=== PATIENT | female | born 1985 ===

== ENCOUNTER 2024-05-02 00:50 | Emergency (ER) | payer SELFPAY ==
--- NOTE | ~2024-05-02 | CT_ITS ---
EXAMINATION: CT abdomen pelvis wo con DATE: 05/02/2024 03:06 INDICATION: Left lower quadrant abdominal pain. TECHNIQUE: Computed tomography (CT) of the abdomen and pelvis was performed without intravenous contr ast. Automated exposure control and iterative reconstruction technique were employed. The dose-length product was 784.20 mGy-cm. COMPARISON: None FINDINGS: Lung bases are clear. Heart size is normal. No pericardial or pleural effusion. Cholecystectomy clips the gallbladder fossa. Liver, spleen, pancreas and bilateral adrenal glands are normal. 4 mm obstruc ting stone at the left ureterovesicular junction with mild left hydroureteronephrosis. Right kidney i s normal. No other urolithiasis or right-sided hydronephrosis. Bladder is normal. Likely bilateral tu bal ligation rings between the normal uterus and normal bilateral ovaries. Bowels including the appen rita are normal. No free intraperitoneal gas or fluid. No pathologically enlarged abdominal or pelvic lymphadenopathy. Mild thoracic and lumbar spondylosis. IMPRESSION: 1. Obstructing 4 mm stone at the left ureterovesicular junction with mild left hydroureteronephrosis. Reviewed, dictated and finalized at location A. T HARVEST WORKER
[2024-05-02 01:10] VITALS: BP 141/82; PULSE 113; RESP 20; TEMP 37.1; O2SAT 98
[2024-05-02 01:35] LABS: BEDSIDEPREGUCG Negative (Negative)
[2024-05-02 01:42] LABS: Add Urine Microscopic? NO; Appearance Urine Clear (Clear); Bilirubin Urine Negative (Negative); Blood Urine Negative (Negative); Color Urine Yellow (Yellow); Glucose Urine UA Negative (Negative); Ketones Urine Trace mg/dL (Negative); Leukocyte Esterase Ur Negative LEU/UL (Negative); Nitrate Urine Negative (Negative); Protein Urine Negative (Negative); Specific Grav Ur 1.019 (1.001-1.035); Urobilinogen Urine 0.2 mg/dL (<2.0); pH Urine 5.5 (5.0-9.0)
[2024-05-02 01:44] LABS: Basophils Percent Auto 0.4 % (0.2-1.2); Eosinophils Absolute Auto 0.3 K/mm3 (0-0.3); Eosinophils Percent Auto 2.6 % (0-4.4); Hematocrit 40.5 % (37.0-47.0); Hemoglobin 13.8 g/dL (12.0-15.0); Immature Granulocyte Absolute 0.02 K/mm3 (0.00-0.031); Immature Granulocyte Percent A 0.2 % (0-0.5); Lymphocytes Absolute Auto 3.27 K/mm3 (0.9-3.2); Lymphocytes Percent Auto 32.7 % (18.3-44.2); Mean Corpuscular HGB Conc 34.1 g/dl (32-36); Mean Corpuscular Hemoglobin 30.9 pg (26-34); Mean Corpuscular Volume 90.8 fl (80-100); Mean Platelet Volume 11.5 fl (7.4-10.4); Monocytes Absolute Auto 0.8 K/mm3 (0.1-0.6); Monocytes Percent Auto 7.5 % (2.6-8.5); Neutrophils Absolute Auto 5.7 K/mm3 (1.3-6.7); Neutrophils Percent Auto 56.6 % (45.5-73.1); Platelet Count Result 282 k/mm3 (150-375); Red Blood Count 4.46 M/mm3 (4.2-5.4); Red Cell Distribution Width 12.3 % (11.5-14.5)
[2024-05-02 01:51] LABS: Alanine Aminotransferase 24 U/L (6-35); Albumin Level 4.5 g/dL (3.5-5.1); Alkaline Phosphatase 77 U/L (38-126); Anion Gap 4 mmol/L (4-12); Aspartate Amino Transferase 22 U/L (14-36); Bilirubin,Total 0.5 mg/dL (0.2-1.3); Blood Urea Nitrogen 9 mg/dL (7-17); Calcium 9.6 mg/dL (8.4-10.2); Carbon Dioxide 29 mmol/L (22-30); Chloride 107 mmol/L (98-107); Estimated CRCL calculation 95 ml/min; Estimated Glomerular Filt Rate > 60; Glucose 110 mg/dL (65-110); Lipase 127 U/L (23-300); Sodium 140 mmol/L (137-145)
[2024-05-02] MEDS: HYDROmorphone HCL INJ (*CRX) 1 MG/ML SYR 0.5 MG IV PUSH (03:13)
[2024-05-02] MEDS: ONDANSETRON INJ 4 MG/2 ML VIAL IV PUSH (03:13)
[2024-05-02] MEDS: SODIUM CHLORIDE 0.9% IV 2,000 ML 999 ML IV CONT (03:13)
[2024-05-02] MEDS: HYDROmorphone HCL INJ (*CRX) 1 MG/ML SYR IV PUSH (06:20)
--- NOTE | 2024-05-02 06:21 | ED_ITS ---
HPI - General Adult General Chief complaint: Abdominal Pain Stated complaint: LLQ abd pain Time Seen by Provider: 05/02/24 01:28 History of Present Illness HPI narrative: This is a 38-year-old female with history of kidney stones presenting ED with left-sided abdominal pain. The pain is sharp pain radiating down to her vaginal area. It is intermittent. Says this feels similar when she has had kidney stones in the past. Patient feels like she has to urinate but has difficulty initiating his stream. She has no pain on urination or increased frequency. Related Data Allergies Allergy/AdvReac Type Severity Reaction Status Date / Time No Known Allergies Allergy Verified 05/02/24 00:50 [facility] Surgical History Surgical History History of biliary duct stent placement and migratory stent placement in the pancreatic duct 02/12/2022 History of cholecystectomy Laparoscopic cholecystectomy 02/05/2022 History of extraction of renal calculus Extraction of 8 ureteral stones, left stent placement 10/2021 History of removal of ureteral stent 09/2021 History of D&C 2013 History of cardiac radiofrequency ablation 1997 Family History Family History Father Diabetes mellitus Malignant neoplasm of prostate Throat cancer Mother Breast cancer Grandparent Bile duct cancer Grandparent Stomach cancer Grandparent Leukemia Grandparent Stomach cancer Social History Social History Smoking status: Former smoker Additional smoking assessment comments: Had smoked 1-3 cigarettes per day for 10 years Alcohol intake: former Alcohol use details: One drink rarely- perhaps one every 6 months Substance use: never Substance use type: does not use Do You Feel Safe in your Home?: Yes Lack of Transportation: No Lack of Food: Never True Current Housing: I Have Housing Concerned About Future Housing: No Difficulty Paying Gas/Electric Bills: No Difficulty Paying for Meds: No Currently Unemployed: No Education: Bachelor's Degree Difficulty w/ Childcare or Family Care: No Living arrangements: with family Occupation/Education: occupation 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 Head: atraumatic. EYES: EOMI, NOSE: Atraumatic NECK: Trachea midline RESPIRATORY: No increased rate of breathing clear to auscultation CARDIOVASCULAR: RRR, ABDOMINAL: Non-distended soft nontender no guarding or rebound, no CVA tenderness MUSCULOSKELETAl: No obvious deformities NEURO: Alert. Moving 4/4 extremities SKIN:: Warm, dry. Normal color PSYCHIATRIC: Normal affect Course Vital Signs Vital signs: Vital Signs Temperature 98.7 F 05/02/24 01:10 Pulse Rate 113 H 05/02/24 01:10 Respiratory Rate 05/02/24 01:10 Blood Pressure 141/82 H 05/02/24 01:10 Pulse Oximetry 98 05/02/24 01:10 Oxygen Delivery Room Air 05/02/24 01:10 Temperature 98.7 F 05/02/24 01:10 Pulse Rate 113 H 05/02/24 01:10 Respiratory Rate 05/02/24 01:10 Blood Pressure 141/82 H 05/02/24 01:10 Pulse Oximetry 98 05/02/24 01:10 Oxygen Delivery Room Air 05/02/24 01:10 Medical Decision Making MDM Narrative Medical decision making narrative: -Course: 30-year-old female presenting with left-sided abdominal pain. Found to have a 4 mm stone at the UVJ. No evidence of infection. Pain controlled in the ED patient will be discharged with appropriate pain medications urology follow-up. Given return precautions -DDX includes but is not limited to: kidney stone, kidney infection muscle strain colitis, diverticulitis -Co-morbidities complicating care: History of kidney stones -Independent interpretation of studies: laboratory studies unremarkable. -Interventions: 2L normal saline, 0.5 mg -> 1.0 mg Dilaudid, zofran, Toradol -Shared decision making / Disposition: discharge Vital Signs Vital Signs: Vital Signs Temperature 98.7 F 05/02/24 01:10 Pulse Rate 113 H 05/02/24 01:10 Respiratory Rate 05/02/24 01:10 Blood Pressure 141/82 H 05/02/24 01:10 Pulse Oximetry 98 05/02/24 01:10 Oxygen Delivery Room Air 05/02/24 01:10 Temperature 98.7 F 05/02/24 01:10 Pulse Rate 113 H 05/02/24 01:10 Respiratory Rate 20 05/02/24 01:10 Blood Pressure 141/82 H 05/02/24 01:10 Pulse Oximetry 98 05/02/24 01:10 Oxygen Delivery Room Air 05/02/24 01:10 Lab Data 05/02/24 01:33 05/02/24 01:33 Labs: Lab Results 05/02/24 05/02/24 Range/Units 01:32 01:33 WBC 10.0 (4.5-10.0) K/mm3 RBC 4.46 (4.2-5.4) M/mm3 Hgb 13.8 (12.0-15.0) g/dL Hct 40.5 (37.0-47.0) % MCV 90.8 (80-100) fl MCH 30.9 (26-34) pg MCHC 34.1 (32-36) g/dl RDW 12.3 (11.5-14.5) % Plt Count 282 (150-375) k/mm3 MPV 11.5 H (7.4-10.4) fl Immature Gran % (Auto) 0.2 (0-0.5) % Neut % (Auto) 56.6 (45.5-73.1) % Lymph % (Auto) 32.7 (18.3-44.2) % [place]aufman % (Auto) 7.5 (2.6-8.5) % Eos % (Auto) 2.6 (0-4.4) % Baso % (Auto) 0.4 (0.2-1.2) % Lymph # (Auto) 3.27 H (0.9-3.2) K/mm3 Kaufman # (Auto) 0.8 H (0.1-0.6) K/mm3 Eos # (Auto) 0.3 (0-0.3) K/mm3 Baso # (Auto) 0.0 (0.0-0.1) K/mm3 Abs Immat Gran (auto) 0.02 (0.00-0.031) K/mm3 Absolute Neuts (auto) 5.7 (1.3-6.7) K/mm3 Absolute Nucleated RBC 0.000 (0.0-0.012) K/mm3 Nucleated RBC % 0.0 (0.0-0.2) % Sodium 140 (137-145) mmol/L Potassium 4.0 (3.4-5.0) mmol/L Chloride 107 (98-107) mmol/L Carbon Dioxide 29 (22-30) mmol/L Anion Gap 4 (4-12) mmol/L BUN 9 (7-17) mg/dL Creatinine 0.80 (0.7-1.0) mg/dL Estim Creat Clear Calc 95 ml/min Estimated GFR > 60 (59 - ) Glucose 110 (65-110) mg/dL Calcium 9.6 (8.4-10.2) mg/dL Total Bilirubin 0.5 (0.2-1.3) mg/dL AST 22 (14-36) U/L ALT 24 (6-35) U/L Alkaline Phosphatase 77 (38-126) U/L Total Protein 7.0 (6.3-8.2) g/dL Albumin 4.5 (3.5-5.1) g/dL Lipase 127 (23-300) U/L Urine Color Yellow (Yellow) Urine Appearance Clear (Clear) Urine pH 5.5 (5.0-9.0) Ur Specific [place] 1.019 (1.001-1.035) Urine Protein Negative (Negative) mg/dL Urine Glucose (UA) Negative (Negative) mg/dL Urine Ketones Trace H (Negative) mg/dL Ur Blood (Man) Negative (Negative) Urine Nitrate Negative (Negative) Urine Bilirubin Negative (Negative) Urine Urobilinogen 0.2 (<2.0) mg/dL Leukocyte Esterase Rfl Negative (Negative) ANKIT/UL POC Urine HCG, Qual Negative (Negative) Discharge Plan Discharge Clinical Impression: Kidney stone Patient Disposition: Home, Self-Care Condition: Stable Instructions: Antibiotic Form, Kidney Stones (ED) Additional Instructions: You were seen in the emergency department for a kidney stone. Please use Motrin/Tylenol for pain. Use oxycodone for breakthrough pain. Use Zofran for nausea. Please follow-up with your Urologist for further management. Please return if you develop severe pain, fevers or intractable nausea and vomiting. Patient Language: Greek Prescriptions: New ibuprofen 800 mg tablet 800 mg PO TID PRN (Reason: pain) 7 Days Qty: 21 0RF acetaminophen 500 mg tablet 1,000 mg PO TID PRN (Reason: edith) 7 Days Qty: 42 0RF tamsulosin [Flomax] 0.4 mg capsule 0.4 mg PO DAILY Qty: 30 0RF oxycodone 5 mg tablet 5 mg PO Q4H PRN (Reason: pain) Qty: 14 0RF ondansetron 4 mg tablet,disintegrating 4 mg PO Q8H PRN (Reason: nausea and vomiting) Qty: 30 0RF No Action diclofenac sodium 75 mg tablet,delayed release (DR/EC) 75 mg PO BID Qty: 30 0RF ferrous sulfate [Feosol] 325 mg (65 mg iron) tablet 325 mg PO DAILY Qty: 90 3RF Follow-up/Referrals: Carol Stafford MD [Physician] - 1 Week (Kidney stone) Thor Fajardo MD [Primary Care Provider] -
[2024-05-02 06:22] VITALS: BP 109/73; PULSE 71; RESP 18; O2SAT 98
[2024-05-02] MEDS: KETOROLAC 15 MG/ML VIAL (*BKC) IV PUSH (07:22)
[2024-05-02 07:35] VITALS: BP 102/62; PULSE 64; RESP 18; O2SAT 100
--- OUTSIDE RECORDS SUMMARY | 2024-05-09 00:49 | XMS_ITS | Encounter Summary ---
Author Organization [facility] Healthcare Address [address] [place] [address] Care Team Providers Care Payroll Analyst Name Role Phone Thor Fajardo MD Primary Care Provider [phone] Sebastian Soto MD Unavailable [phone] Ena Rose MD Unavailable [phone] Reason for Referral * Diagnostic Imaging (Routine) - Closed Specialty Diagnoses / Procedures Referred By Joselin drummond Referred To Contact Diagnoses BRCA2 gene mutation positive Procedures Diagnostic Mammogram Bilateral W Ena Quan MD [address] [address] Phone: tel: fax: [facility] [address] [place] [address] Referral ID Status Reason Start Date Expiration Date Visits Re quested Visits Authorized [id number] Closed 08/17/2022 09/16/2023 1 1 CARDIOGRAPH TECHNICIAN Reason for Visit * Diagnostic Imaging (Routine) - Closed Specialty Diagnoses / Procedures Referred By Joselin drummond Referred To Contact Diagnoses BRCA2 gene mutation positive Procedures Diagnostic Mammogram Bilateral W Ena Quan MD [address] [address] Phone: tel: fax: [facility] [address] [place] [address] Referral ID Status Reason Start Date Expiration Date Visits Re quested Visits Authorized [id number] Closed 08/17/2022 09/16/2023 1 1 Encounter Details Date Type Department Care Team (Latest Contact Info) Description 06/20/2023 9:42 AM ECHOCARDIOGRAPH TECHNICIAN - 06/20/2023 11:59 PM ECHOCARDIOGRAPH TECHNICIAN Hospital Encounter [facility] - Imaging [address] [facility] [facility] [address] [place] [address] BRCA2 gene mutation positive Discharge Disposition: Discharge to home or self care Social History Tobacco Use Types Packs/Day Years Used Date Smoking Tobacco: Former Cigarettes 0.1 10 0 10/07/2009 - 10/08/2019 Smokeless Tobacco: Never Social Connection and Isolat ion Panel [NHANES] Answer Date Recorded In a typical week, how many times do you talk on the phone with family, friends, or neighbors? More than three times a week 02/12/2022 How often do you get togethe r with friends or relatives? Twice a week 02/12/2022 How often do you attend chur ch or church services? Never 02/12/2022 Do you belong to any clubs o r organizations such as mormonism groups, unions, fraternal or athletic groups, or school groups? No 02/12/2022 How often do you attend meet ings of the clubs or organizations you belong to? Never 02/12/2022 Are you , , di vorced, , never , or living with a partner? 02/12/2022 AUDIT-C Answer Date Recorded Q1: How often do you have a drink containing alc ohol? 2-4 times a month 10/11/2022 Q2: How many drinks containi ng alcohol do you have on a typical day when you are drinking? 1 or 2 10/11/2022 Q3: How often do you have si x or more drinks on one occasion? Never 10/11/2022 Overall Financial Resource Strain (CARDIA) Answe r Date Recorded How hard is it for you to pa y for the very basics like food, housing, medical care, and heating? Not hard at all 02/12/2022 PRAPARE - Transportation Answer Date Re corded In the past 12 months, has l ack of transportation kept you from medical appointments or from getting medications? No 01/30 In the past 12 months, has l ack of transportation kept you from meetings, work, or from getting things needed for daily living? No 02/12/2022 Comments No Sex and Gender Information Value Date Recorded Sex Assigned at Not on file Legal Sex Female 9:50 PM ECHOCARDIOGRAPH TECHNICIAN Gender Identity Not on file Sexual Orientation Not on file documented as of this encounter Medications at Time of Discharge FeroSuL 325 mg (65 mg iron) tablet Take 1 tablet (325 mg total) by mouth daily 04/27/2022 tretinoin (RETIN-A) 0.025 % cream 08/11/2022 documented as of this encounter Discharge Disposition Disposition Code Departure Means Destination Discharge to home or self care documented in this encounter Miscellaneous Notes * Result Encounter Note - Mónica Cao NP - 06/20/2023 12:12 PM ECHOCARDIOGRAPH TECHNICIAN Patient aware of results. Please enter recall for August 2023 - clinical breast exam. BRCA 2 pos CARDIOGRAPH TECHNICIAN documented in this encounter Plan of Treatment Not on file documented as of this encounter Procedures Procedure Name Priority Date/Time Associated Diagnosis Comments DIAGNOSTIC MAMMOGRAM BILATERAL W AINBAL Schedule Routine, Read Routine (OP Routine) 06/20/2023 10:27 AM ECHOCARDIOGRAPH TECHNICIAN BRCA2 gene mutation positive documented in this encounter Results * Diagnostic Mammogram Bilateral W Anibal (06/20/2023 10:27 AM ECHOCARDIOGRAPH TECHNICIAN) Anatomical Region Laterality Modality Breast Bilateral Mammography 06/20/2023 10:3 6 AM ECHOCARDIOGRAPH TECHNICIAN Impressions 06/20/2023 10:36 AM ECHOCARDIOGRAPH TECHNICIAN No mammographic evidence of malignancy. BI-RADS Category 2: Benign Findings Advise continued high-risk screening protocol with breast MRI due in 6 months and bilateral mammogram in 12 months. Findings and recommendations were communicated to the patient. Electronically signed by: Nannette Foreman MD Narrative 06/20/2023 10:36 AM ECHOCARDIOGRAPH TECHNICIAN EXAMINATION/TECHNIQUE: Bilateral Digital diagnostic mammogram including CAD and Digital Breast Tomosynthesis. HISTORY: BRCA2 gene mutation. ??History of benign fibroadenoma left breast 12:00 radian June 2022. COMPARISON: 06/24/2022, 07/01/2022 FINDINGS: ??The breasts are extremely dense, which lowers the sensitivity of mammography. There are no suspicious masses, suspicious microcalcifications, or areas of architectural distortion in either breast. ??There is a butterfly-shaped core biopsy marker in the left upper central breast middle 3rd. us Ena Rose MD IMG MAMMO PROCEDURES Final Result documented in this encounter Visit Diagnoses Diagnosis BRCA2 gene mutation positive documented in this encounter Care Teams Payroll Analyst Relationship Specialty Start Date End Date Thor Fajardo MD [address] [place] [address] PCP - General Family Medicine 12/30/20 Sebastian Soto MD [address] [facility] [address] [place] [address] Consulting Physician Gastroenterology 02/14/22 Ena Rose MD [address] [facility] [address] [place] [address] Consulting Physician Surgical Oncology 08/11/22 documented as of this encounter
--- OUTSIDE RECORDS SUMMARY | 2024-05-09 00:49 | XMS_ITS | Encounter Summary ---
Author Organization [facility] Address [address] [place] [address] Care Team Providers Care Infection Control Nurse Name Role Phone Thor Fajardo MD Primary Care Provider [phone] Sebastian Soto MD Unavailable Ena Rose MD Unavailable Tutu Hermosillo MD Unavailable [phone] Reason for Visit * Reason Onset Date Comments Vomiting 06/20/2023 Responded to an emergency light. Patient was feeling like she was going to faint. Was very pale and diaphoretic. BP was 94/41 at 1015. 101/39 at 1022. Responded well to a cold ice compress and cold washrag to forehead.. Gave patient a soda and had her wait in the nursing bay until feeling better. Upon discharge, BP was 106/53 and gait was steady. Encounter Details Date Type Department Care Team (Late st Contact Info) Description 06/20/2023 Documentation [facility] - Imaging [address] [facility] [address] [place] [address] Clarisse Martinez RN Vomiting (Responded to an emergency light. Patient was feeling like she was going to faint. Was very pale and diaphoretic. BP was 94/41 at 1015. 101/39 at 1022. Responded well to a cold ice compress and cold washrag to forehead.. Gave patient a soda and had her wait in the nursing bay until feeling better. Upon discharge, BP was 106/53 and gait was steady. ) Social History Tobacco Use Types Packs/Day Years [...] 02/12/2022 How often do you attend chur or baptism services? Never 02/12/2022 Do you belong to any clubs o r organizations such as hindu groups, unions, fraternal or athletic groups, or [...] on file Legal Sex Female 9:50 PM BREAKFAST ATTENDANT Gender Identity Not on file Sexual Orientation Not on file documented as of this encounter Plan of Treatment Not on file documented as of this encounter Visit Diagnoses Not on filedocumented in this encounter Care Teams Infection Control Nurse Relationship Specialty Start Date End Date Thor Fajardo MD [address] [place] [address] PCP - General Family Medicine 12/30/20 Sebastian Soto MD [address] [place] [address] Consulting Physician Gastroenterology 02/14/22 Ena Rose MD [address] [facility] [address] [place] [address] Consulting Physician Surgical Oncology 08/11/22 Tutu Hermosillo MD [address] [facility] [address] [place] [address] Consulting Physician Plastic Surgery 12/29/23 documented as of this encounter
--- OUTSIDE RECORDS SUMMARY | 2024-05-09 00:49 | XMS_ITS | Encounter Summary ---
Author Organization [facility] Healthcare Address [address] [place] [address] Care Team Providers Care Home Companion Name Role Phone Thor Fajardo MD Primary Care Provider [phone] Sebastian Soto MD Unavailable Ena Rose MD Unavailable Tutu Hermosillo MD Unavailable [phone] Encounter Details Date Type Department Care Team (Late st Contact Info) Description 02/14/2024 Telephone [facility] [address] [facility] [address] [place] [address] Elena Chavez, RN Social History Tobacco Use Types Packs/Day Years [...] often do you attend chur ch or judaism services? Never 02/12/2022 Do you belong to any clubs o r organizations such as spiritism groups, unions, fraternal or athletic groups, or [...] on file Legal Sex Female 9:50 PM MEDICAL EDUCATOR Gender Identity Not on file Sexual Orientation Not on file documented as of this encounter Miscellaneous Notes * Telephone Encounter - Elena Chavez RN - 02/14/2024 9:15 AM CDT LM for pt wiith results of MRI and need for sono on new finding RT breast SA. She should expect call from [facility] nurse to schedule the sono. * Telephone Encounter - Elena Chavez RN - 02/14/2024 9:12 AM CDT ----- Message from Natalia Cat sent at 02/14/2024 8:17 AM CDT ----- Do you mind calling her since she now has a new mass on her right needing a biopsy? Di ----- Message ----- From: Mónica Cao NP Sent: 02/13/2024 4:13 PM CDT To: Yasmeen Quinn; Natalia Lujan MA; # Please call patients with results and update tracking. Needs MRI 2nd look sonogram on the right side. Please enter orders for Right 2nd look sono documented in this encounter Plan of Treatment Not on file documented as of this encounter Visit Diagnoses Not on filedocumented in this encounter Care Teams Home Companion Relationship Specialty Start Date End Date Thor Fajardo MD [address] [place] [address] PCP - General Family Medicine 12/30/20 Sebastian Soto MD [address] [place] [address] Consulting Physician Gastroenterology 02/14/22 Ena Rose MD [address] [place] [address] Consulting Physician Surgical Oncology 08/11/22 Tutu Hermosillo MD [address] [facility] [address] [place] [address] Consulting Physician Plastic Surgery 12/29/23 documented as of this encounter
--- OUTSIDE RECORDS SUMMARY | 2024-05-09 00:49 | XMS_ITS | Encounter Summary ---
Author Organization [facility] Healthcare Address [address] [place] [address] Care Team Providers Care Leadership Program Associate Name Role Phone Thor Fajardo MD Primary Care Provider [phone] Sebastian Soto MD Unavailable [phone] Ena Rose MD Unavailable [phone] Tutu Hermosillo MD Unavailable [phone] Reason for Referral * MRI/CAT/PET Scan (Routine) - Closed Specialty Diagnoses / Procedures Referred By Joselin drummond Referred To Contact Radiology Diagnoses BRCA2 gene mutation positive Procedures MRI Breast Bilateral W WO Contrast Mónica Cao NP [address] [address] Phone: tel: fax: [id number] [place] [address] Referral ID Status Reason Start Date Expiration Date Visits Re quested Visits Authorized [id number] Closed 01/03/2024 02/01/2025 1 1 Encounter Details Date Type Department Care Team (Late st Contact Info) Description 01/03/2024 Orders Only [facility] [address] [facility] [address] [address] Mónica Cao NP [address] [facility] [address] [place] [address] BRCA2 gene mutation positive (Primary Dx) Social History Tobacco Use Types Packs/Day Years [...] How often do you attend chur or scientologist services? Never 02/12/2022 Do you belong to any clubs o r organizations such as restorationist groups, unions, fraternal or athletic groups, or [...] on file Legal Sex Female 9:50 PM SUPERVISOR TRAVEL TRAILER Gender Identity Not on file Sexual Orientation Not on file documented as of this encounter Plan of Treatment Not on file documented as of this encounter Results * (ABNORMAL) MRI Breast Bilateral W WO Contrast (02/13/2024 12:01 PM CDT) Anatomical Region Laterality Modality Breast Bilateral Magnetic Resonan ce 02/13/2024 2:00 PM CDT Impressions 02/13/2024 2:00 PM CDT No suspicious findings left breast. ??New 7 mm mass in the 10:00 subareolar right breast. ??MRI directed targeted/Second Look ultrasound is recommended. ??If there is no sonographic correlate, MRI guided biopsy should be pursued. OVERALL FINAL ASSESSMENT: BI-RADS ??Category 4: Suspicious-biopsy should be considered Electronically signed by: Charity Oneil M.D. Narrative 02/13/2024 2:00 PM CDT BILATERAL BREAST MRI WITH AND WITHOUT CONTRAST CLINICAL HISTORY: 38-year-old woman with BRCA 2 gene mutation for MRI screening examination. ??History of core needle biopsy of benign fibroadenoma in the left breast at 12:00. COMPARISON:MRI of 12/20/2022. ??Prior mammograms most recent June 2023. TECHNIQUE: Bilateral dynamic breast MRI was performed using a dedicated breast coil. ??Images were obtained prior to and following intravenous administration of 18 mL's of gadoterate meglumine contrast. ??Subtraction images, 3-D and multiplanar reconstructions were performed and reviewed. Nfoshare software was utilized. BREAST COMPOSITION: The breasts are extremely dense, which lowers the sensitivity of mammography. BACKGROUND PARENCHYMAL ENHANCEMENT: Moderate FINDINGS: There is moderate background parenchymal enhancement decreased from the prior examination. Right breast: There is a stable circumscribed nodule in the anterior upper outer right breast. ??There is a new 7 mm mass in the 10:00 subareolar position. ??This is best demonstrated on series 100 image 44 and series 101 image 130. Left breast: There are no suspicious findings to suggest malignancy in the left breast. There are no abnormally enlarged lymph nodes in the visualized portions of the right or left axilla. ??There is a stable incidental 6 mm left internal mammary lymph node. Mónica Bea Kiley MOBILE APPLICATION DEVELOPMENT LEAD IMG MRI PROCEDURES Fi nal Result documented in this encounter Visit Diagnoses Diagnosis BRCA2 gene mutation positive- Primary BRCA2 gene mutation positive documented in this encounter Care Teams Leadership Program Associate Relationship Specialty Start Date End Date Thor Fajardo MD [address] [place] [address] PCP - General Family Medicine 12/30/20 Sebastian Soto MD [address] [facility] [address] [place] [address] Consulting Physician Gastroenterology 02/14/22 Ena Rose MD [address] [facility] [address] [place] [address] Consulting Physician Surgical Oncology 08/11/22 Tutu Hermosillo MD [address] [facility] [facility] [address] [place] [address] Consulting Physician Plastic Surgery 12/29/23 documented as of this encounter
--- OUTSIDE RECORDS SUMMARY | 2024-05-09 00:49 | XMS_ITS | Encounter Summary ---
Author Organization [facility] Address [address] [place] [address] Phone Care Team Providers Care Acquisition Editor Name Role Phone Thor Fajardo MD Primary Care Provider [phone] Sebastian Soto MD Unavailable Ena Rose MD Unavailable Tutu Hermosillo MD Unavailable [phone] Encounter Details Date Type Department Care Team (Late st Contact Info) Description 03/09/2024 Orders Only [facility] [place], [place] Charity Oneil MD [address] [place] [address] Social History Tobacco Use Types Packs/Day Years [...] How often do you attend chur or samaritan services? Never 02/12/2022 Do you belong to any clubs o r organizations such as restoration groups, unions, fraternal or athletic groups, or [...] on file Legal Sex Female 9:50 PM WEB UI DEVELOPER Gender Identity Not on file Sexual Orientation Not on file documented as of this encounter Miscellaneous Notes * Result Encounter Note - Mónica Cao NP - 03/13/2024 10:36 AM WEB UI DEVELOPER Per nurses in breast center patient is aware. Imaging findings and benign pathology findings are concordant. No further follow-up of this finding is required. Recommend annual screening mammography in June 2024 and MRI in one year. Reviewed benign breast biopsy results with pt. Return in June 2024 for screening and follow up MRI in a year. Continue monthly self exams and call with any problems. UI DEVELOPER documented in this encounter Plan of Treatment Not on file documented as of this encounter Procedures Procedure Name Priority Date/Time Associated Diagnosis Comments SURGICAL PATHOLOGY Routine 03/09/2024 1: 37 PM WEB UI DEVELOPER documented in this encounter Results * Surgical pathology (03/09/2024 1:37 PM WEB UI DEVELOPER) Breast biopsy, needle core 03/09/2024 1:37 PM WEB UI DEVELOPER 03/09/2024 3:20 PM WEB UI DEVELOPER Narrative 03/12/2024 11:22 AM WEB UI DEVELOPER [address] ??[address] Tele: ?? Yasmeen Duran MD - Handhole Machine Operator Note to Patients: This report may contain a detailed description of human tissue sent by a health care provider to the laboratory for pathologic evaluation. The content of this report is essential for diagnosis and may provide important critical findings. This information may be unfamiliar to patients to review without a medical professional present. It is advised that the patient review this report in the presence of a health care provider who can answer questions and explain the details. SURGICAL PATHOLOGY REPORT Patient Name: ??DELMER CONTRERASMayte Address: ??[address] [place] [address] ??[id number] Gender: ??F : ??1985 (Age: 38) Service: ?? Location: ??, ?? Hospital #: ??[id number] Patient Type: ??[facility] Accession #: ? [id number] Taken: ? 03/09/2024 Received ? 03/09/2024 Reported: ? 03/12/2024 Physician(s): ? Charity Oneil M.D. Ena Rose M.D. Thor Fajardo M.D. DIAGNOSIS: Breast, right, 10 o'clock, biopsy: ? 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 - Fibrosis, microcystic change, and focal usual ductal hyperplasia without atypia ? - Negative for atypical or malignant features 03/12/2024 11:22 Examining Pathologist: Al Adams M.D. Report Reviewed and Electronically Signed By ??Al Adams M.D. SPECIMEN TYPE: A: RIGHT BREAST 10:00 SA MASS CLINICAL IMPRESSION AND HISTORY: Abnormal MRI breast GROSS DESCRIPTION: Received in formalin labeled with DELMER CONTRERAS and right breast 10 o'clock are multiple yellow-juarez cores of fibroadipose tissue ranging from 0.2 cm to 3.1 cm. ??The ??specimen is inked, placed in filter paper. The specimen was collected 1:37 PM placed in fixative at 1:44 PM on 03/09/24. ??Following standard processing protocols, this specimen will be fixed for no less than 6 hours and no greater than 72 hours. ??Exceptions to this protocol will be noted in the final report. The specimen is entirely submitted in cassettes labeled A1-A4. ?? [facility] MICROSCOPIC DESCRIPTION: Sections of the right breast 10 o'clock are multiple strands of breast tissue with nodular areas of dense fibrosis with some associated dilated ducts, adenosis, and microcystic change. ??Some dilated ducts contain surrounding chronic inflammatory cells and histiocytes with reactive epithelial change in the ducts. ??Focal neutrophilic infiltration of ductal epithelium seen in the dilated ducts. ??Focal usual ductal hyperplasia is noted. ??No papillomas, atypical or malignant features are evident. Clerical Data Follows A; [id number] REPORT IMAGES AND/OR SCANNED DOCUMENTS ONLY VIEWABLE IN PDF FORMAT The immunohistochemical test(s) cited in this report, if any, was developed and its performance characteristics determined by [facility] Pathology Department. ??It has not been cleared or approved by the U.S. Food and Drug Administration. ??The FDA has determined that such clearance or approval is not necessary. ??This test is used for clinical purposes. ??It should not be regarded as investigational or for research. ??[facility] Laboratory is certified under the Clinical Laboratory Improvement Amendments of 1988 (CLIA) as qualified to perform high complexity testing. ??Immunostains were performed on formalin-fixed paraffin embedded tissue using a polymer diaminobenzidine chromogen detection system. Antibodies used may include clone SP1 (rabbit monoclonal, estrogen receptor), clone 1E2 (rabbit monoclonal progesterone receptor), Ki-67 (rabbit monoclonal, 30-9), CD117 (rabbit polyclonal, c-kit), and anti-Her-2/monica (4B5) (rabbit monoclonal primary antibody). ??In the event that immunohistochemistry or special stains have been performed, attending physician has confirmed appropriateness of controls. ??Frozen section, operating room consultation, gross examination and dissection, and case sign out may have been performed in part or completely in the following laboratories: [facility], [address] [facility], [place] [address] [facility], [address] [place] [address]. us Charity Oneil MD LAB PATHOLOGY ORDERABLES F inal Result documented in this encounter Visit Diagnoses Not on filedocumented in this encounter Care Teams Acquisition Editor Relationship Specialty Start Date End Date Thor Fajardo MD [address] [place] [address] PCP - General Family Medicine 12/30/20 Sebastian Soto MD [address] [facility] [address] [place] [address] Consulting Physician Gastroenterology 02/14/22 Ena Rose MD [address] [facility] [address] [place] [address] Consulting Physician Surgical Oncology 08/11/22 Tutu Hermosillo MD [address] [facility] [facility] [address] [place] [address] Consulting Physician Plastic Surgery 12/29/23 documented as of this encounter
--- OUTSIDE RECORDS SUMMARY | 2024-05-09 00:49 | XMS_ITS | Encounter Summary ---
Author Organization [facility] Healthcare Address [address] [place] [address] Care Team Providers Care Manager Of Regulatory Affairs Name Role Phone Thor Fajardo MD Primary Care Provider [phone] Sebastian Soto MD Unavailable Ena Rose MD Unavailable [phone] Encounter Details Date Type Department Care Team (Late st Contact Info) Description 12/27/2023 Telephone [facility] [address] [facility] [address] [place] [address] Ena Rose MD [address] [facility] [address], [place] [address] Social History Tobacco Use Types Packs/Day Years [...] How often do you attend chur or rastafarian services? Never 02/12/2022 Do you belong to any clubs o r organizations such as methodist groups, unions, fraternal or athletic groups, or [...] on file Legal Sex Female 9:50 PM AGENCY MANAGER Gender Identity Not on file Sexual Orientation Not on file documented as of this encounter Miscellaneous Notes * Telephone Encounter - Natalia Lujan MA - 12/28/2023 1:46 PM CDT Forwarded to Mary Alice for scheduling. DH * Telephone Encounter - Mary Alice Rodriguez - 12/27/2023 1:50 PM CDT Patient called in today in regards to scheduling a MRI. Would patient need an office visit before imaging is scheduled? Last seen 07/2022. documented in this encounter Plan of Treatment Not on file documented as of this encounter Visit Diagnoses Not on filedocumented in this encounter Care Teams Manager Of Regulatory Affairs Relationship Specialty Start Date End Date Thor Fajardo MD [address] [place] [address] PCP - General Family Medicine 12/30/20 Sebastian Soto MD [address] [facility] [address] [place] [address] Consulting Physician Gastroenterology 02/14/22 Ena Rose MD [address] [facility] [address] [place], [place] [id number] Consulting Physician Surgical Oncology 08/11/22 documented as of this encounter
--- OUTSIDE RECORDS SUMMARY | 2024-05-09 00:49 | XMS_ITS | Clinical Summary ---
Author Organization [facility] [address] Address [address] [place] [address] Care Team Providers Care Program Dir Name Role Phone Thor Fajardo MD Primary Care Provider [phone] Sebastian Soto MD Unavailable [phone] Ena Rose MD Unavailable [phone] Tutu Hermosillo MD Unavailable [phone] Allergies No known active allergies Medications FeroSuL 325 mg (65 mg iron) tablet Take 1 tablet (325 mg total) by mouth daily 04/27/2022 Active tretinoin (RETIN-A) 0.025 % cream 08/11/2022 Active ALPRAZolam (XANAX) 0.25 mg tabletIndicatio ns:anxiety Take 1 tablet (0.25 mg total) by mouth every 30 (thirty) minutes as needed for anxiety (Take 1 tab 30 min prior to procedure. May repeat 30 min later.) for up to 2 days Take 1 tab 30 min prior to procedure. May repeat 30 min later. 4 tablet 03/08/2024 Active Active Problems Problem Noted Date Diagnosed Date Family history of breast cancer 12/29/2023 Neurocardiogenic syncope 01/11/2023 Fibroadenoma of left breast 08/12/2022 BRCA2 gene mutation positive 08/11/2022 Overview (12/29/2023): [employer] 2023: BRCA2 c.4243G>T p.E1415* pathogenic variant consistent with hereditary breast and ovarian cancer. Please view note from 07/29/2022 for specific cancer screening recommendations. Based on Delmer's family history, expanded genetic testing was offered at the conclusion of their initial visit. The [employer] Comprehensive panel analyzed 81 genes associated with hereditary cancer. Breast Self-breast exams starting at 18 Clinical breast exams every 6-12 months starting at age 25 Breast MRI beginning at age 25 or based on family history Annual mammogram and breast MRI beginning at age 30 Consider risk reducing mastectomy Delmer should begin high-risk breast screening. Delmer could consider meeting with a surgeon to discuss options for risk-reducing mastectomy. Ovarian Removal of ovaries between 40-45 (BRCA2) or after having children, consider removing uterus during same procedure Delmer should consider removal of ovaries between age 40-45. Transvaginal ultrasounds and CA-125 could be consider prior to this time. Pancreatic Consider annual contrast MRI and/or endoscopic ultrasound beginning at age 50 or 10 years prior to earliest pancreatic cancer in the family Limitations to pancreatic cancer screening cost, benign findings, limited research on benefit Delmer's paternal aunt was BRCA2+ and had pancreatic cancer in her 60's. Delmer should begin pancreatic cancer screening at age 50. Melanoma Consider full body clinical skin exam and minimize sun exposure Delmer should consider regular full body clinical skin exams. Delmer's paternal aunt from melanoma. Bile leak from incision of common bile duct 01/30 Bile leak 02/10/2022 Overview (02/11/2022): Added automatically from request for surgery [id number] Encounters Date Type Department Care Team Description 03/13/2024 Orders Only [facility] [address] [facility] [address] [place] [address] Ena Rose MD BRCA2 gene mutation positive (Primary Dx) 03/12/2024 Telephone [facility] [address] [facility] [address] [place] [address] Lelia Mojica RN Test Results; Follow-Up Call 24-48 Hours 03/09/2024 2:00 PM GLUING PRESSMAN - 03/09/2024 11:59 PM GLUING PRESSMAN Hospital Encounter [facility] [address] [facility] [address] [place] [address] Abnormal MRI, breast Discharge Disposition: Discharge to home or self care 03/09/2024 11:09 AM GLUING PRESSMAN - 03/09/2024 11:59 PM GLUING PRESSMAN Hospital Encounter [facility] [address] [place] [address] Abnormal MRI, breast Discharge Disposition: Discharge to home or self care 03/09/2024 Orders Only [facility] [place], [place] Charity Oneil MD 03/08/2024 Telephone [facility] [address] [place] [address] [place] [address] Natalia Rodriguez MA Procedure question/concern 02/22/2024 Orders Only [facility] [address] [place] [address] [place] [address] Yasmeen Ly RN 02/22/2024 Orders Only [facility] [address] [place] [address] [place] [phone] Ena Rose MD 02/21/2024 2:55 PM CDT - 02/21/2024 11:59 PM CDT Hospital Encounter [facility] [address] [place] [address] [address] [place] [address] Abnormal MRI, breast Discharge Disposition: Discharge to home or self care 02/14/2024 Documentation [facility] Cancer Risk Program [address] [place] [address] [address] [place] [address] Adry Bae RN 02/14/2024 Telephone [facility] [address] [place] [address] [address], [place] [id number] [phone] Elena Chavez RN 02/13/2024 9:54 AM CDT - 02/13/2024 11:59 PM CDT Hospital Encounter [facility] at [address] [address] BRCA2 gene mutation positive Discharge Disposition: Discharge to home or self care from Last 3 Months Immunizations Name Administration Dates Next Due Influenza, Quadrivalent, Split, Intramuscular ,01/20/2019 Influenza, Quadrivalent, Spl it, Preservative Free, Intramuscular 02/14/2022,01/11/2017 Surgical History Surgery Date Site/Laterality Comments CARDIAC ELECTROPHYSIOLOGY STUDY AND ABLATION DILATION AND CURETTAGE OF UTERUS WISDOM TOOTH EXTRACTION IR CHOLANGIOGRAM THROUGH EXISTING CATHETER 02/12/2022 N/A BREAST BIOPSY 07/01/2022 Left BREAST BIOPSY 03/09/2024 Right Medical History Medical History Date Comments WPW (Rurvg-Vdlfuaqbi-Airrq syndrome) GERD (gastroesophageal reflux disease) Kidney stones Wears glasses Anxiety Family History Medical History Relation Name Comments Cancer Father Diabetes Father Prostate cancer Father BRCA 2 Father's Sister 1 Kathleen Cancer Father's Sister 1 Kathleen Pancreatic cancer Father's Sister 1 Kathleen Melanoma Father's Sister 2 Cheryl No Known Problems Half-Brother Cancer Maternal Grandfather Stomach cancer Maternal Grandfather Cancer Maternal Grandmother Breast cancer Mother Cancer Mother Stomach cancer Paternal Grandfather Leukemia Paternal Grandmother No Known Problems Sister Relation Name Status Comments Father Alive Father's Brother Alive Father's Sister 1 Kathleen Alive Father's Sister 2 Cheryl Half-Brother Alive Maternal Grandfather Maternal Grandmother Mother Alive Paternal Grandfather Paternal Grandmother Sister Alive Social History Tobacco Use Types Packs/Day Years Used Date Smoking Tobacco: Former Cigarettes 0.1 10 0 10/07/2009 - 10/08/2019 Smokeless Tobacco: Never Tobacco Cessation:Counseling Given: Not Answered Social Connection and Isolat ion Panel [NHANES] Answer Date Recorded In a typical week, how many times do you talk on the phone with family, friends, or neighbors? More than three times a week 02/12/2022 How often do you get togethe r with friends or relatives? Twice a week 02/12/2022 How often do you attend chur or congregational services? Never 02/12/2022 Do you belong to any clubs o r organizations such as moravian groups, unions, fraternal or athletic groups, or [...] on file Legal Sex Female 9:50 PM GLUING PRESSMAN Gender Identity Not on file Sexual Orientation Not on file Obstetrics History Last Filed Vital Signs Vital Sign Reading Time Taken Comments Blood Pressure 100/67 03/09/2024 2:16 PM GLUING PRESSMAN Pulse 100 03/09/2024 2:16 PM GLUING PRESSMAN Temperature 36.9 ??C (98.4 ??F) 01/03/2024 9:56 AM CD T Respiratory Rate 16 03/09/2024 2:16 PM GLUING PRESSMAN Oxygen Saturation 95% 01/11/2023 9:39 AM CDT Inhaled Oxygen Concentration - - Weight 86.2 kg (190 lb) 02/13/2024 9:59 AM CDT Height 170.2 cm (5' 7 ) 02/13/2024 9:59 AM CDT Body Mass Index 29.76 02/13/2024 9:59 AM CDT Plan of Treatment Health Maintenance Due Date Last Done Comments Cervical Cancer Screening 1985 Depression Screening 1985 Hepatitis C Screening 1985 DTaP/Tdap/Td Vaccine (1 - Tdap) 1996 Varicella Vaccines (1 of 2 - 13+ 2-dose series) 1998 Hepatitis B Screening 07/18/2003 Regular Well Visit/Exam 18-64 07/18/2003 Covid-19 Vaccine (3 - season) 2024 07/12/2020, 06/14/2020 Influenza Vaccine (#1) 2024 2, 02/02/2020, 01/20/2019, Additional history exists HPV Vaccines Aged Out No longer eligi ble based on patient's age to complete this topic Pneumococcal vaccine <65 Aged Out No longer eligible based on patient's age to complete this topic Medical Devices Implanted Type Area S Iron Worker Device Identifier Shelf Expiration Date Model / Serial / Lot [employer] Trimark Mri Guided Rigid Deployment Device Cork Marker Breast Tr[employer] Td 13-Mr - [id number] Implanted:Qty: 1 on 03/09/2024 at [facility] Clip [employer] [id number] 08/01/2025 TR[employer] TD 13-MR / / [id number] TIDAL [employer] Vazquez Flexi-Stent 4fr 9cm Small Pigtail Without Flange Flexible [id number] - [id number] Implanted:Qty: 1 on 02/11/2022 by Sebastian Soto MD at [facility] Stent N/A: Pancreas [employer] 11/29/2026 [id number] / / [id number] [employer] Cotton-Mims 10fr 7cm Taper Tip Guidewire Proximal Distal Flap [id number] - [id number] Implanted:Qty: 1 on 02/12/2022 by Sebastian Soto MD at [facility] Stent N/A: Bile Duct [employer] 08/03/2024 [id number] / / [id number] Procedures Procedure Name Priority Date/Time Associated Diagnosis Comments MAMM POST CLIP PLACEMENT RIGHT Schedule Routine, Read Routine (OP Routine) 03/09/2024 2:27 PM GLUING PRESSMAN Abnormal MRI, breast MRI GUIDED BREAST BIOPSY RIGHT Schedule Routine, Read Routine (OP Routine) 03/09/2024 2:01 PM GLUING PRESSMAN Abnormal MRI, breast SURGICAL PATHOLOGY Routine 03/09/2024 1:37 PM GLUING PRESSMAN US BREAST RIGHT LIMITED Schedule Routine, Read Routine (OP Routine) 02/21/2024 3:22 PM CDT Abnormal MRI, breast MRI BREAST BILATERAL W WO CONTRAST Routine 02/13/2024 12:01 PM CDT BRCA2 gene mutation positive from Last 3 Months Results * Mammo Post Clip Placement Right (03/09/2024 2:27 PM GLUING PRESSMAN) Anatomical Region Laterality Modality Breast Right Mammography 03/09/2024 2:47 PM GLUING PRESSMAN Addenda Addendum by Charity Oneil MD on 03/12/2024 2:32 PM GLUING PRESSMAN Pathology report for MRI guided biopsy describes ductal ectasia with mild acute and chronic inflammation and fibrosis. ??Fibrosis, microcystic change, and focal usual ductal hyperplasia without atypia. ??Negative for atypical or malignant features. Imaging findings and benign pathology findings are concordant. ??No further follow-up of this finding is required. Recommend annual screening mammography in June 2024 and MRI in one year. Biopsy results will be called to the office of the referring physician and to the patient by the nursing staff of the [facility]. Electronically signed by: Charity Oneil M.D. Impressions 03/09/2024 2:47 PM GLUING PRESSMAN Successful MRI guided biopsy of a mass in the subareolar right breast. ??Pathology report is pending. ASSESSMENT: Post-procedure mammogram for marker placement. Electronically signed by: Charity Oneil M.D. Narrative 03/09/2024 2:47 PM GLUING PRESSMAN MRI GUIDED CORE NEEDLE BIOPSY RIGHT BREAST, RIGHT POST PROCEDURE MAMMOGRAM CLINICAL HISTORY: ??38-year-old woman for core needle biopsy of a new 7 mm mass in the subareolar right breast approximately 10 o'clock position.. PROCEDURE: The risks, and potential complications of percutaneous biopsy, including bleeding and infection, were reviewed with the patient. ??Her written informed consent was obtained. A time-out procedure was performed. The patient was positioned in the breast biopsy coil and images were obtained prior to and following intravenous administration of 18 mL of meglumine gadoterate. The subareolar mass at 10:00 reproduced and was targeted for biopsy from a lateral approach. ?? The skin over the outer breast was prepped in usual sterile fashion. 1% lidocaine was used for subcutaneous anesthesia and 1% lidocaine with epinephrine was infiltrated in the expected biopsy site. A skin billy was made with a #11 blade. ??A 9-gauge [facility] vacuum-assisted biopsy needle was advanced to the mass and multiple tissue samples obtained. ??A biopsy marker was placed. ??Post biopsy scanning confirmed sampling in the area of interest. The excised tissue was placed in formalin and transported to pathology. Manual pressure was applied until hemostasis was obtained. ??The skin incision was closed with Steri-Strips. Postbiopsy mammography demonstrates postbiopsy changes in the subareolar breast breast, and that the biopsy site marker is in the expected location. Density: The breast are extremely dense, which lowers the sensitivity of mammography. An icepack was applied to the biopsy site. ??The patient was given written and verbal post-biopsy instructions. ??She tolerated the procedure well, and left the [facility] in good condition, without evidence of immediate complication. us Ena Rose MD IMG MAMMO PROCEDURES Edite d Result - Final * MRI Guided Breast Biopsy Right (03/09/2024 2:01 PM GLUING PRESSMAN) Anatomical Region Laterality Modality Breast Right Magnetic Resonan ce 03/09/2024 2:47 PM GLUING PRESSMAN Addenda Addendum by Charity Oneil MD on 03/12/2024 2:32 PM GLUING PRESSMAN Pathology report for MRI guided biopsy describes ductal ectasia with mild acute and chronic inflammation and fibrosis. ??Fibrosis, microcystic change, and focal usual ductal hyperplasia without atypia. ??Negative for atypical or malignant features. Imaging findings and benign pathology findings are concordant. ??No further follow-up of this finding is required. Recommend annual screening mammography in June 2024 and MRI in one year. Biopsy results will be called to the office of the referring physician and to the patient by the nursing staff of the [facility]. Electronically signed by: Charity Oneil M.D. Impressions 03/09/2024 2:47 PM GLUING PRESSMAN Successful MRI guided biopsy of a mass in the subareolar right breast. ??Pathology report is pending. ASSESSMENT: Post-procedure mammogram for marker placement. Electronically signed by: Charity Oneil M.D. Narrative 03/09/2024 2:47 PM GLUING PRESSMAN MRI GUIDED CORE NEEDLE BIOPSY RIGHT BREAST, RIGHT POST PROCEDURE MAMMOGRAM CLINICAL HISTORY: ??38-year-old woman for core needle biopsy of a new 7 mm mass in the subareolar right breast approximately 10 o'clock position.. PROCEDURE: The risks, and potential complications of percutaneous biopsy, including bleeding and infection, were reviewed with the patient. ??Her written informed consent was obtained. A time-out procedure was performed. The patient was positioned in the breast biopsy coil and images were obtained prior to and following intravenous administration of 18 mL of meglumine gadoterate. The subareolar mass at 10:00 reproduced and was targeted for biopsy from a lateral approach. ?? The skin over the outer breast was prepped in usual sterile fashion. 1% lidocaine was used for subcutaneous anesthesia and 1% lidocaine with epinephrine was infiltrated in the expected biopsy site. A skin billy was made with a #11 blade. ??A 9-gauge [facility] vacuum-assisted biopsy needle was advanced to the mass and multiple tissue samples obtained. ??A biopsy marker was placed. ??Post biopsy scanning confirmed sampling in the area of interest. The excised tissue was placed in formalin and transported to pathology. Manual pressure was applied until hemostasis was obtained. ??The skin incision was closed with Steri-Strips. Postbiopsy mammography demonstrates postbiopsy changes in the subareolar breast breast, and that the biopsy site marker is in the expected location. Density: The breast are extremely dense, which lowers the sensitivity of mammography. An icepack was applied to the biopsy site. ??The patient was given written and verbal post-biopsy instructions. ??She tolerated the procedure well, and left the [facility] in good condition, without evidence of immediate complication. Ena Rose MD [facility] MRI PROCEDURES Edited Result - Final * Surgical pathology (03/09/2024 1:37 PM GLUING PRESSMAN) Breast biopsy, needle core 03/09/2024 1:37 PM GLUING PRESSMAN 03/09/2024 3:20 PM GLUING PRESSMAN Narrative 03/12/2024 11:22 AM GLUING PRESSMAN [address] ??[address] Tele: ?? Yasmeen Duran MD - Registration Representative Note to Patients: This report may contain [...] the details. SURGICAL PATHOLOGY REPORT Patient Name: ??DIANENAVJOTDELMER ArmenMayte Address: ??[address] [place] [address] ??[id number] Gender: ??F : ??1985 (Age: 38) Service: ?? Location: ??, ?? Hospital #: ??[id number] Patient Type: ??[facility] Accession #: ? [id number] Taken: ? 03/09/2024 Received ? 03/09/2024 Reported: [...] entirely submitted in cassettes labeled A1-A4. ?? [facility] MICROSCOPIC DESCRIPTION: Sections of the right breast [...] features are evident. Clerical Data Follows A; [id number] REPORT IMAGES AND/OR SCANNED DOCUMENTS ONLY VIEWABLE IN PDF FORMAT The immunohistochemical test(s) cited in this report, if any, was developed and its performance characteristics determined by [facility] Pathology Department. ??It has not been cleared or approved by the U.S. Food and Drug Administration. ??The FDA has determined that such clearance or approval is not necessary. ??This test is used for clinical purposes. ??It should not be regarded as investigational or for research. ??[facility] is certified under the Clinical [...] part or completely in the following laboratories: [facility], [facility] [facility], [place] [address] [facility], [address] [place] [address]. Charity Oneil MD LAB PATHOLOGY ORDERABLES F inal Result * (ABNORMAL) US Breast Right Limited (02/21/2024 3:22 PM CDT) Anatomical Region Laterality Modality Breast Right Ultrasound 02/21/2024 3:29 PM CDT Impressions 02/21/2024 3:29 PM CDT Overall final assessment: BI-RADS Category 4: Suspicious No sonographic correlate for the area of enhancement right breast 10 o'clock SA. MRI guided biopsy is recommended. Electronically signed by: Aura Beaver M.D. Narrative 02/21/2024 3:29 PM CDT EXAM: ??Limited right breast ultrasound HISTORY: ??38-year-old woman with BRCA2 gene mutation. ??History of left fibroadenoma biopsy in the past. ??New area of 7 mm masslike enhancement in the 10:00 SA region right breast seen on recent bilateral breast MRI. ??Second Look ultrasound requested COMPARISON: ??Bilateral breast MRI 02/13/2024 FINDINGS: Sonography of the upper outer right breast in the SA depth shows normal fibroglandular breast elements. ??There is no suspicious cystic or solid mass. ??There is no retroareolar ductal dilatation. No sonographic correlate for the nodular enhancement on MRI is noted. MR guided breast biopsy is recommended for the 7 mm mass 10:00 SA seen on the previous MRI. These results were conveyed to the patient at the time of the study. Ena Rose MD IMG MAMMO PROCEDURES Final Result * (ABNORMAL) MRI Breast Bilateral W WO [...] and multiplanar reconstructions were performed and reviewed. [employer] software was utilized. BREAST COMPOSITION: The breasts [...] mm left internal mammary lymph node. Mónica Cao NP IMG MRI PROCEDURES Fi nal Result from Last [address] [address] [facility]PPO Address[address] [place] [address] [place] [facility]PPO Address: [address] [place] [address] [facility]/PPO Address: [address] [address] [place] [address] Advance Directives For more information, please contact: [phone] * Full Code (Latest Code Status on File) Date Activated Date Inactivated Comments 02/11/2022 3:22 PM 02/14/2022 4:17 PM Care Teams Program Dir Relationship Specialty Start Date End Date Thor Fajardo MD [address] [place] [address] [place] [address] PCP - General Family Medicine 12/30/20 Sebastian Soto MD [address] [place] [address] Consulting Physician Gastroenterology 02/14/22 Ena Rose MD [address] [place], [place] [id number] Consulting Physician Surgical Oncology 08/11/22 Tutu Hermosillo MD [address] [facility] [facility] [address] [place] [address] Consulting Physician Plastic Surgery 12/29/23
--- OUTSIDE RECORDS SUMMARY | 2024-05-09 00:49 | XMS_ITS | Encounter Summary ---
Author Organization [facility] Healthcare Address [address] [place] [address] Care Team Providers Care Legal Associate Name Role Phone Thor Fajardo MD Primary Care Provider [phone] Sebastian Soto MD Unavailable [phone] Ena Rose MD Unavailable [phone] Tutu Hermosillo MD Unavailable [phone] Reason for Referral * Consultation (Routine) - Pending Review Specialty Diagnoses / Procedures Referred By Joselin drummond Referred To Contact Plastic Surgery Diagnoses BRCA2 gene mutation positive Ena Rose MD [address] [facility] [address] [place] [address] Phone: tel: fax: [facility] (All Locations) Referral ID Status Reason Start Date Expiration Date Visits Requested Visits Authorized [id number] Pending Review Specialty Services Required 04/12/2025 12 12 Question Answer Please select the performing region: [facility] (All Locations) [167] # of visits: 12 Comments New CANCER DIAGNOSIS. Please schedule LILI with first available consult surgeon - Dr. Pereira, Dr. Hermosillo, Dr. Larry, Dr. Guzman. Needs surgery within 8 weeks of diagnosis. Thank you. RVISING LIBRARIAN Encounter Details Date Type Department Care Team (Late st Contact Info) Description 03/13/2024 Orders Only [facility] [address] [place] [address] Ena Rose MD [address] [place] [address] BRCA2 gene mutation positive (Primary Dx) Social [...] How often do you attend chur or religion services? Never 02/12/2022 Do you belong to any clubs o r organizations such as anglican groups, unions, fraternal or athletic groups, or [...] on file Legal Sex Female 9:50 PM SUPERVISING LIBRARIAN Gender Identity Not on file Sexual Orientation Not on file documented as of this encounter Plan of Treatment Scheduled Referrals Name Type Priority Associated Diagnoses Order Schedule Ambulatory referral to Plastic Surgery Outpatient Referral Routine BRCA2 gene mutation positive Expected: 03/13/2024 (Approximate), Expires: 09/10/2024 documented as of this encounter Visit Diagnoses Diagnosis BRCA2 gene mutation positive- Primary documented in this encounter Care Teams Legal Associate Relationship Specialty Start Date End Date Thor Fajardo MD [address] [place] [address] PCP - General Family Medicine 12/30/20 Sebastian Soto MD [address] [place] [address] Consulting Physician Gastroenterology 02/14/22 Ena Rose MD [address] [place] [address] Consulting Physician Surgical Oncology 08/11/22 Tutu Hermosillo MD [address] [facility] [address] [place] [address] Consulting Physician Plastic Surgery 12/29/23 documented as of this encounter
--- OUTSIDE RECORDS SUMMARY | 2024-05-09 00:49 | XMS_ITS | Encounter Summary ---
Author Organization [facility] Healthcare Address [address] [place] [address] Care Team Providers Care Sign Wirer Name Role Phone Thor Fajardo MD Primary Care Provider [phone] Sebastian Soto MD Unavailable Ena Rose MD Unavailable [phone] Tutu Hermosillo MD Unavailable [phone] Reason for Visit * Reason Comments Test Results Follow-Up Call 24-48 Hours Encounter Details Date Type Department Care Team (Late st Contact Info) Description 03/12/2024 Telephone [facility] - Imaging [address] [facility] [address] [place] [id number] Lelia Mojica RN Test Results; Follow-Up Call 24-48 Hours Social History Tobacco Use Types Packs/Day Years [...] often do you attend chur ch or amish services? Never 02/12/2022 Do you belong to any clubs o r organizations such as quaker groups, unions, fraternal or athletic groups, or [...] on file Legal Sex Female 9:50 PM BRUSH POLISHER Gender Identity Not on file Sexual Orientation Not on file documented as of this encounter Miscellaneous Notes * Telephone Encounter - Lelia Mojica RN - 03/12/2024 3:33 PM BRUSH POLISHER 24 hour follow up completed. Shayla did well over the weekend. No bruising, swelling, or redness noted. No complaints of pain. Reviewed benign breast biopsy results with pt. Return in June 2024 for screening and follow up MRI in a year. Continue monthly self exams and call with any problems. H POLISHER documented in this encounter Plan of Treatment Not on file documented as of this encounter Visit Diagnoses Not on filedocumented in this encounter Care Teams Sign Wirer Relationship Specialty Start Date End Date Thor Fajardo MD [address] [place] [address] PCP - General Family Medicine 12/30/20 Sebastian Soto MD [address] [facility] [address] [place] [address] Consulting Physician Gastroenterology 02/14/22 Ena Rose MD [address] [facility] [address] [place] [address] Consulting Physician Surgical Oncology 08/11/22 Tutu Hermosillo MD [address] [facility], [facility] [address] [place] [address] Consulting Physician Plastic Surgery 12/29/23 documented as of this encounter
--- OUTSIDE RECORDS SUMMARY | 2024-05-09 00:49 | XMS_ITS | Encounter Summary ---
Author Organization [facility] Healthcare Address [address] [place] [address] Care Team Providers Care Computer Installation Engineer Name Role Phone Thor Fajardo MD Primary Care Provider [phone] Sebastian Soto MD Unavailable Ena Rose MD Unavailable [phone] Tutu Hermosillo MD Unavailable [phone] Encounter Details Date Type Department Care Team (Late st Contact Info) Description 02/14/2024 Documentation [facility] [address] [place] [address] Adry Bae RN Social History Tobacco Use Types Packs/Day [...] often do you attend chur ch or orthodoxy services? 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 Cortes has been notified of abnormal Breast MRI results, and a second look ultrasound has been recommended. Patient scheduled and advised date and time to arrive to [facility] on 02/21/24 at 3pm for second look targeted ultrasound of the area for further evaluation. LANA Pena, RN Risk Program Nurse [facility] [phone] documented in this encounter Plan of Treatment Not on file documented as of this encounter Visit Diagnoses Not on filedocumented in this encounter Care Teams Computer Installation Engineer Relationship Specialty Start Date End Date Thor Fajardo MD [address] [place] [address] PCP - General Family Medicine 12/30/20 Sebastian Soto MD [address] [place] [address] Consulting Physician Gastroenterology 02/14/22 Ena Rose MD [address] [facility] [address] [place] [address] Consulting Physician Surgical Oncology 08/11/22 Tutu Hermosillo MD [address] [facility], [facility] [address] [place] [address] Consulting Physician Plastic Surgery 12/29/23 documented as of this encounter
--- OUTSIDE RECORDS SUMMARY | 2024-05-09 00:49 | XMS_ITS | Encounter Summary ---
Author Organization [facility] Healthcare Address [address] [place] [address] Care Team Providers Care Edge Finisher Name Role Phone Thor Fajardo MD Primary Care Provider [phone] Sebastian Soto MD Unavailable [phone] Ena Rose MD Unavailable [phone] Tutu Hermosillo MD Unavailable [phone] Reason for Referral * Diagnostic Imaging (Routine) - Pending Review Specialty Diagnoses / Procedures Referred By Contac t Referred To Contact Diagnoses Abnormal MRI, breast Procedures US Breast Right Limited Ena Rose MD [address] [address] Phone: tel: fax: [facility] [address] [place] [address] Referral ID Status Reason Start Date Expiration Date V isits Requested Visits Authorized [id number] Pending Review 02/14/2024 03/15/2025 1 1 Reason for Visit * Diagnostic Imaging (Routine) - Pending Review Specialty Diagnoses / Procedures Referred By Contac t Referred To Contact Diagnoses Abnormal MRI, breast Procedures US Breast Right Limited Ena Rose MD [address] [address] Phone: tel: fax: [facility] [address] [place] [address] Referral ID Status Reason Start Date Expiration Date V isits Requested Visits Authorized [id number] Pending Review 02/14/2024 03/15/2025 1 1 Encounter Details Date Type Department Care Team (Latest Contact Info) Description 02/21/2024 2:55 PM CDT - 02/21/2024 11:59 PM CDT Hospital Encounter [facility] - Imaging [address] [facility] [address] [place] [address] Abnormal MRI, breast Discharge Disposition: [...] often do you attend chur ch or synagogue services? 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 Please add to tracking. Will need MRI guided biopsy. documented in this encounter Plan of Treatment Not on file documented as of this encounter Procedures Procedure Name Priority Date/Time Associated Diagnosis Comments US BREAST RIGHT LIMITED Schedule Routine, Read Routine (OP Routine) 02/21/2024 3:22 PM CDT Abnormal MRI, breast documented in this encounter Results * (ABNORMAL) US Breast Right Limited (02/21/2024 [...] documented in this encounter Visit Diagnoses Diagnosis Abnormal MRI, breast documented in this encounter Care Teams Edge Finisher Relationship Specialty Start Date End Date Thor Fajardo MD [address] [place] [address] PCP - General Family Medicine 12/30/20 Sebastian Soto MD [address] [place] [address] Consulting Physician Gastroenterology 02/14/22 Ena Rose MD [address] [place] [address] Consulting Physician Surgical Oncology 08/11/22 Tutu Hermosillo MD [address] [facility], [facility] [address] [place] [address] Consulting Physician Plastic Surgery 12/29/23 documented as of this encounter
--- OUTSIDE RECORDS SUMMARY | 2024-05-09 00:49 | XMS_ITS | Encounter Summary ---
Author Organization [facility] Healthcare Address [address] [place] [address] Care Team Providers Care Packager Or Packer And Weigher Name Role Phone Thor Fajardo MD Primary Care Provider [phone] Sebastian Soto MD Unavailable Ena Rose MD Unavailable [phone] Tutu Hermosillo MD Unavailable [phone] Encounter Details Date Type Department Care Team (Late st Contact Info) Description 02/22/2024 Orders Only [facility] [address] [facility] [address] [place] [address] Ena Rose MD [address] [facility] [address] [address] Social History Tobacco Use Types [...] week 02/12/2022 How often do you attend [facility] or buddhist services? 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 May repeat 30 min later.) for up to 2 days Take 1 tab 30 min prior to procedure. May repeat 30 min later. 4 tablet 03/08/2024 ALPRAZolam (XANAX) 0.25 mg tabletIndications: anxiety Take 1 tablet (0.25 mg total) by mouth every 30 (thirty) minutes as needed for anxiety (Take 1 tab 30 min prior to procedure. May repeat 30 min later.) for up to 2 days Take 1 tab 30 min prior to procedure. May repeat 30 min later. 4 tablet 03/08/2024 4 ALPRAZolam (XANAX) 0.25 mg tabletIndications: anxiety Take 1 tablet (0.25 mg total) by mouth every 30 (thirty) minutes as needed for anxiety (Take 1 tab 30 min prior to procedure. May repeat 30 min later.) for up to 2 days Take 1 tab 30 min prior to procedure. May repeat 30 min later. 4 tablet 02/22/2024 4 documented in this encounter Progress Notes * Sekou Dent RN - 02/22/2024 10:32 AM CDT Pt is requesting Xanax RX for next MRI bx since she had no relief with taking just one tablet with the MRI img. She actually passed out when they placed her IV. A new rx will be sent in for her. Orig scripts didn't go through so have resent to Dr Rose to sign.-SV/RN KING SUPERVISOR documented in this encounter Miscellaneous Notes * Addendum Note - Sekou Dent RN - 02/22/2024 10:32 AM CDTAddended by: SEKOU DENT on: 03/08/2024 10:14 AM Modules accepted: Orders KING SUPERVISOR documented in this encounter Plan of Treatment Not on file documented as of this encounter Visit Diagnoses Not on filedocumented in this encounter Discontinued Medications Medication Sig Discontinue Reason Start Date End Da te ALPRAZolam (XANAX) 0.25 mg tabletIndications:anxiet y Take 1 tablet (0.25 mg total) by mouth every 30 (thirty) minutes as needed for anxiety (Take 1 tab 30 min prior to procedure. May repeat 30 min later.) for up to 2 days Take 1 tab 30 min prior to procedure. May repeat 30 min later. Reorder 02/22/2024 03/08/2024 ALPRAZolam (XANAX) 0.25 mg tabletIndications:anxiet y Take 1 tablet (0.25 mg total) by mouth every 30 (thirty) minutes as needed for anxiety (Take 1 tab 30 min prior to procedure. May repeat 30 min later.) for up to 2 days Take 1 tab 30 min prior to procedure. May repeat 30 min later. 03/08/2024 03/08/2024 documented as of this encounter Care Teams Packager Or Packer And Weigher Relationship Specialty Start Date End Date Thor Fajardo MD [address] [place] [address] PCP - General Family Medicine 12/30/20 Sebastian Soto MD [address] [facility] [address] [place] [address] Consulting Physician Gastroenterology 02/14/22 Ena Rose MD [address] [facility] [address] [place] [address] Consulting Physician Surgical Oncology 08/11/22 Tutu Hermosillo MD [address] [facility], [facility] [address] [address] Consulting Physician Plastic Surgery 12/29/23 documented as of this encounter
--- OUTSIDE RECORDS SUMMARY | 2024-05-09 00:49 | XMS_ITS | Encounter Summary ---
Author Organization [facility] Healthcare Address [address] [place] [address] Care Team Providers Care Education Trainer Name Role Phone Thor Fajardo MD Primary Care Provider [phone] Sebastian Soto MD Unavailable [phone] Ena Rose MD Unavailable [phone] Tutu Hermosillo MD Unavailable [phone] Reason for Referral * MRI/CAT/PET Scan (Routine) - Closed Specialty Diagnoses / Procedures Referred By Contac t Referred To Contact Radiology Diagnoses Abnormal MRI, breast Procedures MRI Guided Breast Biopsy Right Ena Rose MD [address] [address] Phone: tel: fax: [facility] [address] [place] [address] Referral ID Status Reason Start Date Expiration Date Visits Re quested Visits Authorized [id number] Closed 02/22/2024 03/23/2025 1 1 UT WORKER Reason for Visit * MRI/CAT/PET Scan (Routine) - Closed Specialty Diagnoses / Procedures Referred By Contac t Referred To Contact Radiology Diagnoses Abnormal MRI, breast Procedures MRI Guided Breast Biopsy Right Ena Rose MD [address] [address] Phone: tel: fax: [address] [address] Referral ID Status Reason Start Date Expiration Date Visits Re quested Visits Authorized [id number] Closed 02/22/2024 03/23/2025 1 1 Encounter Details Date Type Department Care Team (Latest Contact Info) Description 03/09/2024 11:09 AM LAYOUT WORKER - 03/09/2024 11:59 PM LAYOUT WORKER Hospital Encounter [facility] - Imaging [address] [place] [address] Abnormal MRI, breast Discharge Disposition: [...] any clubs o r organizations such as congregational groups, unions, fraternal or athletic groups, or [...] on file Legal Sex Female 9:50 PM LAYOUT WORKER Gender Identity Not on file Sexual Orientation Not on file documented as of this encounter Last Filed Vital Signs Vital Sign Reading Time Taken Comments Blood Pressure 100/67 03/09/2024 2:16 PM LAYOUT WORKER Pulse 100 03/09/2024 2:16 PM LAYOUT WORKER Temperature - - Respiratory Rate 16 03/09/2024 2:16 PM LAYOUT WORKER Oxygen Saturation - - Inhaled Oxygen Concentration - - Weight - - Height - - Body Mass Index - - documented in this encounter Discharge Instructions * Discharge Instructions* Clarisse Martinez RN - 03/09/2024 11:51 AM LAYOUT WORKER What to expect when at home - soreness, achiness or tenderness lasting for 2-3 days -soft bruising at biopsy site, a small pea or marble size lump (hematoma) may be felt a week or twoafter biopsy - steri strips or wound glue should be on biopsy site for 7-10 day Self-Care -Apply ice packs every hour for 15-20 minutes until bedtime and up to 24 hours, you may use ice packs as needed for soreness after 24 hours, -Tylenol/acetaminophen may be used for pain, use as package directs -Do Not take ibuprofen or aspirin products for 2 days after biopsy unless otherwise directed -Wear a supportive bra/sports bra or margarita bandage 24 hours after biopsy and as needed for comfort -No strenous activity, lifting or exercise for 24 hours after biopsy -No swimming, hot tubs or baths for 7 days or until incision is healed -Remove outer dressing 24 hours after biopsy, leaving steri strips or glue in place. You do NOT need to cover it with more gauze. -You may shower after dressing is removed, be careful to not scrub biopsy site, do not use lotion or powder on biopsy site When to Call Breast Center (during office hours) -if biopsy site is red, itchy, warm to touch, has pus-like drainage or fever -severe pain at biopsy site or sudden hard bruising -bleeding that soaks through bandage(apply firm pressure to biopsy site and if it does not stop in 20 minutes go to urgent care or emergency room) Results and Concerns Biopsy results will take (2-3) business days. You WILL be called by [facility] Nursing staff to review RESULTS and RECOMMENDATION. You will also receive a state law mandated letter indicating your biopsy was completed and results are ready. This letter is generated PRIOR to pathology being completed. Please be aware, results are usually NOT ready when that letter is sent. If you have any questions please call Nurse line at [phone] Tuesday through Tuesday 7:30am-4:00pm. If after 4:00 pm leave a voice message and your call will be returned the next day, if urgent call your provider. The Center is closed for Holiday and Weekends. UT WORKER documented in this encounter Medications at Time of Discharge ALPRAZolam (XANAX) 0.25 mg tabletIndications :anxiety Take 1 tablet (0.25 mg total) by mouth every 30 (thirty) minutes as needed for anxiety (Take 1 tab 30 min prior to procedure. May repeat 30 min later.) for up to 2 days Take 1 tab 30 min prior to procedure. May repeat 30 min later. 4 tablet 03/08/2024 FeroSuL 325 mg (65 mg iron) tablet Take 1 tablet (325 mg total) by mouth daily 04/27/2022 tretinoin (RETIN-A) 0.025 % cream 08/11/2022 documented as of this encounter Discharge Disposition Disposition Code Departure Means Destination Discharge to home or self care documented in this encounter Plan of Treatment Scheduled Orders Name Type Priority Associated Diagnoses Order Schedule Surgical pathology Pathology and Cytology Timed Abnormal MRI, breast Release Upon Ordering for 1 Occurrences starting 03/09/2024 documented as of this encounter Procedures Procedure Name Priority Date/Time Associated Diagnosis Comments MRI GUIDED BREAST BIOPSY RIGHT Schedule Routine, Read Routine (OP Routine) 03/09/2024 2:01 PM LAYOUT WORKER Abnormal MRI, breast documented in this encounter Results * MRI Guided Breast Biopsy Right (03/09/2024 2:01 PM LAYOUT WORKER) Anatomical Region Laterality Modality Breast Right Magnetic Resonan ce 03/09/2024 2:47 PM LAYOUT WORKER Addenda Addendum by Charity Oneil MD on 03/12/2024 2:32 PM LAYOUT WORKER Pathology report for MRI guided biopsy describes [...] patient by the nursing staff of the [facility]. Electronically signed by: Charity Oneil M.D. Impressions 03/09/2024 2:47 PM LAYOUT WORKER Successful MRI guided biopsy of a mass in the subareolar right breast. ??Pathology report is pending. ASSESSMENT: Post-procedure mammogram for marker placement. Electronically signed by: Charity Oneil M.D. Narrative 03/09/2024 2:47 PM LAYOUT WORKER MRI GUIDED CORE NEEDLE BIOPSY RIGHT BREAST, [...] made with a #11 blade. ??A 9-gauge [facility] vacuum-assisted biopsy needle was advanced [...] tolerated the procedure well, and left the [facility] in good condition, without evidence of immediate complication. Ena Rose MD IMG MRI PROCEDURES Edited Result - Final documented in this encounter Visit Diagnoses Diagnosis Abnormal MRI, breast documented in this encounter Administered Medications Inactive Administered Medications - up to 3 most recent administrations Medication Order MAR Action Action Date Dose Rate Site gadoterate meglumine injection 20 mL 20 mL, intravenous, Once in imaging, contrast, Starting on Tue03/09/24 at 1239, For 1 dose Contrast Given 03/09/2024 2:08 PM LAYOUT WORKER 18 mL lidocaine (XYLOCAINE) 10 mg/mL (1 %) injection As needed, Starting on Tue03/09/24 at 1315, Intra-Op, Indications: Administration of Local AnesthesiaIndications:Admin istration of Local Anesthesia Given 03/09/2024 1:15 PM LAYOUT WORKER 2 mL Right Breast lidocaine-EPINEPHrine (XYLOCAINE with EPI) 1 %-1:100,000 injection As needed, Starting on Tue03/09/24 at 1315, Intra-Op, Indications: Administration of Local AnesthesiaIndications:Admin istration of Local Anesthesia Given 03/09/2024 1:17 PM LAYOUT WORKER 10 mL Right Breast sodium chloride 0.9% flush 50 mL 50 mL, intravenous, Once in imaging, line care, Starting on Tue03/09/24 at 1239, For 1 dose Given 03/09/2024 2:08 PM LAYOUT WORKER 50 mL documented in this encounter Care Teams Education Trainer Relationship Specialty Start Date End Date Thor Fajardo MD [address] [place] [address] PCP - General Family Medicine 12/30/20 Sebastian Soto MD [address] [facility] [address] [place] [address] Consulting Physician Gastroenterology 02/14/22 Ena Rose MD [address] [facility] [address] [place] [address] Consulting Physician Surgical Oncology 08/11/22 Tutu Hermosillo MD [address] [facility], [facility] [address] [place] [address] Consulting Physician Plastic Surgery 12/29/23 documented as of this encounter
--- OUTSIDE RECORDS SUMMARY | 2024-05-09 00:49 | XMS_ITS | Encounter Summary ---
Author Organization [facility] Healthcare Address [address] [place] [address] Care Team Providers Care Marine Diver Name Role Phone Thor Fajardo MD Primary Care Provider Sebastian Soto MD Unavailable [phone] Ena Rose MD Unavailable [phone] Tutu Hermosillo MD Unavailable [phone] Encounter Details Date Type Department Care Team (Late st Contact Info) Description 02/22/2024 Orders Only [facility] - Imaging [address] [address] Yasmeen Ly, RN Social History Tobacco Use Types Packs/Day [...] often do you attend chur ch or jain services? Never 02/12/2022 Do you belong to any clubs o r organizations such as yarsanism groups, unions, fraternal or athletic groups, or [...] on file Legal Sex Female 9:50 PM PILOT CONTROL OPERATOR Gender Identity Not on file Sexual Orientation Not on file documented as of this encounter Plan of Treatment Not on file documented as of this encounter Visit Diagnoses Not on filedocumented in this encounter Care Teams Marine Diver Relationship Specialty Start Date End Date Thor Fajardo MD [address] [place] [address] PCP - General Family Medicine 12/30/20 Sebastian Soto MD [address] [facility] [address] [place] [address] Consulting Physician Gastroenterology 02/14/22 Ena Rose MD [address] [facility] [address] [place] [address] Consulting Physician Surgical Oncology 08/11/22 Tutu Hermosillo MD [address] [facility] [address] [place] [address] Consulting Physician Plastic Surgery 12/29/23 documented as of this encounter
--- OUTSIDE RECORDS SUMMARY | 2024-05-09 00:49 | XMS_ITS | Encounter Summary ---
Author Organization [facility] Healthcare Address [address] [place] [address] Care Team Providers Care Field Insurance Sales Manager Name Role Phone Thor Fajardo MD Primary Care Provider [phone] Sebastian Soto MD Unavailable Ena Rose MD Unavailable Tutu Hermosillo MD Unavailable [phone] Reason for Visit * Reason Onset Date Comments Procedure question/concern 03/08/2024 Encounter Details Date Type Department Care Team (Late st Contact Info) Description 03/08/2024 Telephone [facility] [address] [facility] [address] [place] [phone] Natalia Rodriguez MA Procedure question/concern Social History Tobacco Use Types Packs/Day Years [...] often do you attend chur ch or tenriism services? Never 02/12/2022 Do you belong to any clubs o r organizations such as holiness groups, unions, fraternal or athletic groups, or [...] on file Legal Sex Female 9:50 PM INSULATION WORKER INTERIOR SURFACE Gender Identity Not on file Sexual Orientation Not on file documented as of this encounter Miscellaneous Notes * Telephone Encounter - Natalia Rodriguez MA - 03/08/2024 10:29 AM CST I spoke to the pharmacy to confirm they received the prescription order, they did and it will be filled by late morning or early afternoon per Vince. I left a voicemail for the pt informing her of this. DL LATION WORKER INTERIOR SURFACE * Telephone Encounter - Natalia Rodriguez MA - 03/08/2024 8:50 AM CST Pt called stating the Xanax 0.25mg #4 we sent out on 02/22/24 to her pharmacy for her to take priorto her BX tomorrow is not at the pharmacy. I confirmed the pharmacy we have on file and it is correct. I spoke with Hemant at [facility] and he has no record of the RX either. Can we please resend? DL LATION WORKER INTERIOR SURFACE documented in this encounter Plan of Treatment Not on file documented as of this encounter Visit Diagnoses Not on filedocumented in this encounter Care Teams Field Insurance Sales Manager Relationship Specialty Start Date End Date Thor Fajardo MD [address] [place] [address] PCP - General Family Medicine 12/30/20 Sebastian Soto MD [address] [address] Consulting Physician Gastroenterology 02/14/22 Ena Rose MD [address] [facility] [address] [place] [address] Consulting Physician Surgical Oncology 08/11/22 Tutu Hermosillo MD [address] [facility] SUR[facility]LASTICS, [facility] [address] [address] Consulting Physician Plastic Surgery 12/29/23 documented as of this encounter
--- OUTSIDE RECORDS SUMMARY | 2024-05-09 00:49 | XMS_ITS | Referral Summary ---
Author Organization [facility] [address] Address [address] [place] [address] Care Team Providers Care Face Man Name Role Phone Thor Fajardo MD Primary Care Provider Sebastian Soto MD Unavailable [phone] Ena Rose MD Unavailable Tutu Hermosillo MD Unavailable [phone] Encounters Date Type Department Care Team Description 03/13/2024 Orders Only [facility] [address] [place] [address] [address] [place] [address] Ena Rose MD BRCA2 gene mutation positive (Primary Dx) 03/12/2024 Telephone [facility] - Imaging [address] [place] [address] [place] [phone] Lelia Mojica, MARIO Test Results; Follow-Up Call 24-48 Hours 03/09/2024 Orders Only [facility] [place], [place] Charity Oneil MD 03/09/2024 2:00 PM MANAGER ZONE - 03/09/2024 11:59 PM MANAGER ZONE Hospital Encounter [facility] [address] [place] [address] [place] [phone] Abnormal MRI, breast Discharge Disposition: Discharge to home or self care 03/09/2024 11:09 AM MANAGER ZONE - 03/09/2024 11:59 PM MANAGER ZONE Hospital Encounter [facility] [address] [place] [phone] Abnormal MRI, breast Discharge Disposition: Discharge to home or self care 03/08/2024 Telephone [facility] [address] [place] [address] [address] [phone] Natalia Rodriguez MA Procedure question/concern 02/22/2024 Orders Only [facility] [address] [place] [address] [place] [phone] Yasmeen Ly RN 02/22/2024 Orders Only [facility] [address] [place] [address] [place] [phone] Ena Rose MD 02/21/2024 2:55 PM CDT - 02/21/2024 11:59 PM CDT Hospital Encounter [facility] - [facility] [address] [facility] [address] [place] [phone] Abnormal MRI, breast Discharge Disposition: Discharge to home or self care 02/14/2024 Documentation [facility] Risk Program [address] [place] [address] [place] [address] Adry Bae RN 02/14/2024 Telephone [facility] [address] [place] [address] [place] [phone] Elena Chavez RN 02/13/2024 9:54 AM CDT - 02/13/2024 11:59 PM CDT Hospital Encounter [facility] Imaging Center at [address] [phone] BRCA2 gene mutation positive Discharge Disposition: Discharge to home or self care from Last 3 Months Allergies No known active allergies Medications FeroSuL [...] BRCA2 gene mutation positive 08/11/2022 Overview (12/29/2023): [facility] 2022: BRCA2 c.4243G>T p.E1415* pathogenic variant consistent with hereditary breast and ovarian cancer. Please view note from 07/29/2022 for specific cancer screening recommendations. Based on Delmer's family history, expanded genetic testing was offered at the conclusion of their initial visit. The [employer] Comprehensive panel analyzed 81 genes associated with [...] (02/11/2022): Added automatically from request for surgery [id number] Immunizations Name Administration Dates Next Due Influenza, Quadrivalent, Split, Intramuscular ,01/20/2019 Influenza, Quadrivalent, Spl it, Preservative Free, Intramuscular 02/14/2022,01/11/2017 Social History Tobacco Use Types Packs/Day Years [...] How often do you attend chur or holiness services? Never 02/12/2022 Do you belong to any clubs o r organizations such as sikh groups, unions, fraternal or athletic groups, or [...] on file Legal Sex Female 9:50 PM MANAGER ZONE Gender Identity Not on file Sexual Orientation Not on file Last Filed Vital Signs Vital Sign Reading Time Taken Comments Blood Pressure 100/67 03/09/2024 2:16 PM MANAGER ZONE Pulse 100 03/09/2024 2:16 PM MANAGER ZONE Temperature 36.9 ??C (98.4 ??F) 01/03/2024 9:56 AM CD T Respiratory Rate 16 03/09/2024 2:16 PM MANAGER ZONE Oxygen Saturation 95% 01/11/2023 9:39 AM CDT Inhaled Oxygen Concentration - - Weight 86.2 kg (190 lb) 02/13/2024 9:59 AM CDT Height 170.2 cm (5' 7 ) 02/13/2024 9:59 AM CDT Body Mass Index 29.76 02/13/2024 9:59 AM CDT Plan of Treatment Not on file Medical Devices Implanted Type Area Feather Drying Machine Operator Device Identifier Shelf Expiration Date Model / Serial / Lot [employer] Mri Guided Rigid Deployment Device Cork Marker Breast Trimark Td 13-Mr - [id number] Implanted:Qty: 1 on 03/09/2024 at [facility] Clip [employer] [id number] 08/01/2025 TRIMARK TD 13-MR / / [id number] [email or web address] Vazquez Flexi-Stent 4fr 9cm Small Pigtail Without Flange Flexible 6545 - [id number] Implanted:Qty: 1 on 02/11/2022 by Sebastian Soto MD at [facility] Stent N/A: Pancreas [employer] 11/29/2026 [id number] / / [id number] [employer] Cotton-Mims 10fr 7cm Taper Tip Guidewire Proximal Distal Flap [id number] - [id number] Implanted:Qty: 1 on 02/12/2022 by Sebastian Soto MD at [facility] Stent N/A: Bile Duct [employer] 08/03/2024 [id number] / / [id number] Procedures Procedure Name Priority Date/Time Associated Diagnosis Comments MAMM POST CLIP PLACEMENT RIGHT Schedule Routine, Read Routine (OP Routine) 03/09/2024 2:27 PM MANAGER ZONE Abnormal MRI, breast MRI GUIDED BREAST BIOPSY RIGHT Schedule Routine, Read Routine (OP Routine) 03/09/2024 2:01 PM MANAGER ZONE Abnormal MRI, breast SURGICAL PATHOLOGY Routine 03/09/2024 1:37 PM MANAGER ZONE US BREAST RIGHT LIMITED Schedule Routine, Read Routine (OP Routine) 02/21/2024 3:22 PM CDT Abnormal MRI, breast MRI BREAST BILATERAL W WO CONTRAST Routine 02/13/2024 12:01 PM CDT BRCA2 gene mutation positive from Last 3 Months Results * Mammo Post Clip Placement Right (03/09/2024 2:27 PM MANAGER ZONE) Anatomical Region Laterality Modality Breast Right Mammography 03/09/2024 2:47 PM MANAGER ZONE Addenda Addendum by Charity Oneil MD on 03/12/2024 2:32 PM MANAGER ZONE Pathology report for MRI guided biopsy describes [...] patient by the nursing staff of the [facility]. Electronically signed by: Charity Oneil M.D. Impressions 03/09/2024 2:47 PM MANAGER ZONE Successful MRI guided biopsy of a mass in the subareolar right breast. ??Pathology report is pending. ASSESSMENT: Post-procedure mammogram for marker placement. Electronically signed by: Charity Oneil M.D. Narrative 03/09/2024 2:47 PM MANAGER ZONE MRI GUIDED CORE NEEDLE BIOPSY RIGHT BREAST, [...] made with a #11 blade. ??A 9-gauge [facility] vacuum-assisted biopsy needle was advanced to the [...] tolerated the procedure well, and left the [facility] in good condition, without evidence of immediate complication. Ena Rose MD IMG MAMMO PROCEDURES Edite d Result - Final * MRI Guided Breast Biopsy Right (03/09/2024 2:01 PM MANAGER ZONE) Anatomical Region Laterality Modality Breast Right Magnetic Resonan ce 03/09/2024 2:47 PM MANAGER ZONE Addenda Addendum by Charity Oneil MD on 03/12/2024 2:32 PM MANAGER ZONE Pathology report for MRI guided biopsy describes [...] patient by the nursing staff of the [facility]. Electronically signed by: Charity Oneil M.D. Impressions 03/09/2024 2:47 PM MANAGER ZONE Successful MRI guided biopsy of a mass in the subareolar right breast. ??Pathology report is pending. ASSESSMENT: Post-procedure mammogram for marker placement. Electronically signed by: Charity Oneil M.D. Narrative 03/09/2024 2:47 PM MANAGER ZONE MRI GUIDED CORE NEEDLE BIOPSY RIGHT BREAST, [...] made with a #11 blade. ??A 9-gauge [facility] vacuum-assisted biopsy needle was advanced to the [...] tolerated the procedure well, and left the [facility] in good condition, without evidence of immediate complication. us Ena Rose MD [facility] MRI PROCEDURES Edited Result - Final * Surgical pathology (03/09/2024 1:37 PM MANAGER ZONE) Breast biopsy, needle core 03/09/2024 1:37 PM MANAGER ZONE 03/09/2024 3:20 PM MANAGER ZONE Narrative 03/12/2024 11:22 AM MANAGER ZONE [address] ??[address] Tele: ?? Yasmeen Duran MD - Career Placement Specialist Note to Patients: This report may contain [...] PATHOLOGY REPORT Patient Name: ??DELMER CONTRERASMayte Address: ??[address] [place] [address] ??[phone] Gender: ??F : ??1985 (Age: 38) Service: ?? Location: ??, ?? Hospital #: ??[id number] Patient Type: ??[facility] Accession #: ? [id number] Taken: ? 03/09/2024 Received ? 03/09/2024 Reported: [...] entirely submitted in cassettes labeled A1-A4. ?? [facility] MICROSCOPIC DESCRIPTION: Sections of the right breast [...] features are evident. Clerical Data Follows A; [id number] REPORT IMAGES AND/OR SCANNED DOCUMENTS ONLY VIEWABLE IN PDF FORMAT The immunohistochemical test(s) cited in this report, if any, was developed and its performance characteristics determined by [facility] Pathology Department. ??It has not been cleared or approved by the U.S. Food and Drug Administration. ??The FDA has determined that such clearance or approval is not necessary. ??This test is used for clinical purposes. ??It should not be regarded as investigational or for research. ??[facility] Laboratory is certified under the Clinical Laboratory [...] part or completely in the following laboratories: [facility], [address] [place] [address] [place] [address], [address] [place] [address]. Charity Oneil MD LAB PATHOLOGY ORDERABLES F [...] patient at the time of the study. us Ena Rose MD IMG MAMMO PROCEDURES [...] and multiplanar reconstructions were performed and reviewed. [employer] software was utilized. BREAST COMPOSITION: The breasts [...] nal Result from Last 3 Months Insurance [facility] [employer] [place] [id number] [facility] Advance Directives For more information, please contact: [phone] * Full Code (Latest Code Status on File) Date Activated Date Inactivated Comments 02/11/2022 3:22 PM 02/14/2022 4:17 PM Care Teams Face Man Relationship Specialty Start Date End Date Thor Fajardo MD [address] [place] [address] PCP - General Family Medicine 12/30/20 Sebastian Soto MD [address] [facility] [address] [place] [address] Consulting Physician Gastroenterology 02/14/22 Ena Rose MD [address] [facility] [address] [place] [address] Consulting Physician Surgical Oncology 08/11/22 Tutu Hermosillo MD [address] [facility]LAST[facility], [facility] [address] [place] [address] Consulting Physician Plastic Surgery 12/29/23
--- OUTSIDE RECORDS SUMMARY | 2024-05-09 00:49 | XMS_ITS | Encounter Summary ---
Author Organization [facility] Healthcare Address [address] [place] [address] Care Team Providers Care Furniture Manager Name Role Phone Thor Fajardo MD Primary Care Provider [phone] Sebastian Soto MD Unavailable [phone] Ena Rose MD Unavailable [phone] Tutu Hermosillo MD Unavailable [phone] Reason for Referral * MRI/CAT/PET Scan (Routine) - Closed Specialty Diagnoses / Procedures Referred By Joselin drummond Referred To Contact Radiology Diagnoses BRCA2 gene mutation positive Procedures MRI Breast Bilateral W WO Contrast Mónica Cao NP [address] [facility] [address] [place] [address] Phone: tel: fax: [facility] [address] [place] [address] Referral ID Status Reason Start Date Expiration Date Visits Re quested Visits Authorized [id number] Closed 01/03/2024 02/01/2025 1 1 Reason for Visit * MRI/CAT/PET Scan (Routine) - Closed Specialty Diagnoses / Procedures Referred By Joselin drummond Referred To Contact Radiology Diagnoses BRCA2 gene mutation positive Procedures MRI Breast Bilateral W WO Contrast Mónica Cao NP [address] [facility] [address] [place] [address] Phone: tel: fax: [facility] [address] [place] [address] Referral ID Status Reason Start Date Expiration Date Visits Re quested Visits Authorized [id number] Closed 01/03/2024 02/01/2025 1 1 Encounter Details Date Type Department Care Team (Latest Contact Info) Description 02/13/2024 9:54 AM CDT - 02/13/2024 11:59 PM CDT Hospital Encounter [facility] Imaging Center at [address] [phone] BRCA2 gene mutation positive Discharge Disposition: Discharge [...] How often do you attend chur or anabaptist services? Never 02/12/2022 Do you belong to [...] on file Legal Sex Female 9:50 PM BUSHWALKING GUIDE Gender Identity Not on file Sexual Orientation [...] Encounter Note - Mónica Cao NP - 02/13/2024 4:13 PM CDT Please call patients with results and update tracking. Needs MRI 2nd look sonogram on the right side. Please enter orders for Right 2nd look sono documented in this encounter Plan of Treatment Not on file documented as of this encounter Procedures Procedure Name Priority Date/Time Associated Diagnosis Comments MRI BREAST BILATERAL W WO CONTRAST Routine 02/13/2024 12:01 PM CDT BRCA2 gene mutation positive documented in this encounter Results * (ABNORMAL) MRI Breast [...] and multiplanar reconstructions were performed and reviewed. [employer] software was utilized. BREAST COMPOSITION: The breasts [...] NP IMG MRI PROCEDURES Fi nal Result documented in this encounter Visit Diagnoses Diagnosis BRCA2 gene mutation positive documented in this encounter Administered Medications Inactive Administered Medications - up to 3 most recent administrations Medication Order MAR Action Action Date Dose Rate Site gadoterate meglumine injection 20 mL 20 mL, intravenous, Once in imaging, contrast, Starting on 02/13/24 at 1103, For 1 dose Contrast Given 02/13/2024 11:05 AM CDT 18 mL documented in this encounter Orders Medications Ordered That Stu ht Not Have Been Administered Count Last Ordered Date First Ordered Date gadoterate meglumine injection 20 mL 1 01/30 documented in this encounter Care Teams Furniture Manager Relationship Specialty Start Date End Date Thor Fajardo MD [address] [place] [address] PCP - General Family Medicine 12/30/20 Sebastian Soto MD [address] [facility] [address] [place] [address] Consulting Physician Gastroenterology 02/14/22 Ena Rose MD [address] [facility] [address] [place] [address] Consulting Physician Surgical Oncology 08/11/22 Tutu Hermosillo MD [address] [facility] SUR[facility]LAST[facility], [facility] [address] [place] [address] Consulting Physician Plastic Surgery 12/29/23 documented as of this encounter
--- OUTSIDE RECORDS SUMMARY | 2024-05-09 00:49 | XMS_ITS | Encounter Summary ---
Author Organization [facility] Healthcare Address [address] [place] [address] Care Team Providers Care District Wildlife Manager Name Role Phone Thor Fajardo MD Primary Care Provider [phone] Sebastian Soto MD Unavailable [phone] Ena Rose MD Unavailable [phone] Tutu Hermosillo MD Unavailable [phone] Reason for Referral * Diagnostic Imaging (Routine) - Closed Specialty Diagnoses / Procedures Referred By Joselin drummond Referred To Contact Diagnoses Abnormal MRI, breast Procedures Mammo Post Clip Placement Right Ena Rose MD [address] [address] Phone: tel: fax: [facility] [address] [place] [address] Referral ID Status Reason Start Date Expiration Date Visits Re quested Visits Authorized [id number] Closed 03/09/2024 04/08/[address] ENGINEER Reason for Visit * Diagnostic Imaging (Routine) - Closed Specialty Diagnoses / Procedures Referred By Joselin drummond Referred To Contact Diagnoses Abnormal MRI, breast Procedures Mammo Post Clip Placement Right Ena Rose MD [address] [address] Phone: tel: fax: [facility] [address] [place] [address] Referral ID Status Reason Start Date Expiration Date Visits Re quested Visits Authorized [id number] Closed 03/09/2024 04/08/2025 1 1 Encounter Details Date Type Department Care Team (Latest Contact Info) Description 03/09/2024 2:[address] SAFETY ENGINEER - 03/09/2024 11:[address] SAFETY ENGINEER Hospital Encounter [facility] - Imaging [address] [facility] [address] [place] [address] Abnormal MRI, breast Discharge Disposition: [...] often do you attend chur ch or mandaeism services? Never 02/12/2022 Do you belong to any clubs o r organizations such as gnosticism groups, unions, fraternal or athletic groups, or [...] on file Legal Sex Female 9:[address] SAFETY ENGINEER Gender Identity Not on file Sexual Orientation [...] Read Routine (OP Routine) 03/09/2024 2:[address] SAFETY ENGINEER Abnormal MRI, breast documented in this encounter Results * Mammo Post Clip Placement Right (03/09/2024 2:[address] SAFETY ENGINEER) Anatomical Region Laterality Modality Breast Right Mammography 03/09/2024 2:[address] SAFETY ENGINEER Addenda Addendum by Charity Oneil MD on 03/12/2024 2:[address] SAFETY ENGINEER Pathology report for MRI guided biopsy describes [...] patient by the nursing staff of the [facility]. Electronically signed by: Charity Oneil M.D. Impressions 03/09/2024 2:[address] SAFETY ENGINEER Successful MRI guided biopsy of a mass in the subareolar right breast. ??Pathology report is pending. ASSESSMENT: Post-procedure mammogram for marker placement. Electronically signed by: Charity Oneil M.D. Narrative 03/09/2024 2:[address] SAFETY ENGINEER MRI GUIDED CORE NEEDLE BIOPSY RIGHT BREAST, [...] made with a #11 blade. ??A 9-gauge [facility] vacuum-assisted biopsy needle was advanced to the [...] tolerated the procedure well, and left the [facility] in good condition, without evidence of immediate complication. Ena Rose MD IMG MAMMO PROCEDURES Edite d Result - Final documented in this encounter Visit Diagnoses Diagnosis Abnormal MRI, breast documented in this encounter Care Teams District Wildlife Manager Relationship Specialty Start Date End Date Thor Fajardo MD [address] [place] [address] PCP - General Family Medicine 12/30/20 Sebastian Soto MD [address] [place] [address] Consulting Physician Gastroenterology 02/14/22 Ena Rose MD [address] [place] [address] Consulting Physician Surgical Oncology 08/11/22 Tutu Hermosillo MD [address] [facility]LAST[facility], [facility] [address] [place] [address] Consulting Physician Plastic Surgery 12/29/23 documented as of this encounter
--- OUTSIDE RECORDS SUMMARY | 2024-05-09 00:49 | XMS_ITS | Encounter Summary ---
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 Name Role Phone Thor Fajardo MD Primary Care Provider [phone] Sebastian Soto MD Unavailable [phone] Ena Rose MD Unavailable Tutu Hermosillo MD Unavailable [phone] Reason for Visit * Reason Comments Breast Problem Encounter Details Date Type Department Care Team (Late st Contact Info) Description 01/03/2024 10:00 AM CDT Office Visit [facility] [address] [facility] [employer] [address] [place] [id number] Mónica Cao, HERMAN [address] [facility] [address] [place] [id number] BRCA2 gene mutation positive (Primary Dx); Family history of breast cancer Social History Tobacco Use Types Packs/Day Years [...] week 02/12/2022 How often do you attend [facility] or restorationism services? 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 [facility] ~ [facility] Medical Group Dr. Dennis Rose MD, FACS ~ Mónica LAUREN PATIENT NAME: Shayla Cortes : 1985 Patient Care Team: Thor Fajardo MD as PCP - General (Family Medicine) Sebastian Soto MD as Consulting Physician (Gastroenterology) Ena Rose MD as Consulting Physician (Surgical Oncology) Tutu Hermosillo MD as Consulting Physician (Plastic Surgery) REASON FOR VISIT Shayla is 38 y.o. female presents for follow up of high risk mutation on BRCA2 mutation. She is [facility] high risk imaging program until she is ready for the prophylactic mastectomies. She alternates mammograms with breast MRI. She saw Dr. Hermosillo last year and was interested in bilateral mastectomies with implant reconstruction. Surgery has been delayed due to her dad's cancer diagnosis. He is nowin remission. Problem List Hematology and Neoplasia BRCA2 gene mutation positive - Primary Overview [facility] [employer] 2022: BRCA2 [id number] p.[id number]* pathogenic variant consistent with hereditary breast and ovarian cancer. Please view note from 07/29/2022 for specific cancer screening recommendations. Based on Shayla's family history, expanded genetic testing was offered at the conclusion of their initial visit. The [employer] Comprehensive panel analyzed 81 genes associated with hereditary cancer. Breast Self-breast exams starting at 18 Clinical breast exams every 6-12 months starting at age 25 Breast MRI beginning at age 25 or based on family history Annual mammogram and breast MRI beginning at age 30 Consider risk reducing mastectomy Shayla should begin high-risk breast screening. Shayla could consider meeting with a surgeon to discuss options for risk-reducing mastectomy. Ovarian Removal of ovaries between 40-45 (BRCA2) or after having children, consider removing uterus during same procedure Shayla should consider removal of ovaries between age 40-45. Transvaginal ultrasounds and CA-125 could be consider prior to this time. Pancreatic Consider annual contrast MRI and/or endoscopic ultrasound beginning at age 50 or 10 years prior to earliest pancreatic cancer in the family Limitations to pancreatic cancer screening cost, benign findings, limited research on benefit Shayla's paternal aunt was BRCA2+ and had pancreatic cancer in her 60's. Shayla should begin pancreatic cancer screening at age 50. Melanoma Consider full body clinical skin exam and minimize sun exposure Shayla should consider regular full body clinical skin exams. Shayla's paternal aunt from melanoma. Family history of breast cancer Results for orders placed during the hospital encounter of 06/20/23 Diagnostic Mammogram Bilateral W Anibal Narrative EXAMINATION/TECHNIQUE: Bilateral Digital diagnostic mammogram including CAD and Digital Breast Tomosynthesis. HISTORY: BRCA2 gene mutation. History of benign fibroadenoma left breast 12:00 radian June 2022. COMPARISON: 06/24/2022, 07/01/2022 FINDINGS: The breasts are extremely dense, which lowers the sensitivity of mammography. There are no suspicious masses, suspicious microcalcifications, or areas of architectural distortion in either breast. There is a butterfly-shaped core biopsy marker in the left upper central breast middle 3rd. Impression No mammographic evidence of malignancy. BI-RADS Category 2: Benign Findings Advise continued high-risk screening protocol with breast MRI due in 6 months and bilateral mammogram in 12 months. Findings and recommendations were communicated to the patient. Electronically signed by: MD CHARLOTTE Malagon A comprehensive review of systems was negative for breast concerns or problems. HISTORY Social History Tobacco Use Smoking status: Former Current packs/day: 0.00 Average packs/day: 0.1 packs/day for 10.0 years (1.0 ttl pk-yrs) Types: Cigarettes Start date: 10/07/2009 Quit date: 10/08/2019 Years since quittin.2 Smokeless tobacco: Never Substance and Sexual Activity Drug use: Never Sexual activity: None Alcohol Use: Not At Risk (10/11/2022) AUDIT-C Frequency of Alcohol Consumption: 2-4 times a month Average Number of Drinks: 1 or 2 Frequency of Binge Drinking: Never Past Medical History: Diagnosis Date Anxiety GERD (gastroesophageal reflux disease) Kidney stones Wears glasses WPW (Jyiku-Qsuiveszn-Qbiao syndrome) Family History Problem Relation Age of Onset Breast cancer Mother 23 Cancer Mother Diabetes Father Cancer Father Prostate cancer Father 58 No Known Problems Sister Cancer Maternal Grandmother Stomach cancer Maternal Grandfather Cancer Maternal Grandfather Leukemia Paternal Grandmother Stomach cancer Paternal Grandfather 60 Cancer Father's Sister Pancreatic cancer Father's Sister 70 BRCA 2 Father's Sister Melanoma Father's Sister No Known Problems Half-Brother OBJECTIVE Current Outpatient Medications: FeroSuL 325 mg (65 mg iron) tablet tretinoin (RETIN-A) 0.025 % cream No LMP recorded. (Menstrual status: Tubal Ligation). Temp 36.9 ??C (98.4 ??F) Ht 170.2 cm (5' 7 ) Wt 85.7 kg (189 lb) Body mass index is 29.6 kg/m??. I have reviewed: allergies, current medications, past family history, past medical history, past social history, past surgical history and problem list. EXAM Breasts: No suspicious masses, lesions, skin changes, dimpling or discharge to either breast. Thereis no evidence of axillary adenopathy. ASSESSMENT/PLAN BRCA2 gene mutation positive [Z15.01, Z15.09] No evidence of disease on exam today. Continuation in an increased imaging surveillance program is recommended. This is usually a program with imaging occurring twice a year. Screening mammograms plus MRI or breast ultrasound. Next imaging is due now for breast MRI. If results are negative, then she will have screening mammograms in Jun 2024. She will see us back for a clinical breast exam in November 2024. 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 Plans on the BSO at age 40. Mónica Cao NP Cosigned by Ena Rose MD at 01/03/2024 10:46 AM CDT documented in this encounter Plan of Treatment Not on file documented as of this encounter Visit Diagnoses Diagnosis BRCA2 gene mutation positive- Primary Family history of breast cancer Family history of malignant neoplasm of breast documented in this encounter Care Teams Home Stereo Equipment Installer Relationship Specialty Start Date End Date Thor Fajardo MD [address] [place] [id number] PCP - General Family Medicine 12/30/20 Sebastian Soto MD [facility] [place] [address] Consulting Physician Gastroenterology 02/14/22 Ena Rose MD [address] [place] [address] Consulting Physician Surgical Oncology 08/11/22 Tutu Hermosillo MD [address] [facility] [address] [place] [address] Consulting Physician Plastic Surgery 12/29/23 documented as of this encounter
--- OUTSIDE RECORDS SUMMARY | 2024-05-09 00:50 | XMS_ITS | Encounter Summary ---
Author Organization [facility] Healthcare Address [address] [place] [address] Care Team Providers Care Hand Ii Thermal Cutter Name Role Phone Thor Fajardo MD Primary Care Provider [phone] Sebastian Soto MD Unavailable [phone] Reason for Visit * Auth/Cert Specialty Diagnoses / Procedures Referred By Joselin drummond Referred To Contact Diagnoses [facility] Procedures n Referral ID Status Reason Start Date Expiration Date Visits Re quested Visits Authorized [id number] 1 1 Encounter Details Date Type Department Care Team (Latest Contact Info) Description 02/11/2022 3:12 PM CDT - 02/14/2022 12:17 PM CDT Hospital Encounter [facility] [address] [place] [id number] Anyi Garcia MD [address] [place], [place] [id number] Bile leak (Primary Dx) Discharge Disposition: Discharge to home, home health skilled care Social History Tobacco Use Types Packs/Day Years Used Date Smoking Tobacco: Former Cigarettes Q uit: 10/08/2019 Smokeless Tobacco: Never Tobacco Cessation:Counseling Given: [...] any clubs o r organizations such as confucianism groups, unions, fraternal or athletic groups, or school groups? No 02/12/2022 How often do you attend meet ings of the clubs or organizations you belong to? Never 02/12/2022 Are you , , di vorced, , never , or living with a partner? 02/12/2022 AUDIT-C Answer Date Recorded Q1: How often do you have a drink containing alc ohol? Monthly or less 02/11/2022 Q2: How many drinks containi ng alcohol do you have on a typical day when you are drinking? 1 or 2 02/11/2022 Q3: How often do you have si x or more drinks on one occasion? 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 Gender Identity Not on file Sexual Orientation Not on file documented as of this encounter Last Filed Vital Signs Vital Sign Reading Time Taken Comments Blood Pressure 120/65 02/14/2022 4:59 AM CDT Pulse 71 02/14/2022 4:59 AM CDT Temperature 36.9 ??C (98.4 ??F) 02/14/2022 4:59 AM CD T Respiratory Rate 18 02/14/2022 4:59 AM CDT Oxygen Saturation 97% 02/14/2022 4:59 AM CDT Inhaled Oxygen Concentration - - Weight 84.4 kg (186 lb) 02/11/2022 5:35 PM CDT Height 170.2 cm (5' 7 ) 02/11/2022 5:35 PM CDT Body Mass Index 29.13 02/11/2022 5:35 PM CDT documented in this encounter Discharge Summaries * Anyi Garcia MD - 02/14/2022 12:00 AM CDT DISCHARGE DIAGNOSES 1. Bile leak. 2. Gastroesophageal reflux disease. 3. History of Susx-Dhfamqzvy-Owdkp syndrome status post ablation. HOSPITAL COURSE This is a 36-year-old lady who came to us with a complaint of abdominal pain. The patient was diagnosed as bile leak after laparoscopic cholecystectomy. Initial ERCP was tried by Dr. Soto, but was unable to cannulate because of the papillary edema. So rendezvous procedure was done and biliary sphincterotomy and stent was placed and migratory pancreatic duct stent was placed with the help of IR. After the procedure, patient was treated with IV fluids, pain medications, antispasmodic, antiemetics and also we started patient on low-fat diet yesterday slowly. The patient is tolerating low-fatdiet without any problems today, so we are planning to send the patient home and continue the following medications at home. DISCHARGE MEDICATIONS Please see the medication reconciliation forms. PHYSICAL EXAMINATION General: The patient examined bedside in no acute distress. Vital Signs: Temperature 98.4, pulse 71, respirations 18, blood pressure 120/65. HEENT : Pupils reactive to light. Head normocephalic. No signs of trauma. Neck: Supple. No JVD. No thyromegaly. No lymphadenopathy. Chest: Clear clinically. Cardiovascular : S1, S2. Abdomen: Soft. Bowel sounds positive. Central Nervous System: Alert, awake, oriented x3. There are no gross focal neurological deficits. Extremities: There is no pedal edema. PLAN Continue with the medications, send the patient home and follow up with Dr. Soto's office in 3-4 weeks and also with surgery in 2 weeks. Job ID/Internal Job ID: [id number] documented in this encounter Medications at Time of Discharge ondansetron ODT (ZOFRAN-ODT) 4 mg disintegrating tabletIndications:na usea and vomiting Take 1 tablet (4 mg total) by mouth every 6 (six) hours as needed for nausea or vomiting 20 tablet 02/14/2022 3 oxyCODONE (ROXICODONE) 5 mg immediate release tabletIndications:Pa in Take 1 tablet (5 mg total) by mouth every 4 (four) hours as needed for pain 12 tablet 02/14/2022 3 documented as of this encounter Ordered Prescriptions Prescription Sig Dispense Quantity Refills Last Filled Start Date End Date ondansetron ODT (ZOFRAN-ODT) 4 mg disintegrating tabletIndications:na usea and vomiting Take 1 tablet (4 mg total) by mouth every 6 (six) hours as needed for nausea or vomiting 20 tablet 02/14/2022 3 oxyCODONE (ROXICODONE) 5 mg immediate release tabletIndications:Pa in Take 1 tablet (5 mg total) by mouth every 4 (four) hours as needed for pain 12 tablet 02/14/2022 3 documented in this encounter Discharge Disposition Disposition Code Departure Means Destination Discharge to home, home health skilled care documented in this encounter Progress Notes * Ayni Garcia MD - 02/13/2022 1:48 PM CDT Anyi Garcia's Progress Note Admit Date:02/11/2022 Date of Note: 02/13/2022, 1:48 PM PCP: Thor Fajardo MD SUBJECTIVE: Chief complaint of No chief complaint on file. Interval History: Patient seen at bedside No acute abdominal pain OBJECTIVE: Vitals: Reviewed 24hr Min/Max: Temp Min: 36.3 ??C (97.4 ??F) Max: 36.9 ??C (98.5 ??F) Pulse Min: 68 Max: 85 BP Min: 122/59 Max: 145/70 Resp Min: 15 Max: 28 SpO2 Min: 92 % Max: 99 % Most Recent : Vitals: 02/13/22 0732 BP: 122/59 Pulse: 71 Resp: 16 Temp: 36.9 ??C (98.5 ??F) SpO2: 95% I/O last 2 completed shifts: In: 1531 [I.V.:1531] Out: 1 [Blood:1] I/O this shift: In: - Out: 1800 [Urine:1800] Physical Exam: Physical Exam Vitals and nursing note reviewed. Constitutional: General: She is not in acute distress. Appearance: Normal appearance. She is obese. She is not ill-appearing or toxic-appearing. HENT: Head: Normocephalic and atraumatic. Right Ear: External ear normal. Left Ear: External ear normal. Nose: Nose normal. Mouth/Throat: Mouth: Mucous membranes are moist. Pharynx: Oropharynx is clear. No oropharyngeal exudate or posterior oropharyngeal erythema. Eyes: Extraocular Movements: Extraocular movements intact. Conjunctiva/sclera: Conjunctivae normal. Pupils: Pupils are equal, round, and reactive to light. Cardiovascular: Rate and Rhythm: Normal rate and regular rhythm. Pulses: Normal pulses. Heart sounds: Normal heart sounds. Pulmonary: Effort: Pulmonary effort is normal. Breath sounds: Normal breath sounds. Abdominal: General: Abdomen is flat. Bowel sounds are normal. There is no distension. Palpations: Abdomen is soft. There is no mass. Tenderness: There is abdominal tenderness. There is no guarding or rebound. Hernia: No hernia is present. Musculoskeletal: General: Normal range of motion. Cervical back: Normal range of motion and neck supple. Right lower leg: No edema. Left lower leg: No edema. Skin: General: Skin is warm and dry. Capillary Refill: Capillary refill takes less than 2 seconds. Neurological: General: No focal deficit present. Mental Status: She is alert and oriented to person, place, and time. Psychiatric: Mood and Affect: Mood normal. Behavior: Behavior normal. Current Medications: Reviewed Schedule Medications: Current Facility-Administered Medications: albuterol 2.5 mg /3 mL (0.083 %) nebulizer solution 2.5 mg, 2.5 mg, nebulization, PRN Carrier Fluids for Secondary Infusion - 0.9% Sodium Chloride, 30 mL, intravenous, PRN Saline lock IV, , , Once AND sodium chloride 0.9% flush 0.5-20 mL, 0.5-20 mL, intra-catheter, Q8H SHIRLEY AND sodium chloride 0.9% flush 0.5-20 mL, 0.5-20 mL, intra-catheter, PRN AND Carrier Fluids for Secondary Infusion - 0.9% Sodium Chloride, 30 mL, intravenous, PRN Saline lock IV, , , Once AND sodium chloride 0.9% flush 0.5-20 mL, 0.5-20 mL, intra-catheter, Q8H SHIRLEY AND sodium chloride 0.9% flush 0.5-20 mL, 0.5-20 mL, intra-catheter, PRN AND Carrier Fluids for Secondary Infusion - 0.9% Sodium Chloride, 30 mL, intravenous, PRN diphenhydrAMINE (BENADRYL) injection 12.5 mg, 12.5 mg, intravenous, Q15 Min PRN fentaNYL (SUBLIMAZE) preservative free injection 25 mcg, 25 mcg, intravenous, Q5 Min PRN haloperidol (HALDOL) injection 1 mg, 1 mg, intravenous, Once PRN HYDROmorphone (DILAUDID) injection 0.4 mg, 0.4 mg, intravenous, Q10 Min PRN, 0.4 mg at 02/12/221945 HYDROmorphone (DILAUDID) injection 1 mg, 1 mg, intravenous, Q4H PRN, 1 mg at 02/13/22 0554 influenza quadrivalent [id number] (FLULAVAL,FLUARIX,FLUZONE) 60 mcg (15 mcg x 4)/0.5 mL vaccine (STANDARD age 6 months and up) 0.5 mL, 0.5 mL, intramuscular, During hospitalization insulin lispro (HumaLOG, ADMELOG) 100 unit/mL injection 1-5 Units, 1-5 Units, subcutaneous, Once PRN labetaloL (NORMODYNE,TRANDATE) injection 5 mg, 5 mg, intravenous, Q10 Min PRN LORazepam (ATIVAN) injection 1 mg, 1 mg, intravenous, Q6H PRN meperidine (DEMEROL) preservative free injection 12.5 mg, 12.5 mg, intravenous, Q10 Min PRN naloxone (NARCAN) 0.4 mg/mL injection 0.04-0.4 mg, 0.04-0.4 mg, intravenous, Once PRN ondansetron ODT (ZOFRAN-ODT) disintegrating tablet 4 mg, 4 mg, oral, Q6H PRN OR ondansetron (ZOFRAN) injection 4 mg, 4 mg, intravenous, Q4H PRN ondansetron (ZOFRAN) injection 4 mg, 4 mg, intravenous, Once PRN ondansetron ODT (ZOFRAN-ODT) disintegrating tablet 4 mg, 4 mg, oral, Q6H PRN OR ondansetron (ZOFRAN) injection 4 mg, 4 mg, intravenous, Q6H PRN racepinephrine (ASTHMANEFRIN) 2.25 % nebulizer solution 0.5 mL, 0.5 mL, nebulization, PRN ramelteon (ROZEREM) tablet 8 mg, 8 mg, oral, Nightly PRN, 8 mg at 02/12/222305 sodium chloride 0.9% flush 0.5-20 mL, 0.5-20 mL, intra-catheter, Q8H SHIRLEY sodium chloride 0.9% flush 0.5-20 mL, 0.5-20 mL, intra-catheter, PRN sodium chloride 0.9% infusion, 100 mL/hr, intravenous, Continuous, Last Rate: 100 mL/hr at 307, 100 mL/hr at 02/12/22 2307 PRN Medications: albuterol sodium chloride 0.9% Saline lock IV AND sodium chloride 0.9% AND sodium chloride 0.9% AND sodium chloride 0.9% Saline lock IV AND sodium chloride 0.9% AND sodium chloride 0.9% AND sodium chloride 0.9% diphenhydrAMINE fentaNYL haloperidol HYDROmorphone HYDROmorphone influenza quadrivalent [id number] insulin lispro labetalol LORazepam meperidine naloxone ondansetron ODT OR ondansetron ondansetron ondansetron ODT OR ondansetron racepinephrine ramelteon sodium chloride 0.9% Lab/Radiology/Diagnostic Review: Reviewed Laboratory review: Lab results in the last 24 hours: No results found for this or any previous visit (from the past 24 hour(s)). Imaging review: CT abdomen pelvis with contrast Result Date: 02/12/2022 Narrative: EXAM: CT ABDOMEN PELVIS W CONTRAST CLINICAL HISTORY: Suspected abdominal infection. Possible abscess. Suspected bile leak. TECHNIQUE: CT abdomen and pelvis was performed following intravenous administration of 95 mL's of Optiray 350 contrast material. Oral contrast was not administered. C OMPARISONS: No relevant priors. FINDINGS: Lung bases: There is a tiny left pleural effusion appreciated. There is bibasilar atelectasis. Liver: Unremarkable. Gallbladder/biliary: The patient is status post cholecystectomy. There is ill-defined fluid within the gallbladder fossa without evidence of a bscess. There is no evidence of biliary ductal dilatation. Spleen: Unremarkable. Adrenal glands: Unremarkable. Pancreas: Pancreatic duct stent is identified. The pancreas is otherwise unremarkable. Kidneys: There is a 5 mm cortical calcification in the upper pole of the left kidney. The kidneys areotherwise unremarkable in appearance. Bladder: Unremarkable. Reproductive: Intrauterine device is appreciated in its expected normal location. The uterus and both ovaries are unremarkable in appearance. Bowel: Unremarkable. The appendix is visualized and is within normal limits. Vascular/aorta: Unremarkable. Lymph nodes: No adenopathy. Peritoneum: There is a plunl-ew-ozvfcwhs volume of ascites which is greatest in the pelvis and around the liver. There is nonspecific mild peritoneal edema. Abdominal wall: Unremarkable. Osseous structures: Unremarkable. Impression: 1. Status post recent cholecystectomy. There is fluid within the gallbladder fossa as well as a small to moderate volume of ascites which may reflect bile leak in the appropriate clinicalsetting. There is mild nonspecific peritoneal edema. There is no evidence of abscess. 2. No evidence of biliary ductal dilatation. 3. Tiny left pleural effusion with mild bibasilar parenchymal disease. 4. Pancreatic duct stent noted. Electronically signed by: Joe Thornton M.D. [place] ERCP Biliary and Pancreatic Result Date: 02/12/2022 Narrative: EXAM: [place] ERCP INDICATION: JAUNDICE, ABD PAIN, FEVER OR BILIARY SURGERY OR GALLSTONES COMPARISON: CT 02/12/2022 TECHNIQUE: ERCP performed by a separate service. Fluoroscopic assistance was provided. 4 images were submitted for review. Impression: FINDINGS/IMPRESSION: Upper abdominal surgical clips. Endoscope visualized at the ampulla. The pancreatic duct is cannulated with contrast injection. A pancreatic duct stent is placed. No leakage of contrast. Please see procedure note for further details. Vendor-specific software calculated a cumulative dose of 229 mGy. The exam time was recorded as 6.6 minutes. These figures may be useful in determining the patient's actual radiation dose. Electronically signed by: Mayco Villa M.D. IR Cholangiogram Through Existing Catheter Result Date: 02/12/2022 Narrative: EXAMINATION: PERCUTANEOUS TRANSHEPATIC CHOLANGIOGRAM AND RENDEZVOUS PROCEDURE WITH GASTROENTEROLOGY HISTORY/INDICATION: 36-year-old female who presented from outside hospital with biliary leak status post cholecystectomy. Request for percutaneous transhepatic cholangiogram and possible in ternal/external biliary drain placement versus rendezvous procedure. ATTENDING PRESENCE: Carlos Plascencia M.D., the attending radiologist was present from the beginning to the end of the procedure. Alfonso Edmonds M.D. also participated in the procedure. SEDATION: General anesthesia (see log). TECHNIQUE: The risks, benefits and alternatives were discussed and informed consent was obtained. Prior to beginning the procedure, [place] Protocol was performed to confirm the patient?s identity andthe planned procedure. The fluoroscopy time has been recorded in the electronic medical record. Maximum sterile barriers including cap, mask, hand hygiene, sterile gloves, sterile gown, large steriledrape and 2% chlorhexidine for cutaneous antisepsis were used. The patient was brought into the fluoroscopy suite and placed supine on the table. The right side and abdomen were prepped and draped instandard sterile fashion. Lidocaine 1% was instilled for local anesthesia. Initially, under combination of ultrasound and fluoroscopic guidance, a 22-gauge Chiba needle was advanced into the hepatic p arenchyma in the right mid axillary line. Multiple attempts were made to access the biliary system under fluoroscopic guidance. At this point, Dr. Alfonso Edmonds scrubbed into the case. Numerous attempts were made to access the biliary system under fluoroscopic guidance with a 22-gauge Chiba needle by Dr. Edmonds and myself. Eventually, we were able to opacify the biliary tree. Contrast was injected to opacify the biliary system and multiple fluoroscopic images were obtained in several projections. Despite it being very technically challenging, Dr. Edmonds was ultimately successful in advancing and a 0.018 inch wire into the biliary system. The access was upsized using an AccuStick system. A guidewire was then navigated through the common bile duct into the duodenum. A 4 Cymraes Kumpe catheter was advanced coaxially over the wire and the wire was exchanged for an exchange length Amplatz wire. At this time, consultation was sought with Dr. Soto of gastroenterology, who agreed to attempt a rendezvous procedure within the IR suite. Emergency room is consent was obtainedvia telephone via the patient's . Under endoscopic and fluoroscopic guidance, Dr. Soto was successful in placing a 10 Cymraes 7 cm plastic biliary stent. Contrast was then injected from thepercutaneous access which demonstrated good drainage of the stent. Therefore, the wires and catheter s were removed from the percutaneous access site. A sterile bandage was applied. ESTIMATED BLOOD LOSS: Minimal. CONDITION: Stable DISCHARGED TO: patient care division FINDINGS: 1. Preprocedure ultrasound images demonstrate a nondilated biliary system. 2. Intraprocedural fluoroscopic images opacify the biliary tree which is decompressed. 3. Intraprocedural fluoroscopic cholangiogram does not identify the site of biliary leak. 4. Technically challenging, but ultimately successful, placement of a percutaneous internal/external catheter, which was then used by gastroenterology for rendezvous and placement of an internal plastic biliary stent. 5. Post endoscopic stent placement contrast injection demonstrated brisk flow through the stent and decompression of the biliary system. No biliary leakwas identified Impression: Technically challenging but ultimately successful percutaneous transhepatic cholangiogram and rendezvous procedure as described in detail above PLAN: Patient will follow-up with GI for removal of the biliary stent. Electronically signed by: Carlos Plascencia M.D. Assessment and Plan: Bile leak status post rendezvous procedure and also biliary sphincterotomy and stent and also migratory pancreatic duct stent. Plan will be to treat patient with IV fluids, IV pain medications, antispasmodic, antiemetics and also low fat diet. If the patient is able to tolerate low-fat diet, patient will be able to go home probably tomorrow. Gastroesophageal reflux disease. History of WPW syndrome status post ablation. Additionally, will continue supportive care. SCDs for DVT prophylaxis. Diet: Adult Diet Restricted; Fat Controlled Code Status: Full Code Discharge disposition and Discussion: Discharge plan will be back to home once patient is able to tolerate low-fat diet. Total time spent on direct patient care, Care Co-ordination, Counselling and documentation: 30 Minutes Aniy Garcia MD [facility] Exchange: This note was transcribed using [employer] Speech Recognition software. As a result, there may be unintended grammar and spelling errors. Every attempt is made to have correct dictation. If there are any questions or major errors, please contact me. * Carlos Plascencia MD - 02/13/2022 11:14 AM CDT Radiology Progress Note Interval History: 36-year-old female who presented from outside hospital after cholecystectomy withbile leak status post failed ERCP on 02/11. Now status post IR rendezvous procedure with GI on 02/12 and placement of internal plastic biliary stent. NAEON. She complains of minimal abdominal discomfort overnight and this morning and is tolerating clear liquids. Exam: Gen: AOx4, NAD CV: RRR, no m/r/g Resp: CTA x 2, no wheezes Abd: s/nd, + BS x 4. Mild tenderness in RUQ to palpation. Incisions are c/d/I. Hematology Lab History Some values may be hidden. Unless noted otherwise, only the newest values recorded on each date aredisplayed. Labs - Hematology Latest Ref Range 02/12/22 WBC 3.8 - 9.9 K/cumm 12.0 (A) Total Hb, POC 11.9 - 15.5 g/dL 11.8 (A) Hct 35.6 - 45.5 % 35.6 Plt 150 - 400 K/cumm 327 Neutrophil abs 1.7 - 6.5 K/cumm 10.9 (A) Lymphocytes, abs 0.8 - 3.3 K/cumm 0.6 (A) (A) Abnormal value Chem/LFT Lab History Some values may be hidden. Unless noted otherwise, only the newest values recorded on each date aredisplayed. Labs-Chem/LFT Latest Ref Range 02/12/22 Sodium 135 - 145 mmol/L 138 Creatinine 0.60 - 1.10 mg/dL 0.60 Bilirubin, total 0.1 - 1.2 mg/dL 1.7 (A) AST 10 - 45 Units/L 38 ALT 7 - 45 Units/L 70 (A) CrCl- Actual Body Weight (Cockcroft-Gault) 172.6 (A) Abnormal value Assessment and Plan: 36-year-old woman who presented from outside hospital with biliary leak after cholecystectomy status post failed ERCP on 02/11 and successful IR/GI rendezvous procedure on 02/12 with placement of internal biliary stent. -From IR perspective, patient may be discharged when she is tolerating p.o. diet and pain remains well controlled, anticipate in the next 1-2 days. -Patient should follow-up with GI for removal of internal biliary stent as outpatient. -Small volume fluid on CT may represent ascites/bile from bile leak. However patient is having no signs or symptoms of bile peritonitis or infection. Therefore, no drainage is necessary at this time.If patient develops fevers or significant abdominal pain can consider placing a percutaneous drain versus aspiration. -Advance diet as tolerated per GI recs. Thank you for allowing IR to participate in this patients care. Please contact with questions or concerns. IR will sign off at this point. Carlos Plascencia M.D. Instructor Interventional Radiology [phone] * dAa Hilario, HERMAN - 02/13/2022 8:18 AM CDT Gastroenterology Daily Progress SUBJECTIVE Chief complaint: bile leak Interval History: 02/11 ERCP, 02/12 IR/ERCP Feels much better this morning, minimal abdominal pain. No nausea. Has tolerated some clears this morning. OBJECTIVE Vitals: Most Recent : Vitals: 02/13/22 0732 BP: 122/59 Pulse: 71 Resp: 16 Temp: 36.9 ??C (98.5 ??F) SpO2: 95% Physical Exam: General: awake and alert Abdomen: soft, ND, +BS. RUQ tenderness, incisions intact Lab/Radiology/Diagnostic Review: Recent Labs Lab Units 02/12/22 0445 WBC K/cumm 12.0* HEMOGLOBIN g/dL 11.8* HEMATOCRIT % 35.6 PLATELETS K/cumm 327 Recent Labs Lab Units 02/12/22 0445 SODIUM mmol/L 138 POTASSIUM PLASMA mmol/L 4.0 CHLORIDE mmol/L 104 CO2 mmol/L 25 ANIONGAP mmol/L 9 GLUCOSE mg/dL 120 BUN SERUM mg/dL 10 CREATININE mg/dL 0.60 CALCIUM mg/dL 8.1* ALBUMIN g/dL 3.5 ALK PHOS Units/L 137* ALT Units/L 70* AST Units/L 38 BILIRUBIN TOTAL mg/dL 1.7* No results found for: LIPASE DIAGNOSTIC STUDIES: 02/11 ERCP - Failed biliary cannulation. - Pancreatic stent left in place after precut sphincterotomy. 02/12 CT A/P 1. Status post recent cholecystectomy. There is fluid within the gallbladder fossa as well as a small to moderate volume of ascites which may reflect bile leak in the appropriate clinical setting. There is mild nonspecific peritoneal edema. There is no evidence of abscess. 2. No evidence of biliary ductal dilatation. 3. Tiny left pleural effusion with mild bibasilar parenchymal disease. 4. Pancreatic duct stent noted. 02/12 ERCP - Successful biliary sphincterotomy and stenting performed with rendex-vous procedure with IR. - One stable stent is in the bile duct and will need endoscopic removal. - One migratory stent is in the pancreatic duct and is expected to migrate out spontaneously. ASSESSMENT/PLAN: 1. S/p lap henrique OSH 02/05 Increased abd pain, elevated LFTs CT--increased abd fluid, can't exclude hemorrhage or bile leak HIDA--bile leak Failed ERCP OSH--unable to cannulate 02/11 ERCP--failed biliary cannulation 02/12 CT A/P - fluid in GB fossa, ?bile leak, no biliary dilatation 02/12 IR - cholangiogram with rendezvous procedure with GI 02/12 ERCP - successful biliary sphincterotomy and stenting with rendex-vous procedure with IR, migratory PD stent placed. -no labs this morning, afebrile -low fat diet as tolerated -supportive care -will need bile duct stent removed in 5-6 weeks as outpatient -NO GI objection to discharge once tolerating diet and pain remains controlled, anticipate tomorrow. Ada Hilario NP 02/13/2022 Cosigned by Sebastian Soto MD at 02/16/2022 5:01 PM CDT Associated attestation - Sebastian Soto MD - 02/16/2022 5:01 PM CDT I have seen and examined this patient on 02/13/2022. I agree with the statements made in this note. * Phuong Romeo PA - 02/12/2022 7:41 AM CDT Gastroenterology Daily Progress SUBJECTIVE Chief complaint: bile leak Interval History: 02/11 ERCP C/o RUQ abd pain, no n/v. Remains npo OBJECTIVE Vitals: Most Recent : Vitals: 02/12/22 0500 BP: 125/67 Pulse: 75 Resp: 15 Temp: 36.7 ??C (98 ??F) SpO2: 97% Physical Exam: General: a/a Abdomen: soft, ND, +BS. RUQ tenderness, incisions intact Lab/Radiology/Diagnostic Review: Recent Labs Lab Units 02/12/22 0445 WBC K/cumm 12.0* HEMOGLOBIN g/dL 11.8* HEMATOCRIT % 35.6 PLATELETS K/cumm 327 Recent Labs Lab Units 02/12/22 0445 SODIUM mmol/L 138 POTASSIUM PLASMA mmol/L 4.0 CHLORIDE mmol/L 104 CO2 mmol/L 25 ANIONGAP mmol/L 9 GLUCOSE mg/dL 120 BUN SERUM mg/dL 10 CREATININE mg/dL 0.60 CALCIUM mg/dL 8.1* ALBUMIN g/dL 3.5 ALK PHOS Units/L 137* ALT Units/L 70* AST Units/L 38 BILIRUBIN TOTAL mg/dL 1.7* No results found for: LIPASE DIAGNOSTIC STUDIES: 02/11 ERCP - Failed biliary cannulation. - Pancreatic stent left in place after precut sphincterotomy. ASSESSMENT/PLAN: 1. S/p lap henrique OSH 02/05 Increased abd pain, elevated LFTs CT--increased abd fluid, can't exclude hemorrhage or bile leak HIDA--bile leak Failed ERCP OSH--unable to cannulate 02/11 ERCP--failed biliary cannulation -WBC 12, LFTs trending down -CT A/P with IV contrast early this am -discussed with Dr. Plascencia IR--possible PTC vs bile drain -further recommendations pending CT findings -keep npo LENI Post 02/12/2022 Cosigned by Sebastian Soto MD at 02/12/2022 11:21 AM CDT Associated attestation - Sebastian Soto MD - 02/12/2022 11:21 AM CDT I have seen and examined this patient on 02/12/2022. I agree with the statements made in this note. documented in this encounter H&P Notes * Anyi Garcia MD - 02/12/2022 12:00 AM CDT TIME OF SERVICE 4:10. CHIEF COMPLAINT Abdominal pain and also bile leak. HISTORY OF PRESENT ILLNESS This is a 36-year-old lady who recently underwent laparoscopic cholecystectomy on 02/05. Post surgery patient went home and developed acute abdominal pain so was brought back to the hospital. CT scanshowed [id number] abdominal fluid, gastritis and duodenitis. HIDA scan showed some bile leak. ERCP was unsuccessful in outside hospital so patient was transferred to us for further care of thepatient. Patient came yesterday and was taken to the GI lab by Dr. Soto and tried to cannulate the bile duct but failed to cannulate. A pancreatic duct stent was left in place after precut sphincterotomy. Today patient underwent rendezvous procedure in the IR and successful biliary sphincterotomy and stenting was performed. One bile duct stent was placed and 1 migratory pancreatic duct stent was placed. I saw the patient after the procedure, patient is still drowsy from the effect of anesthesia. ALLERGIES No known drug allergies. PAST MEDICAL HISTORY Positive for WPW syndrome, history of gastroesophageal reflux disease and kidney stone. PAST SURGICAL HISTORY Positive for lithotripsy, ablation and D and C. SOCIAL HISTORY Patient is a former smoker. Presently does not smoke. Drinks alcohol very rarely. FAMILY HISTORY Negative for GI disease. REVIEW OF SYSTEMS Is not possible because patient is very drowsy. PHYSICAL EXAMINATION VITALS: Temperature 97.4, pulse 81, respirations 20, blood pressure 131/67. HEENT : Pupils equally reactive to light. Head normocephalic. No signs of trauma. NECK: Supple. No JVD. No thyromegaly. No lymphadenopathy. CHEST: Clear clinically. CV: S1, S2. ABDOMEN: Soft, bowel sounds positive. CLINICAL PROGRAM CONSULTANT: Moves all extremities. EXTREMITIES : There is no pedal edema. LABS From today sodium is 138, potassium 4.0, chloride 104, CO2 is 25, BUN is 10, creatinine is 0.6, glucose 120, calcium is 8.8, bilirubin is 1.7, total bili 6.4. CBC: WBC 12, hemoglobin 11.8, [id number], platelet count 327. PT 13.3, INR 1.2. ASSESSMENT 1. Bile leak status post rendezvous procedure and also biliary sphincterotomy and stent and also migratory pancreatic duct stent. Plan will be to treat patient with IV fluids, IV pain medications, antispasmodic, antiemetics and also ice chips today. Will start patient on clear liquid diet from tomorrow and advance as tolerated. If the patient is able to tolerate low-fat diet, patient will be ableto go home probably tomorrow. 2. Gastroesophageal reflux disease. 3. History of WPW syndrome status post ablation. 4. Additionally, will continue supportive care. SCDs for DVT prophylaxis. Discharge plan will be back to home once patient is able to tolerate low-fat diet. Job ID/Internal Job ID: [id number] documented in this encounter Procedure Notes * Sebastian Soto MD - 02/12/2022 3:21 PM CDTAssociated Order(s): ERCP ENDOSCOPY LAB Patient Name: Shayla Curry Procedure Date: 02/12/2022 3:21 PM Admit Type: Inpatient Room: [facility] 9 Date of : 1985 Instrument Name: [id number] Gender: Female Note Status: Mold Repair Technician Override Procedure: ERCP Indications: Further management of post-cholecystectomy bile leak with rendez-vous procedure performed in Providers: Sebastian Soto M.D. Referring MD: Thor Fajardo M.D., Piotr Hughes DO, Jaziel Nelson M.D. Medicines: Propofol per Anesthesia Complications: No immediate complications. Estimated Blood Loss: Estimated blood loss: none. Procedure: The benefits, risks, and alternatives to the procedure and sedation were discussed and informed consent was obtained. The TJF-Q378 was introduced through the mouth, and used to inject contrast into and used to inject contrast into the bile duct. Findings: One biliary drain/guidewire assembly and one pancreatic stents were visible on the line decorator film. The esophagus was successfully intubated under direct vision. The scope was advanced to the major papilla in the descending duodenum without detailed examination of the pharynx, larynx and associated structures, and upper GI tract. The upper GI tract was grossly normal. Inspection of the major papilla revealed one percutaneous biliary drain/guidewire assembly and one pancreatic stent. The bile duct was cannulated with the short-nosed sphincterotome and a guidewire. Contrast was injected. The main bile duct remained dilated. The largest diameter was 7 mm. A cholecystectomy had been performed. No attempt was made to localize the site of bile leak to avoid contaminating the peritoneal fluid. A 7 mm biliary sphincterotomy was performed. No bleeding occurred. One 10 FR CLSO stent was placed over the guidewire. The pancreatic duct stent was left in place, as it has no flange and is expected to migrate out spontaneously. Impression: - Successful biliary sphincterotomy and stenting performed with rendex-vous procedure with IR. - One stable stent is in the bile duct and will need endoscopic removal. - One migratory stent is in the pancreatic duct and is expected to migrate out spontaneously. Recommendation: - Ice chips today, clear liquids tomorrow, then advance diet and discharge as tolerated. - Analgesia as needed. - Remove the bile duct stent with an outpatient procedure in 5-6 weeks. - On occasion, stent adjustment might become necessary if not tolerated or if the leak does not heal as expected. Electronically signed by Sebastian Soto MD Sebastian Soto M.D. 02/12/2022 4:43:45 PM Number of Addenda: 0 Note Initiated On: 02/12/2022 3:21 PM Scope In: Scope Out: * Sebastian Soto MD - 02/11/2022 6:04 PM CDTAssociated Order(s): ERCP ENDOSCOPY LAB Patient Name: Shayla Curry Procedure Date: 02/11/2022 6:04 PM Admit Type: Inpatient Room: [facility] Date of : 1985 Instrument Name: [id number] Gender: Female Note Status: Finalized Procedure: ERCP Indications: Treatment of bile leak Providers: Sebastian Soto M.D. Referring MD: Thor Fajardo M.D. Medicines: Propofol per Anesthesia Complications: No immediate complications. Estimated Blood Loss: Estimated blood loss: none. Procedure: The benefits, risks, and alternatives to the procedure and sedation were discussed and informed consent was obtained. The TJF-Q363 was introduced through the mouth, and used to inject contrast into and used to inject contrast into the bile duct and ventral pancreatic duct. Findings: A line decorator film of the abdomen was obtained and appeared normal beside cholecystectomy clips. The esophagus was successfully intubated under direct vision. The scope was advanced to the major papilla in the descending duodenum without detailed examination of the pharynx, larynx and associated structures, and upper GI tract. The upper GI tract was grossly normal. Inspection of the major papilla revealed mild-moderate edema. The bile duct was unable to be deeply cannulated with the short-nosed traction sphincterotome and a guidewire. Two sphincterotomes and three guidewires were attempted. Two 5-4-3 ultratapered tip catheters were attempted unsuccessfully. The ventral pancreatic duct was able to be cannulated with a guidewire and multiple attempts to access the bile duct in parallel with another guidewire failed. One flangeless pancreatic duct stent was then placed. A small amount of contrast was injected into the ventral pancreatic with the sphincterotome to assess its course. The main pancreatic duct appeared generally normal. One 4 Fr by 9 cm pancreatic stent with a 3/4 external pigtail and no internal flap was placed into the ventral pancreatic duct with the intention of performing a protected papillotomy. This was achieved with the needle-knife. Despite this effort, biliary access failed. Clear fluid flowed through the pancreatic duct stent which was left in good position. The procedure was thus terminated. Impression: - Failed biliary cannulation. - Pancreatic stent left in place after precut sphincterotomy. Recommendation: - Continue hospital monitoring. - Consult IR tomorrow: If PTC is feasible, proceed. - If not, would place a RUQ drain tube to relieve peritoneal pressure until ERCP can be repeted after resolution of papillary edema. Electronically signed by Sebastian Soto MD Sebastian Soto M.D. 02/11/2022 8:59:02 PM Number of Addenda: 0 Note Initiated On: 02/11/2022 6:04 PM Scope In: Scope Out: documented in this encounter Consult Notes * Phuong Romeo PA - 02/11/2022 4:03 PM CDTAssociated Order(s): IP CONSULT TO GASTROENTEROLOGY Gastroenterology Consult SUBJECTIVE Chief complaint: bile leak S/p lap henrique 02/05 HPI: 36 yo female with h/o GERD, kidney stones, WPW, presented to [facility] on 02/08 with c/o worsening abd pain and dark urine. No fever/chills, n/v. Noted slight icterus. OP labs with findings of elevated LFTs with TB 3.9, and she was directly admitted there. Labs 02/08--WBC 13.6, lipase normal, AP 94, ALT 135, AST 83, TB 3.0. CT 02/08--small to mod abd fluid, gastritis/duodenitis, no biliary dilatation, normal pancreas. 02/09 HIDA scan--bile leak. Abx started. 1011 EGD--mild duodenitis, ERCP unsuccessful as unable to intubate the ampulla. No Known Allergies No medications prior to admission. PMH: GERD, kidney stones, WPW PSH: ablation, D&C, litho Social History: Tobacco: former smioker Etoh: rare Family History: no h/o GI familial illness Review of Systems: Constitutional: weight stable ENT: no icterus, vision change Skin: no rash, jaundice, or pruritis Cv: no sob, cp, palpitations Pulm: no cough, wheezing, hemoptysis Endo: no h/o Dm, thyroid disease Neuro: no headache, dizziness, syncope, sz MS: no muscle/joint pain, no back pain, no LE edema : no dysuria, frequency, urgency, hematuria. +kidney stone--to have cysto/litho Heme: no h/o bleeding or clotting disorders, no blood thinners Gi: as noted in HPI OBJECTIVE Vitals: Most Recent : Vitals: 02/11/22 1519 BP: 105/49 Pulse: 65 Resp: 17 Temp: 36.8 ??C (98.3 ??F) SpO2: 98% Physical Exam: General: a/a HEENT: face symmetric, slight icterus Lungs: clear Cv: RRR Abd: soft, ND, +BS. Incisions intact Extr: no LE edema Lab/Radiology/Diagnostic Review: No results found for this or any previous visit (from the past 24 hour(s)). ASSESSMENT/PLAN 1. S/p lap henrique OSH 02/05 Increased abd pain, elevated LFTs CT--increased abd fluid, can't exclude hemorrhage or bile leak HIDA--bile leak Failed ERCP OSH--unable to cannulate -ERCP this evening--last po intake noon full liquids. Reviewed procedure, risks, and need for stentthat would later require endoscopic removal with pt. All questions answered, she is agreeable to proceed. -keep npo -use PCS for DVT prophylaxis -levaquin pre procedure LENI Post 02/11/2022 Cosigned by Sebastian Soto MD at 02/11/2022 7:33 PM CDT Associated attestation - Sebastian Soto MD - 02/11/2022 7:33 PM CDT I have seen and examined this patient on 02/11/2022. I agree with the statements made in this note documented in this encounter Miscellaneous Notes * Plan of Care - Tamia Moreau RN - 02/13/2022 4:39 AM CDT Problem: Bowel/Gastric: Description: Module scope: 1. Patient population - adult 2. Intent - for use by staff nurses caringfor patients for whom endoscopic retrograde cholangiopancreatography (ERCP) has been ordered 3. Condition - patients requiring ERCP 4. Site - inpatient This module is not intended to be all-inclusiveand has been created for use by a wide variety of institutions with a multiplicity of available resources, patient populations, and specific needs. Goal: Complications related to the disease process, condition or treatment will be avoided or minimized Outcome: Progressing Problem: Health Behavior: Goal: Understanding of discharge needs will improve Outcome: Progressing Problem: Lack of Knowledge: Goal: Ability to develop a pain control plan will improve Outcome: Progressing Goal: Ability to identify pain intensity on a pain scale and rate it consistently will improve Outcome: Progressing Goal: Ability to notify healthcare provider of pain before it becomes unmanageable or unbearable will improve Outcome: Progressing Problem: Medication: Goal: Satisfaction with pain management regimen will improve Outcome: Progressing Problem: Sensory: Goal: Ability to identify factors that increase the pain will improve Outcome: Progressing Goal: Pain level will decrease Outcome: Progressing Goals: Clinical Goals for the Shift: Safety, comfort, pain control Summary: * Perioperative Nursing Note - Samantha Claros RN - 02/12/2022 4:04 PM CDT Travel case in IR for ERCP while pt there for bile tube placement. Consent obtained from spouse prior to case. * Post-Procedure Note - Carlos Plascencia MD - 02/12/2022 3:57 PM CDT Radiology Brief Post Procedure Note Attending: Thais Mold Breaker: Grey Sedation/Anesthesia: Anesthesia Pre-Op/Pre-Procedure Diagnosis: bile leak cholecystectomy Post-Op/Post-Procedure Diagnosis: bile leak after cholecystectomy Procedure Performed: Cholangiogram with rendevous procedure with GI Procedure Findings: No identifiable bile leak. Decompressed biliary system. Percutaneous access wasachieved allowing cholangiogram followed by internalization of a wire allowing endoscopic stent placement. Complications: None Estimated Blood Loss: < 30 ml Specimens: None Condition: Stable Full report to follow. * Plan of Care - Zee Brooke RN - 02/12/2022 3:52 PM CDT [facility] Home Health consult received. [facility] Home Care agency accepted patient with projected start of care within 48 hours of completed referral and discharge 02/14/2022. Vanessa NICOLE, notified. * Plan of Care - Vanessa Demarco RN - 02/12/2022 2:30 PM CDT CM Initial Assessment Interview Note Information Obtained From: Patient (02/12/221127) Admission Source: home Impression: bile leak from incision, s/p lap henrique 02/05 Plan Includes: biliary drain to be placed, discharge home, discharge planning Primary Source of Transportation: will transport at discharge Does the patient need discharge transport arranged?: No (02/12/221127) Health Insurance Coverage: [facility] Prescription Coverage: yes Pharmacy: [id number] - [place], [place] - [address] [place] [address] [place] [id number] Primary Care Provider: Thor Fajardo MD Prior to Admission: Primary Caregiver: Self Who does the patient or legal guardian want to receive education instruction and discharge plans for after care assistance?: Name Caregiver Name: Alyssa Cortes Relationship to patient: Caregiver Contact Information: [phone] Support System: Spouse/Significant Other Support system contact info (name, phone, availablity): alyssa Cortes [phone] Home Care Services: No Durable Medical Equipment: None Living Arrangements: Spouse/significant other, Children Type of Residence: Private residence Steps in home? : Yes, Outside of home Number of steps outside:: 1 steps (02/12/221127) SDOH: Transportation: In the past 12 months, has lack of transportation kept you from medical appointments or from getting medications?: No In the past 12 months, has lack of transportation kept you from meetings, work, or from getting things needed for daily living?: No (02/12/221427) Financial Resource: How hard is it for you to pay for the very basics like food, housing, medical care, and heating?: Not hard at all (02/12/221427) Housing: Social Connections: In a typical week, how many times do you talk on the phone with family, friends, or neighbors?: More than three times a week How often do you get together with friends or relatives?: Twice a week How often do you attend confucianism or tenriism services?: Never Do you belong to any clubs or organizations such as confucianism groups, unions, fraternal or athletic groups, or school groups?: No How often do you attend meetings of the clubs or organizations you belong to?: Never Are you , , , , never , or living with a partner?: (02/12/221427) Food Insecurity: Alcohol Use: PHQ Screening Potential discharge needs include: Home Health: halfway (02/12/221127) Dialysis: Behavioral Health Services: Behavioral Health Services: No (02/12/221127) Patient expects to be Discharged to: Private residence, (02/12/221127) Additional Information: CM met with pt and and explained CM role. Pt lives with and3 children. Patient is independent. No devices. Pt will need Home Health services for drain care and follow up. Pt is agreeable to [facility]. Referral sent to [facility]. CM will continue to follow for any discharge needs and send referrals as needed. Patient's Identified Problem/Goal Problem: Ensure acute medical needs are met and that patient has a safe discharge plan. Goal: Secure a discharge plan that patient/family are agreeable with and ensure patient has continuum of care. Case management will follow for discharge planning and send referrals as needed. Goals include: To assure continuity of care, To maximize coping skills, To assure patient is in a safe environment and To assure access to community resources. Plan includes: 1. Collaboration with patient, MD, direct care nurse, Vacuum Filter Operator, and other members of the health care team to assure needed interventions completed. 2. Return patient to optimal level of self-care post discharge. 3. Obiee Lead Developer will follow for Discharge Planning - interventions as needed 4. Anticipated level of care at discharge 5. Planned Discharge Disposition Vanessa Demarco RN * Plan of Care - Vanessa Demarco RN - 02/12/2022 2:29 PM CDT CM note: Referral sent to [facility] for SN for drain care. Await the acceptance. Dispo: Home with [facility] * Pre-Procedure Note - Carlos Plascencia MD - 02/12/2022 12:25 PM CDT Radiology Short Sedation Form Indication: 36 y/o F with cholecystectomy at OSH c/b bile leak s/p failed ERCP yesterday. Request for diverting ext or int/ext biliary drain. Planned Procedure: US and FL guided int/ext vs ext biliary drain placement. Possible biloma drain placement Planned Sedation/Anesthesia: anesthesia History of Sedation/ Anesthesia: No See H&P dated 02/12/22 for details of history, review of systems, physical exam, labs, imaging data and assessment. Changes in patient condition since prior assessment: none Most Recent Vitals: Vitals: 02/12/22 1143 BP: 127/71 Pulse: 75 Resp: 18 Temp: 36 ??C (96.8 ??F) SpO2: 95% Airway assessment: normal ASA Score: ASA 2 - Patient with mild systemic disease with no functional limitations NPO time: after midnight Benefits, risks and alternatives of procedure and planned sedation have been discussed with the patient and/or their veterans contact representative. All questions answered and they agree to proceed. * Plan of Care - Tamia Moreau RN - 02/11/2022 11:59 PM CDT Problem: Bowel/Gastric: Description: Module scope: 1. Patient population - adult 2. Intent - for use by staff nurses caringfor patients for whom endoscopic retrograde cholangiopancreatography (ERCP) has been ordered 3. Condition - patients requiring ERCP 4. Site - inpatient This module is not intended to be all-inclusiveand has been created for use by a wide variety of institutions with a multiplicity of available resources, patient populations, and specific needs. Goal: Complications related to the disease process, condition or treatment will be avoided or minimized Outcome: Progressing Problem: Health Behavior: Goal: Understanding of discharge needs will improve Outcome: Progressing Problem: Lack of Knowledge: Goal: Ability to develop a pain control plan will improve Outcome: Progressing Goal: Ability to identify pain intensity on a pain scale and rate it consistently will improve Outcome: Progressing Goal: Ability to notify healthcare provider of pain before it becomes unmanageable or unbearable will improve Outcome: Progressing Problem: Medication: Goal: Satisfaction with pain management regimen will improve Outcome: Progressing Problem: Sensory: Goal: Ability to identify factors that increase the pain will improve Outcome: Progressing Goal: Pain level will decrease Outcome: Progressing Goals: Safety, comfort, pain control, VS Summary: documented in this encounter Plan of Treatment Pending Results Name Type Priority Associated Diagnoses Date /Time FL ERCP Endo Imaging Procedure IP Routine Bile leak 02/11/2022 8:48 PM CDT FL ERCP Endo Imaging Procedure IP Routine Bile leak 02/12/2022 5:16 PM CDT documented as of this encounter Procedures Procedure Name Priority Date/Time Associated Diagnosis Comments EGFR Routine 02/14/2022 3:18 AM CDT COMPREHENSIVE METABOLIC PANEL Routine 02/14/2022 3:18 AM CDT ERCP IP Routine 02/12/2022 5:16 PM CDT Bile leak IR CHOLANGIOGRAM THROUGH EXISTING CATHETER IP Routine 02/12/2022 3:51 PM CDT ERCP 02/12/2022 3:21 PM CDT HCG, BLOOD, QUANTITATIVE Routine 02/12/2022 10:25 AM CDT COVID-19 CORONAVIRUS RNA Routine 02/12/2022 10:[address] ABDOMEN PELVIS W CONTRAST ED Urgent/IP Urgent 02/12/2022 8:36 AM CDT EGFR Routine 02/12/2022 4:45 AM CDT DIFFERENTIAL AUTO Routine 02/12/2022 4:4 5 AM CDT CBC WITH AUTO DIFFERENTIAL Routine 02/12/2022 4:45 AM CDT PROTIME-INR Routine 02/12/2022 4:45 AM CDT COMPREHENSIVE METABOLIC PANEL Routine 02/12/2022 4:45 AM CDT ERCP IP Routine 02/11/2022 8:48 PM CDT Bile leak ERCP IP Routine 02/11/2022 8:30 PM CDT ERCP 02/11/2022 6:04 PM CDT documented in this encounter Results * eGFR (02/14/2022 3:18 AM CDT) [facility] eGFR 118 mL/min/1. 73 m2 [facility] Comment: Interpretive Data Reference Interval Normal ?>/= 90 mL/min/1.73m2 Mildly decreased* ? 60 - 89 mL/min/1.73m2 Mildly to moderately decreased ?45 - 59 mL/min/1.73m2 Moderately to severely decreased ??30 - 44 mL/min/1.73m2 Severely decreased ?15 - 29 mL/min/1.73m2 Kidney Failure ?< 15 ??mL/min/1.73m2 *Relative to young adult level Estimated glomerular filtration rate is determined by the 2020 CKD-EPI equation recommended by the National Kid[employer] (A Unifying Approach to GFR Estimation: Recommendations of the NKF-ASK Task Force on Reassessing the Inclusion of Race in Diagnosing Kidney Disease, JASN 2020). The CKD-EPI equation should not be used for patients with unstable renal function and has not been validated in children and those over 70. Current interpretive data was last reviewed 2021. Blood 02/14/2022 3:18 AM CDT 02/14/2022 3:51 AM CDT us Ada Hilario NP LAB BLOOD ORDERABLES Final Re sult [facility] [address] [address] Department [place] [address] * (ABNORMAL) Comprehensive metabolic panel (02/14/2022 3:18 AM CDT) Sodium 141 135 - 145 mmol/L [facility] Potassium, pl 3.4 3.3 - 4.9 mmol/L [facility] Chloride 103 97 - 110 mmol/L [facility] CO2 26 22 - 32 mmol/L [facility] Anion gap 12 2 - 15 mmol/L [facility] BUN 8 8 - 25 mg/dL [facility] Creatinine 0.62 0.60 - 1.10 mg/dL [facility] Glucose 93 70 - 199 mg/dL [facility] Comment: Interpretive Data Fasting glucose >/= 126 mg/dl is diagnostic for diabetes. ?? Fasting is defined as no caloric intake for at least 8 hours. Fasting glucose between 100 mg/dl to 125 mg/dl is diagnostic of prediabetes. In a patient with classic symptoms of hyperglycemia or hyperglycemic crisis, a random glucose >/= 200 mg/dl is diagnostic for diabetes. In the absence of unequivocal hyperglycemia, results should be confirmed by repeat testing. The classification and Diagnosis of Diabetes Diabetes Care 2017;40 (Suppl. 1):S11. Current interpretive data was last revised 2017. Calcium 7.6(L) 8.5 - 10.3 mg/dL [facility] Bilirubin, total 1.3(H) 0.1 - 1.2 mg/dL [facility] Protein, pl 5.7(L) 6.5 - 8.5 g/dL [facility] Albumin 3.1(L) 3.5 - 5.0 g/dL [facility] Alk phos 152(H) 40 - 130 Units/L [facility] ALT 60(H) 7 - 45 Units/L [facility] AST 29 10 - 45 Units/L [facility] Blood 02/14/2022 3:18 AM CDT 02/14/2022 3:51 AM CDT us Ada Hilario C[employer]ATCHER LAB BLOOD ORDERABLES Final Re sult [facility] [address] [place] [address] * IR Cholangiogram Through Existing Catheter (02/12/2022 3:51 PM CDT) Anatomical Region Laterality Modality Body N/A X-Ray Angiograph y 02/12/2022 5:27 PM CDT Impressions 02/12/2022 5:27 PM CDT Technically challenging but ultimately successful percutaneous transhepatic cholangiogram and rendezvous procedure as described in detail above PLAN: Patient will follow-up with GI for removal of the biliary stent. Electronically signed by: Carlos Plascencia M.D. Narrative 02/12/2022 5:27 PM CDT EXAMINATION: ??PERCUTANEOUS TRANSHEPATIC CHOLANGIOGRAM AND RENDEZVOUS PROCEDURE WITH GASTROENTEROLOGY HISTORY/INDICATION: 36-year-old female who presented from outside hospital with biliary leak status post cholecystectomy. Request for percutaneous transhepatic cholangiogram and possible internal/external biliary drain placement versus rendezvous procedure. ATTENDING PRESENCE: Carlos Plascencia M.D., the attending radiologist was present from the beginning to the end of the procedure. ??Alfonso Edmonds M.D. also participated in the procedure. SEDATION: ??General anesthesia (see log). TECHNIQUE: ?? The risks, benefits and alternatives were discussed and informed consent was obtained. Prior to beginning the procedure, Wadding[place] Protocol was performed to confirm the patient?s identity and the planned procedure. ??The fluoroscopy time has been recorded in the electronic medical record. Maximum sterile barriers including cap, mask, hand hygiene, sterile gloves, sterile gown, large sterile drape and 2% chlorhexidine for cutaneous antisepsis were used. The patient was brought into the fluoroscopy suite and placed supine on the table. The right side and abdomen were prepped and draped in standard sterile fashion. Lidocaine 1% was instilled for local anesthesia. Initially, under combination of ultrasound and fluoroscopic guidance, a 22-gauge Chiba needle was advanced into the hepatic parenchyma in the right mid axillary line. Multiple attempts were made to access the biliary system under fluoroscopic guidance. At this point, Dr. Alfonso Edmonds scrubbed into the case. Numerous attempts were made to access the biliary system under fluoroscopic guidance with a 22-gauge Chiba needle by Dr. Edmonds and myself. Eventually, we were able to opacify the biliary tree. Contrast was injected to opacify the biliary system and multiple fluoroscopic images were obtained in several projections. Despite it being very technically challenging, Dr. Edmonds was ultimately successful in advancing and a 0.018 inch wire into the biliary system. The access was upsized using an AccuStick system. A guidewire was then navigated through the common bile duct into the duodenum. A 4 Cymraes Kumpe catheter was advanced coaxially over the wire and the wire was exchanged for an exchange length Amplatz wire. At this time, consultation was sought with Dr. Soto of gastroenterology, who agreed to attempt a rendezvous procedure within the IR suite. Emergency room is consent was obtained via telephone via the patient's . Under endoscopic and fluoroscopic guidance, Dr. Soto was successful in placing a 10 Cymraes 7 cm plastic biliary stent. Contrast was then injected from the percutaneous access which demonstrated good drainage of the stent. Therefore, the wires and catheters were removed from the percutaneous access site. A sterile bandage was applied. ESTIMATED BLOOD LOSS: Minimal. CONDITION: Stable DISCHARGED TO: patient care division FINDINGS: ?? 1. ??Preprocedure ultrasound images demonstrate a nondilated biliary system. 2. ??Intraprocedural fluoroscopic images opacify the biliary tree which is decompressed. 3. ??Intraprocedural fluoroscopic cholangiogram does not identify the site of biliary leak. 4. ??Technically challenging, but ultimately successful, placement of a percutaneous internal/external catheter, which was then used by gastroenterology for rendezvous and placement of an internal plastic biliary stent. 5. ??Post endoscopic stent placement contrast injection demonstrated brisk flow through the stent and decompression of the biliary system. No biliary leak was identified Procedure Note Carlos Plascencia MD - 02/12/2022 EXAMINATION: PERCUTANEOUS TRANSHEPATIC CHOLANGIOGRAM AND RENDEZVOUS PROCEDURE WITH GASTROENTEROLOGY HISTORY/INDICATION: 36-year-old female who presented from outside hospital with biliary leak status post cholecystectomy. Request for percutaneous transhepatic cholangiogram and possible internal/external biliary drain placement versus rendezvous procedure. ATTENDING PRESENCE: Carlos Plascencia M.D., the attending radiologist was present from the beginning to the end of the procedure. Alfonso Edmonds M.D. also participated in the procedure. SEDATION: General anesthesia (see log). TECHNIQUE: The risks, benefits and alternatives were discussed and informed consent was obtained. Prior to beginning the procedure, Waddington Protocol was performed to confirm the patient?s identity and the planned procedure. The fluoroscopy time has been recorded in the electronic medical record. Maximum sterile barriers including cap, mask, hand hygiene, sterile gloves, sterile gown, large sterile drape and 2% chlorhexidine for cutaneous antisepsis were used. The patient was brought into the fluoroscopy suite and placed supine on the table. The right side and abdomen were prepped and draped in standard sterile fashion. Lidocaine 1% was instilled for local anesthesia. Initially, under combination of ultrasound and fluoroscopic guidance, a 22-gauge Chiba needle was advanced into the hepatic parenchyma in the right mid axillary line. Multiple attempts were made to access the biliary system under fluoroscopic guidance. At this point, Dr. Alfonso Edmonds scrubbed into the case. Numerous attempts were made to access the biliary system under fluoroscopic guidance with a 22-gauge Chiba needle by Dr. Edmonds and myself. Eventually, we were able to opacify the biliary tree. Contrast was injected to opacify the biliary system and multiple fluoroscopic images were obtained in several projections. Despite it being very technically challenging, Dr. Edmonds was ultimately successful in advancing and a 0.018 inch wire into the biliary system. The access was upsized using an AccuStick system. A guidewire was then navigated through the common bile duct into the duodenum. A 4 Cymraes Kumpe catheter was advanced coaxially over the wire and the wire was exchanged for an exchange length Amplatz wire. At this time, consultation was sought with Dr. Soto of gastroenterology, who agreed to attempt a rendezvous procedure within the IR suite. Emergency room is consent was obtained via telephone via the patient's . Under endoscopic and fluoroscopic guidance, Dr. Soto was successful in placing a 10 Cymraes 7 cm plastic biliary stent. Contrast was then injected from the percutaneous access which demonstrated good drainage of the stent. Therefore, the wires and catheters were removed from the percutaneous access site. A sterile bandage was applied. ESTIMATED BLOOD LOSS: Minimal. CONDITION: Stable DISCHARGED TO: patient care division FINDINGS: 1. Preprocedure ultrasound images demonstrate a nondilated biliary system. 2. Intraprocedural fluoroscopic images opacify the biliary tree which is decompressed. 3. Intraprocedural fluoroscopic cholangiogram does not identify the site of biliary leak. 4. Technically challenging, but ultimately successful, placement of a percutaneous internal/external catheter, which was then used by gastroenterology for rendezvous and placement of an internal plastic biliary stent. 5. Post endoscopic stent placement contrast injection demonstrated brisk flow through the stent and decompression of the biliary system. No biliary leak was identified IMPRESSION: Technically challenging but ultimately successful percutaneous transhepatic cholangiogram and rendezvous procedure as described in detail above PLAN: Patient will follow-up with GI for removal of the biliary stent. Electronically signed by: Carlos Plascencia M.D. 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 Referring MD: Thor Fajardo M.D., Piotr Hughes DO,Jaziel Nelson M.D. Medicines: Propofol per Anesthesia Complications: No immediate complications. Estimated Blood Loss: Estimated blood loss: none. Procedure: The benefits, risks, and alternatives to theprocedure and sedation were discussed and informed consentwas obtained. The TJF-Q378 was introduced through the mouth, and used to inject contrast into and used to inject contrast into the bile duct. Findings: One biliary drain/guidewire assembly and one pancreatic stents were visible on the line decorator film. The esophagus was successfully intubated under direct vision. The scope was advanced to the major papilla inthe descending duodenum without detailed examination of the pharynx,larynx and associated structures, and upper GI tract. The upper GI tract was grossly normal. Inspection of the major papilla revealed one percutaneous biliary drain/guidewire assembly and one pancreaticstent. The bile duct was cannulated with the short-nosed sphincterotome ximena guidewire. Contrast was injected. The main bile duct remaineddilated. The largest diameter was 7 mm. A cholecystectomy had been performed.No attempt was made to localize the site of bile leak to avoid contaminating the peritoneal fluid. A 7 mm biliary sphincterotomy was performed. No bleeding occurred. One 10 FR CLSO stent was placed over the guidewire. The pancreatic duct stent was left in place, as it hasno flange and is expected to migrate out spontaneously. Impression: - Successful biliary sphincterotomy and stenting performed with rendex-vous procedure with IR. - One stable stent is in the bile duct and willneed endoscopic removal. - One migratory stent is in the pancreatic duct andis expected to migrate out spontaneously. Recommendation: - Ice chips today, clear liquids tomorrow, then advance diet and discharge as tolerated. - Analgesia as needed. - Remove the bile duct stent with an outpatient procedure in 5-6 weeks. - On occasion, stent adjustment might becomenecessary if not tolerated or if the leak does not heal as expected. Electronically signed by Sebastian Soto MD Sebastian Soto M.D. 02/12/2022 4:43:45 PM Number of Addenda: 0 Note Initiated On: 02/12/2022 3:21 PM Scope In: Scope Out: Sebastian Soto MD ENDOSCOPY PROCEDURES Edited Result - Final * hCG, blood, quantitative (02/12/2022 10:25 AM CDT) Pathologist [facility] hCG, quant <0.2 0.0 - 5.0 IUnits/L [facility] Comment: Interpretive Data Non- Female premenopausal: < or = 5.0 IUnits/L Men: < 5.0 IUnits/L Weeks of Gestation ? Reference Interval ?? 3 to 6 ? 5.8-31,795 IUnits/L ?? 7 to 10 ? 3,697-186,977 IUnits/L ??12 to 15 ?27,832- 70,791 IUnits/L ??16 to 18 ? 9,040- 58,179 IUnits/L The [employer] hCG Beta Quant assay procedure was used. Results from different manufacturers or methods may not be comparable. Serial testing should be performed using the same method. Current Interpretive Data was last revised on 2021. Blood 02/12/2022 10:2 5 AM CDT 02/12/2022 10:28 AM CDT Carlos Plascencia MD LAB BLOOD ORDERABLES Edit ed Result - Final [facility] [address] Department [place] [address] * COVID-19 Coronavirus RNA Nasopharyngeal (02/12/2022 10:21 AM CDT) COVID-19 RNA Negative Negative [facility] Nasopharyngeal 02/12/2022 10 :21 AM CDT 02/12/2022 10:21 AM CDT Narrative [facility] - 02/12/2022 10:53 AM CDT Is the patient experiencing any symptoms consistent with COVID (eg. Fever, cough, shortness of breath)?->No What is the reason for testing?->Asymptomatic screening prior to procedure??or??surgery (Rapid) ??Interpretive data: Synonyms for this test include: PCR and NAAT . ??This test is performed using the In Ovo Xpert Xpress plus assay. This is a real-time RT-PCR test intended for the qualitative detection of nucleic acid from the SARS-CoV-2. This assay has been reviewed by the FDA for Emergency Use Authorization (EUA). The performance characteristics have been verified by the performing laboratory. Results must be considered in the clinical context and a negative result does not rule out infection. Interpretive data last revised September 30, 2021. Carlos Plascencia MD LAB MICROBIOLOGY - GENERA L ORDERABLES Final Result [facility] [address] [place] [address] * CT abdomen pelvis with contrast (02/12/2022 8:36 AM CDT) Anatomical Region Laterality Modality Body N/A Computed Tomogra phy 02/12/2022 8:50 AM CDT Impressions 02/12/2022 8:50 AM CDT 1. Status post recent cholecystectomy. ??There is fluid within the gallbladder fossa as well as a small to moderate volume of ascites which may reflect bile leak in the appropriate clinical setting. There is mild nonspecific peritoneal edema. ??There is no evidence of abscess. 2. ??No evidence of biliary ductal dilatation. 3. ??Tiny left pleural effusion with mild bibasilar parenchymal disease. 4. ??Pancreatic duct stent noted. Electronically signed by: Joe Thornton M.D. Narrative 02/12/2022 8:50 AM CDT EXAM: CT ABDOMEN PELVIS W CONTRAST CLINICAL HISTORY: Suspected abdominal infection. ??Possible abscess. Suspected bile leak. TECHNIQUE: CT abdomen and pelvis was performed following intravenous administration of 95 mL's of Optiray 350 contrast material. Oral contrast was not administered. COMPARISONS: No relevant priors. FINDINGS: Lung bases: There is a tiny left pleural effusion appreciated. ??There is bibasilar atelectasis. Liver: Unremarkable. Gallbladder/biliary: The patient is status post cholecystectomy. There is ill-defined fluid within the gallbladder fossa without evidence of abscess. ??There is no evidence of biliary ductal dilatation. Spleen: Unremarkable. Adrenal glands: Unremarkable. Pancreas: Pancreatic duct stent is identified. ??The pancreas is otherwise unremarkable. Kidneys: There is a 5 mm cortical calcification in the upper pole of the left kidney. ??The kidneys are otherwise unremarkable in appearance. Bladder: Unremarkable. Reproductive: Intrauterine device is appreciated in its expected normal location. ??The uterus and both ovaries are unremarkable in appearance. Bowel: Unremarkable. The appendix is visualized and is within normal limits. Vascular/aorta: Unremarkable. Lymph nodes: No adenopathy. Peritoneum: There is a mnajk-hf-pujstqtv volume of ascites which is greatest in the pelvis and around the liver. ??There is nonspecific mild peritoneal edema. Abdominal wall: Unremarkable. Osseous structures: Unremarkable. Procedure Note Joe Thornton MD - 02/12/2022 EXAM: CT ABDOMEN PELVIS W CONTRAST CLINICAL HISTORY: Suspected abdominal infection. Possible abscess. Suspected bile leak. TECHNIQUE: CT abdomen and pelvis was performed following intravenous administration of 95 mL's of Optiray 350 contrast material. Oral contrast was not administered. COMPARISONS: No relevant priors. FINDINGS: Lung bases: There is a tiny left pleural effusion appreciated. There is bibasilar atelectasis. Liver: Unremarkable. Gallbladder/biliary: The patient is status post cholecystectomy. There is ill-defined fluid within the gallbladder fossa without evidence of abscess. There is no evidence of biliary ductal dilatation. Spleen: Unremarkable. Adrenal glands: Unremarkable. Pancreas: Pancreatic duct stent is identified. The pancreas is otherwise unremarkable. Kidneys: There is a 5 mm cortical calcification in the upper pole of the left kidney. The kidneys are otherwise unremarkable in appearance. Bladder: Unremarkable. Reproductive: Intrauterine device is appreciated in its expected normal location. The uterus and both ovaries are unremarkable in appearance. Bowel: Unremarkable. The appendix is visualized and is within normal limits. Vascular/aorta: Unremarkable. Lymph nodes: No adenopathy. Peritoneum: There is a dwhbe-hj-iqdaabod volume of ascites which is greatest in the pelvis and around the liver. There is nonspecific mild peritoneal edema. Abdominal wall: Unremarkable. Osseous structures: Unremarkable. IMPRESSION: 1. Status post recent cholecystectomy. There is fluid within the gallbladder fossa as well as a small to moderate volume of ascites which may reflect bile leak in the appropriate clinical setting. There is mild nonspecific peritoneal edema. There is no evidence of abscess. 2. No evidence of biliary ductal dilatation. 3. Tiny left pleural effusion with mild bibasilar parenchymal disease. 4. Pancreatic duct stent noted. Electronically signed by: Joe Thornton M.D. Phuong [facility] IMG CT PROCEDURES Final Resul t * eGFR (02/12/2022 4:45 AM CDT) eGFR 119 mL/min/1. 73 m2 [facility] Comment: Interpretive Data Reference Interval Normal ?>/= 90 mL/min/1.73m2 Mildly decreased* ? 60 - 89 mL/min/1.73m2 Mildly to moderately decreased ?45 - 59 mL/min/1.73m2 Moderately to severely decreased ??30 - 44 mL/min/1.73m2 Severely decreased ?15 - 29 mL/min/1.73m2 Kidney Failure ?< 15 ??mL/min/1.73m2 *Relative to young adult level Estimated glomerular filtration rate is determined by the 2020 CKD-EPI equation recommended by the National Kid[employer] (A Unifying Approach to GFR Estimation: Recommendations of the NKF-ASK Task Force on Reassessing the Inclusion of Race in Diagnosing Kidney Disease, JASN 202). The CKD-EPI equation should not be used for patients with unstable renal function and has not been validated in children and those over 70. Current interpretive data was last reviewed 2021. Blood 02/12/2022 4:45 AM CDT 02/12/2022 5:38 AM CDT Anyi Garcia MD LAB BLOOD ORDERABLES F inal Result [facility] [address] [place] [address] * (ABNORMAL) Differential, auto (02/12/2022 4:45 AM CDT) Neutrophil abs 10.9(H) 1.7 - 6.5 K/cumm [facility] Imm gran abs 0.1 0.0 - 0.1 K/cumm [facility] Lymphocyte abs 0.6(L) 0.8 - 3.3 K/cumm [facility] Monocyte abs 0.3 0.2 - 0.8 K/cumm [facility] Eosinophil abs 0.0 0.0 - 0.5 K/cumm [facility] Basophil abs 0.0 0.0 - 0.1 K/cumm [facility] Neutrophil pct 91.0 % [facility] Comment: Interpretive Data Percent cell count reference ranges are not reported, since discordance with absolute values may lead to misinterpretation of CBC data. Current Interpretive Data was last revised on 2017. Imm gran pct 0.7 % [facility] Comment: Interpretive Data Percent cell count reference ranges are not reported, since discordance with absolute values may lead to misinterpretation of CBC data. Current Interpretive Data was last revised on 2017. Lymphocyte pct 5.3 % [facility] Comment: Interpretive Data Percent cell count reference ranges are not reported, since discordance with absolute values may lead to misinterpretation of CBC data. Current Interpretive Data was last revised on 2017. Monocyte pct 2.8 % [facility] Comment: Interpretive Data Percent cell count reference ranges are not reported, since discordance with absolute values may lead to misinterpretation of CBC data. Current Interpretive Data was last revised on 2017. Eosinophil pct 0.0 % [facility] Comment: Interpretive Data Percent cell count reference ranges are not reported, since discordance with absolute values may lead to misinterpretation of CBC data. Current Interpretive Data was last revised on 2017. Basophil pct 0.2 % [facility] Comment: Interpretive Data Percent cell count reference ranges are not reported, since discordance with absolute values may lead to misinterpretation of CBC data. Current Interpretive Data was last revised on 2017. Blood 02/12/2022 4:45 AM CDT 02/12/2022 5:38 AM CDT Anyi Garcia MD LAB BLOOD ORDERABLES F inal Result Performing Organization Address [facility]/ZIP Co de Phone Number [facility] [address] [email or web address] [place] [address] * Protime-INR (02/12/2022 4:45 AM CDT) PT 13.3 9.2 - 13.5 sec [facility] INR 1.2 0.9 - 1.2 [facility] Comment: Interpretive data Oral anticoagulant therapeutic ranges: Venous thromboembolism prophylaxis or treatment: 2.0-3.0 CARDIOLOGY Standard range: 2.0-3.0 High-intensity range: 2.5-3.5 Refer to indication-specific guidelines for appropriate target ranges for prosthetic heart valve replacement. Current interpretive data was last revised on 2019. Blood 02/12/2022 4:45 AM CDT 02/12/2022 5:38 AM CDT Anyi Garcia MD LAB BLOOD ORDERABLES F inal Result Performing Organization Address City/[facility]/ZIP Co de Phone Number [facility] [address] [email or web address] [address] * (ABNORMAL) CBC with auto differential (02/12/2022 4:45 AM CDT) WBC 12.0(H) 3.8 - 9.9 K/cumm [facility] Hgb 11.8(L) 11.9 - 15.5 g/dL [facility] Hct 35.6 35.6 - 45.5 % [facility] Plt 327 150 - 400 K/cumm [facility] MPV 11.0 9.1 - 12.3 fL [facility] RBC 3.97 3.90 - 5.20 M/cumm [facility] MCV 89.7 81.3 - 96.4 fL [facility] [facility] 29.7 27.1 - 33.3 pg [facility] MCHC 33.1 32.3 - 35.7 g/dL [facility] RDW CV 13.0 11.1 - 14.9 % [facility] RDW SD 42.8 35.7 - 48.1 fL [facility] NRBC abs 0.00 0.00 - 0.01 K/cumm [facility] Blood 02/12/2022 4:45 AM CDT 02/12/2022 5:38 AM CDT [facility] Liz Garcia MD LAB BLOOD ORDERABLES F inal Result [facility] [address] Department [place] [address] * (ABNORMAL) Comprehensive metabolic panel (02/12/2022 4:45 AM CDT) Sodium 138 135 - 145 mmol/L [facility] Potassium, pl 4.0 3.3 - 4.9 mmol/L [facility] Chloride 104 97 - 110 mmol/L [facility] CO2 25 22 - 32 mmol/L [facility] Anion gap 9 2 - 15 mmol/L [facility] BUN 10 8 - 25 mg/dL [facility] Creatinine 0.60 0.60 - 1.10 mg/dL [facility] Glucose 120 70 - 199 mg/dL [facility] Comment: Interpretive Data Fasting glucose >/= 126 mg/dl is diagnostic for diabetes. ?? Fasting is defined as no caloric intake for at least 8 hours. Fasting glucose between 100 mg/dl to 125 mg/dl is diagnostic of prediabetes. In a patient with classic symptoms of hyperglycemia or hyperglycemic crisis, a random glucose >/= 200 mg/dl is diagnostic for diabetes. In the absence of unequivocal hyperglycemia, results should be confirmed by repeat testing. The classification and Diagnosis of Diabetes Diabetes Care 2017;40 (Suppl. 1):S11. Current interpretive data was last revised 2017. Calcium 8.1(L) 8.5 - 10.3 mg/dL [facility] Bilirubin, total 1.7(H) 0.1 - 1.2 mg/dL [facility] Protein, pl 6.4(L) 6.5 - 8.5 g/dL [facility] Albumin 3.5 3.5 - 5.0 g/dL [facility] Alk phos 137(H) 40 - 130 Units/L [facility] ALT 70(H) 7 - 45 Units/L [facility] AST 38 10 - 45 Units/L [facility] Blood 02/12/2022 4:45 AM CDT 02/12/2022 5:38 AM CDT [facility] Liz Garcia MD LAB BLOOD ORDERABLES F inal Result [facility] [address] Department [place] [address] * [place] ERCP Biliary and Pancreatic (02/11/2022 8:30 PM CDT) Anatomical Region Laterality Modality Body N/A Computed Radiogr aphy 02/12/2022 10:2 5 AM CDT Impressions 02/12/2022 10:25 AM CDT FINDINGS/IMPRESSION: Upper abdominal surgical clips. ??Endoscope visualized at the ampulla. The pancreatic duct is cannulated with contrast injection. ??A pancreatic duct stent is placed. ??No leakage of contrast. Please see procedure note for further details. Vendor-specific software calculated a cumulative dose of 229 mGy. The exam time was recorded as 6.6 minutes. These figures may be useful in determining the patient's actual radiation dose. Electronically signed by: Mayco Villa M.D. Narrative 02/12/2022 10:25 AM CDT EXAM: [place] ERCP INDICATION: JAUNDICE, ABD PAIN, FEVER OR BILIARY SURGERY OR GALLSTONES COMPARISON: CT 02/12/2022 TECHNIQUE: ERCP performed by a separate service. Fluoroscopic assistance was provided. ??4 images were submitted for review. Procedure Note Mayco Villa MD - 02/12/2022 EXAM: [place] ERCP INDICATION: JAUNDICE, ABD PAIN, FEVER OR BILIARY SURGERY OR GALLSTONES COMPARISON: CT 02/12/2022 TECHNIQUE: ERCP performed by a separate service. Fluoroscopic assistance was provided. 4 images were submitted for review. IMPRESSION: FINDINGS/IMPRESSION: Upper abdominal surgical clips. Endoscope visualized at the ampulla. The pancreatic duct is cannulated with contrast injection. A pancreatic duct stent is placed. No leakage of contrast. Please see procedure note for further details. Vendor-specific software calculated a cumulative dose of 229 mGy. The exam time was recorded as 6.6 minutes. These figures may be useful in determining the patient's actual radiation dose. Electronically signed by: Mayco Villa M.D. Sebastian Soto MD IM FLUOROSCOPY PROCEDURES Final Result * ERCP (02/11/2022 6:04 PM CDT) Anatomical Region Laterality Modality Other Narrative Procedure Note Sebastian Soto MD - 02/11/2022 6:04 PM CDT ENDOSCOPY LAB Patient Name: Shayla Curry Procedure Date: 02/11/2022 6:04 PM Admit Type: Inpatient Room: [facility] Date of : 1985 Instrument Name: [id number] Gender: Female Note Status: Finalized Procedure: ERCP Indications: Treatment of bile leak Providers: Sebastian Soto M.D. Referring MD: Thor Fajardo M.D. Medicines: Propofol per Anesthesia Complications: No immediate complications. Estimated Blood Loss: Estimated blood loss: none. Procedure: The benefits, risks, and alternatives to theprocedure and sedation were discussed and informed consentwas obtained. The TJF-[id number] was introduced through the mouth, and used to inject contrast into and used to inject contrast into the bile duct and ventral pancreatic duct. Findings: A line decorator film of the abdomen was obtained and appeared normal beside cholecystectomy clips. The esophagus was successfully intubated under direct vision. The scope was advanced to the major papilla in the descending duodenum without detailed examination of the pharynx,larynx and associated structures, and upper GI tract. The upper GI tract was grossly normal. Inspection of the major papilla revealedmild-moderate edema. The bile duct was unable to be deeply cannulated with the short-nosed traction sphincterotome and a guidewire. Twosphincterotomes and three guidewires were attempted. Two 5-4-3 ultratapered tip catheters were attempted unsuccessfully. The ventral pancreatic ductwas able to be cannulated with a guidewire and multiple attempts toaccess the bile duct in parallel with another guidewire failed. Oneflangeless pancreatic duct stent was then placed. A small amount of contrast was injected into the ventral pancreatic with the sphincterotome toassess its course. The main pancreatic duct appeared generally normal. One 4Fr by 9 cm pancreatic stent with a 3/4 external pigtail and no internal flap was placed into the ventral pancreatic duct with the intentionof performing a protected papillotomy. This was achieved with the needle-knife. Despite this effort, biliary access failed. Clear fluid flowed through the pancreatic duct stent which was left in good position. The procedure was thus terminated. Impression: - Failed biliary cannulation. - Pancreatic stent left in place after precut sphincterotomy. Recommendation: - Continue hospital monitoring. - Consult IR tomorrow: If PTC is feasible,proceed. - If not, would place a RUQ drain tube to relieve peritoneal pressure until ERCP can be repeted after resolution of papillary edema. Electronically signed by Sebastian Soto MD Sebastian Soto M.D. 02/11/2022 8:59:02 PM Number of Addenda: 0 Note Initiated On: 02/11/2022 6:04 PM Scope In: Scope Out: Sebastian Soto MD ENDOSCOPY PROCEDURES Final Result documented in this encounter Visit Diagnoses Diagnosis Bile leak from incision of common bile duct- Primary Bile leak Unspecified disorder of biliary tract Bile leak Unspecified disorder of biliary tract documented in this encounter Admitting Diagnoses Diagnosis Bile leak from incision of common bile duct Bile leak Unspecified disorder of biliary tract documented in this encounter Administered Medications Inactive Administered Medications - up to 3 most recent administrations Medication Order MAR Action Action Date Dose Rate Site albuterol 2.5 mg /3 mL (0.083 %) nebulizer solution 2.5 mg 2.5 mg, nebulization, As needed, wheezing, Starting on Tue02/12/22 at 1617, For 2 doses, Phase I, Notify Anesthesiologist. , Indications: Bronchospastic Pulmonary DiseaseIndications:Bronchospastic Pulmonary Disease Carrier Fluids for Secondary Infusion - 0.9% Sodium Chloride 30 mL, intravenous, As needed, For priming tubing and/or flushing, Starting on [place] 02/11/22 at 1522, 0-250 ml/hr to flush line after IV infusions when no maintenance IV ordered. Infuse 30mL at the same rate as the secondary infusion. Run as primary IV, not intended for KVO. Carrier Fluids for Secondary Infusion - 0.9% Sodium Chloride 30 mL, intravenous, As needed, For priming tubing and/or flushing, Starting on [place] 02/11/22 at 1649, 0-250 ml/hr to flush line after IV infusions when no maintenance IV ordered. Infuse 30mL at the same rate as the secondary infusion. Run as primary IV, not intended for KVO. Carrier Fluids for Secondary Infusion - 0.9% Sodium Chloride 30 mL, intravenous, As needed, For priming tubing and/or flushing, Starting on Tue02/12/22 at 1455, Pre-Op/Floor (GI), 0-250 ml/hr to flush line after IV infusions when no maintenance IV ordered. Infuse 30mL at the same rate as the secondary infusion. Run as primary IV, not intended for KVO. diphenhydrAMINE (BENADRYL) injection 12.5 mg 12.5 mg, intravenous, Every 15 min PRN, itching, Starting on Tue02/12/22 at 1617, For 2 doses, Phase I, Max cumulative dose 50 mg., Indications: ItchingIndications:Itching fentaNYL (SUBLIMAZE) preservative free injection 25 mcg 25 mcg, intravenous, Every 5 min PRN, uncontrolled pain on PACU admission, Starting on Tue02/12/22 at 1617, For 4 doses, Phase I, Maximum dosage of fentanyl of 100 mcg for arrival to PACU, then proceed to PACU 1st line analgesic., Indications: PainIndications:Pain haloperidol (HALDOL) injection 1 mg 1 mg, intravenous, Administer over 5 Minutes, Once as needed, nausea, vomiting, Starting on Tue02/12/22 at 1617, For 1 dose, Phase I, If post-operative nausea and/or vomiting is not relieved by ondansetron within 30 minutes or if more than 8mg of ondansetron have been given within the last 6 hours. HYDROmorphone (DILAUDID) injection 0.4 mg 0.4 mg, intravenous, Administer over 2 Minutes, Every 10 min PRN, 1st line for pain, Starting on Tue02/12/22 at 1617, For 5 doses, Phase I, Notify Anesthesiologist if total PACU dose reaches 2 mg and pain score 5/10 or more., Indications: PainIndications:Pain Given 02/12/2022 7:46 PM CDT 0.4 mg HYDROmorphone (DILAUDID) injection 1 mg 1 mg, intravenous, Administer over 2 Minutes, Every 4 hours PRN, 2nd line for pain, Starting on Tue02/11/22 at 1522 Given 02/13/2022 5:54 AM CDT 1 mg Given 02/13/2022 1:37 AM CDT 1 mg Given 02/12/2022 11:03 AM CDT 1 mg insulin lispro (HumaLOG, ADMELOG) 100 unit/mL injection 1-5 Units 1-5 Units, subcutaneous, Once as needed, high blood sugar, Starting on Tue02/12/22 at 1617, For 1 dose, Phase I, Blood Sugar Mid Dose - Surgical/Post-Op ICU 139 or less No insulin 140 - 175 1 unit 176 - 200 2 unit 201 - 250 3 units 251 - 299 5 units Greater than 299 Call MD for hyperglycemia management instructions Do NOT hold for NPO status., Indications: Diabetes MellitusIndications:Diabetes Mellitus ioversoL (OPTIRAY 350) injection 50 mL 50 mL, intra-catheter, Once in imaging, contrast, Starting on Tue02/12/22 at 1556, For 1 dose Contrast Given 02/12/2022 3:57 PM CDT 50 mL ioversoL (OPTIRAY 350) syringe 100 mL 100 mL, intravenous, Once in imaging, contrast, Starting on Tue02/12/22 at 0832, For 1 dose Contrast Given 02/12/2022 8:37 AM CDT 95 mL labetaloL (NORMODYNE,TRANDATE) injection 5 mg 5 mg, intravenous, at 30 mL/hr, Administer over 2 Minutes, Every 10 min PRN, high blood pressure, Starting on Tue02/12/22 at 1617, For 4 doses, Phase I, Max cumulative dose 20 mg. Dose if systolic blood pressure greater than 180 AND heart rate greater than 70. LORazepam (ATIVAN) 2 mg/mL injection - ADS Override Pull Starting on Tue02/11/22 at 2115, For 1 dose, Created by cabinet override For IV administration, dilute with equal volume of 0.9% sodium chloride to a final concentration of 1 mg/mL. Do not exceed a rate of 2 mg/minute LORazepam (ATIVAN) injection 1 mg 1 mg, intravenous, Every 30 min PRN, other, spasm, Starting on Tue02/11/22 at 2110, For 2 doses, For IV administration, dilute with equal volume of 0.9% sodium chloride to a final concentration of 1 mg/mL. Do not exceed a rate of 2 mg/minute Given 02/11/2022 9:19 PM CDT 1 mg meperidine (DEMEROL) preservative free injection 12.5 mg 12.5 mg, intravenous, Administer over 5 Minutes, Every 10 min PRN, shivering, Starting on Tue02/12/22 at 1617, For 2 doses, Phase I, Max cumulative dose 25 mg., Indications: ShiveringIndications:Shivering naloxone (NARCAN) 0.4 mg/mL injection 0.04-0.4 mg 0.04-0.4 mg, intravenous, Once as needed, other, excessive sedation/respiratory depression, Starting on Tue02/12/22 at 1617, For 1 dose, Phase I, BEFORE ADMINISTERING - call anesthesiologist to verify administration. Then, dilute 0.4 mg with 9 mL NS (final concentration 0.04 mg/mL). For respiratory depression (respiratory rate less than 6), administer 0.4 mg IVP over 30 seconds. For excessive sedation administer 0.04 mg (1 mL) every 1 minute until desired level of alertness. For IV, administer over 30 seconds., Indications: Opioid ToxicityIndications:Opioid Toxicity ondansetron (ZOFRAN) injection 4 mg 4 mg, intravenous, Administer over 2 Minutes, Every 4 hours PRN, nausea, vomiting, if not tolerating PO, Starting on [place] 02/11/22 at 1522, Indications: Nausea and VomitingIndications:Nausea and Vomiting ondansetron (ZOFRAN) injection 4 mg 4 mg, intravenous, Administer over 2 Minutes, Once as needed, nausea, vomiting, Starting on Tue02/12/22 at 1617, For 1 dose, Phase I, Proceed to haloperidol if more than 8 mg of ondansetron have been given within the last 6 hours., Indications: Prevention of Post-Operative Nausea and VomitingIndications:Prevention of Post-Operative Nausea and Vomiting ondansetron (ZOFRAN) injection 4 mg 4 mg, intravenous, Administer over 2 Minutes, Every 6 hours PRN, nausea, vomiting, if not tolerating PO, Starting on Tue02/12/22 at 1603, Indications: nausea and vomitingIndications:nausea and vomiting ondansetron ODT (ZOFRAN-ODT) disintegrating tablet 4 mg 4 mg, oral, Every 6 hours PRN, nausea, vomiting, Starting on [place] 02/11/22 at 1522, Indications: Nausea and VomitingIndications:Nausea and Vomiting ondansetron ODT (ZOFRAN-ODT) disintegrating tablet 4 mg 4 mg, oral, Every 6 hours PRN, nausea, vomiting, Starting on 02/12/22 at 1603, Indications: nausea and vomitingIndications:nausea and vomiting oxyCODONE (ROXICODONE) tablet 5 mg 5 mg, oral, As needed, 1st line for pain, Starting on 02/12/22 at 1617, For 2 doses, Phase I, 1st ORAL choice for pain, when the patient is able to tolerate PO medications. May repeat in 1 hour if pain is uncontrolled or increasing after 1st dose., Indications: PainIndications:Pain Given 02/13/2022 12:27 PM CDT 5 mg Given 02/12/2022 6:14 PM CDT 5 mg oxyCODONE (ROXICODONE) tablet 5 mg 5 mg, oral, Every 4 hours PRN, 1st line for pain, Starting on 02/13/22 at 1639, Indications: PainIndications:Pain Given 02/14/2022 11:18 AM CDT 5 mg Given 02/14/2022 5:58 AM CDT 5 mg Given 02/14/2022 1:57 AM CDT 5 mg racepinephrine (ASTHMANEFRIN) 2.25 % nebulizer solution 0.5 mL 0.5 mL, nebulization, As needed, other, stridor, Starting on 02/12/22 at 1617, For 2 doses, Phase I, Notify Anesthesiologist. , Indications: WheezingIndications:Wheezing ramelteon (ROZEREM) tablet 8 mg 8 mg, oral, Nightly PRN, sleep, Starting on Tue02/12/22 at 0002, Indications: Sleep-Onset InsomniaIndications:Sleep-Onset Insomnia Given 02/13/2022 8:50 PM CDT 8 m g Given 02/12/2022 11:06 PM CDT 8 mg Given 02/12/2022 12:18 AM CDT 8 mg sodium chloride 0.9% flush 0.5-20 mL 0.5-20 mL, intra-catheter, Every 8 hours scheduled, First dose on Tue02/11/22 at 1600, Flush volume based on line type and size. sodium chloride 0.9% flush 0.5-20 mL 0.5-20 mL, intra-catheter, As needed, line care, Starting on Tue02/11/22 at 1522, Flush volume based on line type and size. Flush before and after each use. sodium chloride 0.9% flush 0.5-20 mL 0.5-20 mL, intra-catheter, Every 8 hours scheduled, First dose on Tue02/11/22 at 1730, Flush volume based on line type and size. sodium chloride 0.9% flush 0.5-20 mL 0.5-20 mL, intra-catheter, As needed, line care, Starting on Tue02/11/22 at 1649, Flush volume based on line type and size. Flush before and after each use. sodium chloride 0.9% flush 0.5-20 mL 0.5-20 mL, intra-catheter, Every 8 hours scheduled, First dose on Tue02/12/22 at 1530, Pre-Op/Floor (GI), Flush volume based on line type and size. sodium chloride 0.9% flush 0.5-20 mL 0.5-20 mL, intra-catheter, As needed, line care, Starting on Tue02/12/22 at 1455, Pre-Op/Floor (GI), Flush volume based on line type and size. Flush before and after each use. sodium chloride 0.9% infusion 100 mL/hr, intravenous, Continuous, Starting on Tue02/11/22 at 1600 New Bag 02/14/2022 1:58 AM CDT 100 mL/hr 100 mL/hr New Bag 02/12/2022 11:07 PM CDT 100 mL/hr 100 mL/hr Restarted 02/12/2022 5:06 PM CDT 100 mL/hr 100 mL/hr sodium chloride 0.9% infusion 30 mL/hr, intravenous, Continuous, Starting on Tue02/11/22 at 1800, For 4 hours New Bag 02/11/2022 8:20 PM CDT Rate/Dose Verify 02/11/2022 6:22 PM CDT 30 mL/h r New Bag 02/11/2022 5:55 PM CDT 30 mL/hr 30 mL/hr documented in this encounter Active and Recently Administered Medications Times are shown in CDT. Scheduled Medication Order 02/12/2022 02/13/2022 02/14/2022 sodium chloride 0.9% flush 0.5-20 mL 0.5-20 mL, intra-catheter, Every 8 hours scheduled, First dose on [place]elin 02/11/22 at 1600, Flush volume based on line type and size. 0553 (Not Given - Provider: Tamia Moreau RN - Reason: IV Infusing)1400 (Not Given - Provider: Stephie Alexander RN - Reason: Patient not available)214 (Not Given - Provider: Tamia Moreau RN - Reason: IV Infusing) 0505 (Not Given - Provider: Tamia Moreau RN - Reason: IV Infusing)1228 (Not Given - Provider: Susan Brown RN - Reason: IV Infusing)213 (Not Given - Provider: Jarod Wharton RN - Reason: IV Infusing) 0559 (Not Given - Provider: Jarod Wharton RN - Reason: IV Infusing) sodium chloride 0.9% flush 0.5-20 mL(Linked Group 1) 0.5-20 mL, intra-catheter, Every 8 hours scheduled, First dose on [place] 02/11/22 at 1730, Flush volume based on line type and size. 0553 (Not Given - Provider: Tamia Moreau RN - Reason: IV Infusing)1400 (Not Given - Provider: Stephie Alexander RN - Reason: Patient not available)214 (Not Given - Provider: Tamia Moreau RN - Reason: IV Infusing) 0505 (Not Given - Provider: Tamia Moreau RN - Reason: IV Infusing)1228 (Not Given - Provider: Susan Brown RN - Reason: IV Infusing)213 (Not Given - Provider: Jarod Wharton RN - Reason: IV Infusing) 0559 (Not Given - Provider: Jarod Wharton RN - Reason: IV Infusing) sodium chloride 0.9% flush 0.5-20 mL(Linked Group 2) 0.5-20 mL, intra-catheter, Every 8 hours scheduled, First dose on Tue02/12/22 at 1530, Pre-Op/Floor (GI), Flush volume based on line type and size. 1530 (Not Given - Provider: Stephie Alexander RN - Reason: Patient not available)2143 (Not Given - Provider: Tamia Moreau RN - Reason: IV Infusing) 0504 (Not Given - Provider: Tamia Moreau RN - Reason: IV Infusing)1227 (Not Given - Provider: Susan Brown RN - Reason: IV Infusing)2139 (Not Given - Provider: Jarod Wharton RN - Reason: IV Infusing) 0559 (Not Given - Provider: Jarod Wharton RN - Reason: IV Infusing) Continuous Medication Order 02/12/2022 02/13/2022 02/14/2022 sodium chloride 0.9% infusion 100 mL/hr, intravenous, Continuous, Starting on Tue02/11/22 at 1600 0632 (New Bag - Provider: Tamia Moreau RN)1242 (Rate/Dose Verify - Provider: Elie Diaz CRNA)1312 (Paused - Provider: Elie Diaz CRNA - Comment: Switch to gravity)1313 (Restarted - Provider: Elie Diaz CRNA)1551 (Anesthesia Volume Adjustment - Provider: Mónica Gamez CRNA)1706 (Restarted - Provider: Stephie Alexander RN)2307 (New Bag - Provider: Tamia Moreau RN) 0158 (New Bag - Provider: Jarod Wharton RN)1617 (Due: Stopped) PRN Medication Order 02/12/2022 02/13/2022 02/14/2022 albuterol 2.5 mg /3 mL (0.083 %) nebulizer solution 2.5 mg 2.5 mg, nebulization, As needed, wheezing, Starting on Tue02/12/22 at 1617, For 2 doses, Phase I, Notify Anesthesiologist. , Indications: Bronchospastic Pulmonary Disease Carrier Fluids for Secondary Infusion - 0.9% Sodium Chloride 30 mL, intravenous, As needed, For priming tubing and/or flushing, Starting on [place] 02/11/22 at 1522, 0-250 ml/hr to flush line after IV infusions when no maintenance IV ordered. Infuse 30mL at the same rate as the secondary infusion. Run as primary IV, not intended for KVO. Carrier Fluids for Secondary Infusion - 0.9% Sodium Chloride(Linked Group 1) 30 mL, intravenous, As needed, For priming tubing and/or flushing, Starting on [place] 02/11/22 at 1649, 0-250 ml/hr to flush line after IV infusions when no maintenance IV ordered. Infuse 30mL at the same rate as the secondary infusion. Run as primary IV, not intended for KVO. Carrier Fluids for Secondary Infusion - 0.9% Sodium Chloride(Linked Group 2) 30 mL, intravenous, As needed, For priming tubing and/or flushing, Starting on Tue02/12/22 at 1455, Pre-Op/Floor (GI), 0-250 ml/hr to flush line after IV infusions when no maintenance IV ordered. Infuse 30mL at the same rate as the secondary infusion. Run as primary IV, not intended for KVO. diphenhydrAMINE (BENADRYL) injection 12.5 mg 12.5 mg, intravenous, Every 15 min PRN, itching, Starting on Tue02/12/22 at 1617, For 2 doses, Phase I, Max cumulative dose 50 mg., Indications: Itching fentaNYL (SUBLIMAZE) preservative free injection 25 mcg 25 mcg, intravenous, Every 5 min PRN, uncontrolled pain on PACU admission, Starting on Tue02/12/22 at 1617, For 4 doses, Phase I, Maximum dosage of fentanyl of 100 mcg for arrival to PACU, then proceed to PACU 1st line analgesic., Indications: Pain haloperidol (HALDOL) injection 1 mg 1 mg, intravenous, Administer over 5 Minutes, Once as needed, nausea, vomiting, Starting on Tue02/12/22 at 1617, For 1 dose, Phase I, If post-operative nausea and/or vomiting is not relieved by ondansetron within 30 minutes or if more than 8mg of ondansetron have been given within the last 6 hours. HYDROmorphone (DILAUDID) injection 0.4 mg 0.4 mg, intravenous, Administer over 2 Minutes, Every 10 min PRN, 1st line for pain, Starting on Tue02/12/22 at 1617, For 5 doses, Phase I, Notify Anesthesiologist if total PACU dose reaches 2 mg and pain score 5/10 or more., Indications: Pain 1946 (Given - Provider: Tamia Moreau, RN) HYDROmorphone (DILAUDID) injection 1 mg 1 mg, intravenous, Administer over 2 Minutes, Every 4 hours PRN, 2nd line for pain, Starting on [place] 02/11/22 at 1522 0239 (Given - Provider: Adry Warner, RN)0633 (Given - Provider: Tamia Moreau, MARIO)1103 (Given - Provider: Stephie Alexander, MARIO) 0137 (Given - Provider: Tamia Moreau, MARIO)0554 (Given - Provider: Tamia Moreau, MARIO) insulin lispro (HumaLOG, ADMELOG) 100 unit/mL injection 1-5 Units 1-5 Units, subcutaneous, Once as needed, high blood sugar, Starting on Tue02/12/22 at 1617, For 1 dose, Phase I, Blood Sugar Mid Dose - Surgical/Post-Op ICU 139 or less No insulin 140 - 175 1 unit 176 - 200 2 unit 201 - 250 3 units 251 - 299 5 units Greater than 299 Call MD for hyperglycemia management instructions Do NOT hold for NPO status., Indications: Diabetes Mellitus ioversoL (OPTIRAY 350) injection 50 mL (COMPLETED) 50 mL, intra-catheter, Once in imaging, contrast, Starting on Tue02/12/22 at 1556, For 1 dose 1557 (Contrast Given - Provider: Gracie Marinelli, RT) ioversoL (OPTIRAY 350) syringe 100 mL (COMPLETED) 100 mL, intravenous, Once in imaging, contrast, Starting on Tue02/12/22 at 0832, For 1 dose 0837 (Contrast Given - Provider: Raghu Marks, RT) labetaloL (NORMODYNE,TRANDATE) injection 5 mg 5 mg, intravenous, at 30 mL/hr, Administer over 2 Minutes, Every 10 min PRN, high blood pressure, Starting on Tue02/12/22 at 1617, For 4 doses, Phase I, Max cumulative dose 20 mg. Dose if systolic blood pressure greater than 180 AND heart rate greater than 70. LORazepam (ATIVAN) injection 1 mg 1 mg, intravenous, Every 6 hours PRN, other, spasm, Starting on Tue02/12/22 at 1603, For IV administration, dilute with equal volume of 0.9% sodium chloride to a final concentration of 1 mg/mL. Do not exceed a rate of 2 mg/minute meperidine (DEMEROL) preservative free injection 12.5 mg 12.5 mg, intravenous, Administer over 5 Minutes, Every 10 min PRN, shivering, Starting on Tue02/12/22 at 1617, For 2 doses, Phase I, Max cumulative dose 25 mg., Indications: Shivering naloxone (NARCAN) 0.4 mg/mL injection 0.04-0.4 mg 0.04-0.4 mg, intravenous, Once as needed, other, excessive sedation/respiratory depression, Starting on Tue02/12/22 at 1617, For 1 dose, Phase I, BEFORE ADMINISTERING - call anesthesiologist to verify administration. Then, dilute 0.4 mg with 9 mL NS (final concentration 0.04 mg/mL). For respiratory depression (respiratory rate less than 6), administer 0.4 mg IVP over 30 seconds. For excessive sedation administer 0.04 mg (1 mL) every 1 minute until desired level of alertness. For IV, administer over 30 seconds., Indications: Opioid Toxicity ondansetron (ZOFRAN) injection 4 mg(Linked Group 3) 4 mg, intravenous, Administer over 2 Minutes, Every 4 hours PRN, nausea, vomiting, if not tolerating PO, Starting on Katelin 02/11/22 at 1522, Indications: Nausea and Vomiting ondansetron (ZOFRAN) injection 4 mg 4 mg, intravenous, Administer over 2 Minutes, Once as needed, nausea, vomiting, Starting on Tue02/12/22 at 1617, For 1 dose, Phase I, Proceed to haloperidol if more than 8 mg of ondansetron have been given within the last 6 hours., Indications: Prevention of Post-Operative Nausea and Vomiting ondansetron (ZOFRAN) injection 4 mg(Linked Group 4) 4 mg, intravenous, Administer over 2 Minutes, Every 6 hours PRN, nausea, vomiting, if not tolerating PO, Starting on Tue02/12/22 at 1603, Indications: nausea and vomiting ondansetron ODT (ZOFRAN-ODT) disintegrating tablet 4 mg(Linked Group 3) 4 mg, oral, Every 6 hours PRN, nausea, vomiting, Starting on Katelin 02/11/22 at 1522, Indications: Nausea and Vomiting ondansetron ODT (ZOFRAN-ODT) disintegrating tablet 4 mg(Linked Group 4) 4 mg, oral, Every 6 hours PRN, nausea, vomiting, Starting on Tue02/12/22 at 1603, Indications: nausea and vomiting oxyCODONE (ROXICODONE) tablet 5 mg (COMPLETED) 5 mg, oral, As needed, 1st line for pain, Starting on Tue02/12/22 at 1617, For 2 doses, Phase I, 1st ORAL choice for pain, when the patient is able to tolerate PO medications. May repeat in 1 hour if pain is uncontrolled or increasing after 1st dose., Indications: Pain 1814 (Given - Provider: Cierra Bernard RN) 1227 (Given - Provider: Susan Brown, MARIO) oxyCODONE (ROXICODONE) tablet 5 mg 5 mg, oral, Every 4 hours PRN, 1st line for pain, Starting on 02/13/22 at 1639, Indications: Pain 1645 (Given - Provider: Susan Brown, MARIO)2050 (Given - Provider: Jarod Wharton RN) 0157 (Given - Provider: Jraod Wharton RN)0558 (Given - Provider: Jarod Wharton RN)1118 (Given - Provider: Susan Brown, MARIO) racepinephrine (ASTHMANEFRIN) 2.25 % nebulizer solution 0.5 mL 0.5 mL, nebulization, As needed, other, stridor, Starting on Tue02/12/22 at 1617, For 2 doses, Phase I, Notify Anesthesiologist. , Indications: Wheezing ramelteon (ROZEREM) tablet 8 mg 8 mg, oral, Nightly PRN, sleep, Starting on Tue02/12/22 at 0002, Indications: Sleep-Onset Insomnia 0018 (Given - Provider: Tamia Vicky Prieto, RN)2306 (Given - Provider: Tamia Moreau RN) 2049 (Given - Provider: Jarod Wharton RN) sodium chloride 0.9% flush 0.5-20 mL 0.5-20 mL, intra-catheter, As needed, line care, Starting on Katelin 02/11/22 at 1522, Flush volume based on line type and size. Flush before and after each use. sodium chloride 0.9% flush 0.5-20 mL(Linked Group 1) 0.5-20 mL, intra-catheter, As needed, line care, Starting on Katelin 02/11/22 at 1649, Flush volume based on line type and size. Flush before and after each use. sodium chloride 0.9% flush 0.5-20 mL(Linked Group 2) 0.5-20 mL, intra-catheter, As needed, line care, Starting on Tue02/12/22 at 1455, Pre-Op/Floor (GI), Flush volume based on line type and size. Flush before and after each use. Linked Groups Order Group 1: Saline lock IV (CANCELED) Routine, Once (Routine), On Katelin 02/11/22 at 1650, For 1 occurrence And sodium chloride 0.9% flush 0.5-20 mLJump to med 0.5-20 mL, intra-catheter, Every 8 hours scheduled, First dose on Katelin 02/11/22 at 1730, Flush volume based on line type and size. And sodium chloride 0.9% flush 0.5-20 mLJump to med 0.5-20 mL, intra-catheter, As needed, line care, Starting on Katelin 02/11/22 at 1649, Flush volume based on line type and size. Flush before and after each use. And Carrier Fluids for Secondary Infusion - 0.9% Sodium ChlorideJump to med 30 mL, intravenous, As needed, For priming tubing and/or flushing, Starting on Katelin 02/11/22 at 1649, 0-250 ml/hr to flush line after IV infusions when no maintenance IV ordered. Infuse 30mL at the same rate as the secondary infusion. Run as primary IV, not intended for KVO. Group 2: Saline lock IV (CANCELED) Routine, Once (Routine), On Tue02/12/22 at 1456, For 1 occurrence, Pre-Op/Floor (GI) And sodium chloride 0.9% flush 0.5-20 mLJump to med 0.5-20 mL, intra-catheter, Every 8 hours scheduled, First dose on Tue02/12/22 at 1530, Pre-Op/Floor (GI), Flush volume based on line type and size. And sodium chloride 0.9% flush 0.5-20 mLJump to med 0.5-20 mL, intra-catheter, As needed, line care, Starting on Tue02/12/22 at 1455, Pre-Op/Floor (GI), Flush volume based on line type and size. Flush before and after each use. And Carrier Fluids for Secondary Infusion - 0.9% Sodium ChlorideJump to med 30 mL, intravenous, As needed, For priming tubing and/or flushing, Starting on Tue02/12/22 at 1455, Pre-Op/Floor (GI), 0-250 ml/hr to flush line after IV infusions when no maintenance IV ordered. Infuse 30mL at the same rate as the secondary infusion. Run as primary IV, not intended for KVO. Group 3: ondansetron ODT (ZOFRAN-ODT) disintegrating tablet 4 mgJump to med 4 mg, oral, Every 6 hours PRN, nausea, vomiting, Starting on Katelin 02/11/22 at 1522, Indications: Nausea and Vomiting Or ondansetron (ZOFRAN) injection 4 mgJump to med 4 mg, intravenous, Administer over 2 Minutes, Every 4 hours PRN, nausea, vomiting, if not tolerating PO, Starting on Katelin 02/11/22 at 1522, Indications: Nausea and Vomiting Group 4: ondansetron ODT (ZOFRAN-ODT) disintegrating tablet 4 mgJump to med 4 mg, oral, Every 6 hours PRN, nausea, vomiting, Starting on Tue02/12/22 at 1603, Indications: nausea and vomiting Or ondansetron (ZOFRAN) injection 4 mgJump to med 4 mg, intravenous, Administer over 2 Minutes, Every 6 hours PRN, nausea, vomiting, if not tolerating PO, Starting on Tue02/12/22 at 1603, Indications: nausea and vomiting documented in this encounter Orders Medications Ordered That Stu ht Not Have Been Administered Count Last Ordered Date First Ordered Date albuterol 2.5 mg /3 mL (0.08 3 %) nebulizer solution 2.5 mg 1 02/12/2022 Carrier Fluids for Secondary Infusion - 0.9% Sodium Chloride 3 02/12/2022 02/11/2022 diphenhydrAMINE (BENADRYL) i njection 12.5 mg 1 02/12/2022 fentaNYL (SUBLIMAZE) preserv ative free injection 25 mcg 1 02/12/2022 haloperidol (HALDOL) injection 1 mg 1 02/12 insulin lispro (HumaLOG, ADM ELOG) 100 unit/mL injection 1-5 Units 1 02/12/2022 labetaloL (NORMODYNE,TRANDAT E) injection 5 mg 1 02/12/2022 LORazepam (ATIVAN) injection 1 mg 1 022 meperidine (DEMEROL) preserv ative free injection 12.5 mg 1 02/12/2022 naloxone (NARCAN) 0.4 mg/mL injection 0.04-0.4 mg 1 02/12/2022 ondansetron (ZOFRAN) injection 4 mg 3 02/1202/11/2022 ondansetron ODT (ZOFRAN-ODT) disintegrating tablet 4 mg 2 02/12/2022 02/11/2022 racepinephrine (ASTHMANEFRIN ) 2.25 % nebulizer solution 0.5 mL 1 02/12/2022 sodium chloride 0.9% flush 0.5-20 mL 6 01/3002/11/2022 Diet Count Last Ordered Date First Orde red Date ADULT DISCHARGE DIET 1 02/14/2022 Nursing Count Last Ordered Date First Orde red Date DISCHARGE ACTIVITY 2 02/14/2022 FOLLOW UP WITH ESTABLISHED PROVIDER 1 02/14 Consult Count Last Ordered Date First Orde red Date IP CONSULT TO GASTROENTEROLOGY 1 02/11/2022 Admission Count Last Ordered Date First Orde red Date ADMIT TO INPATIENT 1 02/11/2022 Discharge Count Last Ordered Date First Orde red Date DISCHARGE PATIENT 1 02/14/2022 CORE MEASURES Count Last Ordered Date First Ord ered Date REASON FOR NO VTE PROPHYLAXIS AT ADMISSION 1 02/11/2022 Case Request Count Last Ordered Date First Orde red Date CASE REQUEST GI 2 02/12/2022 02/11/2022 documented in this encounter Care Teams Hand Ii Thermal Cutter Relationship Specialty Start Date End Date Thor Fajardo MD [address] [place] [address] PCP - General Family Medicine 12/30/20 Sebastian Soto MD [address] [address] Consulting Physician Gastroenterology 02/14/22 documented as of this encounter
--- OUTSIDE RECORDS SUMMARY | 2024-05-09 00:50 | XMS_ITS | Encounter Summary ---
Author Organization [facility] Address [address] [facility] [address] [place] [address] Care Team Providers Care Manager Appointment Name Role Phone Thor Fajardo MD Primary Care Provider [phone] Sebastian Soto MD Unavailable [phone] Reason for Visit * Cardiology (Routine) - Closed Specialty Diagnoses / Procedures Referred By Joselin drummond Referred To Contact Diagnoses Palpitations Procedures MCT Mobile Cardiac Telemetry Event Monitor Myron Patton MD [address] [place] [address] Phone: tel: fax: [facility] Referral ID Status Reason Start Date Expiration Date Visits Re quested Visits Authorized [id number] Closed 06/08/2022 07/08/2023 1 1 Encounter Details Date Type Department Care Team (Late st Contact Info) Description 06/08/2022 9:30 AM CHIEF CREATIVE OFFICER Ancillary Procedure [facility] Cardiology [address] [place] [phone] Palpitations Social History Tobacco Use Types Packs/Day Years Used Date Smoking Tobacco: Former Cigarettes Q uit: 10/08/2019 Smokeless Tobacco: Never Social Connection and Isolat ion Panel [NHANES] Answer Date Recorded In a typical week, how many times do you talk on the phone with family, friends, or neighbors? More than three times a week 02/12/2022 How often do you get togethe r with friends or relatives? Twice a week 02/12/2022 How often do you attend chur ch or spiritism services? Never 02/12/2022 Do you belong to any clubs o r organizations such as episcopal groups, unions, fraternal or athletic groups, or [...] on file Legal Sex Female 9:50 PM CHIEF CREATIVE OFFICER Gender Identity Not on file Sexual Orientation Not on file documented as of this encounter Plan of Treatment Not on file documented as of this encounter Procedures Procedure Name Priority Date/Time Associated Diagnosis Comments MCT - MOBILE CARDIAC TELEMETRY EVENT MONITOR Routine 06/08/2022 9:25 AM CHIEF CREATIVE OFFICER Palpitations documented in this encounter Results * MCT Mobile Cardiac Telemetry Event Monitor (06/08/2022 9:25 AM CHIEF CREATIVE OFFICER) Anatomical Region Laterality Modality Other Narrative 07/13/2022 8:59 AM CDT AMBULATORY COATING MANAGER REPORT Patient Name: Shayla Curry Date of : 1985 ?? Requesting Physician: Myron Patton MD Date of interpretation: 07/13/22 Type of monitor : 30 day MCOT Date of the study/Enrollment period: 06/09/22-07/08/22, Total period of monitoring of 9 days 12 hours 34 mins Indication: Syncope Quality of the study: Good Interpretation: Patient had a majority of sinus rhythm with average heart rate of 70 beats per minute, minimum heart rate of 50 beats per minute and highest heart rate 132 beats per minute. ??No PACs noted and total PVC count of 3286, accounting for less than 1% PVC burden. ??Two patient triggered events of heart racing occurred during sinus rhythm and sinus tachycardia. ??No evidence of SVT, atrial fibrillation, atrial flutter or high-grade AV block. Conclusions: Normal sinus rhythm with expected variation in heart rate No evidence of SVT, atrial fibrillation, atrial flutter nor high grade AV block Rare total PVCs Voice recognition software was used to complete this document, therefore, surveillance director variances may occur. Myron Patton MD 07/13/22 Procedure Note Myron Patton MD - 07/13/2022 AMBULATORY COATING MANAGER REPORT Patient Name: Shayla Curry Date of : 1985 Requesting Physician: Myron Patton MD Date of interpretation: 07/13/22 Type of monitor : 30 day MCOT Date of the study/Enrollment period: 06/09/22-07/08/22, Total period ofmonitoring of 9 days 12 hours 34 mins Indication: Syncope Quality of the study: Good Interpretation: Patient had a majority of sinus rhythm with average heart rate of 70 beatsper minute, minimum heart rate of 50 beats per minute and highest heartrate 132 beats per minute. No PACs noted and total PVC count of 3286,accounting for less than 1% PVC burden. Two patient triggered events of heart racing occurred during sinus rhythm and sinus tachycardia. Noevidence of SVT, atrial fibrillation, atrial flutter or high- grade AVblock. Conclusions: Normal sinus rhythm with expected variation in heart rate No evidence of SVT, atrial fibrillation, atrial flutter nor high grade AVblock Rare total PVCs Voice recognition software was used to complete this document, therefore,surveillance director variances may occur. Myron Patton MD 07/13/22 Myron Patton MD [facility] [facility] Final Result documented in this encounter Visit Diagnoses Diagnosis Palpitations documented in this encounter Care Teams Manager Appointment Relationship Specialty Start Date End Date Thor Fajardo MD [address] [place] [address] PCP - General Family Medicine 12/30/20 Sebastian Soto MD [address] [address] Consulting Physician Gastroenterology 02/14/22 documented as of this encounter
--- OUTSIDE RECORDS SUMMARY | 2024-05-09 00:50 | XMS_ITS | Encounter Summary ---
Author Organization [facility] Address [address] [place] [address] Care Team Providers Care Toppiece Cutter Name Role Phone Thor Fajardo MD Primary Care Provider [phone] Sebastian Soto MD Unavailable [phone] Ena Rose MD Unavailable [phone] Reason for Referral * MRI/CAT/PET Scan (Routine) - Closed Specialty Diagnoses / Procedures Referred By Joselin drummond Referred To Contact Radiology Diagnoses BRCA2 gene mutation positive Procedures MRI Breast Bilateral W WO Contrast Ena Rose MD [address] [address] Phone: tel: fax: [facility] [address] [place] [address] Referral ID Status Reason Start Date Expiration Date Visits Re quested Visits Authorized [id number] Closed 08/17/2022 09/16/2023 1 1 Reason for Visit * MRI/CAT/PET Scan (Routine) - Closed Specialty Diagnoses / Procedures Referred By Contishaan drummond Referred To Contact Radiology Diagnoses BRCA2 gene mutation positive Procedures MRI Breast Bilateral W WO Contrast Ena Rose MD [address] [address] Phone: tel: fax: [facility] [address] [place] [address] Referral ID Status Reason Start Date Expiration Date Visits Re quested Visits Authorized [id number] Closed 08/17/2022 09/16/2023 1 1 Encounter Details Date Type Department Care Team (Latest Contact Info) Description 12/20/2022 2:37 PM CDT - 12/20/2022 11:59 PM CDT Hospital Encounter [facility] - Imaging [address] [place] [address] BRCA2 gene mutation positive Discharge Disposition: Discharge [...] often do you attend chur ch or moravian services? Never 02/12/2022 Do you belong to any clubs o r organizations such as confucianist groups, unions, fraternal or athletic groups, or [...] on file Legal Sex Female 9:50 PM REVIEW APPRAISER Gender Identity Not on file Sexual Orientation [...] Encounter Note - Mónica Cao NP - 12/20/2022 11:59 PM CDT Please call patient with results and update tracking, problem list, onchist or appt notes if applicable. BRCA2 positive. Orders for bilateral diagnostic mammograms in June 2023. Plastics consult was in September She is likely to have prophylactic surgery next summer 2023. documented in this encounter Plan of Treatment Not on file documented as of this encounter Procedures Procedure Name Priority Date/Time Associated Diagnosis Comments MRI BREAST BILATERAL W WO CONTRAST Routine 12/20/2022 4:02 PM CDT BRCA2 gene mutation positive documented in this encounter Results * MRI Breast Bilateral W WO Contrast (12/20/2022 4:02 PM CDT) Anatomical Region Laterality Modality Breast Bilateral Magnetic Resonan ce 12/21/2022 9:21 AM CDT Impressions 12/21/2022 9:21 AM CDT Examination is severely limited by marked background parenchymal enhancement. ??No focally suspicious findings. BI-RADS ??Category 2: Benign Recommendation: Annual screening mammography and annual supplemental MRI screening examination. Bilateral mammography due in June 2023. Electronically signed by: Charity Oneil M.D. Narrative 12/21/2022 9:21 AM CDT BILATERAL BREAST MRI WITH AND WITHOUT CONTRAST CLINICAL HISTORY: 37-year-old high-risk woman with BRCA2 gene mutation for baseline MRI screening examination. ??History of core needle biopsy of benign fibroadenoma in the left breast at 12:00 at outside facility in June 2022. COMPARISON:[facility] imaging of 06/24/2022 and biopsy imaging of 07/01/2022. TECHNIQUE: Bilateral dynamic breast MRI was performed using a dedicated breast coil. ??Images were obtained prior to and following intravenous administration of 18 mL's of gadoterate meglumine contrast. ??Subtraction images, 3-D and multiplanar reconstructions were performed and reviewed. PalindromX software was utilized. BREAST COMPOSITION: Heterogeneously dense BACKGROUND PARENCHYMAL ENHANCEMENT: There is marked background parenchymal enhancement which limits the sensitivity of MRI in the detection of malignancy. FINDINGS: There is extensive marked background parenchymal enhancement with numerous foci, subcentimeter circumscribed nodules and areas of non-mass enhancement bilaterally demonstrating subthreshold to progressive enhancement. ??This significantly limits the sensitivity of the examination. ??No spiculated masses or distortion are identified. ??There is no axillary or internal mammary adenopathy. Ena Rose MD IM MRI PROCEDURES Final R esult documented in this encounter Visit Diagnoses Diagnosis BRCA2 gene mutation positive documented in this encounter Administered Medications Inactive Administered Medications - up to 3 most recent administrations Medication Order MAR Action Action Date Dose Rate Site gadoterate meglumine injection 20 mL 20 mL, intravenous, Once in imaging, contrast, Starting on 12/20/22 at 1515, For 1 dose Contrast Given 12/20/2022 3:43 PM CDT 18 mL documented in this encounter Orders Medications Ordered That Stu ht Not Have Been Administered Count Last Ordered Date First Ordered Date gadoterate meglumine injection 20 mL 1 12/01 documented in this encounter Care Teams Toppiece Cutter Relationship Specialty Start Date End Date Thor Fajardo MD [address] [place] [address] PCP - General Family Medicine 12/30/20 Sebastian Soto MD [address] [facility] [address] [place] [address] Consulting Physician Gastroenterology 02/14/22 Ena Rose MD [address] [facility] [address] [place] [address] Consulting Physician Surgical Oncology 08/11/22 documented as of this encounter
--- OUTSIDE RECORDS SUMMARY | 2024-05-09 00:50 | XMS_ITS | Encounter Summary ---
Author Organization [facility] Address [address] [facility] [address] [place] [address] Care Team Providers Care Bricklayer Tender Name Role Phone Thor Fajardo MD Primary Care Provider [phone] Sebastian Soto MD Unavailable Ena Rose MD Unavailable Encounter Details Date Type Department Care Team (Late st Contact Info) Description 12/21/2022 Telephone [facility] [address] [facility] [address] [place] [address] Ena Rose MD [address] [facility] [address] [place] [address] Social History Tobacco Use Types [...] How often do you attend chur or quaker services? Never 02/12/2022 Do you belong to [...] on file Legal Sex Female 9:50 PM PROMOTIONS COORDINATOR Gender Identity Not on file Sexual Orientation Not on file documented as of this encounter Miscellaneous Notes * Telephone Encounter - Natalia Lujan MA - 12/21/2022 1:52 PM CDT Pt returned call, she was informed of imaging results. VICENTE * Telephone Encounter - Natalia Lujan MA - 12/21/2022 1:43 PM CDT Left message for pt to call the office for imaging results. SARA DX MAMM orders placed for June 2023. VICENTE * Telephone Encounter - Natalia Lujan MA - 12/21/2022 1:42 PM CDT ----- Message from Mónica Cao NP sent at 12/21/2022 1:34 PM CDT ----- Please call patient with results and update [...] Primary documented in this encounter Care Teams Bricklayer Tender Relationship Specialty Start Date End Date Thor Fajardo MD [address] [place] [address] PCP - General Family Medicine 12/30/20 Sebastian Soto MD [address] [facility] [address] [place] [address] Consulting Physician Gastroenterology 02/14/22 Ena Rose MD [address] [facility] [address] [place] [address] Consulting Physician Surgical Oncology 08/11/22 documented as of this encounter
--- OUTSIDE RECORDS SUMMARY | 2024-05-09 00:50 | XMS_ITS | Encounter Summary ---
Author Organization [facility] Address [address] [place] [address] Care Team Providers Care Bridge Maintenance Worker Name Role Phone Thor Maria MD Primary Care Provider [phone] Sebastian Soto MD Unavailable [phone] Encounter Details Date Type Department Care Team (Late st Contact Info) Description 08/04/2022 Telephone [facility] [facility] [address] [place] [id number] Ena Rose MD [facility] [address] [place] [address] Social History Tobacco Use Types Packs/Day [...] often do you attend chur ch or mormonism services? Never 02/12/2022 Do you belong to any clubs o r organizations such as evangelical groups, unions, fraternal or athletic groups, or [...] on file Legal Sex Female 9:50 PM WORK AND FAMILY LIFE CONSULTANT Gender Identity Not on file Sexual Orientation Not on file documented as of this encounter Miscellaneous Notes * Telephone Encounter - Natalia Lujan MA - 08/09/2022 11:10 AM CDT Left message for pt to call the office to ask if she can get us a cope of her genetic testing. DH * Telephone Encounter - Mary Alice Rodriguez - 08/04/2022 12:49 PM CDT TELEPHONE INTAKE QUESTIONS New or current patient? NEW NEW - What is the reason for the referral? BRCA+ NEW - Who is referring you? DR. MARIA Have you had any prior imaging done or seen anyone for this problem? ANGELES Any previous imaging (last 3 years) ever? NO Where N/A Do you have any imaging scheduled (when, where)? N/A IF OUTSIDE IMAGING : We will request your imaging from [facility]. Our radiology team will review to see if you need any additional work up testing like MRI, imaging, biopsies etc. Once complete, we will contact you to schedule any imaging or appointments needed to provide the best consultation. This process cantake a couple of days. If you would like updates, I am more than happy to do that for you. Is there anything else about your breast problem or postoperative concern you can share? What are your current symptoms? (Temp, redness, lump, pain, etc) LUMP (If visible - Please upload photo to Mychart or email). Any current treatments, medications (antibiotics, creams, pain , etc ) this problem? NO Do you have a history of breast biopsies, surgeries or cancer? When? Who was Physician? CHRISTINA, 06/2022,ANGELES IF BREAST CANCER OR HISTORY OF CANCER: If not treated at [facility]: Which Side? When and where did you receive your care? Genetic testing? If yes, send or bring to appointment. Best number to reach you if we have additional questions? [phone] Items pending? N Added to tracking? Y Items scanned?N documented in this encounter Plan of Treatment Not on file documented as of this encounter Visit Diagnoses Not on filedocumented in this encounter Care Teams Bridge Maintenance Worker Relationship Specialty Start Date End Date Thor Maria MD [address] [place] [address] PCP - General Family Medicine 12/30/20 Sebastian Soto MD [address] [address] Consulting Physician Gastroenterology 02/14/22 documented as of this encounter
--- OUTSIDE RECORDS SUMMARY | 2024-05-09 00:50 | XMS_ITS | Encounter Summary ---
Author Organization [facility] Address [address] [place] [address] Care Team Providers Care Gas Compressor Turbine Operator Name Role Phone Thor Fajardo MD Primary Care Provider [phone] Sebastian Soto MD Unavailable [phone] Ena Rose MD Unavailable [phone] Reason for Visit * Reason Comments Follow-up Encounter Details Date Type Department Care Team (Late st Contact Info) Description 01/11/2023 9:35 AM CDT Office Visit [facility] Medical [facility] Cardiology [address] [phone] Myron Patton MD [address] [place] [address] Palpitations (Primary Dx); WPW syndrome; Neurocardiogenic syncope; Lipid screening Social History Tobacco Use Types Packs/Day Years [...] week 02/12/2022 How often do you attend [employer] or taoist services? 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 Gender Identity Not on file Sexual Orientation Not on file documented as of this encounter Last Filed Vital Signs Vital Sign Reading Time Taken Comments Blood Pressure 122/68 01/11/2023 9:39 AM CDT Pulse 82 01/11/2023 9:39 AM CDT Temperature - - Respiratory Rate 18 01/11/2023 9:39 AM CDT Oxygen Saturation 95% 01/11/2023 9:39 AM CDT Inhaled Oxygen Concentration - - Weight 85.7 kg (189 lb) 01/11/2023 9:39 AM CDT Height 170.2 cm (5' 7 ) 01/11/2023 9:39 AM CDT Body Mass Index 29.6 01/11/2023 9:39 AM CDT documented in this encounter Progress Notes * Myron Patton MD - 01/11/2023 9:35 AM CDT Return Visit Note - Cardiac Electrophysiology Patient Name: Shayla Curry Date of : 1985 Primary Physician: Thor Fajardo MD I had the pleasure of seeing Shayla Curry in follow-up at the at the [facility]- Cardiology at [facility]. I have reviewed the pertinent data originating outside our institution and outside myspecialty within our institution and summarized the pertinent information below. As you well know, krystyna oliver is a 37 y.o. 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 Syncopal spells thought to be vasovagal in nature Syncopal episodes occur with blood draws and needle sticks Pertinent history: Laparoscopic Cholecystectomy c/b bile leak, BRCA 2 Positive with plans for prophylactic mastectomies and Since last being seen, patient has been diagnosed with being positive for BRCA2 mutation. From an arrhythmias standpoint and cardiac standpoint the patient is doing well. She denies any episodes of tachy palpitations, chest pain on exertion, lightheadedness, dizziness, presyncope or syncope. 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 She is doing well overall from cardiac standpoint Past Medical History Past Medical History: Diagnosis Date Anxiety GERD (gastroesophageal reflux disease) Kidney stones Wears glasses WPW (Xobhp-Vbnsepiwt-Enjum syndrome) Past Surgical History Past Surgical History: Procedure Laterality Date BREAST BIOPSY Left 07/01/2022 CARDIAC ELECTROPHYSIOLOGY STUDY AND ABLATION DILATION AND CURETTAGE OF UTERUS IR CHOLANGIOGRAM THROUGH EXISTING CATHETER N/A 02/12/2022 WISDOM TOOTH EXTRACTION Medications Current Outpatient Medications: FeroSuL 325 mg (65 mg iron) tablet, Take 1 tablet (325 mg total) by mouth daily, Disp: , Rfl: tretinoin (RETIN-A) 0.025 % cream, , Disp: , Rfl: Allergies No Known Allergies Family History Family History Problem Relation Age of Onset Breast cancer Mother Cancer Mother Diabetes Father Cancer Father Prostate cancer Father No Known Problems Sister Cancer Father's Sister Pancreatic cancer Father's Sister Melanoma Father's Sister Cancer Maternal Grandmother Stomach cancer Maternal Grandfather Cancer Maternal Grandfather Leukemia Paternal Grandmother No Known Problems Half-Brother Stomach cancer Paternal Grandfather Social History Social History Tobacco Use Smoking status: Former Packs/day: 0.10 Years: 10.00 Additional pack years: 0.00 Total pack years: 1.00 Types: Cigarettes Quit date: 10/08/2019 Years since quittin.2 Smokeless tobacco: Never Substance and Sexual Activity Drug use: Never Sexual activity: Not on file Alcohol Use: Not At Risk (10/11/2022) AUDIT-C Frequency of Alcohol Consumption: 2-4 times a month Average Number of Drinks: 1 or 2 Frequency of Binge Drinking: Never Exam Vitals: 01/11/23 0939 BP: 122/68 BP Location: Left arm Patient Position: Sitting Pulse: 82 Resp: 18 SpO2: 95% Weight: 85.7 kg (189 lb) Height: 170.2 cm (5' 7 ) Physical Exam Constitutional: No distress. Head: Normocephalic. Nose: Nose normal. Mouth/Throat: Mucous membranes are normal. Eyes: Sclera Anicteric Neck: Supple without appreciable lymphadenopathy, carotid bruits Cardiovascular: Regular rhythm, S1 normal and S2 normal. No murmurs/rubs/gallops. Pulmonary/Chest: Effort normal and breath sounds normal. Abdominal: Soft. Normal appearance. Neurological: alert, oriented Psychiatric: normal mood and affect. Diagnostic Data Labs Creatinine Date Value Ref Range Status 02/14/2022 0.62 0.60 - 1.10 mg/dL Final , Plt Date Value Ref Range Status 02/12/2022 327 150 - 400 K/cumm Final , WBC Date Value Ref Range Status 02/12/2022 12.0 (H) 3.8 - 9.9 K/cumm Final , Hgb Date Value Ref Range Status 02/12/2022 11.8 (L) 11.9 - 15.5 g/dL Final Visit Diagnoses (R00.2) Palpitations (primary encounter diagnosis) (I45.6) WPW syndrome (R55) Neurocardiogenic syncope Plan Mrs. Curry is a 36 yo F with a h/o WPW s/p RFA and vasovagal syncope here for continued care #Palpitations: Prior 30 day monitor with only rare PVCs and no evidence of SVT. Patient is asymptomatic she is improved. At this time no further monitoring or therapy is needed. #H/o WPW syndrome: No symptomatic recurrences. We will have patient monitor for symptoms and let usknow if she has any recurrences of tachy palpitations #Neurocardiogenic syncope: No recurrences. We will pursue conservative watchful waiting at this time. Since the patient is doing well, we will have the patient follow up on an as- needed basis. Thank you for allowing us to participate in the care of this pleasant patient. Please do not hesitate to call us if any questions arise. Respectfully, Myron Patton MD Clinical Cardiac Electrophysiology [facility] at This note was transcribed using speech recognition software. As a result, there may be grammatical and spelling errors that are unintended. If there are any questions or major inaccuracies, please contact us. documented in this encounter Plan of Treatment Not on file documented as of this encounter Procedures Procedure Name Priority Date/Time Associated Diagnosis Comments POCT LIPID PANEL Routine 01/11/2023 10:2 8 AM CDT Lipid screening documented in this encounter Results * POCT lipid panel (01/11/2023 10:28 AM CDT) Cholesterol, POC 127 mg/dL HDL, POC 15 mg/dL Triglycerides, POC 120 mg/dL LDL Cholesterol POC 91 mg/dL Chol/HDL Ratio, POC n/a Non-HDL Cholesterol, POC 112 mg/dL Cholesterol Total, POC 127 mg/dL Capillary blood 01/11/2023 1 0:28 AM CDT us Myron Patton MD POINT OF CARE TEST ORD ERABLES Final Result documented in this encounter Visit Diagnoses Diagnosis Palpitations- Primary WPW syndrome Anomalous atrioventricular excitation Neurocardiogenic syncope Lipid screening Screening for lipoid disorders documented in this encounter Care Teams Gas Compressor Turbine Operator Relationship Specialty Start Date End Date Thor Fajardo MD [address] [place] [address] PCP - General Family Medicine 12/30/20 Sebastian Soto MD [address] [place] [address] Consulting Physician Gastroenterology 02/14/22 Ena Rose MD [address] [place] [address] Consulting Physician Surgical Oncology 08/11/22 documented as of this encounter
--- OUTSIDE RECORDS SUMMARY | 2024-05-09 00:50 | XMS_ITS | Encounter Summary ---
Author Organization [facility] Healthcare Address [address] [place] [address] Care Team Providers Care Erosion Control Specialist Name Role Phone Thor Fajardo MD Primary Care Provider [phone] Sebastian Soto MD Unavailable [phone] Reason for Visit * Diagnostic Imaging (Routine) - Closed Specialty Diagnoses / Procedures Referred By Joselin drummond Referred To Contact Procedures Breast Imaging US Outside Reference Miscellaneous, Not In File Referral ID Status Reason Start Date Expiration Date Visits Re quested Visits Authorized [id number] Closed 08/10/2022 09/09/2023 1 1 Encounter Details Date Type Department Care Team (Latest Contact Info) Description 06/24/2022 - 06/24/2022 11:59 PM INSIDE TECHNICAL SALES REPRESENTATIVE Hospital Encounter [facility] - Imaging [phone] Discharge Disposition: Discharge to home or self [...] any clubs o r organizations such as sabianism groups, unions, fraternal or athletic groups, or [...] on file Legal Sex Female 9:50 PM INSIDE TECHNICAL SALES REPRESENTATIVE Gender Identity Not on file Sexual Orientation Not on file documented as of this encounter Medications at Time of Discharge FeroSuL 325 mg (65 mg iron) tablet Take 1 tablet (325 mg total) by mouth daily 04/27/2022 ondansetron ODT (ZOFRAN-ODT) 4 mg disintegrating tabletIndications:na [...] 02/14/2022 3 documented as of this encounter Discharge Disposition Disposition Code Departure Means Destination Discharge to home or self care documented in this encounter Plan of Treatment Not on file documented as of this encounter Procedures Procedure Name Priority Date/Time Associated Diagnosis Comments BREAST IMAGING US OUTSIDE REFERENCE Routine 06/24/2022 12:00 AM INSIDE TECHNICAL SALES REPRESENTATIVE documented in this encounter Results * Breast Imaging US Outside Reference (06/24/2022 12:00 AM INSIDE TECHNICAL SALES REPRESENTATIVE) Narrative [facility] - 08/10/2022 9:18 AM CDT This order has been auto-finalized and does not contain a result. us Not In File Miscellaneous IMG MAMMO PROCEDURES F inal Result [facility] documented in this encounter Visit Diagnoses Not on filedocumented in this encounter Care Teams Erosion Control Specialist Relationship Specialty Start Date End Date Thor Fajardo MD [address] [place] [address] PCP - General Family Medicine 12/30/20 Sebastian Soto MD [address] [address] Consulting Physician Gastroenterology 02/14/22 documented as of this encounter
--- OUTSIDE RECORDS SUMMARY | 2024-05-09 00:50 | XMS_ITS | Encounter Summary ---
Author Organization [facility] Address [address] [place] [address] Care Team Providers Care City Secretary Name Role Phone Thor Fajardo MD Primary Care Provider [phone] Sebastian Soto MD Unavailable [phone] Ena Rose MD Unavailable [phone] Encounter Details Date Type Department Care Team (Late st Contact Info) Description 08/16/2022 Orders Only [facility] [address] [facility] [address] [place] [address] Ena Rose MD [address] [facility] [address] [place] [address] Social History Tobacco Use Types [...] often do you attend chur ch or yarsani services? 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 Gender Identity Not on file Sexual Orientation Not on file documented as of this encounter Plan of Treatment Not on file documented as of this encounter Visit Diagnoses Not on filedocumented in this encounter Care Teams City Secretary Relationship Specialty Start Date End Date Thor Fajardo MD [address] [place] [address] PCP - General Family Medicine 12/30/20 Sebastian Soto MD [address] [facility] [address] [place] [address] Consulting Physician Gastroenterology 02/14/22 Ena Rose MD [address] [facility] [address] [place] [address] Consulting Physician Surgical Oncology 08/11/22 documented as of this encounter
--- OUTSIDE RECORDS SUMMARY | 2024-05-09 00:50 | XMS_ITS | Encounter Summary ---
Author Organization [facility] Address [address] [place] [address] Phone Care Team Providers Care Electro Winning Operator Name Role Phone Thor Fajardo MD Primary Care Provider [phone] Sebastian Soto MD Unavailable [phone] Ena Rose MD Unavailable [phone] Reason for Visit * Reason Comments Initial Consult * Consultation (Routine) - Closed Specialty Diagnoses / Procedures Referred By Joselin drummond Referred To Contact Plastic Surgery Diagnoses BRCA2 gene mutation positive Ena Rose MD [address] [facility] [address] [place] [address] Phone: tel: fax: [facility] (All Locations) Referral ID Status Reason Start Date Expiration Date V isits Requested Visits Authorized [id number] Closed Specialty Services Required 08/17/2022 09/16/2023 1 1 Encounter Details Date Type Department Care Team (Latest Contact Info) Description 10/11/2022 2:15 PM CDT Office Visit [facility] Surgery [address] [place] [address] Tutu Hermosillo MD [address] [place] [address] Encounter to discuss breast reconstruction (Primary Dx); BRCA2 gene mutation positive; At high risk for breast cancer Social History Tobacco Use Types [...] often do you attend chur ch or faith services? Never 02/12/2022 Do you belong to any clubs o r organizations such as baptist groups, unions, fraternal or athletic groups, or [...] on file Legal Sex Female 9:50 PM PETROLEUM SUPPLY SPECIALIST Gender Identity Not on file Sexual Orientation Not on file documented as of this encounter Last Filed Vital Signs Vital Sign Reading Time Taken Comments Blood Pressure - - Pulse - - Temperature - - Respiratory Rate - - Oxygen Saturation - - Inhaled Oxygen Concentration - - Weight 90.3 kg (199 lb) 10/11/2022 2:07 PM CDT Height 170.2 cm (5' 7 ) 10/11/2022 2:07 PM CDT Body Mass Index 31.17 10/11/2022 2:07 PM CDT documented in this encounter Progress Notes * Bill Bay MD - 10/11/2022 2:15 PM CDT Plastic Surgery Clinic - New Patient October 11, 2022 2:04 PM REASON FOR CONSULTATION: Breast Reconstruction HPI: Shayla Curry is a 37 y.o. female who comes to clinic today for evaluation for breast reconstruction. She is high risk for breast cancer with a pathologic BRCA2 mutation. She is followed by Dr. Rose of surgical oncology. She is considering bilateral nipple sparing mastectomies. Notable PMH/medications: L breast fibroadenoma; WPW syndrome s/p EPS+RFA; vasovagal syncope. GERD Notable PSH: lap henrique c/b bile leak s/p rendezvous procedure, biliary sphicterotomy/stent, migratory pancreatic duct stent She is a non-smoker. Quit 4y ago Past Medical History: Diagnosis Date GERD (gastroesophageal reflux disease) Kidney stones WPW (Yissd-Nwbolbbpo-Daemc syndrome) Past Surgical History: Procedure Laterality Date BREAST BIOPSY Left 07/01/2022 CARDIAC ELECTROPHYSIOLOGY STUDY AND ABLATION DILATION AND CURETTAGE OF UTERUS IR CHOLANGIOGRAM THROUGH EXISTING CATHETER N/A 02/12/2022 WISDOM TOOTH EXTRACTION Prior to Admission medications Medication Sig Start Date End Date Taking? Authorizing Provider FeroSuL 325 mg (65 mg iron) tablet Take 1 tablet (325 mg total) by mouth daily 04/27/22 Bandar Jimenez MD tretinoin (RETIN-A) 0.025 % cream 08/11/22 Bandar Jimenez MD No Known Allergies Social History Tobacco Use Smoking status: Former Types: Cigarettes Quit date: 10/08/2019 Years since quittin.0 Smokeless tobacco: Never Substance and Sexual Activity Drug use: Not on file Sexual activity: Not on file Alcohol Use: Not At Risk (02/11/2022) AUDIT-C Frequency of Alcohol Consumption: Monthly or less Average Number of Drinks: 1 or 2 Frequency of Binge Drinking: Never No family history on file. Review of Systems: As per HPI, otherwise 10 point review of systems negative. Objective Vitals: There were no vitals filed for this visit. Physical Exam: General: NAD, well-developed well-nourished. HEENT: NC/AT, MMM Lungs: NLB on RA Cardiac: extremities wwp Breast: - Size: appears stated cup size - Symmetry: poor. The left breast is slightly higher than the right breast. - Ptosis: grade 1 - Scars: No Abdomen: Soft, nontender, nondistended. Excess skin and fat suitable for abdominal based reconstruction. - Scars: Yes - laparoscopic port sites - Hernia: No - Diastasis: No Back: - Slight spinal curvature affecting symmetry of torso Extremities: Warm well perfused. No edema. Neurologic: Nonfocal and grossly intact. Psychiatric: Normal mood and affect. Assessment /Plan Shayla Curry is a 37 y.o. female who comes to clinic today for evaluation for breast reconstruction. She is interested in bilateral nipple-sparing mastectomy and reconstruction. The following points were discussed: 1. Breast reconstruction is an optional process. 2. Breast reconstruction is a multi-stage process which involves multiple surgeries spaced several months apart. The entire process can take over one year. 3. The major goal of breast reconstruction is to have the patient look normal in clothing. When naked, there will always be scars and asymmetries, some of which may not be completely addressed with surgery. 4. Asymmetries are often present during the reconstruction process. Several operations may be needed, including surgery to the non-cancerous breast, to achieve satisfactory results. 5. No matter the reconstructive method, there are ways that the reconstruction can fail and a secondary reconstructive plan would need to be created. We discussed the available options for breast reconstruction including no reconstruction, implant-based reconstruction, autologous reconstruction, combination procedures with implant/autologous tissue, and oncologic reduction. She is an appropriate candidate for no reconstruction, implant-based katty nstruction, and autologous reconstruction. Regarding implant-based reconstruction, we discussed implant placement in the pre-pectoral plane. We discussed tissue-kindergarten aide to implant vs direct to implant reconstruction. Given her size and risk factors, she a candidate for direct to implant reconstruction. We discussed that with direct to implant reconstruction, the implant size will be limited by the current size of her breasts and by the skin resection at the time of mastectomy. She understands that she may have smaller breasts than she currently has, and she is fine with that. We also discussed that if there are concerns with mastectomy skin flap perfusion or the tension on the skin closure intraoperatively, we may need to either place no implant or place a partially-expanded or deflated tissue kindergarten aide. We discussed the use of acellular dermal matrix and its role in implant-based reconstruction. We discussed that it is off label use in breast reconstruction; however, it has been used for several decades and we do feel it has several benefits including soft tissue support. We discussed the benefits of saline vs silicone implants. We discussed that implants are not lifetime devices. We discussed the longevity of breast implants likely being longer than the previous models, but that the true longevity of the newest models being uncertain due to their recency in the market. We also discussed that saline implants will not require routine postoperative imaging surveillance, but that silicone implants will. She is interested in silicone. We discussed the risks and benefits of using implant- based reconstruction, includingbleeding, infection requiring explantation, scarring, hematoma, seroma, wound-healing complications, asymmetry, capsular contracture, implant rupture, need for revision procedures, and the rare occurr ence of CRISTIAN-ALCL. Regarding autologous reconstruction, we discussed free tissue transfer from her abdomen to reconstruct her breast. We discussed the process of microvascular reconstruction and the risks inherent to it, including partial or complete flap loss. We also discussed the other risks of autologous reconstruction, including bleeding, infection, scarring, wound healing complications at the donor or recipient site, fat necrosis, abdominal bulge or hernia, use of mesh, umbilical necrosis, asymmetry, need for urgent reoperation, and need for revision procedures. We discussed that this is a longer procedure with a more significant recovery period, including a 3-5 day stay in the hospital. We discussed imm ediate versus delayed autologous reconstruction. We discussed that any reconstruction can and frequently does require revision procedures, 3.6 procedures in the first 2 years, on average. Following our discussion, she is contemplating immediate TE vs implant placement and delayed autologous reconstruction with tissue from her abdomen. 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 She will follow-up with Dr. Rose and we will see her back in May 2023 to get this on the books. All questions were answered to the patient's satisfaction. Bill Bay MD 10/11/2022 Cosigned by Tutu Hermosillo MD at 10/11/2022 4:46 PM CDT Associated attestation - Tutu Hermosillo MD - 10/11/2022 4:46 PM CDT I have seen and examined the patient. I agree with the findings and plan of care as documented in the resident/fellow's note. My total encounter time on 10/11/2022 was 30 minutes which was spent in the activities documented in the note. This includes time spent prior to the visit and after the visitin direct care of the patient. This time does not include time spent in any separately reportable services. documented in this encounter Plan of Treatment Not on file documented as of this encounter Visit Diagnoses Diagnosis Encounter to discuss breast reconstruction- Primary BRCA2 gene mutation positive At high risk for breast cancer documented in this encounter Orders Outpatient Referral Count Last Ordered Date Fir st Ordered Date AMB REFERRAL TO PLASTIC SURGERY 1 3 documented in this encounter Care Teams Electro Winning Operator Relationship Specialty Start Date End Date Thor Fajardo MD [address] [place] [address] PCP - General Family Medicine 12/30/20 Sebastian Soto MD [address] [facility] [address] [place] [address] Consulting Physician Gastroenterology 02/14/22 Ena Rose MD [address] [facility] [address] [place] [address] Consulting Physician Surgical Oncology 08/11/22 documented as of this encounter
--- OUTSIDE RECORDS SUMMARY | 2024-05-09 00:50 | XMS_ITS | Encounter Summary ---
Author Organization [facility] Address [address] [place] [address] Phone Care Team Providers Care Filling Station Attendant Name Role Phone Thor Fajardo MD Primary Care Provider [phone] Sebastian Soto MD Unavailable [phone] Encounter Details Date Type Department Care Team (Late st Contact Info) Description 02/15/2022 Telephone [facility] [address] [place] [address] Zee Brooke, MARIO Social History Tobacco Use Types Packs/Day Years [...] any clubs o r organizations such as sabianist groups, unions, fraternal or athletic groups, or [...] on file Legal Sex Female 9:50 PM CERT PHARMACY TECH Gender Identity Not on file Sexual Orientation Not on file documented as of this encounter Miscellaneous Notes * Telephone Encounter - Zee Brooke RN - 02/15/2022 11:46 AM CDT Patient discharged with no HH orders. Per Vanessa NICOLE, patient does not require HH services. [facility] consult closed and no services set up at this time. documented in this encounter Plan of Treatment Not on file documented as of this encounter Visit Diagnoses Not on filedocumented in this encounter Care Teams Filling Station Attendant Relationship Specialty Start Date End Date Thor Fajardo MD [address] [place] [address] PCP - General Family Medicine 12/30/20 Sebastian Soto MD [address] [facility] [address] [place] [address] Consulting Physician Gastroenterology 02/14/22 documented as of this encounter
--- OUTSIDE RECORDS SUMMARY | 2024-05-09 00:50 | XMS_ITS | Encounter Summary ---
Author Organization [facility] Address [address] [facility] [address] [place] [address] Care Team Providers Care Special Needs Bus Driver Name Role Phone Thor Fajardo MD Primary Care Provider [phone] Sebastian Soto MD Unavailable [phone] Reason for Referral * Cardiology (Routine) - Closed Specialty Diagnoses / Procedures Referred By oJselin drummond Referred To Contact Diagnoses Palpitations Procedures [facility] Mobile Cardiac Telemetry Event Monitor Myron Patton MD [address] [address] Phone: tel: fax: [facility] Referral ID Status Reason Start Date Expiration Date Visits Re quested Visits Authorized [id number] Closed 06/08/2022 07/08/2023 1 1 CTOR STARS Reason for Visit * Reason Comments New Patient * Consultation (Routine) - Closed Specialty Diagnoses / Procedures Referred By Joselin drummond Referred To Contact Cardiology Diagnoses Vasovagal syncope History of Ypwut-Octwwcnua-Vrbcc (WPW) syndrome H/O cardiac radiofrequency ablation Kayden Buck MD [address] [place] [address] [address] Phone: tel: fax: Myron Patton MD [address] [address] Phone: tel: fax: Referral ID Status Reason Start Date Expiration Date V isits Requested Visits Authorized [id number] Closed Specialty Services Required 01/13/2022 02/12/2023 1 1 Encounter Details Date Type Department Care Team (Latest Contact Info) Description 06/08/2022 9:00 AM DIRECTOR STARS Office Visit [facility] Cardiology [address] [place] [address] [place] [address] [place] [address] Myron Patton MD [address] [place] [address] [place] [address] Palpitations (Primary Dx); Vasovagal syncope; History of Nkuqg-Youdqtlmn-Xdoab (WPW) syndrome; H/O cardiac radiofrequency ablation Social History Tobacco Use Types Packs/Day Years [...] often do you attend chur ch or latter day services? Never 02/12/2022 Do you belong to any clubs o r organizations such as pentecostal groups, unions, fraternal or athletic groups, or [...] on file Legal Sex Female 9:50 PM DIRECTOR STARS Gender Identity Not on file Sexual Orientation Not on file documented as of this encounter Last Filed Vital Signs Vital Sign Reading Time Taken Comments Blood Pressure 100/56 06/08/2022 8:57 AM DIRECTOR STARS Pulse 78 06/08/2022 8:57 AM DIRECTOR STARS Temperature - - Respiratory Rate 16 06/08/2022 8:57 AM DIRECTOR STARS Oxygen Saturation 99% 06/08/2022 8:57 AM DIRECTOR STARS Inhaled Oxygen Concentration - - Weight 88 kg (194 lb) 06/08/2022 8:57 AM DIRECTOR STARS Height 170.2 cm (5' 7 ) 06/08/2022 8:57 AM DIRECTOR STARS Body Mass Index 30.38 06/08/2022 8:57 AM DIRECTOR STARS documented in this encounter Progress Notes * Myron Patton MD - 06/08/2022 9:00 AM CST Consult Note - Cardiac Electrophysiology Patient Name: Shayla Curry Date of : 1985 Primary Physician: Thor Fajardo MD Referring Physician: Kayden Buck MD I had the pleasure of seeing Shayla Curry in consultation at the [facility]- Cardiology at [facility]. I have reviewed the pertinent data originating outside our institution and outside my specialty within our institution and summarized the pertinent information below. As you well know, she is a 36 y.o. 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 Syncopal spells thought to be vasovagal in nature Syncopal episodes occur with blood draws and needle sticks Pertinent history: Laparoscopic Cholecystectomy c/b bile leak Today the patient is seen for paroxysms of palpitations. She states these are ???nothing like her Xmqnn-Qdvsbhxbj-Ahgxy?? however she has experienced palpitation episodes a few times a month. They will last a few seconds, and go away on their own. They are not associated with specific behavior. They are associated with shortness of breath, however no chest pain, lightheadedness, dizziness or syncope. She denies any excessive caffeine use or alcohol use. She denies exertion specifically bring on these palpitations. Patient seen initially thought it was related to her gallbladder pathology, however she has continued to experience these symptoms even after cholecystectomy. Past Medical History Past Medical History: Diagnosis Date GERD (gastroesophageal reflux disease) Kidney stone WPW (Kasmb-Vhrutwhqh-Ggdik syndrome) Past Surgical History Past Surgical History: Procedure Laterality Date CARDIAC ELECTROPHYSIOLOGY STUDY AND ABLATION DILATION AND CURETTAGE OF UTERUS IR CHOLANGIOGRAM THROUGH EXISTING CATHETER N/A 02/12/2022 WISDOM TOOTH EXTRACTION Medications Current Outpatient Medications: ondansetron ODT (ZOFRAN-ODT) 4 mg disintegrating tablet, Take 1 tablet (4 mg total) by mouth every 6 (six) hours as needed for nausea or vomiting, Disp: 20 tablet, Rfl: 0 oxyCODONE (ROXICODONE) 5 mg immediate release tablet, Take 1 tablet (5 mg total) by mouth every 4 (four) hours as needed for pain, Disp: 12 tablet, Rfl: 0 Allergies No Known Allergies Family History No family history on file. Social History Social History Tobacco Use Smoking status: Former Types: Cigarettes Quit date: 10/08/2019 Years since quittin.6 Smokeless tobacco: Never Substance and Sexual Activity Drug use: Not on file Sexual activity: Not on file Alcohol Use: Not At Risk Frequency of Alcohol Consumption: Monthly or less Average Number of Drinks: 1 or 2 Frequency of Binge Drinking: Never Review of Systems Review of Systems 12 POINT ROS DONE ALL OTHER SYSTEMS ARE NEGATIVE. Objective Vitals: 06/08/22 0857 BP: 100/56 BP Location: Right arm Patient Position: Sitting Pulse: 78 Resp: 16 SpO2: 99% Weight: 88 kg (194 lb) Height: 170.2 cm (5' 7 ) Physical Exam Constitutional: No distress. Head: Normocephalic. Nose: Nose normal. Mouth/Throat: Mucous membranes are normal. Eyes: Sclera Anicteric Neck: Supple without appreciable lymphadenopathy, carotid bruits Cardiovascular: Regular rhythm, S1 normal and S2 normal. No murmurs/rubs/gallops. Pulmonary/Chest: Effort normal and breath sounds normal. Abdominal: Soft. Normal appearance. Neurological: alert, oriented Skin: warm and dry, without rashes. Psychiatric: normal mood and affect. Diagnostic Data ECG performed today and reviewed personally reveals NSR. No delta wave, normal AL. Labs Creatinine Date Value Ref Range Status 02/14/2022 0.62 0.60 - 1.10 mg/dL Final , Plt Date Value Ref Range Status 02/12/2022 327 150 - 400 K/cumm Final , WBC Date Value Ref Range Status 02/12/2022 12.0 (H) 3.8 - 9.9 K/cumm Final , Hgb Date Value Ref Range Status 02/12/2022 11.8 (L) 11.9 - 15.5 g/dL Final 03/2022 TTE: Conclusions: Normal left size and wall thickness. Normal left ventricular systolic and diastolic function. Ejection fraction about 65-70 %. Normal Doppler with normal valvular structure and function. Visit Diagnoses (R00.2) Palpitations (primary encounter diagnosis) Plan: [facility] Mobile Cardiac Telemetry Event Monitor (R55) Vasovagal syncope Plan: Ambulatory referral to Cardiology (Z86.79) History of Qutpq-Wokypdozt-Rejgy (WPW) syndrome Plan: Ambulatory referral to Cardiology (Z98.890) H/O cardiac radiofrequency ablation Plan: Ambulatory referral to Cardiology Impression and Plan Mrs. Curry is a 36 yo F with a h/o WPW s/p RFA and vasovagal syncope here for evaluation of palpations #Palpitations: Unclear etiology at this time. Patient has no evidence of delta or short AL on her EKG today, however her symptoms may be related to an SVT. Patient's symptoms may also be related to short runs of atrial or ventricular ectopy. At this time -we will obtain 30 day MCOT monitoring to evaluate for etiology of patient's palpitations -discussed ILR implantation if patient does not have any episodes while wearing her MCOT #WPW: s/p RFA in 1996. No evidence of residual AP. MCOT as above #Vasovagal syncope: No recurrence of syncope since last being seen. Pt has specific trigger or needles/blood work, and is able to use counter measures to avoid recurrence Thank you for allowing us to participate [...] questions or major inaccuracies, please contact us. CTOR STARS documented in this encounter Miscellaneous Notes * Addendum Note - Javi Luis MA - 06/08/2022 9:00 AM CSTAddended by: JAVI LUIS on: 06/08/2022 10:19 AM Modules accepted: Orders CTOR STARS documented in this encounter Plan of Treatment Not on file documented as of this encounter Procedures Procedure Name Priority Date/Time Associated Diagnosis Comments ECG 12-LEAD Routine 06/08/2022 Vasovagal syncope History of Dxjbb-Gnybineom-Caszq (WPW) syndrome H/O cardiac radiofrequency ablation Palpitations documented in this encounter Results * [facility] Mobile Cardiac Telemetry Event Monitor (06/08/2022 9:25 AM DIRECTOR STARS) Anatomical Region Laterality Modality Other Narrative 07/13/2022 8:59 AM CDT AMBULATORY INVESTIGATOR UTILITY BILL COMPLAINTS REPORT Patient Name: Shayla Curry Date of : 1985 ?? Requesting Physician: Myron Patton MD Date of interpretation: 07/13/22 Type of monitor : 30 day OT Date of the study/Enrollment period: 06/09/22-07/08/22, Total [...] was used to complete this document, therefore, harp regulator variances may occur. Myron Patton MD 07/13/22 Procedure Note Myron Patton MD - 07/13/2022 AMBULATORY INVESTIGATOR UTILITY BILL COMPLAINTS REPORT Patient Name: Shayla Curry Date of [...] software was used to complete this document, therefore,harp regulator variances may occur. Myron Patton MD 07/13/22 us Myron Patton MD [facility] AL OCEDURES Final Result * ECG 12 lead (06/08/2022) us Myron Patton MD ECG ORDERABLES Final Result documented in this encounter Visit Diagnoses Diagnosis Palpitations- Primary Vasovagal syncope Syncope and collapse History of Nikby-Rxnkgeweb-Vfcuu (WPW) syndrome H/O cardiac radiofrequency ablation Palpitations documented in this encounter Historical Medications * This list may reflect changes made after this encounter. FeroSuL 325 mg (65 mg iron) tablet Take 1 tablet (325 mg total) by mouth daily 04/27/2022 added in this encounter Orders Outpatient Referral Count Last Ordered Date Fir st Ordered Date AMB REFERRAL TO CARDIOLOGY 1 06/08/2022 documented in this encounter Care Teams Special Needs Bus Driver Relationship Specialty Start Date End Date Thor Fajardo MD [address] [place] [address] PCP - General Family Medicine 12/30/20 Sebastian Soto MD [address] [address] Consulting Physician Gastroenterology 02/14/22 documented as of this encounter
--- OUTSIDE RECORDS SUMMARY | 2024-05-09 00:50 | XMS_ITS | Encounter Summary ---
Author Organization [facility] Address [address] [place] [address] Care Team Providers Care Medical Care Evaluation Specialist Name Role Phone Thor Fajardo MD Primary Care Provider [phone] Sebastian Soto MD Unavailable [phone] Encounter Details Date Type Department Care Team (Late st Contact Info) Description 06/09/2022 Telephone [facility] Cardiology [address] [address] Gay Luis MA Social History Tobacco Use Types Packs/Day Years [...] often do you attend chur ch or protestant services? Never 02/12/2022 Do you belong to any clubs o r organizations such as amish groups, unions, fraternal or athletic groups, or [...] on file Legal Sex Female 9:50 PM PROCESS SUPERVISOR Gender Identity Not on file Sexual Orientation Not on file documented as of this encounter Miscellaneous Notes * Telephone Encounter - Gay Luis MA - 06/09/2022 2:39 PM CST Spoke with Nayana to request patient be contacted to troubleshoot monitor issue due to pending activation status on web site after device placement in the office on 06.08.[address] Patton. Patient was notified that Nayana will be reaching out to her to ensure data is being captured appropriately. ESS SUPERVISOR documented in this encounter Plan of Treatment Not on file documented as of this encounter Visit Diagnoses Not on filedocumented in this encounter Care Teams Medical Care Evaluation Specialist Relationship Specialty Start Date End Date Thor Fajardo MD [address] [place] [address] PCP - General Family Medicine 12/30/20 Sebastian Soto MD [address] [address] Consulting Physician Gastroenterology 02/14/22 documented as of this encounter
--- OUTSIDE RECORDS SUMMARY | 2024-05-09 00:50 | XMS_ITS | Encounter Summary ---
Author Organization [facility] Address [address] [facility] [address] [place] [address] Care Team Providers Care Inspector Eyeglass Name Role Phone Thor Fajardo MD Primary Care Provider [phone] Sebastian Soto MD Unavailable [phone] Ena Rose MD Unavailable [phone] Reason for Referral * Diagnostic Imaging (Routine) - Closed Specialty Diagnoses / Procedures Referred By Contac t Referred To Contact Procedures US Guided Breast Biopsy Left Al Swain MD [address] [address] Phone: tel: fax: Referral ID Status Reason Start Date Expiration Date Visits Re quested Visits Authorized [id number] Closed 08/17/2022 09/16/2023 1 1 MFITTER SUPERVISOR * Diagnostic Imaging (Routine) - Closed Specialty Diagnoses / Procedures Referred By Contac t Referred To Contact Procedures Diagnostic Mammogram Bilateral W Anibal Al Swain MD [address] [place] [address] Phone: tel: fax: Referral ID Status Reason Start Date Expiration Date Visits Re quested Visits Authorized [id number] Closed 08/17/2022 09/16/2023 1 1 MFITTER SUPERVISOR * Consultation (Routine) - Closed Specialty Diagnoses / Procedures [facility] To Contact Pl[facility] Surgery Diagnoses BRCA2 gene mutation positive Ena Rose MD [address] [address] Phone: tel: fax: [facility] (All Locations) Referral ID Status Reason Start Date Expiration Date V isits Requested Visits Authorized [id number] Closed Specialty Services Required 08/17/2022 09/16/2023 1 1 Question Answer Please select the performing region: [facility] (All Locations) [167] # of visits: 1 Comments Please schedule with first available consult surgeon - Dr. Pereira, Dr. Hermosillo, Dr. Larry. Thank you. * MRI/CAT/PET Scan (Routine) - Closed Specialty Diagnoses / Procedures [facility] Referred To Contact Radiology Diagnoses BRCA2 gene mutation positive Procedures MRI Breast Bilateral W WO Contrast Ena Rose MD [address] [place] [id number] Phone: tel: fax: [facility] [address] [place] [address] Referral ID Status Reason Start Date Expiration Date Visits Re quested Visits Authorized [id number] Closed 08/17/2022 09/16/2023 1 1 * Diagnostic Imaging (Routine) - Closed Specialty Diagnoses / Procedures Referred By [facility] Referred To Contact Diagnoses BRCA2 gene mutation positive Procedures Diagnostic Mammogram Bilateral W Anibal Ena Rose MD [address] [address] Phone: tel: fax: [facility] [address] [place] [address] Referral ID Status Reason Start Date Expiration Date Visits Re quested Visits Authorized [id number] Closed 08/17/2022 09/16/2023 1 1 Encounter Details Date Type Department Care Team (Late st Contact Info) Description 08/17/2022 Orders Only [facility] [address] [facility] [address] [place] [address] Ena Rose MD [facility] [address] [place] [address] BRCA2 gene mutation positive (Primary Dx) Social [...] How often do you attend chur or denominational services? Never 02/12/2022 Do you belong to any clubs o r organizations such as orthodox groups, unions, fraternal or athletic groups, or [...] on file Legal Sex Female 9:50 PM STEAMFITTER SUPERVISOR Gender Identity Not on file Sexual Orientation Not on file documented as of this encounter Plan of Treatment Scheduled Referrals Name Type Priority Associated Diagnoses Order Schedule Ambulatory referral to Plastic Surgery Outpatient Referral Routine BRCA2 gene mutation positive Expected: 08/24/2022 (Approximate), Expires: 08/18/2023 documented as of this encounter Procedures Procedure Name Priority Date/Time Associated Diagnosis Comments US GUIDED BREAST BIOPSY LEFT Schedule Routine, Read Routine (OP Routine) 07/01/2022 SURGICAL PATHOLOGY Routine 07/01/2022 DIAGNOSTIC MAMMOGRAM BILATERAL W ANIBAL Schedule Routine, Read Routine (OP Routine) 06/24/2022 documented in this encounter Results * Diagnostic Mammogram Bilateral W Anibal (06/20/2023 10:27 AM STEAMFITTER SUPERVISOR) Anatomical Region Laterality Modality Breast Bilateral Mammography 06/20/2023 10:3 6 AM STEAMFITTER SUPERVISOR Impressions 06/20/2023 10:36 AM STEAMFITTER SUPERVISOR No mammographic evidence of malignancy. BI-RADS Category 2: Benign Findings Advise continued high-risk screening protocol with breast MRI due in 6 months and bilateral mammogram in 12 months. Findings and recommendations were communicated to the patient. Electronically signed by: Nannette Foreman MD Narrative 06/20/2023 10:36 AM STEAMFITTER SUPERVISOR EXAMINATION/TECHNIQUE: Bilateral Digital diagnostic mammogram including CAD [...] the left upper central breast middle 3rd. Ena Rose MD IMG MAMMO PROCEDURES Final Result * MRI Breast Bilateral W WO Contrast [...] 12:00 at outside facility in June 2022. COMPARISON:[facility] imaging of 06/24/2022 and biopsy imaging of 07/01/2022. TECHNIQUE: Bilateral dynamic breast MRI was performed using a dedicated breast coil. ??Images were obtained prior to and following intravenous administration of 18 mL's of gadoterate meglumine contrast. ??Subtraction images, 3-D and multiplanar reconstructions were performed and reviewed. Scoreloop software was utilized. BREAST COMPOSITION: Heterogeneously dense [...] or internal mammary adenopathy. Ena Rose MD [facility] MRI PROCEDURES Final R esult * Surgical pathology (07/01/2022) Tissue Al Chapin MD LAB PATHOLOGY ORDERABLES Final Result * US Guided Breast Biopsy Left (07/01/2022) Anatomical Region Laterality Modality Breast Left Mammography Al Chapin MD IM MAMMO PROCEDURES Lou l Result * Diagnostic Mammogram Bilateral W Anibal (06/24/2022) Anatomical Region Laterality Modality Breast Bilateral Mammography Al Chapin MD [facility] MAMMO PROCEDURES Lou l Result documented in this encounter Visit Diagnoses Diagnosis BRCA2 gene mutation positive- Primary BRCA2 gene mutation positive BRCA2 gene mutation positive documented in this encounter Care Teams Inspector Eyeglass Relationship Specialty Start Date End Date Thor Fajardo MD [address] [place] [address] PCP - General Family Medicine 12/30/20 Sebastian Soto MD [address] [facility] [address] [place] [address] Consulting Physician Gastroenterology 02/14/22 Ena Rose MD [address] [facility] [address] [place] [address] Consulting Physician Surgical Oncology 08/11/22 documented as of this encounter
--- OUTSIDE RECORDS SUMMARY | 2024-05-09 00:50 | XMS_ITS | Encounter Summary ---
Author Organization [facility] Address [address] [place] [address] Care Team Providers Care Drawing In Machine Tender Name Role Phone Thor Fajardo MD Primary Care Provider [phone] Sebastian Soto MD Unavailable [phone] Reason for Visit * Diagnostic Imaging (Routine) - Closed Specialty Diagnoses / Procedures Referred By Joselin drummond Referred To Contact Procedures Breast Imaging Procedure Outside Reference Miscellaneous, Not In File Referral ID Status Reason Start Date Expiration Date Visits Re quested Visits Authorized [id number] Closed 08/10/2022 09/09/2023 1 1 Encounter Details Date Type Department Care Team (Latest Contact Info) Description 07/01/2022 12:05 AM CATHOLIC PRIEST - 07/01/2022 11:59 PM CATHOLIC PRIEST Hospital Encounter [facility] - Imaging [phone] Discharge Disposition: Discharge to home or self [...] often do you attend chur ch or presybeterian services? Never 02/12/2022 Do you belong to any clubs o r organizations such as sikhism groups, unions, fraternal or athletic groups, or [...] on file Legal Sex Female 9:50 PM CATHOLIC PRIEST Gender Identity Not on file Sexual Orientation [...] Priority Date/Time Associated Diagnosis Comments BREAST IMAGING MG PROCEDURE OUTSIDE REFERENCE Routine 07/01/2022 12:05 AM CATHOLIC PRIEST documented in this encounter Results * Breast Imaging Procedure Outside Reference (07/01/2022 12:05 AM CATHOLIC PRIEST) Narrative [facility]_PACS_OUTSIDE_FILM_[facility] - 08/10/2022 9:18 AM CDT This order has been auto-finalized and does not contain a result. us Not In File Miscellaneous IMG MAMMO PROCEDURES F inal Result [facility]_PACS_OUTSIDE_FILM_[facility] documented in this encounter Visit Diagnoses Not on filedocumented in this encounter Care Teams Drawing In Machine Tender Relationship Specialty Start Date End Date Thor Fajardo MD [address] [place] [address] PCP - General Family Medicine 12/30/20 Sebastian Soto MD [address] [address] Consulting Physician Gastroenterology 02/14/22 documented as of this encounter
--- OUTSIDE RECORDS SUMMARY | 2024-05-09 00:50 | XMS_ITS | Encounter Summary ---
Author Organization [facility] Address [address] [place] [address] Care Team Providers Care Internal Control Consultant Name Role Phone Thor Fajardo MD Primary Care Provider [phone] Sebastian Soto MD Unavailable [phone] Reason for Visit * Diagnostic Imaging (Routine) - Closed Specialty Diagnoses / Procedures Referred By Joselin drummond Referred To Contact Procedures Breast Imaging Procedure Outside Reference Miscellaneous, Not In File Referral ID Status Reason Start Date Expiration Date Visits Re quested Visits Authorized [id number] Closed 08/10/2022 09/09/2023 1 1 Encounter Details Date Type Department Care Team (Latest Contact Info) Description 07/01/2022 - 07/01/2022 11:59 PM SHADE BANDER Hospital Encounter [facility] - Imaging [phone] Discharge Disposition: Discharge to home or self [...] often do you attend chur ch or mu-ism services? Never 02/12/2022 Do you belong to [...] on file Legal Sex Female 9:50 PM SHADE BANDER Gender Identity Not on file Sexual Orientation [...] IMAGING MG PROCEDURE OUTSIDE REFERENCE Routine 07/01/2022 12:00 AM SHADE BANDER documented in this encounter Results * Breast Imaging Procedure Outside Reference (07/01/2022 12:00 AM SHADE BANDER) Narrative [facility]ACS[facility]OUTSIDE[facility]FIL[facility] - 08/10/2022 9:15 AM CDT This order has been auto-finalized and does not contain a result. us Not In File Miscellaneous IMG MAMMO PROCEDURES F inal Result RAD_PACS_OUTSIDE_FILM_[facility] documented in this encounter Visit Diagnoses Not on filedocumented in this encounter Care Teams Internal Control Consultant Relationship Specialty Start Date End Date Thor Fajardo MD [address] [place] [address] PCP - General Family Medicine 12/30/20 Sebastian Soto MD [address] [address] Consulting Physician Gastroenterology 02/14/22 documented as of this encounter
--- OUTSIDE RECORDS SUMMARY | 2024-05-09 00:50 | XMS_ITS | Encounter Summary ---
Author Organization [facility] Address [address] [facility] [address] [place] [address] Care Team Providers Care Scrap Kettle Tender Name Role Phone Thor Fajardo MD Primary Care Provider [phone] Sebastian Soto MD Unavailable [phone] Reason for Visit * Cardiology (Routine) - Closed Specialty Diagnoses / Procedures Referred By Joselin drummond Referred To Contact Diagnoses Vasovagal syncope Procedures Transthoracic Echo (TTE) Complete W Doppler/CF Mynor Haney MD [address] [address] Phone: tel: fax: [facility] Referral ID Status Reason Start Date Expiration Date Visits Re quested Visits Authorized [id number] Closed 01/13/2022 02/12/2023 1 1 Encounter Details Date Type Department Care Team (Latest Contact Info) Description 03/24/2022 8:15 AM MEDICAL EQUIPMENT SALES Ancillary Procedure [facility] Cardiology [address] [facility] [address] [place] [id number] Vasovagal syncope Social History Tobacco Use Types Packs/Day Years [...] often do you attend chur ch or yazdanism services? Never 02/12/2022 Do you belong to any clubs o r organizations such as alevism groups, unions, fraternal or athletic groups, or [...] file Legal Sex Female 9:50 PM MEDICAL EQUIPMENT SALES Gender Identity Not on file Sexual Orientation Not on file documented as of this encounter Plan of Treatment Not on file documented as of this encounter Procedures Procedure Name Priority Date/Time Associated Diagnosis Comments TRANSTHORACIC ECHO (TTE) COMPLETE W DOPPLER/CF WO CONTRAST Routine 03/24/2022 8:46 AM MEDICAL EQUIPMENT SALES Vasovagal syncope documented in this encounter Results * TRANSTHORACIC ECHO (TTE) COMPLETE W DOPPLER/CF WO CONTRAST (03/24/2022 8:46 AM MEDICAL EQUIPMENT SALES) Anatomical Region Laterality Modality Ultrasound 03/24/2022 8:06 AM MEDICAL EQUIPMENT SALES Narrative 03/24/2022 2:34 PM MEDICAL EQUIPMENT SALES [facility] Cardiology [address], [place] [address] [address], [place] [address] P:[phone] P:[phone] Echocardiographic Report Patient Name: SHAYLA CAMEJO : 1985 Study Date: 03/24/2022 8:06:26 AM Gender: F Tech: Location: [place] Ref.Provider: MYNOR HANEY Height(Cm): 170 BSA: 1.96 Weight(Kg): 84.37 Heart Rate: 52 BP: 109/66 Quality: Good Order Provider: MYNOR HANEY Procedures: Echocardiographic Report: Transthoracic echocardiogram with complete 2D, M-Mode, and color Doppler examination. Indications: Vasovagal Syncope. Measurements: 2D/M Mode ?Doppler ? Measurement ?Value ?Normal Range ? Measurement ?Value ?Normal Range ? EF Mod ? 72 ?AV Mean PG ? 4 ?mmHg ? EF MM ?59 ? [ 55 - 70 ] % ?AV Peak Morgan ?1.34 ? m/s ? LVIDd MM ? 5.13 ? [ 3.90 - 5.30 ] cm ? AV Peak PG ? 7 ?mmHg ? LVIDs MM ? 3.53 ? [ 2.30 - 3.90 ] cm ? AV VTI ? 0.27 ? cm ? LVPWd MM ? 1.07 ? [ 0.60 - 1.00 ] cm ? LVOT Peak Morgan ?1.00 ? [ 0.70 - 1.10 ] m/s ? IVSd MM ?1.07 ? [ 0.60 - 0.90 ] cm ? LVOT VTI ? 0.22 ? cm ? LA Dimension MM ?4.00 ? [ 2.70 - 3.80 ] cm ? MV E Peak Morgan ?0.68 ? [ 0.60 - 1.30 ] m/s ? AoR Diam MM ?2.60 ? [ 2.60 - 3.70 ] cm ? MV A Peak Morgan ?0.76 ? [ 0.40 - 0.80 ] m/s ? LA Volume Index ?18.00 ?[ 16.00 - 28.00 ] cc/m2 ?MV Decel Time ?313 ?[ 150 - 200 ] msec ? ACS MM ? 1.73 ? cm ? PV Peak Morgan ?0.99 ? [ 0.40 - 0.80 ] m/s ? TR Peak Morgan ?2.29 ? [ 0.40 - 0.80 ] m/s ? TR Peak PG ? 21 ? mmHg ? RVSP ? 29.00 ?mmHg ? E' ? 0.14 ? E/E' ? 5 ? - Findings: Interpretation Site: Exam was interpreted at [facility]. Left Ventricle: Normal left ventricular wall thickness. Normal left ventricular size. Normal left ventricular diastolic function. Ejection fraction is visually estimated at 65-70 %. Ejection fraction is measured at 72 %. Right Ventricle: Normal right ventricular size. Normal right ventricular systolic function. Left Atrium: The left atrium is normal in size. Right Atrium: The right atrium is normal in size. Atrial Septum: Normal atrial septum. Mitral Valve: Normal appearance of the mitral valve. Aortic Valve: Normal appearance of the aortic valve. No evidence of hemodynamically significant aortic stenosis by Doppler. Tricuspid Valve: Normal appearance of the tricuspid valve. Estimated peak RVSP is 29 mmHg. Trivial regurgitation in the tricuspid valve. Pulmonic Valve: Normal appearance of the pulmonic valve. Trivial regurgitation in the pulmonic valve. Pericardium: Normal pericardium with no significant pericardial effusion. Aorta: Normal aortic root. IVC: Normal size and normal respiratory collapse consistent with normal right atrial pressure (<5 mmHg). Conclusions: Normal left size and wall thickness. Normal left ventricular systolic and diastolic function. Ejection fraction about 65-70 %. Normal Doppler with normal valvular structure and function. Electronically Signed By: Mynor Haney MD, [facility] 2022-03-24 14:34:13 MEDICAL EQUIPMENT SALES CC: CC: Procedure Note Mynor Haney MD - 03/24/2022 [facility] Cardiology [address] [facility] [address], [place] [address] [address] [facility] [address], [place] [address] P:[phone] P:[phone] Echocardiographic Report Patient Name: SHAYLA CAMEJOPatient ID: [id number] : [id number] Date: 03/24/2022 8:06:26 AM Gender: FAccession #: [id number] Tech: GMLocation: [place] Ref.Provider: MYNOR HANEYHeight(Cm): 170 BSA: 1.96Weight(Kg): 84.37 Heart Rate: 52BP: 109/66 Quality: GoodOrder Provider: MYNOR HANEY Procedures: Echocardiographic Report: Transthoracic echocardiogram with complete 2D, M-Mode, and color Dopplerexamination. Indications: Vasovagal Syncope. Measurements: 2D/M Mode Doppler Measurement Value Normal Range MeasurementValue Normal Range EF Mod 72 AV Mean PG 4mmHg EF MM 59 [ 55 - 70 ] % AV Peak Vel1.34 m/s LVIDd MM 5.13 [ 3.90 - 5.30 ] cm AV Peak PG 7mmHg LVIDs MM 3.53 [ 2.30 - 3.90 ] cm AV VTI0.27 cm LVPWd MM 1.07 [ 0.60 - 1.00 ] cm LVOT Peak Vel1.00 [ 0.70 - 1.10 ] m/s IVSd MM 1.07 [ 0.60 - 0.90 ] cm LVOT VTI0.22 cm LA Dimension MM 4.00 [ 2.70 - 3.80 ] cm MV E Peak Vel0.68 [ 0.60 - 1.30 ] m/s AoR Diam MM 2.60 [ 2.60 - 3.70 ] cm MV A Peak Vel0.76 [ 0.40 - 0.80 ] m/s LA Volume Index 18.00 [ 16.00 - 28.00 ] cc/m2 MV Decel Coue781 [ 150 - 200 ] msec ACS MM 1.73 cm PV Peak Vel0.99 [ 0.40 - 0.80 ] m/s TR Peak Vel2.29 [ 0.40 - 0.80 ] m/s TR Peak PG 21mmHg RVSP29.00 mmHg E'0.14 E/E' 5 - Findings: Interpretation Site: Exam was interpreted at [facility]. Left Ventricle: Normal left ventricular wall thickness. Normal left ventricular size.Normal left ventricular diastolic function. Ejection fraction is visually estimated at65-70 %. Ejection fraction is measured at 72 %. Right Ventricle: Normal right ventricular size. Normal right ventricular systolicfunction. Left Atrium: The left atrium is normal in size. Right Atrium: The right atrium is normal in size. Atrial Septum: Normal atrial septum. Mitral Valve: Normal appearance of the mitral valve. Aortic Valve: Normal appearance of the aortic valve. No evidence of hemodynamicallysignificant aortic stenosis by Doppler. Tricuspid Valve: Normal appearance of the tricuspid valve. Estimated peak RVSP is 29 mmHg.Trivial regurgitation in the tricuspid valve. Pulmonic Valve: Normal appearance of the pulmonic valve. Trivial regurgitation in thepulmonic valve. Pericardium: Normal pericardium with no significant pericardial effusion. Aorta: Normal aortic root. IVC: Normal size and normal respiratory collapse consistent with normal rightatrial pressure (<5 mmHg). Conclusions: Normal left size and wall thickness. Normal left ventricular systolic anddiastolic function. Ejection fraction about 65-70 %. Normal Doppler with normal valvular structure and function. Electronically Signed By: Mynor Haney MD, [facility] 2022-03-24 14:34:13 MEDICAL EQUIPMENT SALES CC: CC: us Mynor Haney MD CV ECHO PROCEDURES Final Result documented in this encounter Visit Diagnoses Diagnosis Vasovagal syncope Syncope and collapse documented in this encounter Care Teams Scrap Kettle Tender Relationship Specialty Start Date End Date Thor Fajardo MD [address] [place] [address] PCP - General Family Medicine 12/30/20 Sebastian Soto MD [address] [address] Consulting Physician Gastroenterology 02/14/22 documented as of this encounter
--- OUTSIDE RECORDS SUMMARY | 2024-05-09 00:50 | XMS_ITS | Encounter Summary ---
Author Organization [facility] Healthcare Address [address] [place] [address] Care Team Providers Care Manager Cath Lab Name Role Phone Thor Fajardo MD Primary Care Provider [phone] Sebastian Soto MD Unavailable Reason for Visit * Diagnostic Imaging (Routine) - Closed Specialty Diagnoses / Procedures Referred By Joselin drummond Referred To Contact Procedures Breast Imaging Diagnostic Outside Reference Miscellaneous, Not In File Referral ID Status Reason Start Date Expiration Date Visits Re quested Visits Authorized [id number] Closed 08/10/2022 09/09/2023 1 1 Encounter Details Date Type Department Care Team (Latest Contact Info) Description 06/24/2022 12:05 AM EDUCATIONAL FUNDRAISING DIRECTOR - 06/24/2022 11:59 PM EDUCATIONAL FUNDRAISING DIRECTOR Hospital Encounter [facility] - Imaging [phone] Discharge Disposition: Discharge to home or self [...] often do you attend chur ch or alevism services? Never 02/12/2022 Do you belong to any clubs o r organizations such as faith groups, unions, fraternal or athletic groups, or [...] on file Legal Sex Female 9:50 PM EDUCATIONAL FUNDRAISING DIRECTOR Gender Identity Not on file Sexual Orientation [...] Date/Time Associated Diagnosis Comments BREAST IMAGING MG DIAGNOSTIC OUTSIDE REFERENCE Routine 06/24/2022 12:05 AM EDUCATIONAL FUNDRAISING DIRECTOR documented in this encounter Results * Breast Imaging Diagnostic Outside Reference (06/24/2022 12:05 AM EDUCATIONAL FUNDRAISING DIRECTOR) Narrative [facility]PACS_OUTSIDE_FILM[facility] - 08/10/2022 9:18 AM CDT This order has been auto-finalized and does not contain a result. us Not In File Miscellaneous IMG MAMMO PROCEDURES F inal Result RAD_PACS_OUTSIDE_FILM_[facility] documented in this encounter Visit Diagnoses Not on filedocumented in this encounter Care Teams Manager Cath Lab Relationship Specialty Start Date End Date Thor Fajardo MD [address] [place] [address] PCP - General Family Medicine 12/30/20 Sebastian Soto MD [address] [address] Consulting Physician Gastroenterology 02/14/22 documented as of this encounter
--- OUTSIDE RECORDS SUMMARY | 2024-05-09 00:50 | XMS_ITS | Encounter Summary ---
Author Organization [facility] Address [address] [place] [address] Care Team Providers Care Transmission Supervisor Name Role Phone Thor Fajardo MD Primary Care Provider [phone] Sebastian Soto MD Unavailable Ena Rose MD Unavailable [phone] Reason for Visit * Reason Comments Breast Problem Encounter Details Date Type Department Care Team (Late st Contact Info) Description 08/16/2022 2:30 PM CDT Office Visit [facility] [address] [facility] [address] [place] [address] Ena Rose MD [address] [facility] [address] [place] [address] BRCA2 gene mutation positive (Primary Dx); Fibroadenoma of left breast Social History Tobacco Use Types Packs/Day Years [...] week 02/12/2022 How often do you attend [facility] or latter-day services? Never 02/12/2022 Do you belong to any clubs o r organizations such as worship groups, unions, fraternal or athletic groups, or [...] file Legal Sex Female 9:50 PM MANAGER BATTERY Gender Identity Not on file Sexual Orientation Not on file documented as of this encounter Last Filed Vital Signs Vital Sign Reading Time Taken Comments Blood Pressure 117/86 08/16/2022 2:37 PM CDT Pulse 74 08/16/2022 2:37 PM CDT Temperature 36.5 ??C (97.7 ??F) 08/16/2022 2:37 PM CD T Respiratory Rate 16 08/16/2022 2:37 PM CDT Oxygen Saturation - - Inhaled Oxygen Concentration - - Weight 88 kg (194 lb) 08/16/2022 2:37 PM CDT Height 170.2 cm (5' 7 ) 08/16/2022 2:37 PM CDT Body Mass Index 30.38 08/16/2022 2:37 PM CDT documented in this encounter Progress Notes * Ena Rose MD - 08/16/2022 2:30 PM CDT Images from the original note were not included. [facility] ~ [facility] Dr. Dennis Rose MD, FACS Mónica Cao [address], [facility] [address] [place] [address] ? [email or web address] PATIENT NAME: Shayla Curry : 1985 Patient Care Team: Thor Fajardo MD as PCP - General (Family Medicine) Sebastian Soto MD as Consulting Physician (Gastroenterology) Ena Rose MD as Consulting Physician (Surgical Oncology) REASON FOR VISIT Shayla is 37 y.o. female presents for surgical consultation and evaluation. 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 The genetic counselor has recommended standard screening for breast ovarian as well as other cancers. She is here with me today to discuss the possibility of risk reducing mastectomies Most recent breast imaging was bilateral diagnostic mammograms with a bilateral ultrasound in the left breast and 11 mm mass was seen which was biopsied showing a fibroadenoma. Results for orders placed in visit on 08/10/22 Breast Imaging Diagnostic Outside Reference Narrative This order has been auto-finalized and does not contain a result. Problem List Genitourinary and Reproductive Fibroadenoma of left breast Hematology and Neoplasia BRCA2 gene mutation positive - Primary ROS POSITIVES FINDINGS: No symptoms HISTORY Social History Tobacco Use Smoking status: Former Types: Cigarettes Quit date: 10/08/2019 Years since quittin.8 Smokeless tobacco: Never Substance and Sexual Activity Drug use: None Sexual activity: None Alcohol Use: Not At Risk (02/11/2022) AUDIT-C Frequency of Alcohol Consumption: Monthly or less Average Number of Drinks: 1 or 2 Frequency of Binge Drinking: Never Past Medical History: Diagnosis Date GERD (gastroesophageal reflux disease) Kidney stones WPW (Lybyi-Uoasetbzj-Pehjx syndrome) Past Surgical History: Procedure Laterality Date CARDIAC ELECTROPHYSIOLOGY STUDY AND ABLATION DILATION AND CURETTAGE OF UTERUS IR CHOLANGIOGRAM THROUGH EXISTING CATHETER N/A 02/12/2022 WISDOM TOOTH EXTRACTION History reviewed. No pertinent family history. No known family history of breast cancer. OBJECTIVE No Known Allergies Current Outpatient Medications: FeroSuL 325 mg (65 mg iron) tablet tretinoin (RETIN-A) 0.025 % cream No LMP recorded. (Menstrual status: IUD). BP 117/86 Pulse 74 Temp 36.5 ??C (97.7 ??F) Resp 16 Ht 170.2 cm (5' 7 ) Wt 88 kg (194 lb) Body mass index is 30.38 kg/m??. EXAM Breasts: Bilaterally the patient has diffuse nodularity with no dominant mass. She has no skin dimpling, fixation, axillary or supraclavicular adenopathy. ASSESSMENT/PLAN ICD-9-CM ICD-10-CM 1. BRCA2 gene mutation positive V84.01 Z15.01 Z15.09 2. Fibroadenoma of left breast 217 D24.2 I believe this represents BRCA 2 gene positive. In regards to breast cancer the body design checker has toldher that her risk of getting breast cancer is greater than 60%. We discussed high risk screening program which would be bilateral diagnostic mammograms alternatingwith breast MRI. She would be due for the MRI in November. We discussed chemoprevention with antiestrogen therapy and consult to medical oncologist to learn more about it We then discussed bilateral risk reducing mastectomies. We discussed the fact that it is estimated that you remove 95% of breast tissue with preventative mastectomies decreasing the risk of breast cancer by about 95% but not 100%. The expected pre and postoperative course and major risks and benefits were discussed the options of reconstructive versus no reconstruction was discussed plastic surgery consultations were discussed Patient will be due for her MRI in November. We will get that scheduled for her. We have offered to send her to see plastic surgeons to discussed reconstructive options. I do believe she would be a candidate at this size of breast tissue for nipple sparing through generous inframammary fold incisionsshe is not ready to commit to the surgery at this point she will let us know . Breast self awareness encouraged. Call the office with breast changes or concerns. My total encounter time on 08/16/2022 was 35 minutes which was spent in the activities documented inthe note. This includes time spent prior to the visit and after the visit in direct care of the patient. This time does not include time spent in any separately reportable services. Ena Rose MD documented in this encounter Plan of Treatment Not on file documented as of this encounter Visit Diagnoses Diagnosis BRCA2 gene mutation positive- Primary Fibroadenoma of left breast documented in this encounter Discontinued Medications Medication Sig Discontinue Reason Start Date End Da te ondansetron ODT (ZOFRAN-ODT) 4 mg disintegrating tabletIndications:nausea and vomiting Take 1 tablet (4 mg total) by mouth every 6 (six) hours as needed for nausea or vomiting Therapy completed 02/14/2022 08/16/2022 oxyCODONE (ROXICODONE) 5 mg immediate release tabletIndications:Pain Take 1 tablet (5 mg total) by mouth every 4 (four) hours as needed for pain Therapy completed 02/14/2022 08/16/2022 documented as of this encounter Historical Medications * This list may reflect changes made after this encounter. Medication Sig Dispense Quantity Refills Last Filled Start D ate End Date tretinoin (RETIN-A) 0.025 % cream 08/11/2022 added in this encounter Care Teams Transmission Supervisor Relationship Specialty Start Date End Date Thor Fajardo MD [address] [place] [id number] PCP - General Family Medicine 12/30/20 Sebastian Soto MD [address] [facility] [address] [place] [address] Consulting Physician Gastroenterology 02/14/22 Ena Rose MD [address] [facility] [address] [place] [address] Consulting Physician Surgical Oncology 08/11/22 documented as of this encounter
--- OUTSIDE RECORDS SUMMARY | 2024-05-09 00:51 | XMS_ITS | Encounter Summary ---
Author Organization [facility] Address [address] [place] [address] Care Team Providers Care Underground Conduit Installer Name Role Phone Thor Fajardo MD Primary Care Provider [phone] Encounter Details Date Type Department Care Team (Late st Contact Info) Description 12/30/[address] [facility] Cardiology [address] [place] [address] ProviderBandar MD [address] [place] [id number] Social History Tobacco Use Types Packs/Day Years Used Date Smoking Tobacco: Never Assessed Comments Unknown Sex and Gender Information Value Date Recorded Sex Assigned at Not on file Legal Sex Female 9:50 PM SALVAGE WINDER AND INSPECTOR Gender Identity Not on file Sexual Orientation Not on file documented as of this encounter Plan of Treatment Not on file documented as of this encounter Procedures Procedure Name Priority Date/Time Associated Diagnosis Comments CARDIOLOGY DOCUMENT SCAN Routine 12/30/2020 documented in this encounter Results * SCAN - CARDIOLOGY (12/30/2020) Anatomical Region Laterality Modality Other Historical Provider CV CARDI[facility] GEE Final Result documented in this encounter Visit Diagnoses Not on filedocumented in this encounter Care Teams Underground Conduit Installer Relationship Specialty Start Date End Date Thor Fajardo MD [address] [place] [address] [place] [address] PCP - General Family Medicine 12/30/20 documented as of this encounter
--- OUTSIDE RECORDS SUMMARY | 2024-05-09 00:51 | XMS_ITS | Encounter Summary ---
Author Organization [facility] Healthcare Address [address] [place] [address] Care Team Providers Care Medical Anthropology Director Name Role Phone Thor Fajardo MD Primary Care Provider [phone] Sebastian Soto MD Unavailable [phone] Encounter Details Date Type Department Care Team (Late st Contact Info) Description 02/11/2022 Orders Only [facility] [address] [place] [address] Anyi Garcia MD [address] [place] [address] Social History Tobacco Use Types [...] often do you attend chur ch or quaker services? Never 02/12/2022 Do you belong to any clubs o r organizations such as jehovah's witness groups, unions, fraternal or athletic groups, or [...] on file Legal Sex Female 9:50 PM AUTO ROLLER Gender Identity Not on file Sexual Orientation Not on file documented as of this encounter Plan of Treatment Not on file documented as of this encounter Visit Diagnoses Not on filedocumented in this encounter Care Teams Medical Anthropology Director Relationship Specialty Start Date End Date Thor Fajardo MD [address] [place] [address] PCP - General Family Medicine 12/30/20 Sebastian Soto MD [address] [facility] [address] [place] [address] Consulting Physician Gastroenterology 02/14/22 documented as of this encounter
--- OUTSIDE RECORDS SUMMARY | 2024-05-09 00:51 | XMS_ITS | Encounter Summary ---
Author Organization [facility] Address [address] [place] [address] Care Team Providers Care Clubhouse Attendant Name Role Phone Thor Fajardo MD Primary Care Provider [phone] Reason for Visit * Auth/Cert Specialty Diagnoses / Procedures Referred By Contac t Referred To Contact Diagnoses [facility] F[facility]OR Procedures n Referral ID Status Reason Start Date Expiration Date Visits Re quested Visits Authorized [id number] 1 1 Encounter Details Date Type Department Care Team (Late st Contact Info) Description 02/11/2022 6:22 PM CDT Anesthesia Event [facility] [address] [place] [address] Joe Deutsch MD [address] [facility] [place] [address] Anesthesia Record Procedure Summary Procedure Name Responsible Anesthesiologist Anesthesia Start Time Anesthesia Stop Time ENDO ENDOSCOPIC RETROGRADE CHOLANGIOPANCREATOGRAPHY WITH STENT PLACEMENT Joe Deutsch MD 02/11/22182102/11/222057 Events Date Time Event Comment 02/11/2022 1741 1820 In Room 1822 An Start 182 An Start Data 182 Patient Positioned Laterally 1827 Bite Block Placed 1828 An Induction The patient was reevaluated immediately before moderate or deep sedation use and before anesthesia induction. 1833 Anesthesia Ready 183 Proc Start [address] Soto's endoscope partially blocking ETCO2 outlet 1921 Quick Note Decision to swi tch to general anesthesia with ETT. Dr. Deutsch called to bedside 1925 Anesthesiologist Present 1929 An Induction The patient was reevaluated immediately before moderate or deep sedation use and before anesthesia induction. 193 an darlene now 1931 An Intubation 2029 Proc Fin 2045 An Extubation 2047 Out of Room 2048 an stop data 2055 Handoff to RN I completed my handoff to the receiving nurse during which we: 1. Patient identified 2. Responsible provider identified 3. Pertinent medical history reviewed 4. Procedure type and surgical course discussed 5. Intraoperative anesthetic management and any significant issues discussed 6. Expectations and concerns for postop period discussed 7. Questions solicited from receiving nurse 8. Patient disposition at the time of handoff: phase II 2057 An Stop 2101 Release from [facility] Med Name Total lidocaine (cardiac) syringe 2 % 10 mL propofol 980 mg fentaNYL 100 mcg phenylephrine (GM-SYNEPHRINE) 1 mg in s odium chloride 0.9% 10 mL solution 700 mcg ondansetron 4 mg dexAMETHasone 4 mg/mL 8 mg esmolol 20 mg succinylcholine 100 mg rocuronium 50 mg sugammadex 200 mg sodium chloride 0.9% infusion 1,100 mL * Agents Name O2 Sevoflurane Inspired Sevoflurane * Blood No blood administrations on file. Lines, Drains, and Airways Type Details Placement Removal Peripheral IV Existing LDA Placed by: Other hospital; Catheter Size: 20 G; Orientation: Right; Location: Hand; Site Prep: Alcohol; Removal Date: 02/12/22; Removal Time: 62402/11/22 1558 by 02/12/22624 by Tamia Moreau, MARIO RETIRED Surgical Site 02/11/22; 923; Ye s; Left; Abdomen; 02/14/22; 11302/11/22923 by Susan Brown RN 02/14/221136 by Susan Brown RN ETT Placement Date: 02/11/22; Placement Time: 1944 (created via procedure documentation); Mask Ventilation: 1; Technique: Video laryngoscopy; Type: ETT - single; Single Lumen Tube Size: 7 mm; Cuffed: Yes; Laryngoscope: Shamar; Blade Size: 3; Location: Oral; Insertion Attempts: 1; Placement Verification: Auscultation, Capnometry; Removal Date: 02/11/22; Removal Time: 204502/11/221944 by Vinayak Winston CRNA 02/11/222045 by Vinayak Winston CRNA documented in this encounter Social History Tobacco Use Types Packs/Day Years [...] often do you attend chur ch or taoist services? 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 Gender Identity Not on file Sexual Orientation Not on file documented as of this encounter OR Notes * Anesthesia Postprocedure Evaluation - Vinayak Winston CRNA - 02/11/2022 9:02 PM CDT Patient: Shayla Curry Procedure Summary Date: 02/11/22 Room / Location: [facility] Anesthesia Start: 1821 Anesthesia Stop: 2057 Procedure: ENDO ENDOSCOPIC RETROGRADE CHOLANGIOPANCREATOGRAPHY WITH STENT PLACEMENT Diagnosis: Bile leak (Bile leak [K83.9]) Providers: Sebastian Soto MD Responsible Provider: Joe Deutsch MD Anesthesia Type: general/TIVA ASA Status: 1 Anesthesia Type: general/TIVA Last vitals BP 124/51 Pulse 84 Temp 36.9 ??C (98.4 ??F) (Temporal) Resp 20 SpO2 98% Anesthesia Post Evaluation Patient location: GI recovery area. Patient participation: complete - patient participated Level of consciousness: follows simple commands and fully awake Pain score: 2 (throat sore) Pain management: adequate Airway patency: adequate Cardiovascular status: acceptable and hemodynamically stable Respiratory status: acceptable and room air Hydration status: acceptable Pt is: normothermic Nausea/Vomiting status: none No notable events documented. * Anesthesia Procedure Notes - Vinayak Winston CRNA - 02/11/2022 7:45 PM CDTAssociated Order(s): Airway Airway Patient location: OR Urgency: elective Indications for airway management: anesthesia Difficult airway: no Staff: Supervising provider: Joe Deutsch MD Placed by: STEEL WORKER: Vinayak Winston CRNA Emergent airway documentation: Risks and benefits discussed: yes Consent obtained: yes Consent given by: patient Airway prep: Preoxygenated: yes Patient position: sniffing Mask difficulty assessment: 1 - vent by mask Sedation level during airway: GA Final airway details: Final airway type: endotracheal airway Tube type: ETT ETT size: 7.0 mm Cuffed: yes Technique used for successful ETT placement: video laryngoscopy Insertion site: oral Blade type: Shamar Video blade type: Vega Blade size: 3 Cormack-Lehane (video): grade I - full view of glottis Cuff volume: 8 mL Cuff inflated with: air ETT to lips: 22 cm Placement verified by: auscultation and CO2 detection Airway secured with: silk tape Number of attempts: 1 * Anesthesia Preprocedure Evaluation - Joe Deutsch MD - 02/11/2022 5:35 PM CDT Anesthesia Evaluation Shayla Mcguire is a 36 y.o. female s/p Lap Aura 02/05/2022 who presents for ERCP. Procedure(s): ERCP Pre-Op Diagnosis Codes: * Bile leak [K83.9] NPO: 12:00 Corby Claros HISTORY Past Medical History Neurological Neuro/Psych system: negative Cardiovascular Comments: Hx/o WPW s/p Cardiac Ablation Respiratory Pertinent negatives: non-smoker Respiratory system: negative Hepatic / Heme Hepatic/Heme system: negative Gastrointestinal + GERD - PRN medication use only. Renal / + Nephrolithiasis Musculoskeletal/Pain Musculoskeletal/Pain system: negative Functional Capacity Functional capacity: 6-10 METs Day of Surgery assessments + Possibility of assessed (OSH 02/08/2022) - HCG negative (see labs) and ruled out by patient's provided history. Review of Systems + SOB Pertinent negatives: productive cough; recent cold/flu; fever; chest pain and heartburn Patient Active Problem List Diagnosis ??? Bile leak from incision of common bile duct ??? Bile leak Past Medical History: Diagnosis Date ??? GERD (gastroesophageal reflux disease) ??? Kidney stone ??? WPW (Zqkzd-Kduzjvcza-Wouwr syndrome) Past Surgical History: Procedure Laterality Date ??? CARDIAC ELECTROPHYSIOLOGY STUDY AND ABLATION ??? DILATION AND CURETTAGE OF UTERUS Patient denies any personal or family hx/o anes comp. OB History No obstetric history on file. No Known Allergies No medications on file. Current Facility-Administered Medications: ??? [MAR Hold] Carrier Fluids for Secondary Infusion - 0.9% Sodium Chloride, 30 mL, intravenous, PRN ??? Saline lock IV, , , Once AND sodium chloride 0.9% flush 0.5-20 mL, 0.5- 20 mL, intra-catheter, Q8H SHIRLEY AND sodium chloride 0.9% flush 0.5-20 mL, 0.5-20 mL, intra-catheter, PRN AND Carrier Fluids for Secondary Infusion - 0.9% Sodium Chloride, 30 mL, intravenous, PRN ??? [MAR Hold] HYDROmorphone (DILAUDID) injection 1 mg, 1 mg, intravenous, Q4H PRN ??? [MAR Hold] influenza quadrivalent [id number] (FLULAVAL,FLUARIX,FLUZONE) 60 mcg (15 mcg x 4)/0.5 mL vaccine (STANDARD age 6 months and up) 0.5 mL, 0.5 mL, intramuscular, During hospitalization ??? [MAR Hold] ondansetron ODT (ZOFRAN-ODT) disintegrating tablet 4 mg, 4 mg, oral, Q6H PRN OR [MAR Hold] ondansetron (ZOFRAN) injection 4 mg, 4 mg, intravenous, Q4H PRN ??? [MAR Hold] sodium chloride 0.9% flush 0.5-20 mL, 0.5-20 mL, intra-catheter, Q8H SHIRLEY ??? [MAR Hold] sodium chloride 0.9% flush 0.5-20 mL, 0.5-20 mL, intra-catheter, PRN ??? sodium chloride 0.9% infusion, 100 mL/hr, intravenous, Continuous, Last Rate: 100 mL/hr at 02/11/22 1547, 100 mL/hr at 02/11/22 1547 ??? sodium chloride 0.9% infusion, 30 mL/hr, intravenous, Continuous Social History Tobacco Use Smoking Status Former ??? Types: Cigarettes ??? Quit date: 10/08/2019 ??? Years since quittin.3 Smokeless Tobacco Never Alcohol Use: Not on file Substance and Sexual Activity Drug Use Not on file History reviewed. No pertinent family history. Vitals: 02/11/22 1519 BP: 105/49 Pulse: 65 Resp: 17 Temp: 36.8 ??C (98.3 ??F) SpO2: 98% PT: No results found for requested labs within last 720 hours. INR: No results found for requested labs within last 720 hours. APTT: No results found for requested labs within last 720 hours. Hgb A1C: No results found for requested labs within last 720 hours. CBC RBC: No results found for requested labs within last 720 hours. RDW: No results found for requested labs within last 720 hours. MCHC: No results found for requested labs within last 720 hours. MCH: No results found for requested labs within last 720 hours. MCV: No results found for requested labs within last 720 hours. Hct: No results found for requested labs within last 720 hours. Hgb: No results found for requested labs within last 720 hours. WBC: No results found for requested labs within last 720 hours. MPV: No results found for requested labs within last 720 hours. Platelets: No results found for requested labs within last 720 hours. RDW CV: No results found for requested labs within last 720 hours. RDW Sd: No results found for requested labs within last 720 hours. BMP Glucose: No results found for requested labs within last 720 hours. Calcium: No results found for requested labs within last 720 hours. Sodium: No results found for requested labs within last 720 hours. Potassium: No results found for requested labs within last 720 hours. CO2: No results found for requested labs within last 720 hours. Chloride: No results found for requested labs within last 720 hours. BUN: No results found for requested labs within last 720 hours. Creatinine: No results found for requested labs within last 720 hours. DOS Physical Exam Medical history, medications, and allergies reviewed. Attestation: This PAT evaluation 02/11/2022. Airway Exam: Mallampati: I Cervical ROM: FROM TM distance: >4 Cardiovascular Exam: Rate: regular Rhythm: regular Pulmonary Exam: LCTA, bilat Dental Exam: Otherwise appears intact and caps (Kinmundy #[id number]) Anesthesia Plan ASA 1 My patient is approved for the Anesthesia Controlled Medication protocol when under care of a STEEL WORKER Planned anesthesia: General/TIVA Induction: Induction: intravenous. Postoperative Plan: No plan for postoperative opioid use. No postoperative mechanical ventilation intended. Patient's planned disposition post procedure is Floor. Informed Consent: Discussed plan with STEEL WORKER. Anesthesia plan and risks discussed with patient. Plan and Consent Comments: Backup plan is a general anesthetic with or without an endotracheal tube or LMA as required Consent and Attending signature: I and/or my designee have discussed the anesthesia plan, benefits, possible alternatives, parental presence at time of induction (if indicated), and clinically relevant risks that may include dental injury, unintentional awareness, and/or other complications. The patient and/or parent/legal guardian understand, and agree to proceed. All questions answered. documented in this encounter Plan of Treatment Not on file documented as of this encounter Procedures Procedure Name Priority Date/Time Associated Diagnosis Comments [place] AN PROCEDURE PLACEHOLDER Routine 02/11/2022 7:45 PM CDT [place] AN ELECTIVE ENDOTRACHEAL AIRWAY Routine 02/11/2022 7:45 PM CDT documented in this encounter Results * NY AN ELECTIVE ENDOTRACHEAL AIRWAY, [place] AN PROCEDURE PLACEHOLDER (02/11/2022 7:45 PM CDT) Narrative Vinayak Winston CRNA - 02/11/2022 7:45 PM CDT Vinayak Winston CRNA ? 02/11/2022 ??7:45 PM Airway Patient location: OR Urgency: elective Indications for airway management: anesthesia Difficult airway: no Staff: Supervising provider: Joe Deutsch MD Placed by: STEEL WORKER: Vinayak Winston CRNA Emergent airway documentation: Risks and benefits discussed: yes Consent obtained: yes Consent given by: patient Airway prep: Preoxygenated: yes Patient position: sniffing Mask difficulty assessment: 1 - vent by mask Sedation level during airway: GA Final airway details: Final airway type: endotracheal airway Tube type: ETT ETT size: 7.0 mm Cuffed: yes Technique used for successful ETT placement: video laryngoscopy Insertion site: oral Blade type: Shamar Video blade type: Vega Blade size: 3 Cormack-Lehane (video): grade I - full view of glottis Cuff volume: 8 mL Cuff inflated with: air ETT to lips: 22 cm Placement verified by: auscultation and CO2 detection Airway secured with: silk tape Number of attempts: 1 us Joe Deutsch MD ANESTHESIA ORDERAB LES Final Result documented in this encounter Visit Diagnoses Not on filedocumented in this encounter Administered Medications Inactive Administered Medications - up to 3 most recent administrations Medication Order MAR Action Action Date Dose Rate Site dexAMETHasone (DECADRON) 4 mg/mL injection intravenous, Administer over 2 Minutes, As needed, Starting on Katelin 02/11/22 at 1838, Anesthesia Intra-op Given 02/11/2022 7:36 PM CDT 4 mg Given 02/11/2022 6:38 PM CDT 4 mg esmoloL (BREVIBLOC) injection intravenous, Administer over 1 Minutes, As needed, Starting on Katelin 02/11/22 at 1843, Anesthesia Intra-op Given 02/11/2022 6:54 PM CDT 10 mg Given 02/11/2022 6:46 PM CDT 10 mg fentaNYL (SUBLIMAZE) preservative free injection intravenous, As needed, Starting on Katelin 02/11/22 at 1825, Anesthesia Intra-op Given 02/11/2022 6:42 PM CDT 50 mcg Given 02/11/2022 6:25 PM CDT 50 mcg lidocaine (cardiac) (XYLOCAINE) preservative free injection intravenous, As needed, Starting on Katelin 02/11/22 at 1829, Anesthesia Intra-op, Indications: Ventricular ArrhythmiasIndications:Ventricular Arrhythmias Given 02/11/2022 7: 30 PM CDT 5 mL Given 02/11/2022 6:29 PM CDT 5 mL ondansetron (ZOFRAN) injection intravenous, Administer over 2 Minutes, As needed, Starting on Katelin 02/11/22 at 1828, Anesthesia Intra-op Given 02/11/2022 6:28 PM CDT 4 mg phenylephrine (GM-SYNEPHRINE) 1 mg in sodium chloride 0.9% 10 mL solution intravenous, Continuous PRN, Starting on Katelin 02/11/22 at 1919, Anesthesia Intra-op Bolus 02/11/2022 8:14 PM CDT 100 mc g Bolus 02/11/2022 8:03 PM CDT 100 mcg Bolus 02/11/2022 7:56 PM CDT 100 mcg propofoL (DIPRIVAN) 10 mg/mL IV intravenous, As needed, Starting on Katelin 02/11/22 at 1829, Anesthesia Intra-op Given 02/11/2022 7:30 PM CDT 200 mg Given 02/11/2022 6:34 PM CDT 600 mg Given 02/11/2022 6:33 PM CDT 40 mg rocuronium (ZEMURON) injection intravenous, As needed, Starting on Katelin 02/11/22 at 1940, Anesthesia Intra-op Given 02/11/2022 8:21 PM CDT 20 mg Given 02/11/2022 7:40 PM CDT 30 mg sodium chloride 0.9% infusion 30 mL/hr, intravenous, Continuous, Starting on Katelin 02/11/22 at 1800, For 4 hours New Bag 02/11/2022 8:20 PM CDT Rate/Dose Verify 02/11/2022 6:22 PM CDT 30 mL/h r New Bag 02/11/2022 5:55 PM CDT 30 mL/hr 30 mL/hr succinylcholine (ANECTINE) injection intravenous, As needed, Starting on Katelin 02/11/22 at 1930, Anesthesia Intra-op Given 02/11/2022 7:30 PM CDT 100 mg sugammadex (BRIDION) 100 mg/mL intravenous solution intravenous, As needed, Starting on Katelin 02/11/22 at 2038, Anesthesia Intra-op Given 02/11/2022 8:38 PM CDT 200 mg documented in this encounter Care Teams Clubhouse Attendant Relationship Specialty Start Date End Date Thor Fajardo MD [address] [place] [address] PCP - General Family Medicine 12/30/20 documented as of this encounter
--- OUTSIDE RECORDS SUMMARY | 2024-05-09 00:51 | XMS_ITS | Encounter Summary ---
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 Name Role Phone Thor Fajardo MD Primary Care Provider [phone] Reason for Referral * Consultation (Routine) - Closed Specialty Diagnoses / Procedures Referred By Joselin drummond Referred To Contact Cardiology Diagnoses Vasovagal syncope History of Oorxa-Cmymebgoy-Fmouv (WPW) syndrome H/O cardiac radiofrequency ablation Kayden Haney MD [address] [address] Phone: tel: fax: Krupa Patton MD [address] [facility] [address] [place] [id number] Phone: tel: fax: Referral ID Status Reason Start Date Expiration Date V isits Requested Visits Authorized [id number] Closed Specialty Services Required 01/13/2022 02/12/2023 1 1 Question Answer Please select the performing region: [facility] [[id number]] Please select the performing department: [facility] [[id number]] To provider: KRUPA PATTON [[id number]] # of visits: 1 * Cardiology (Routine) - Closed Specialty Diagnoses / Procedures Referred By Joselin drummond Referred To Contact Diagnoses Vasovagal syncope Procedures Transthoracic Echo (TTE) Complete W Doppler/CF Kayden Haney MD [address] [place] [address] Phone: tel: fax: [facility] Referral ID Status Reason Start Date Expiration Date Visits Re quested Visits Authorized [id number] Closed 01/13/2022 02/12/2023 1 1 Reason for Visit * Reason Comments Syncope 1 year fu Encounter Details Date Type Department Care Team (Latest Contact Info) Description 01/13/2022 1:30 PM CDT Office Visit [facility] Cardiology [address] [place] [address] Kayden Haney MD [address] [place] [address] Vasovagal syncope (Primary Dx); History of Irbim-Qxglhcenv-Rmarn (WPW) syndrome; H/O cardiac radiofrequency ablation; Lipid screening Social History Tobacco Use Types Packs/Day Years Used Date Smoking Tobacco: Former Cigarettes Q uit: 10/08/2019 Smokeless Tobacco: Never Tobacco Cessation:Counseling Given: Not Answered Comments Unknown Sex and Gender Information Value Date Recorded Sex Assigned at Not on file Legal Sex Female 9:50 PM LAST IRONER Gender Identity Not on file Sexual Orientation Not on file documented as of this encounter Last Filed Vital Signs Vital Sign Reading Time Taken Comments Blood Pressure 110/64 01/13/2022 1:38 PM CDT Pulse 75 01/13/2022 1:38 PM CDT Temperature - - Respiratory Rate - - Oxygen Saturation 97% 01/13/2022 1:38 PM CDT Inhaled Oxygen Concentration - - Weight 84.4 kg (186 lb) 01/13/2022 1:38 PM CDT Height 170.2 cm (5' 7 ) 01/13/2022 1:38 PM CDT Body Mass Index 29.13 01/13/2022 1:38 PM CDT documented in this encounter Progress Notes * Kayden Haney MD - 01/13/2022 1:30 PM CDT [facility] CARDIOLOGY 01/13/2022 CHIEF COMPLAINT Chief Complaint Patient presents with Syncope 1 year fu HPI Delmer Camejo is a 36 y.o. 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 12/31/2020 initial evaluation-patient has been referred for cardiovascular evaluation. Patient has history of WPW syndrome and radiofrequency ablation on 01/04/1997 at [facility]. Over the years, she has not had any symptoms related to the pre excitation. However, she gives longstanding history of recurrent syncope, about 10-15 episodes since her teenage years. She states that she is scared of needles and blood draws, and her episodes of syncope are related to needle sticksand blood draws. More recently, she had an episode of syncope event while talking about needles/shots with her friends. Her symptoms of syncope are often preceded by dizziness, diaphoresis, followed by loss of consciousness. She denies any associated symptoms of chest pain, shortness of breath. No abnormal body movements, incontinence. Patient denies any history of syncope related to exertion. She is physically active, and denies any exertional dyspnea or chest pain. Patient states that whenever she has to get vaccination, she lays down which helps avoid syncopal episode. More recently, she had COVID-19 vaccine, and laid down during the vaccination without any vasovagal event. Patient has 2 biological children, and did not have any major cardiovascular events during . Patient uses vaps. No excessive alcohol or illicit drugs. 01/13/2022-patient is here for the follow-up visit. Since last office visit, patient reports occasional episodes of palpitations without associated symptoms of dizziness or syncope. She does have longstanding history of syncope, triggered by needed sticks and blood draws. However, she has not had any recent episodes. She denies shortness of breath, chest pain. MEDICAL HISTORY she has a past medical history of WPW (Jmqom-Vwqnskrih-Kdbbi syndrome)., status post radiofrequencyablation she has a past surgical history that includes Cardiac electrophysiology study and ablation and Dilation and curettage of uterus. she No Known Allergies No current outpatient medications on file. No current facility-administered medications for this visit. Family history- No history of sudden cardiac in family she reports that she quit smoking about 14 months ago. She has never used smokeless tobacco. Uses vaps. Lives with her fiance and 3 daughters. Denies excessive caffeine, drinks 2-3 soda per day REVIEW OF SYSTEMS General ROS: negative for - Fever, chills, fatigue Psychological ROS: negative for - anxiety, depression Ophthalmic ROS: negative for - loss of vision ENT ROS: negative for - sore throat, epistaxis, headaches, nasal congestion Allergy and Immunology ROS: negative for - hives, postnasal drip Hematological and Lymphatic ROS: negative for - overt bleeding problems, bruising Respiratory ROS: negative for - cough, hemoptysis, wheezing Cardiovascular ROS: negative for - chest pain, dyspnea, positive for history of syncope Gastrointestinal ROS: negative for - abdominal pain, nausea/vomiting Endocrine ROS: negative for - hot flashes, polydipsia/polyuria Musculoskeletal ROS: negative for - joint pain, muscle pain Neurological ROS: negative for - gait disturbance, weakness Dermatological ROS: negative for pruritus, rash LABS AND OTHER DIAGNOSTIC TESTS REVIEWED No results found for: WBC, HGB, HCT, MCV, PLT No lab exists for component: LABALBU No results found for: WBC, HGB, HCT, MCV, PLT No results found for: CHOL No results found for: HDL No results found for: LDL] No results found for: TRIG EKG-sinus rhythm, no significant ST-T abnormalities. 12/31/2020 Lipids-total cholesterol 186, HDL 33, triglycerides 146, LDL 124. 12/31/2020 Lipids-total cholesterol 183, HDL 22, triglycerides 254, LDL 110, glucose 103. 01/13/2022 PHYSICAL EXAM Vitals BP 110/64 (BP Location: Right arm, Patient Position: Sitting) Pulse 75 Ht 170.2 cm (5' 7 ) Wt 84.4 kg (186 lb) SpO2 97% BMI 29.13 kg/m?? General appearance - alert, no distress, oriented to time, place, person Mental status - affect appropriate to mood Eyes - extraocular eye movements intact, no pallor Ears - external ears appear normal, hearing grossly normal Nose - normal and patent, no discharge Mouth - mucous membranes moist, tongue normal Neck - supple, no JVD Chest - clear to auscultation Heart - normal rate, regular rhythm, normal S1, S2, no audible murmurs Abdomen - soft, nontender, nondistended Neurological - alert, oriented, normal speech, no gross motor deficits Musculoskeletal - no major deformity, no amputations Extremities - no pedal edema, no clubbing or cyanosis Skin - no rashes (on the exposed areas), no cyanosis ASSESSMENT Diagnoses and all orders for this visit: Vasovagal syncope (Primary) - Transthoracic Echo (TTE) Complete W Doppler/CF; Future - Ambulatory referral to Cardiology; Future History of Lawxb-Ylwnqktfk-Erjdb (WPW) syndrome - Ambulatory referral to Cardiology; Future H/O cardiac radiofrequency ablation - Ambulatory referral to Cardiology; Future PLAN/RECOMMENDATIONS 36 y.o. with history of WPW syndrome status post radiofrequency ablation on 01/04/1997 at [facility]. - patient has history of recurrent syncope with consistent pattern with blood draws or needle shots, consistent with vasovagal events. She was educated about her clinical condition, and avoidance techniques. She was advised to keep well hydrated. In the event of blood draws or vaccinations, patientlays down during those procedures , thereby avoiding vasovagal events. She was encouraged to continue such avoidance techniques. -patient was encouraged to do regular aerobic exercise, resistance training to improve her overall physical condition. -will do echocardiogram with Doppler to rule out any structural heart disease. -patient has remote history of WPW syndrome status post radiofrequency ablation. No symptoms suggestive of any recurrent arrhythmias at this time. Previous EKG is unremarkable with normal [place] interval. Continue to monitor for now. Will refer to electrophysiology for any additional recommendations. -heart healthy diet counseling was done. Diet and lifestyle modification for dyslipidemia. -she was advised to stop vaping. -RTC in 12-18 months or sooner if needed. Kayden Haney MD 01/13/22 Voice recognition software was used to complete this document, therefore, flight paramedic variances may occur. documented in this encounter Miscellaneous Notes * Addendum Note - Zaina Stewart MA - 01/13/2022 1:30 PM CDTAddended by: ZAINA STEWART on: 01/13/2022 04:04 PM Modules accepted: Orders documented in this encounter Plan of Treatment Scheduled Referrals Name Type Priority Associated Diagnoses Orde r Schedule Ambulatory referral to Cardiology Outpatient Referral Routine Vasovagal syncope History of Ffwtb-Xlopxdarq-Gpaqi (WPW) syndrome H/O cardiac radiofrequency ablation Expected: 01/27/2022 (Approximate), Expires: 01/13/2023 documented as of this encounter Procedures Procedure Name Priority Date/Time Associated Diagnosis Comments POCT LIPID PANEL Routine 01/13/2022 4:04 PM CDT Lipid screening documented in this encounter Results * TRANSTHORACIC ECHO (TTE) COMPLETE W DOPPLER/CF WO CONTRAST (03/24/2022 8:46 AM LAST IRONER) Anatomical Region Laterality Modality Ultrasound 03/24/2022 8:06 AM LAST IRONER Narrative 03/24/2022 2:34 PM LAST IRONER [facility] Cardiology [address] [facility] [address] [address] [address] [facility] [address], [place] [address] P:[phone] P:[phone] Echocardiographic Report Patient Name: DELMER CAMEJO : 1985 Study Date: 03/24/2022 8:06:26 AM Gender: F Tech: [facility] Ref.Provider: KAYDEN HANEY Height(Cm): 170 BSA: 1.96 Weight(Kg): 84.37 Heart Rate: 52 BP: 109/66 Quality: Good Order Provider: KAYDEN HANEY Procedures: Echocardiographic Report: Transthoracic echocardiogram with [...] Findings: Interpretation Site: Exam was interpreted at [facility]. Left Ventricle: Normal left ventricular wall thickness. [...] valvular structure and function. Electronically Signed By: Kayden Haney MD, [facility] 2022-03-24 14:34:13 LAST IRONER CC: CC: Procedure Note Kayden Haney MD - 03/24/2022 [facility] Cardiology [address], [place] [address] [address], [place] [address] P:[phone] P:[phone] Echocardiographic Report Patient Name: DELMER CAMEJOPatient ID: [id number] : [id number] Date: 03/24/2022 8:06:26 AM Gender: FAccession #: [id number] Tech: [facility]MLocation[facility] Ref.Provider: KAYDEN HANEYHeight(Cm): 170 BSA: 1.96Weight(Kg): 84.37 Heart Rate: 52BP: 109/66 Quality: GoodOrder Provider: KAYDEN HANEY Procedures: Echocardiographic Report: Transthoracic echocardiogram with [...] 16.00 - 28.00 ] cc/m2 MV Decel [id number] [ 150 - 200 ] msec ACS MM 1.73 cm PV Peak Vel0.99 [ 0.40 - 0.80 ] m/s TR Peak Vel2.29 [ 0.40 - 0.80 ] m/s TR Peak PG 21mmHg RVSP29.00 mmHg E'0.14 E/E' 5 - Findings: Interpretation Site: Exam was interpreted at [facility]. Left Ventricle: Normal left ventricular wall thickness. [...] valvular structure and function. Electronically Signed By: Kayden Haney MD, [facility] 2022-03-24 14:34:13 LAST IRONER CC: CC: Kayden Haney MD CV ECHO PROCEDURES Final Result * POCT lipid panel (01/13/2022 4:04 PM CDT) Cholesterol, POC 183 mg/dL HDL, POC 22 mg/dL Triglycerides, POC 254 mg/dL LDL Cholesterol POC 110 mg/dL Chol/HDL Ratio, POC 8.4 Non-HDL Cholesterol, POC 161 mg/dL Cholesterol Total, POC 183 mg/dL Capillary blood 01/13/2022 4 :04 PM CDT Kayden Haney MD POINT OF CARE TEST ORDERABLES Fi nal Result documented in this encounter Visit Diagnoses Diagnosis Vasovagal syncope- Primary Syncope and collapse History of Iklmb-Ppqmdpbuy-Ixama (WPW) syndrome H/O cardiac radiofrequency ablation Lipid screening Screening for lipoid disorders Vasovagal syncope Syncope and collapse documented in this encounter Care Teams Window Glass Cutter Off Relationship Specialty Start Date End Date Thor Fajardo MD [address] [place] [address] PCP - General Family Medicine 12/30/20 documented as of this encounter
--- OUTSIDE RECORDS SUMMARY | 2024-05-09 00:51 | XMS_ITS | Encounter Summary ---
Author Organization [facility] Healthcare Address [address] [place] [address] Care Team Providers Care Process Architect Name Role Phone Thor Fajardo MD Primary Care Provider [phone] Reason for Visit * Auth/Cert Specialty Diagnoses / Procedures Referred By Contac t Referred To Contact Diagnoses BILE DUCT LEAK SURGERY FLOOR Procedures n Referral ID Status Reason Start Date Expiration Date Visits Re quested Visits Authorized [id number] 1 1 Encounter Details Date Type Department Care Team (Latest Contact Info) Description 02/12/2022 4:00 PM CDT - 02/12/2022 4:45 PM CDT Surgery [facility] [address] [place] [id number] Sebastian Soto MD [address] [facility] [address] [place] [address] ENDO ENDOSCOPIC RETROGRADE CHOLANGIOPANCREATOGRAPHY WITH STENT PLACEMENT Surgery Details Date/Time Status Location OR Service Patient Class Case Class Case Type Trauma Case? 02/12/2022 4:00 PM Posted [facility] ENDOSCOPY GI BEDSIDE Gastroenterology Inpatient Elective Panel 1 Procedure LRB Anes Op Region Wound Class Comments ENDO ENDOSCOPIC RETROGRADE CHOLANGIOPANCREATOGRAPHY WITH STENT PLACEMENT N/A Choice Surgeon Surgeon Role Service Panel Sebastian Soto MD Primary Gastroenterology 1 documented in this encounter Social History Tobacco [...] often do you attend chur ch or hinduism services? 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 Gender Identity Not on file Sexual Orientation Not on file documented as of this encounter Last Filed Vital Signs Vital Sign Reading Time Taken Comments Blood Pressure 132/65 02/12/2022 4:45 PM CDT Pulse 71 02/12/2022 4:45 PM CDT Temperature 36.3 ??C (97.4 ??F) 02/12/2022 4:05 PM CD T Respiratory Rate 22 02/12/2022 4:45 PM CDT Oxygen Saturation 95% 02/12/2022 4:45 PM CDT Inhaled Oxygen Concentration - - Weight 84.4 kg (186 lb) 02/11/2022 5:35 PM CDT Height 170.2 cm (5' 7 ) 02/11/2022 5:35 PM CDT Body Mass Index 29.13 02/11/2022 5:35 PM CDT documented in this encounter Discharge Summaries * Anyi Garcia MD - 02/14/2022 12:00 AM CDT DISCHARGE DIAGNOSES 1. Bile leak. 2. Gastroesophageal reflux disease. 3. History of Gugh-Tddsbrbmg-Qxtsi syndrome status post ablation. HOSPITAL COURSE This [...] in 2 weeks. Job ID/Internal Job ID: [id number] documented in this encounter Medications at Time [...] documented in this encounter Progress Notes * Anyi Garcia MD - 02/13/2022 1:48 PM CDT [...] 1 mg at 02/13/22 0554 influenza quadrivalent [id number] (FLULAVAL,FLUARIX,FLUZONE) 60 mcg (15 mcg x 4)/0.5 [...] mg, oral, Nightly PRN, 8 mg at 02/12/22 2306 sodium chloride 0.9% flush 0.5-20 mL, 0.5-20 [...] diphenhydrAMINE fentaNYL haloperidol HYDROmorphone HYDROmorphone influenza quadrivalent [id number] insulin lispro labetalol LORazepam meperidine naloxone ondansetron [...] nodes: No adenopathy. Peritoneum: There is a fdrtv-sc-mnbpuqst volume of ascites which is greatest in [...] noted. Electronically signed by: Joe Thornton M.D. [place] ERCP Biliary and Pancreatic Result Date: 02/12/2022 [...] was obtained. Prior to beginning the procedure, [place] Protocol was performed to confirm the patient?s [...] bile duct into the duodenum. A 4 Libyan Kumpe catheter was advanced coaxially over the [...] Soto was successful in placing a 10 Libyan 7 cm plastic biliary stent. Contrast was [...] Care Co-ordination, Counselling and documentation: 30 Minutes Anyi Garcia MD [facility] Exchange: This note was transcribed using [employer] Brain[employer]ing Speech Recognition software. As a result, there [...] point. Carlos Plascencia M.D. Instructor Interventional Radiology [phone] * Ada Hilario NP - 02/13/2022 8:18 AM CDT Gastroenterology Daily [...] brought back to the hospital. CT scanshowed cndcb-eg-qefsrxvw abdominal fluid, gastritis and duodenitis. HIDA scan [...] S1, S2. ABDOMEN: Soft, bowel sounds positive. CLASSROOM TECHNOLOGY COACH: Moves all extremities. EXTREMITIES : There is no pedal edema. LABS From today sodium is 138, potassium 4.0, chloride 104, CO2 is 25, BUN is 10, creatinine is 0.6, glucose 120, calcium is 8.8, bilirubin is 1.7, total bili 6.4. CBC: WBC 12, hemoglobin 11.8, dnnblndghy39.6, platelet count 327. PT 13.3, INR 1.2. [...] tolerate low-fat diet. 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 The esophagus was successfully intubated under [...] 02/11/2022 6:04 PM Admit Type: Inpatient Room: [facility] Date of : 1985 Instrument Name: [...] duct and ventral pancreatic duct. Findings: A hat binder film of the abdomen was obtained and [...] h/o GERD, kidney stones, WPW, presented to [facility] on 02[facility]08 with c/o worsening abd pain [...] Radiology Brief Post Procedure Note Attending: Thais Supervisor Landscape: Grey Sedation/Anesthesia: Anesthesia Pre-Op/Pre-Procedure Diagnosis: bile leak [...] Brooke RN - 02/12/2022 3:52 PM CDT [facility] Home Health consult received. [facility] Home Care agency accepted patient with projected start of care within 48 hours of completed referral and discharge 02/14/2022. Vanessa NICOLE, notified. * Plan of Care - Vanessa Demarco RN - 02/12/2022 2:30 PM CDT BONNIE Initial Assessment Interview Note Information Obtained From: Patient (02/12/221127) Admission Source: home Impression: bile leak from incision, s/p lap henrique 02/05 Plan Includes: biliary drain to be placed, discharge home, discharge planning Primary Source of Transportation: will transport at discharge Does the patient need discharge transport arranged?: No (02/12/221127) Health Insurance Coverage: [facility] Prescription Coverage: yes Pharmacy: [id number] - [place], [place] - [address] [facility] [id number] Primary Care Provider: Thor Fajardo MD Prior to Admission: Primary Caregiver: Self Who does the patient or legal guardian want to receive education instruction and discharge plans for after care assistance?: Name Caregiver Name: Alyssa Cortes Relationship to patient: Caregiver Contact Information: [phone] Support System: Spouse/Significant Other Support system contact info (name, phone, availablity): alyssa Cortes [phone] Home Care Services: No Durable Medical Equipment: [...] a week How often do you attend mandaen or hinduism services?: Never Do you belong to any clubs or organizations such as mandaen groups, unions, fraternal or athletic groups, or school groups?: No How often do you attend meetings of the clubs or organizations you belong to?: Never Are you , , , , never , or living with a partner?: (02/12/221427) Food Insecurity: Alcohol Use: PHQ Screening Potential discharge needs include: Home Health: prison (02/12/221127) Dialysis: Behavioral Health Services: Behavioral Health Services: No (02/12/221127) Patient expects to be Discharged to: Private residence, (02/12/221127) Additional Information: CM met with pt and and explained CM role. Pt lives with and3 children. Patient is independent. No devices. Pt will need Home Health services for drain care and follow up. Pt is agreeable to [facility] Home health. Referral sent to [facility] home health. CM will continue to follow for any [...] Collaboration with patient, MD, direct care nurse, Tree Care Foreman, and other members of the health care team to assure needed interventions completed. 2. Return patient to optimal level of self-care post discharge. 3. Technical Specialist will follow for Discharge Planning - interventions as needed 4. Anticipated level of care at discharge 5. Planned Discharge Disposition Vanessa Demarco RN * Plan of Care - Vanessa Demarco RN - 02/12/2022 2:29 PM CDT CM note: Referral sent to [facility] Home health for SN for drain care. Await the acceptance. Dispo: Home with Home Health * Pre-Procedure Note - Carlos Plascencia MD [...] been discussed with the patient and/or their corporate representative. All questions answered and they agree [...] Results * eGFR (02/14/2022 3:18 AM CDT) eGFR 118 mL/min/1. 73 m2 [facility] Comment: Interpretive Data Reference Interval Normal ?>/= [...] NP LAB BLOOD ORDERABLES Final Re sult [facility] [address] Department [place] [address] * (ABNORMAL) Comprehensive metabolic panel (02/14/2022 3:18 AM CDT) Pathologist [facility] Sodium 141 135 - 145 mmol/L [facility] Potassium, pl 3.4 3.3 - 4.9 mmol/L [facility] Chloride 103 97 - 110 mmol/L [facility] CO2 26 22 - 32 mmol/L [facility] Anion gap 12 2 - 15 mmol/L [facility] BUN 8 8 - 25 mg/dL [facility] Creatinine 0.62 0.60 - 1.10 mg/dL [facility] Glucose 93 70 - 199 mg/dL [facility] Comment: Interpretive Data Fasting glucose >/= 126 [...] 2017. Calcium 7.6(L) 8.5 - 10.3 mg/dL [facility] Bilirubin, total 1.3(H) 0.1 - 1.2 mg/dL [facility] Protein, pl 5.7(L) 6.5 - 8.5 g/dL [facility] Albumin 3.1(L) 3.5 - 5.0 g/dL [facility] Alk phos 152(H) 40 - 130 Units/L [facility] ALT 60(H) 7 - 45 Units/L [facility] AST 29 10 - 45 Units/L [facility] Blood 02/14/2022 3:18 AM CDT 02/14/2022 3:51 AM CDT us Ada Hilario CIRCUIT BOARD REPAIR TECHNICIAN LAB BLOOD ORDERABLES Final Re sult [facility] [address] Department [place] [address] * IR Cholangiogram Through Existing Catheter (02/12/2022 [...] was obtained. Prior to beginning the procedure, [place] Protocol was performed to confirm the patient?s [...] bile duct into the duodenum. A 4 Libyan Kumpe catheter was advanced coaxially over the [...] Soto was successful in placing a 10 Libyan 7 cm plastic biliary stent. Contrast was [...] was obtained. Prior to beginning the procedure, [place] Protocol was performed to confirm the patient?s [...] bile duct into the duodenum. A 4 Libyan Kumpe catheter was advanced coaxially over the [...] Soto was successful in placing a 10 Libyan 7 cm plastic biliary stent. Contrast was [...] stent. Electronically signed by: Carlos Plascencia M.D. 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 The esophagus was successfully intubated under [...] hCG, blood, quantitative (02/12/2022 10:25 AM CDT) hCG, quant <0.2 0.0 - 5.0 IUnits/L [facility] Comment: Interpretive Data Non- Female premenopausal: < [...] BLOOD ORDERABLES Edit ed Result - Final [facility] [address] Department [place] [address] * COVID-19 Coronavirus RNA Nasopharyngeal (02/12/2022 10:21 AM CDT) COVID-19 RNA Negative Negative [facility] Nasopharyngeal 02/12/2022 10 :21 AM CDT 02/12/2022 10:21 AM CDT Narrative [facility] - 02/12/2022 10:53 AM CDT Is the patient experiencing any symptoms consistent with COVID (eg. Fever, cough, shortness of breath)?->No What is the reason for testing?->Asymptomatic screening prior to procedure??or??surgery (Rapid) ??Interpretive data: Synonyms for this test include: PCR and NAAT . ??This test is performed using the [employer] Xpert Xpress plus assay. This is a [...] Interpretive data last revised September 30, 2021. us Carlos Plascencia MD LAB MICROBIOLOGY - GENERA L ORDERABLES Final Result [facility] [address] Department [place] [address] * CT abdomen pelvis with contrast (02/12/2022 [...] nodes: No adenopathy. Peritoneum: There is a sdsrl-jr-avhewpvv volume of ascites which is greatest in [...] nodes: No adenopathy. Peritoneum: There is a mnlxw-jn-zawvpvlk volume of ascites which is greatest in [...] AM CDT) eGFR 119 mL/min/1. 73 m2 [facility] Comment: Interpretive Data Reference Interval Normal ?>/= [...] MD LAB BLOOD ORDERABLES F inal Result [facility] [address] Department [place] [address] * (ABNORMAL) Differential, auto (02/12/2022 4:45 AM CDT) Neutrophil abs 10.9(H) 1.7 - 6.5 K/cumm [facility] Imm gran abs 0.1 0.0 - 0.1 K/cumm [facility] Lymphocyte abs 0.6(L) 0.8 - 3.3 K/cumm [facility] Monocyte abs 0.3 0.2 - 0.8 K/cumm [facility] Eosinophil abs 0.0 0.0 - 0.5 K/cumm [facility] Basophil abs 0.0 0.0 - 0.1 K/cumm [facility] Neutrophil pct 91.0 % [facility] Comment: Interpretive Data Percent cell count reference ranges are not reported, since discordance with absolute values may lead to misinterpretation of CBC data. Current Interpretive Data was last revised on 2017. Imm gran pct 0.7 % [facility] Comment: Interpretive Data Percent cell count reference ranges are not reported, since discordance with absolute values may lead to misinterpretation of CBC data. Current Interpretive Data was last revised on 2017. Lymphocyte pct 5.3 % [facility] Comment: Interpretive Data Percent cell count reference ranges are not reported, since discordance with absolute values may lead to misinterpretation of CBC data. Current Interpretive Data was last revised on 2017. Monocyte pct 2.8 % [facility] Comment: Interpretive Data Percent cell count reference ranges are not reported, since discordance with absolute values may lead to misinterpretation of CBC data. Current Interpretive Data was last revised on 2017. Eosinophil pct 0.0 % [facility] Comment: Interpretive Data Percent cell count reference ranges are not reported, since discordance with absolute values may lead to misinterpretation of CBC data. Current Interpretive Data was last revised on 2017. Basophil pct 0.2 % [facility] Comment: Interpretive Data Percent cell count reference ranges are not reported, since discordance with absolute values may lead to misinterpretation of CBC data. Current Interpretive Data was last revised on 2017. Blood 02/12/2022 4:45 AM CDT 02/12/2022 5:38 AM CDT Anyi Garcia MD LAB BLOOD ORDERABLES F inal Result Performing Organization Address [facility] de Phone Number [facility] [address] [place] [employer] [place] [address] * Protime-INR (02/12/2022 4:45 AM CDT) PT 13.3 9.2 - 13.5 sec [facility] INR 1.2 0.9 - 1.2 [facility] Comment: Interpretive data Oral anticoagulant therapeutic ranges: Venous thromboembolism prophylaxis or treatment: 2.0-3.0 CARDIOLOGY Standard range: 2.0-3.0 High-intensity range: 2.5-3.5 Refer to indication-specific guidelines for appropriate target ranges for prosthetic heart valve replacement. Current interpretive data was last revised on 2019. Blood 02/12/2022 4:45 AM CDT 02/12/2022 5:38 AM CDT Anyi Garcia MD LAB BLOOD ORDERABLES F inal Result Performing Organization Address [facility] Co de Phone Number [facility] [address] Department [employer] [place] [address] * (ABNORMAL) CBC with auto differential (02/12/2022 4:45 AM CDT) [facility] WBC 12.0(H) 3.8 - 9.9 K/cumm [facility] Hgb 11.8(L) 11.9 - 15.5 g/dL [facility] Hct 35.6 35.6 - 45.5 % [facility] Plt 327 150 - 400 K/cumm [facility] MPV 11.0 9.1 - 12.3 fL [facility] RBC 3.97 3.90 - 5.20 M/cumm [facility] MCV 89.7 81.3 - 96.4 fL [facility] MCH 29.7 27.1 - 33.3 pg [facility] MCHC 33.1 32.3 - 35.7 g/dL [facility] RDW CV 13.0 11.1 - 14.9 % [facility] RDW SD 42.8 35.7 - 48.1 fL [facility] NRBC abs 0.00 0.00 - 0.01 K/cumm [facility] Blood 02/12/2022 4:45 AM CDT 02/12/2022 5:38 AM CDT [facility] Liz Garcia MD LAB BLOOD ORDERABLES F inal Result [facility] [address] Department of Laboratories [place], [place] [address] * (ABNORMAL) Comprehensive metabolic panel (02/12/2022 4:45 AM CDT) [facility] Sodium 138 135 - 145 mmol/L [facility] Potassium, pl 4.0 3.3 - 4.9 mmol/L [facility] Chloride 104 97 - 110 mmol/L [facility] CO2 25 22 - 32 mmol/L [facility] Anion gap 9 2 - 15 mmol/L [facility] BUN 10 8 - 25 mg/dL [facility] Creatinine 0.60 0.60 - 1.10 mg/dL [facility] Glucose 120 70 - 199 mg/dL [facility] Comment: Interpretive Data Fasting glucose >/= 126 [...] 2017. Calcium 8.1(L) 8.5 - 10.3 mg/dL [facility] Bilirubin, total 1.7(H) 0.1 - 1.2 mg/dL [facility] Protein, pl 6.4(L) 6.5 - 8.5 g/dL [facility] Albumin 3.5 3.5 - 5.0 g/dL [facility] Alk phos 137(H) 40 - 130 Units/L [facility] ALT 70(H) 7 - 45 Units/L [facility] AST 38 10 - 45 Units/L [facility] Blood 02/12/2022 4:45 AM CDT 02/12/2022 5:38 AM CDT Anyi Garcia MD LAB BLOOD ORDERABLES F inal Result [facility] [address] Department [place] [address] * [place] ERCP Biliary and Pancreatic (02/11/2022 [...] 02/11/2022 6:04 PM Admit Type: Inpatient Room: [facility] Date of : 1985 Instrument Name: [...] duct and ventral pancreatic duct. Findings: A hat binder film of the abdomen was obtained and [...] pain, Starting on Katelin 02/11/22 at 1522 Given 02/13/2022 5:54 AM CDT [...] for NPO status., Indications: Diabetes MellitusIndications:Diabetes Mellitus labetaloL (NORMODYNE,TRANDATE) injection 5 mg 5 mg, intravenous, at 30 mL/hr, Administer over 2 Minutes, Every 10 min PRN, high blood pressure, Starting on Tue02/12/22 at 1617, For 4 doses, Phase I, Max cumulative dose 20 mg. Dose if systolic blood pressure greater than 180 AND heart rate greater than 70. meperidine (DEMEROL) preservative free injection 12.5 mg [...] Once as needed, nausea, vomiting, Starting on 02/12/22 at 1617, For 1 dose, Phase I, Proceed to haloperidol if more than 8 mg of ondansetron have been given within the last 6 hours., Indications: Prevention of Post-Operative Nausea and VomitingIndications:Prevention of Post-Operative Nausea and Vomiting ondansetron (ZOFRAN) injection 4 mg 4 mg, intravenous, Administer over 2 Minutes, Every 6 hours PRN, nausea, vomiting, if not tolerating PO, Starting on 02/12/22 at 1603, Indications: nausea [...] infusion 100 mL/hr, intravenous, Continuous, Starting on Katelin 02/11/22 at 1600 New Bag 02/14/2022 1:58 AM CDT 100 mL/hr 100 mL/hr New Bag 02/12/2022 11:07 PM CDT 100 mL/hr 100 mL/hr Restarted 02/12/2022 5:06 PM CDT 100 mL/hr 100 mL/hr documented in this encounter Active and [...] Stephie Alexander RN - Reason: Patient not available)2144 (Not Given - Provider: Tamia Moreau RN - Reason: IV Infusing) 0505 (Not Given - Provider: Tamia Moreau RN - Reason: IV Infusing)1228 (Not Given - Provider: Susan Brown RN - Reason: IV Infusing)2138 (Not Given - Provider: Jarod Wharton RN [...] Provider: Susan Brown RN - Reason: IV Infusing)2138 (Not Given - Provider: Jarod Wharton RN [...] Provider: Tamia Moreau RN - Reason: IV Infusing)122 (Not Given - Provider: Susan Brown RN - Reason: IV Infusing)2138 (Not Given - Provider: Jarod Wharton RN - Reason: IV Infusing) 0559 (Not Given - Provider: Jarod Wharton RN - Reason: IV Infusing) Continuous Medication Order 02/12/2022 02/13/2022 02/14/2022 sodium chloride 0.9% infusion 100 mL/hr, intravenous, Continuous, Starting on Katelin 02/11/22 at 1600 0632 (New Bag - Provider: Tamia Moreau RN)1242 (Rate/Dose Verify - Provider: Elie Diaz CRNA)1312 (Paused - Provider: Elie Diaz CRNA - Comment: Switch to gravity)1313 (Restarted - Provider: Elie Diaz CRNA)1551 (Anesthesia Volume Adjustment - Provider: Mónica Gamez CRNA)1706 (Restarted - Provider: Stephie Alexander, MARIO)2307 (New Bag - Provider: Tamia Moreau RN) [...] Indications: Pain 1946 (Given - Provider: Tamia Moreau RN) HYDROmorphone (DILAUDID) injection 1 mg 1 mg, intravenous, Administer over 2 Minutes, Every 4 hours PRN, 2nd line for pain, Starting on Katelin 02/11/22 at 1522 0239 (Given - Provider: Adry Warner, MARIO)0633 (Given - Provider: Tamia Moreau, MARIO)1103 (Given - Provider: tSephie Alexander, MARIO) 0137 (Given - Provider: Tamia Moreau, MARIO)0554 (Given - Provider: Tamia Moreua, MARIO) insulin lispro (HumaLOG, ADMELOG) 100 unit/mL [...] dose 0837 (Contrast Given - Provider: Raghu Marks RT) labetaloL (NORMODYNE,TRANDATE) injection 5 mg 5 [...] Jarod Wharton RN) 0157 (Given - Provider: Jarod Wharton RN)0558 (Given - Provider: Jarod Wharton [...] Sleep-Onset Insomnia 0018 (Given - Provider: Tamia Moreau, RN)2306 (Given - Provider: Tamia Moreau, MARIO) 2050 (Given - Provider: Jarod Wharton RN) sodium [...] Count Last Ordered Date First Ordered Date oxyCODONE (ROXICODONE) tablet 5 mg 2 202102/12/2022 albuterol 2.5 mg /3 mL (0.08 3 %) nebulizer solution 2.5 mg 1 02/12/2022 Carrier Fluids for Secondary Infusion - 0.9% Sodium Chloride 3 02/12/2022 02/11/2022 diphenhydrAMINE (BENADRYL) i njection 12.5 mg 1 02/12/2022 fentaNYL (SUBLIMAZE) preserv ative free injection 25 mcg 1 02/12/2022 haloperidol (HALDOL) injection 1 mg 1 02/12 HYDROmorphone (DILAUDID) injection 0.4 mg 1 02/12/2022 insulin lispro (HumaLOG, ADM ELOG) 100 unit/mL injection 1-5 Units 1 02/12/2022 ioversoL (OPTIRAY 350) injection 50 mL 1 ioversoL (OPTIRAY 350) syringe 100 mL 1 labetaloL (NORMODYNE,TRANDAT E) injection 5 mg 1 02/12/2022 LORazepam (ATIVAN) injection 1 mg 2 022 02/11/2022 meperidine (DEMEROL) preserv ative free injection 12.5 mg 1 02/12/2022 naloxone (NARCAN) 0.4 mg/mL injection 0.04-0.4 mg 1 02/12/2022 ondansetron (ZOFRAN) injection 4 mg 3 02/1202/11/2022 ondansetron ODT (ZOFRAN-ODT) disintegrating tablet 4 mg 2 02/12/2022 02/11/2022 racepinephrine (ASTHMANEFRIN ) 2.25 % nebulizer solution 0.5 mL 1 02/12/2022 ramelteon (ROZEREM) tablet 8 mg 1 sodium chloride 0.9% flush 0.5-20 mL 6 01/3002/11/2022 HYDROmorphone (DILAUDID) injection 1 mg 1 1 sodium chloride 0.9% infusion 2 02/11/2022 Diet Count Last Ordered Date First Orde [...] 02/11/2022 documented in this encounter Care Teams Process Architect Relationship Specialty Start Date End Date Thor Fajardo MD [address] [place] [id number] PCP - General Family Medicine 12/30/20 documented as of this encounter
--- OUTSIDE RECORDS SUMMARY | 2024-05-09 00:51 | XMS_ITS | Encounter Summary ---
Author Organization [facility] Facility Care Team Providers Care Assistant General Manager Name Role Phone Unavailable Primary Care Provider Unavailabl e Encounter Details Date Type Department Care Team (Late st Contact Info) Description 10/29/2014 1:29 PM CDT - 10/29/2014 4:00 PM CDT Hospital En[facility] True Kennedy MD [address] [place] [address] Benign neoplasm of skin of other and unspecified parts of face Social History Tobacco Use Types Packs/Day Years Used Date Smoking Tobacco: Never Assessed Comments Unknown Sex and Gender Information Value Date Recorded Sex Assigned at Not on file 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 us Historical Provider LAB PATHOLOGY ORDERABLES Final Result documented in this encounter Visit Diagnoses Diagnosis Benign neoplasm of skin of other and unspecified parts of face documented in this encounter
--- OUTSIDE RECORDS SUMMARY | 2024-05-09 00:51 | XMS_ITS | Encounter Summary ---
Author Organization [facility] Healthcare Address [address] [place] [address] Care Team Providers Care Telephone Operators Supervisor Name Role Phone Thor Fajardo MD Primary Care Provider Reason for Visit * Auth/Cert Specialty Diagnoses / Procedures Referred By Contac t Referred To Contact Diagnoses BILE DUCT LEAK SURGERY FLOOR Procedures n Referral ID Status Reason Start Date Expiration Date Visits Re quested Visits Authorized [id number] 1 1 Encounter Details Date Type Department Care Team (Latest Contact Info) Description 02/11/2022 6:00 PM CDT - 02/11/2022 6:45 PM CDT Surgery [facility] [address] [place] [id number] Sebastian Soto MD [address] [address] [place] [address] ENDO ENDOSCOPIC RETROGRADE CHOLANGIOPANCREATOGRAPHY WITH STENT PLACEMENT Surgery Details Date/Time Status Location OR Service Patient Class Case Class Case Type Trauma Case? 02/11/2022 6:00 PM Posted [facility] ENDOSCOPY GI 09 Gastroenterology Inpatient Elective Panel 1 Procedure LRB [...] any clubs o r organizations such as caodaism groups, unions, fraternal or athletic groups, or [...] on file Legal Sex Female 9:50 PM COOK VACUUM KETTLE Gender Identity Not on file Sexual Orientation Not on file documented as of this encounter Last Filed Vital Signs Vital Sign Reading Time Taken Comments Blood Pressure 123/74 02/11/2022 5:35 PM CDT Pulse 75 02/11/2022 5:35 PM CDT Temperature 36.9 ??C (98.4 ??F) 02/11/2022 5:35 PM CD T Respiratory Rate 21 02/11/2022 5:35 PM CDT Oxygen Saturation 94% 02/11/2022 5:35 PM CDT Inhaled Oxygen Concentration - - Weight 84.4 kg (186 lb) 02/11/2022 5:35 PM CDT Height 170.2 cm (5' 7 ) 02/11/2022 5:35 PM CDT Body Mass Index 29.13 02/11/2022 5:35 PM CDT documented in this encounter Discharge Summaries * Anyi Garcia MD - 02/14/2022 12:00 AM CDT DISCHARGE DIAGNOSES 1. Bile leak. 2. Gastroesophageal reflux disease. 3. History of Swte-Soihhcudv-Useft syndrome status post ablation. HOSPITAL COURSE This [...] in 2 weeks. Job ID/Internal Job ID: [id number] documented in this encounter Medications at Time [...] 1 mg at 02/13/22 0554 influenza quadrivalent [id number] (FLULAVAL,FLUARIX,FLUZONE) 60 mcg (15 mcg x 4)/0.5 [...] diphenhydrAMINE fentaNYL haloperidol HYDROmorphone HYDROmorphone influenza quadrivalent [id number] insulin lispro labetalol LORazepam meperidine naloxone ondansetron [...] nodes: No adenopathy. Peritoneum: There is a ubgpq-kq-hogcbarb volume of ascites which is greatest in [...] was obtained. Prior to beginning the procedure, Hoffmeister Protocol was performed to confirm the patient?s [...] bile duct into the duodenum. A 4 Sudanese Kumpe catheter was advanced coaxially over the [...] Soto was successful in placing a 10 Sudanese 7 cm plastic biliary stent. Contrast was [...] and documentation: 30 Minutes Anyi Garcia MD [facility] Exchange: This note was transcribed using [employer] Speech Recognition software. As a result, there [...] point. Carlos Plascencia M.D. Instructor Interventional Radiology [phone] * Ada Hilario NP - 02/13/2022 8:18 [...] brought back to the hospital. CT scanshowed ucvug-sw-wylywdnr abdominal fluid, gastritis and duodenitis. HIDA scan [...] S1, S2. ABDOMEN: Soft, bowel sounds positive. CHIEF PETROLEUM ENGINEER: Moves all extremities. EXTREMITIES : There is no pedal edema. LABS From today sodium is 138, potassium 4.0, chloride 104, CO2 is 25, BUN is 10, creatinine is 0.6, glucose 120, calcium is 8.8, bilirubin is 1.7, total bili 6.4. CBC: WBC 12, hemoglobin 11.8, xbricnxckg27.6, platelet count 327. PT 13.3, INR 1.2. [...] tolerate low-fat diet. Job ID/Internal Job ID: [id number] documented in this encounter Procedure Notes * Sebastian Soto MD - 02/12/2022 3:21 PM CDTAssociated Order(s): ERCP ENDOSCOPY LAB Patient Name: Shayla Curry Procedure Date: 02/12/2022 3:21 PM Admit Type: Inpatient Room: [facility] Date of : 1985 Instrument Name: [id number] Gender: Female Note Status: Computer Publisher Override Procedure: ERCP Indications: Further management of [...] one pancreatic stents were visible on the reimbursement representative film. The esophagus was successfully intubated under [...] 02/11/2022 6:04 PM Admit Type: Inpatient Room: [facility] Date of : 1985 Instrument Name: [id number] [...] duct and ventral pancreatic duct. Findings: A reimbursement representative film of the abdomen was obtained and [...] h/o GERD, kidney stones, WPW, presented to [facility] on 02/08 with c/o worsening abd pain [...] Radiology Brief Post Procedure Note Attending: Thais Clay Mixer: Grey Sedation/Anesthesia: Anesthesia Pre-Op/Pre-Procedure Diagnosis: bile leak [...] Brooke RN - 02/12/2022 3:52 PM CDT [facility] Home Health consult received. [facility] Home Care agency accepted patient with projected [...] transport arranged?: No (02/12/221127) Health Insurance Coverage: [facility] Prescription Coverage: yes Pharmacy: [id number] - [place], [place] - [address] [facility] [facility] [address] Primary Care Provider: Thor Fajardo MD Prior to Admission: Primary Caregiver: Self Who does the patient or legal guardian want to receive education instruction and discharge plans for after care assistance?: Name Caregiver Name: Alyssa Cortes Relationship to patient: Caregiver Contact Information: [phone] Support System: Spouse/Significant Other Support system contact info (name, phone, availablity): alyssa Cortes [phone] Home Care Services: No Durable Medical Equipment: [...] a week How often do you attend caodaism or mandaeism services?: Never Do you belong to any clubs or organizations such as caodaism groups, unions, fraternal or athletic groups, or school groups?: No How often do you attend meetings of the clubs or organizations you belong to?: Never Are you , , , , never , or living with a partner?: (02/12/221427) Food Insecurity: Alcohol Use: PHQ Screening Potential discharge needs include: Home Health: care home (02/12/221127) Dialysis: Behavioral Health Services: Behavioral Health Services: No (02/12/221127) Patient expects to be Discharged to: Private residence, (02/12/221127) Additional Information: CM met with pt and and explained CM role. Pt lives with and3 children. Patient is independent. No devices. Pt will need Home Health services for drain care and follow up. Pt is agreeable to [facility] Home health. Referral sent to [facility] home health. CM will continue to follow [...] Collaboration with patient, MD, direct care nurse, Cardiology Associate, and other members of the health care team to assure needed interventions completed. 2. Return patient to optimal level of self-care post discharge. 3. Nanotechnician will follow for Discharge Planning - interventions as needed 4. Anticipated level of care at discharge 5. Planned Discharge Disposition Vanessa Demarco RN * Plan of Care - Vanessa Demarco RN - 02/12/2022 2:29 PM CDT CM note: Referral sent to [facility] Home health for SN for drain care. [...] been discussed with the patient and/or their auto claim representative. All questions answered and they agree [...] AM CDT) eGFR 118 mL/min/1. 73 m2 [facility] Comment: Interpretive Data Reference Interval Normal ?>/= [...] NP LAB BLOOD ORDERABLES Final Re sult [facility] [address] Department [place] [address] * (ABNORMAL) Comprehensive metabolic panel (02/14/2022 3:18 AM CDT) Pathologist [facility] Sodium 141 135 - 145 mmol/L [facility] Potassium, pl 3.4 3.3 - 4.9 mmol/L [facility] Chloride 103 97 - 110 mmol/L [facility] CO2 26 22 - 32 mmol/L [facility] Anion gap 12 2 - 15 mmol/L [facility] BUN 8 8 - 25 mg/dL [facility] Creatinine 0.62 0.60 - 1.10 mg/dL [facility] Glucose 93 70 - 199 mg/dL [facility] Comment: Interpretive Data Fasting glucose >/= 126 [...] 2017. Calcium 7.6(L) 8.5 - 10.3 mg/dL [facility] Bilirubin, total 1.3(H) 0.1 - 1.2 mg/dL [facility] Protein, pl 5.7(L) 6.5 - 8.5 g/dL [facility] Albumin 3.1(L) 3.5 - 5.0 g/dL [facility] Alk phos 152(H) 40 - 130 Units/L [facility] ALT 60(H) 7 - 45 Units/L [facility] AST 29 10 - 45 Units/L [facility] Blood 02/14/2022 3:18 AM CDT 02/14/2022 3:51 AM CDT us Ada Hilario BAKER HELPER LAB BLOOD ORDERABLES Final Re sult [facility] [address] Department [place] [address] * IR Cholangiogram Through Existing Catheter [...] was obtained. Prior to beginning the procedure, Hoffmeister Protocol was performed to confirm the patient?s [...] bile duct into the duodenum. A 4 Sudanese Kumpe catheter was advanced coaxially over the [...] Soto was successful in placing a 10 Sudanese 7 cm plastic biliary stent. Contrast was [...] was obtained. Prior to beginning the procedure, Hoffmeister Protocol was performed to confirm the patient?s [...] bile duct into the duodenum. A 4 Sudanese Kumpe catheter was advanced coaxially over the [...] Soto was successful in placing a 10 Sudanese 7 cm plastic biliary stent. Contrast was [...] signed by: Carlos Plascencia M.D. Phuong [facility] IR PROCEDURES Final Resul t * ERCP (02/12/2022 3:21 PM CDT) Anatomical Region Laterality Modality Other Narrative Procedure Note Sebastian Soto MD - 02/12/2022 3:21 PM CDT ENDOSCOPY LAB Patient Name: Shayla Curry Procedure Date: 02/12/2022 3:21 PM Admit Type: Inpatient Room: [facility] Date of : 1985 Instrument Name: [id number] Gender: Female Note Status: Computer Publisher Override Procedure: ERCP Indications: Further management of [...] one pancreatic stents were visible on the reimbursement representative film. The esophagus was successfully intubated under [...] quant <0.2 0.0 - 5.0 IUnits/L [facility] Comment: Interpretive Data Non- Female premenopausal: < [...] BLOOD ORDERABLES Edit ed Result - [facility] [address] Department [place] [address] * COVID-19 Coronavirus RNA Nasopharyngeal (02/12/2022 10:21 AM CDT) COVID-19 RNA Negative Negative [facility] Nasopharyngeal 02/12/2022 10 :21 AM CDT 02/12/2022 10:21 AM CDT Narrative [facility] - 02/12/2022 10:53 AM CDT Is the patient experiencing any symptoms consistent with COVID (eg. Fever, cough, shortness of breath)?->No What is the reason for testing?->Asymptomatic screening prior to procedure??or??surgery (Rapid) ??Interpretive data: Synonyms for this test include: PCR and NAAT . ??This test is performed using the Kw[employer] Xpert Xpress plus assay. This is a [...] MICROBIOLOGY - GENERA L ORDERABLES Final Result [facility] [address] Department [place] [address] * CT abdomen pelvis with contrast (02/12/2022 [...] nodes: No adenopathy. Peritoneum: There is a hnxzt-af-imqpstld volume of ascites which is greatest in [...] nodes: No adenopathy. Peritoneum: There is a dwvhb-jz-fvbciqto volume of ascites which is greatest in [...] AM CDT) eGFR 119 mL/min/1. 73 m2 [facility] Comment: Interpretive Data Reference Interval Normal ?>/= [...] MD LAB BLOOD ORDERABLES F inal Result [facility] [address] Department [place] [address] * (ABNORMAL) Differential, auto (02/12/2022 4:45 AM CDT) Neutrophil abs 10.9(H) 1.7 - 6.5 K/cumm [facility] Imm gran abs 0.1 0.0 - 0.1 K/cumm [facility] Lymphocyte abs 0.6(L) 0.8 - 3.3 K/cumm [facility] Monocyte abs 0.3 0.2 - 0.8 K/cumm [facility] Eosinophil abs 0.0 0.0 - 0.5 K/cumm [facility] Basophil abs 0.0 0.0 - 0.1 K/cumm [facility] Neutrophil pct 91.0 % [facility] Comment: Interpretive Data Percent cell count reference ranges are not reported, since discordance with absolute values may lead to misinterpretation of CBC data. Current Interpretive Data was last revised on 2017. Imm gran pct 0.7 % [facility] Comment: Interpretive Data Percent cell count reference ranges are not reported, since discordance with absolute values may lead to misinterpretation of CBC data. Current Interpretive Data was last revised on 2017. Lymphocyte pct 5.3 % [facility] Comment: Interpretive Data Percent cell count reference ranges are not reported, since discordance with absolute values may lead to misinterpretation of CBC data. Current Interpretive Data was last revised on 2017. Monocyte pct 2.8 % [facility] Comment: Interpretive Data Percent cell count reference ranges are not reported, since discordance with absolute values may lead to misinterpretation of CBC data. Current Interpretive Data was last revised on 2017. Eosinophil pct 0.0 % [facility] Comment: Interpretive Data Percent cell count reference ranges are not reported, since discordance with absolute values may lead to misinterpretation of CBC data. Current Interpretive Data was last revised on 2017. Basophil pct 0.2 % [facility] Comment: Interpretive Data Percent cell count reference ranges are not reported, since discordance with absolute values may lead to misinterpretation of CBC data. Current Interpretive Data was last revised on 2017. Blood 02/12/2022 4:45 AM CDT 02/12/2022 5:38 AM CDT Anyi Garcia MD LAB BLOOD ORDERABLES F inal Result Performing Organization Address [facility] de Phone Number [facility] [address] [place] [address] * Protime-INR (02/12/2022 4:45 AM CDT) PT 13.3 9.2 - 13.5 sec [facility] INR 1.2 0.9 - 1.2 [facility] Comment: Interpretive data Oral anticoagulant therapeutic ranges: Venous thromboembolism prophylaxis or treatment: 2.0-3.0 CARDIOLOGY Standard range: 2.0-3.0 High-intensity range: 2.5-3.5 Refer to indication-specific guidelines for appropriate target ranges for prosthetic heart valve replacement. Current interpretive data was last revised on 2019. Blood 02/12/2022 4:45 AM CDT 02/12/2022 5:38 AM CDT Anyi Garcia MD LAB BLOOD ORDERABLES F inal Result Performing Organization Address [facility] Co de Phone Number [facility] [address] [place] [address] * (ABNORMAL) CBC with auto differential (02/12/2022 4:45 AM CDT) [facility] WBC 12.0(H) 3.8 - 9.9 K/cumm [facility] Hgb 11.8(L) 11.9 - 15.5 g/dL [facility] Hct 35.6 35.6 - 45.5 % [facility] Plt 327 150 - 400 K/cumm [facility] MPV 11.0 9.1 - 12.3 fL [facility] RBC 3.97 3.90 - 5.20 M/cumm [facility] MCV 89.7 81.3 - 96.4 fL [facility] MCH 29.7 27.1 - 33.3 pg [facility] MCHC 33.1 32.3 - 35.7 g/dL [facility] RDW CV 13.0 11.1 - 14.9 % [facility] RDW SD 42.8 35.7 - 48.1 fL [facility] NRBC abs 0.00 0.00 - 0.01 K/cumm [facility] Blood 02/12/2022 4:45 AM CDT 02/12/2022 5:38 AM CDT [facility] Liz Garcia MD LAB BLOOD ORDERABLES F inal Result [facility] [address] Department of Laboratories [place], [place] [id number] * (ABNORMAL) Comprehensive metabolic panel (02/12/2022 4:45 AM CDT) [facility] Sodium 138 135 - 145 mmol/L [facility] Potassium, pl 4.0 3.3 - 4.9 mmol/L [facility] Chloride 104 97 - 110 mmol/L [facility] CO2 25 22 - 32 mmol/L [facility] Anion gap 9 2 - 15 mmol/L [facility] BUN 10 8 - 25 mg/dL [facility] Creatinine 0.60 0.60 - 1.10 mg/dL [facility] Glucose 120 70 - 199 mg/dL [facility] Comment: Interpretive Data Fasting glucose >/= 126 [...] 2017. Calcium 8.1(L) 8.5 - 10.3 mg/dL [facility] Bilirubin, total 1.7(H) 0.1 - 1.2 mg/dL [facility] Protein, pl 6.4(L) 6.5 - 8.5 g/dL [facility] Albumin 3.5 3.5 - 5.0 g/dL [facility] Alk phos 137(H) 40 - 130 Units/L [facility] ALT 70(H) 7 - 45 Units/L [facility] AST 38 10 - 45 Units/L [facility] Blood 02/12/2022 4:45 AM CDT 02/12/2022 5:38 AM CDT Anyi Garcia MD LAB BLOOD ORDERABLES F inal Result [facility] [address] Department [place] [address] * [place] ERCP Biliary and Pancreatic (02/11/2022 [...] 02/11/2022 6:04 PM Admit Type: Inpatient Room: [facility] Date of : 1985 Instrument Name: [id number] [...] duct and ventral pancreatic duct. Findings: A reimbursement representative film of the abdomen was obtained and [...] IV Infusing)1400 (Not Given - Provider: Stephie lAexander RN - Reason: Patient not available)2144 (Not [...] 02/11/2022 documented in this encounter Care Teams Telephone Operators Supervisor Relationship Specialty Start Date End Date Thor Fajardo MD [address] [place] [id number] PCP - General Family Medicine 12/30/20 documented as of this encounter
--- OUTSIDE RECORDS SUMMARY | 2024-05-09 00:51 | XMS_ITS | Encounter Summary ---
Author Organization [facility] Healthcare Address [address] [place] [address] Care Team Providers Care Meteorology Professor Name Role Phone Thor Fajardo MD Primary Care Provider [phone] Reason for Visit * Auth/Cert Specialty Diagnoses / Procedures Referred By Contac t Referred To Contact Diagnoses [facility] Procedures n Referral ID Status Reason Start Date Expiration Date Visits Re quested Visits Authorized [id number] 1 1 Encounter Details Date Type Department Care Team (Late st Contact Info) Description 02/12/2022 12:42 PM CDT Anesthesia Event [facility] - Interventional Radiology [address] [place] [address] True Mustafa DO [address] [place] [address] Anesthesia Record Procedure Summary Procedure Name Responsible Anesthesiologist Anesthesia Start Time Anesthesia Stop Time IR CHOLANGIOGRAM THROUGH EXISTING CATHETER True Mustafa DO 02/12/22 1242 02/12/22 1615 Events Date Time Event Comment 02/12/2022 1210 1242 An Start 1247 An Start Data There is a del ay between Epic and data input from the monitoring systems. Timing between vital signs and events' may not be accurate. 1254 An Induction The patient was reevaluated immediately before moderate or deep sedation use and before anesthesia induction. 1258 An Intubation 1300 Anesthesia Ready 1435 Anes Handoff Report given to Franco CUELLO [address] Steele ca lled in to attempt cannulation of the bile duct. Paralytic given before oral airway inserted 1554 An Extubation 1556 an stop data 1613 Quick Note Patient transpo rted to PACU BAY A3 Report taken by Liz Marcos She states my report is satisfactory 1614 Handoff to RN I completed my handoff [...] Patient disposition at the time of handoff: PACU 1615 An Stop Meds Name Total midazolam 2 mg fentaNYL 200 mcg lidocaine (CARDIAC) syringe 2 % 5 mL propofol 210 mg rocuronium 70 mg sugammadex 500 mg ondansetron 4 mg dexamethasone 4 mg/ml 8 mg sodium chloride 0.9% infusion 654 mL * Agents Name O2 Air Sevoflurane Inspired Sevoflurane * Blood No blood administrations on file. Lines, Drains, and Airways Type Details Placement Removal RETIRED Surgical Site 02/11/22; 923; Ye s; Left; Abdomen; 02/14/22; 113602/11/22 0924 by Susan Brown RN 02/14/221136 by Susan Brown RN Peripheral IV Placement Date: 02/12/22; Placement Time: 0620; Catheter Size: 20 G; Orientation: Left, Posterior; Location: Forearm; Site Prep: Chlorhexidine; Insertion Attempts: 1; Patient Tolerance: Tolerated well; Removal Date: 02/14/22; Removal Time: 11302/12/22 06 by Tamia Moreau RN 02/14/221136 by Susan Brown RN ETT Placement Date: 02/12/22; Placement Time: 1316 (created via procedure documentation); Mask Ventilation: 1; Technique: Direct laryngoscopy; Type: ETT - single; Single Lumen Tube Size: 7 mm; Cuffed: Yes; Laryngoscope: Shamar; Blade Size: 3; Location: Oral; Insertion Attempts: 1; Placement Verification: Auscultation, Capnometry; Airway Comment: Patient preoxygenated, smooth intravenous induction, eyelids closed and secured with tape prior to intubation attempt, ETT inserted and passed through the vocal cords; intubation atraumatic and dentition unchanged from preoperative exam.; Removal Date: 02/12/22; Removal Time: 1554 02/12/22 1316 by Elie Diaz CRNA 02/12/22 1554 by Mónica Gamez CRNA RETIRED Surgical Site 02/12/22; 1545; Ri ght, Upper, Quadrant; Abdomen; Puncture site from IR procedure; 02/14/22; 1137 02/12/22 1545 by Lino Philippe RN 02/14/22 1137 by Susan Brown, MARIO documented in this encounter Social History Tobacco [...] How often do you attend chur or hindu services? 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 Gender Identity Not on file Sexual Orientation Not on file documented as of this encounter OR Notes * Anesthesia Postprocedure Evaluation - Vijay Segundo MD - 02/14/2022 6:52 AM CDT Patient: Shayla Curry Procedure Summary Date: 02/12/22 Room / Location: [facility] - Interventional Radiology Anesthesia Start: 1242 Anesthesia Stop: 161 Procedure: IR CHOLANGIOGRAM THROUGH EXISTING CATHETER Diagnosis: Scheduled Providers: Responsible Provider: True Mustafa DO Anesthesia Type: general ASA Status: 2 Anesthesia Type: general Last vitals BP 120/65 (BP Location: Right arm) Pulse 71 Temp 36.9 ??C (98.4 ??F) (Oral) Resp 18 SpO2 97% Anesthesia Post Evaluation Patient location during evaluation: PACU Patient participation: complete - patient participated Level of consciousness: follows simple commands and fully awake Pain management: adequate Airway patency: adequate Cardiovascular status: acceptable and hemodynamically stable Respiratory status: acceptable Hydration status: acceptable Pt is: normothermic Nausea/Vomiting status: none No notable events documented. * Anesthesia Procedure Notes - Elie Diaz CRNA - 02/12/2022 1:15 PM CDT Associated Order(s): Airway Airway Patient location: OR Urgency: elective Indications for airway management: anesthesia Difficult airway: no Staff: Placed by: C4 PLANNER: Elie Diaz CRNA Emergent airway documentation: Risks and benefits discussed: yes Consent obtained: yes Consent given by: patient Airway prep: Preoxygenated: yes Patient position: sniffing Mask difficulty assessment: 1 - vent by mask Spontaneous ventilation during airway: absent Sedation level during airway: GA Final airway details: Final airway type: endotracheal airway Tube type: ETT ETT size: 7.0 mm Cuffed: yes Technique used for successful ETT placement: direct laryngoscopy Insertion site: oral Blade type: Shamar Blade size: 3 Cuff volume: 5 mL Cuff inflated with: air ETT to teeth: 20 cm Placement verified by: auscultation and CO2 detection Airway secured with: silk tape Number of attempts: 1no Additional comments: Patient preoxygenated, smooth intravenous induction, eyelids closed and secured with tape prior to intubation attempt, ETT inserted and passed through the vocal cords; intubation atraumatic and dentition unchanged from preoperative exam. * Anesthesia Preprocedure Evaluation - True Mustafa DO - 02/12/2022 11:38 AM CDT Anesthesia Evaluation Shayla Curry is a 36 y.o. female * No surgery found * HISTORY Past Medical History Neurological Neuro/Psych system: negative Cardiovascular Comments: Hx/o WPW s/p Cardiac Ablation Respiratory Pertinent negatives: non-smoker Respiratory system: negative Hepatic / Heme Hepatic/Heme system: negative Gastrointestinal + GERD - PRN medication use only. Renal / + Nephrolithiasis Musculoskeletal/Pain Musculoskeletal/Pain system: negative Functional Capacity Functional capacity: 6-10 METs Day of Surgery assessments + Possibility of assessed - HCG negative (see labs). Review of Systems Pertinent negatives: productive cough; SOB; recent cold/flu; fever; chest pain and heartburn Patient Active Problem List Diagnosis ??? Bile leak from incision of common bile duct ??? Bile leak Past Medical History: Diagnosis Date ??? GERD (gastroesophageal reflux disease) ??? Kidney stone ??? WPW (Ydfta-Emcaliohc-Ooieh syndrome) Past Surgical History: Procedure Laterality Date ??? CARDIAC ELECTROPHYSIOLOGY STUDY AND ABLATION ??? DILATION AND CURETTAGE OF UTERUS ??? WISDOM TOOTH EXTRACTION OB History No obstetric history on file. No Known Allergies No medications on file. No current facility-administered medications for this visit. No current outpatient medications on file. Facility-Administered Medications Ordered in Other Visits: ??? Carrier Fluids for Secondary Infusion - 0.9% Sodium Chloride, 30 mL, intravenous, PRN ??? Saline lock IV, , , Once AND sodium chloride 0.9% flush 0.5-20 mL, 0.5- 20 mL, intra-catheter, Q8H SHIRLEY AND sodium chloride 0.9% flush 0.5-20 mL, 0.5-20 mL, intra-catheter, PRN AND Carrier Fluids for Secondary Infusion - 0.9% Sodium Chloride, 30 mL, intravenous, PRN ??? HYDROmorphone (DILAUDID) injection 1 mg, 1 mg, intravenous, Q4H PRN, 1 mg at 02/12/22 1103 ??? influenza quadrivalent [id number] (FLULAVAL,FLUARIX,FLUZONE) 60 mcg (15 mcg x 4)/0.5 mL vaccine (STANDARD age 6 months and up) 0.5 mL, 0.5 mL, intramuscular, During hospitalization ??? LORazepam (ATIVAN) injection 1 mg, 1 mg, intravenous, Q30 Min PRN, 1 mg at 02/11/22 2119 ??? ondansetron ODT (ZOFRAN-ODT) disintegrating tablet 4 mg, 4 mg, oral, Q6H PRN OR ondansetron(ZOFRAN) injection 4 mg, 4 mg, intravenous, Q4H PRN ??? ramelteon (ROZEREM) tablet 8 mg, 8 mg, oral, Nightly PRN, 8 mg at 02/12/22 0018 ??? sodium chloride 0.9% flush 0.5-20 mL, 0.5-20 mL, intra-catheter, Q8H SHIRLEY ??? sodium chloride 0.9% flush 0.5-20 mL, 0.5-20 mL, intra-catheter, PRN ??? sodium chloride 0.9% infusion, 100 mL/hr, intravenous, Continuous, Last Rate: 100 mL/hr at 02/12/22 0632, 100 mL/hr at 02/12/22 0632 Social History Tobacco Use Smoking Status Former ??? Types: Cigarettes ??? Quit date: 10/08/2019 ??? Years since quittin.3 Smokeless Tobacco Never Alcohol Use: Not At Risk ??? Frequency of Alcohol Consumption: Monthly or less ??? Average Number of Drinks: 1 or 2 ??? Frequency of Binge Drinking: Never Substance and Sexual Activity Drug Use Not on file No family history on file. There were no vitals filed for this visit. PT: 02/12/2022: 13.3 sec INR: 02/12/2022: 1.2 APTT: No results found for requested labs within last 720 hours. Hgb A1C: No results found for requested labs within last 720 hours. CBC RBC: 02/12/2022: 3.97 M/cumm RDW: No results found for requested labs within last 720 hours. MCHC: 02/12/2022: 33.1 g/dL MCH: 02/12/2022: 29.7 pg MCV: 02/12/2022: 89.7 fL Hct: 02/12/2022: 35.6 % Hgb: 02/12/2022: 11.8 g/dL (L) WBC: 02/12/2022: 12.0 K/cumm (H) MPV: 02/12/2022: 11.0 fL Platelets: 02/12/2022: 327 K/cumm RDW CV: 02/12/2022: 13.0 % RDW Sd: 02/12/2022: 42.8 fL BMP Glucose: 02/12/2022: 120 mg/dL Calcium: 02/12/2022: 8.1 mg/dL (L) Sodium: 02/12/2022: 138 mmol/L Potassium: 02/12/2022: 4.0 mmol/L CO2: 02/12/2022: 25 mmol/L Chloride: 02/12/2022: 104 mmol/L BUN: 02/12/2022: 10 mg/dL Creatinine: 02/12/2022: 0.60 mg/dL DOS Physical Exam Medical history, medications, and allergies reviewed. Attestation: With today's edits, I endorse the findings of the anesthesia pre-evaluation assessment dated: 02/12/2022. Airway Exam: Mallampati: II Cervical ROM: FROM Cardiovascular Exam: Rate: regular Rhythm: regular Pulmonary Exam: (Non-labored breathing) Dental Exam: Appears intact Current state: Patient's current state is cooperative. Anesthesia Plan ASA 2 My patient is approved for the Anesthesia Controlled Medication protocol when under care of a C4 PLANNER Planned anesthesia: General Team communication plan: oral ET tube Induction: Induction: intravenous. Postoperative Plan: Postoperative administration opioids intended. No postoperative mechanical ventilation intended. Patient's planned disposition post procedure is Floor. Informed Consent: Discussed plan with C4 PLANNER. Anesthesia plan and risks discussed with patient. Consent and Attending signature: I and/or my [...] Diagnosis Comments [place] AN PROCEDURE PLACEHOLDER Routine 02/12/2022 1:15 PM CDT [place] AN ELECTIVE ENDOTRACHEAL AIRWAY Routine 02/12/2022 1:15 PM CDT documented in this encounter Results * NY AN ELECTIVE ENDOTRACHEAL AIRWAY, [place] AN PROCEDURE PLACEHOLDER (02/12/2022 1:15 PM CDT) Narrative Elie Diaz CRNA - 02/12/2022 1:15 PM CDT Elie Diaz CRNA ? 02/12/2022 ??1:16 PM Airway Patient location: OR Urgency: elective Indications for airway management: anesthesia Difficult airway: no Staff: Placed by: C4 PLANNER: Elie Diaz CRNA Emergent airway documentation: Risks and benefits discussed: yes Consent obtained: yes Consent given by: patient Airway prep: Preoxygenated: yes Patient position: sniffing Mask difficulty assessment: 1 - vent by mask Spontaneous ventilation during airway: absent Sedation level during airway: GA Final airway details: Final airway type: endotracheal airway Tube type: ETT ETT size: 7.0 mm Cuffed: yes Technique used for successful ETT placement: direct laryngoscopy Insertion site: oral Blade type: Shamar Blade size: 3 Cuff volume: 5 mL Cuff inflated with: air ETT to teeth: 20 cm Placement verified by: auscultation and CO2 detection Airway secured with: silk tape Number of attempts: 1no Additional comments: Patient preoxygenated, smooth intravenous induction, eyelids closed and secured with tape prior to intubation attempt, ETT inserted and passed through the vocal cords; intubation atraumatic and dentition unchanged from preoperative exam. True Tracy Chelsiebry ANESTHESIA ORDERABLES Final Result documented in this encounter Visit Diagnoses Not on filedocumented in this encounter Administered Medications Inactive Administered Medications - up to 3 most recent administrations Medication Order MAR Action Action Date Dose Rate Site dexAMETHasone (DECADRON) 4 mg/mL injection intravenous, Administer over 2 Minutes, As needed, Starting on Tue02/12/22 at 1252, Anesthesia Intra-op Given 02/12/2022 12:52 PM CDT 8 mg fentaNYL (SUBLIMAZE) preservative free injection intravenous, As needed, Starting on Tue02/12/22 at 1254, Anesthesia Intra-op Given 02/12/2022 4:13 PM CDT 50 mcg Given 02/12/2022 3:35 PM CDT 50 mcg Given 02/12/2022 1:06 PM CDT 50 mcg lidocaine (cardiac) (XYLOCAINE) preservative free injection intravenous, As needed, Starting on Tue02/12/22 at 1254, Anesthesia Intra-op, Indications: Ventricular ArrhythmiasIndications:Ventricular Arrhythmias Given 02/12/2022 12:54 PM CDT 5 mL midazolam (VERSED) 1 mg/mL preservative free injection intravenous, Administer over 2 Minutes, As needed, Starting on Tue02/12/22 at 1242, Anesthesia Intra-op Given 02/12/2022 12:42 PM CDT 2 mg ondansetron (ZOFRAN) injection intravenous, Administer over 2 Minutes, As needed, Starting on Tue02/12/22 at 1252, Anesthesia Intra-op Given 02/12/2022 12:52 PM CDT 4 mg propofoL (DIPRIVAN) 10 mg/mL IV intravenous, As needed, Starting on Tue02/12/22 at 1254, Anesthesia Intra-op Given 02/12/2022 3:29 PM CDT 50 mg Given 02/12/2022 12:54 PM CDT 160 mg rocuronium (ZEMURON) injection intravenous, As needed, Starting on Tue02/12/22 at 1254, Anesthesia Intra-op Given 02/12/2022 3:20 PM CDT 20 mg Given 02/12/2022 12:54 PM CDT 50 mg sodium chloride 0.9% infusion 100 mL/hr, intravenous, Continuous, Starting on Katelin 02/11/22 at 1600 New Bag 02/14/2022 1:58 AM CDT 100 mL/hr 100 mL/hr New Bag 02/12/2022 11:07 PM CDT 100 mL/hr 100 mL/hr Restarted 02/12/2022 5:06 PM CDT 100 mL/hr 100 mL/hr sugammadex (BRIDION) 100 mg/mL intravenous solution intravenous, As needed, Starting on 02/12/22 at 1550, Anesthesia Intra-op Given 02/12/2022 3:50 PM CDT 500 mg documented in this encounter Care Teams Meteorology Professor Relationship Specialty Start Date End Date Thor Fajardo MD [address] [place] [address] PCP - General Family Medicine 12/30/20 documented as of this encounter
--- OUTSIDE RECORDS SUMMARY | 2024-05-09 00:51 | XMS_ITS | Encounter Summary ---
Author Organization [facility] Address [address] [place] [address] Care Team Providers Care Powerhouse Mechanic Apprentice Name Role Phone Thor Fajardo MD Primary Care Provider [phone] Reason for Visit * Reason Comments New Patient dizziness, syncope Encounter Details Date Type Department Care Team (Latest Contact Info) Description 12/31/2020 1:00 PM CDT Office Visit [facility] Cardiology [address] [place] [id number] Kayden Buck MD [address] [id number] Vasovagal syncope (Primary Dx); History of Oyqgq-Smkhdlsuw-Ggdns (WPW) syndrome; H/O cardiac radiofrequency ablation Social History Tobacco Use Types Packs/Day Years Used Date Smoking Tobacco: Former Cigarettes Q uit: 10/08/2019 Smokeless Tobacco: Never Comments Unknown Sex and Gender Information Value Date Recorded Sex Assigned at Not on file 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 Gender Identity Not on file Sexual Orientation Not on file documented as of this encounter Last Filed Vital Signs Vital Sign Reading Time Taken Comments Blood Pressure 108/62 12/31/2020 12:57 PM CDT Pulse 77 12/31/2020 12:57 PM CDT Temperature - - Respiratory Rate - - Oxygen Saturation 97% 12/31/2020 12:57 PM CDT Inhaled Oxygen Concentration - - Weight 89.4 kg (197 lb) 12/31/2020 12:57 PM CDT Height 170.2 cm (5' 7 ) 12/31/2020 12:57 PM CDT Body Mass Index 30.85 12/31/2020 12:57 PM CDT documented in this encounter Progress Notes * Kayden Buck MD - 12/31/2020 1:00 PM CDT [facility] CARDIOLOGY 12/31/2020 CHIEF COMPLAINT Chief Complaint Patient presents with ??? New Patient dizziness, syncope HPI Shayla Curry is a 35 y.o. female with history of WPW syndrome status post radiofrequency ablation on 01/04/1997 at [facility]. 12/31/2020 initial evaluation-patient has been referred for cardiovascular evaluation. Patient has history of WPW syndrome and radiofrequency ablation on 01/04/1997 at [facility]. Over the years, she has not [...] vaps. No excessive alcohol or illicit drugs. MEDICAL HISTORY she has a past medical history of WPW (Bjjpl-Gpdwpxcxy-Vzkta syndrome)., status post radiofrequencyablation she has a [...] for - chest pain, dyspnea, positive for syncope Gastrointestinal ROS: negative for - abdominal [...] HDL 33, triglycerides 146, LDL 124. 12/31/2020 PHYSICAL EXAM Vitals BP 108/62 (BP Location: Left arm, Patient Position: Sitting) Pulse 77 Ht 170.2 cm (5' 7 ) Wt 89.4 kg (197 lb) SpO2 97% BMI 30.85 kg/m?? General appearance - alert, no distress, [...] no audible murmurs Abdomen - soft, nontender, nondistended, bowel sounds present Neurological - alert, oriented, normal speech, no gross motor deficits Musculoskeletal - no major deformity, no amputations Extremities - no pedal edema, no clubbing or cyanosis Skin - no rashes (on the exposed areas), no cyanosis ASSESSMENT Diagnoses and all orders for this visit: Vasovagal syncope (Primary) History of Txhkp-Tydfudrqm-Dytsn (WPW) syndrome H/O cardiac radiofrequency ablation PLAN/RECOMMENDATIONS 35 y.o. with history of WPW syndrome status post radiofrequency ablation on 01/04/1997 at [facility]. - patient has history of recurrent [...] training to improve her overall physical condition. -patient has remote history of WPW syndrome status post radiofrequency ablation. No symptoms suggestive of any recurrent arrhythmias. Current EKG is unremarkable with normal MS interval. Will continue to monitor for now. -heart healthy diet counseling was done. -she was advised to stop vaping. -RTC in 10-12 months or sooner if needed. Kayden Buck MD 12/31/20 Voice recognition software was used to complete this document, therefore, recycling assistant variances may occur. documented in this encounter Miscellaneous Notes * Addendum Note - Simona Nye MA - 12/31/2020 1:00 PM CDTAddended by: SIMONA NYE on: 01/02/2021 02:22 PM Modules accepted: Orders * Addendum Note - Simona Nye MA - 12/31/2020 1:00 PM CDTAddended by: SIMONA NYE on: 01/02/2021 02:57 PM Modules accepted: Orders documented in this encounter Plan of Treatment Not on file documented as of this encounter Procedures Procedure Name Priority Date/Time Associated Diagnosis Comments POCT LIPID PANEL Routine 12/31/2020 2:22 PM CDT Vasovagal syncope ECG 12-LEAD Routine 12/31/2020 Vasovagal syncope documented in this encounter Results * POCT lipid panel (12/31/2020 2:22 PM CDT) Cholesterol, POC 186 mg/dL HDL, POC 33 mg/dL Triglycerides, POC 146 mg/dL LDL Cholesterol POC 124 mg/dL Chol/HDL Ratio, POC 5.7 Non-HDL Cholesterol, POC 153 mg/dL Cholesterol Total, POC 186 mg/dL Capillary blood 12/31/2020 2 :22 PM CDT us Kayden Buck MD POINT OF CARE TEST ORDERABLES Fi nal Result * ECG 12 lead (12/31/2020) us Kayden Buck MD ECG ORDERABLES Final Result documented in this encounter Visit Diagnoses Diagnosis Vasovagal syncope- Primary Syncope and collapse History of Wgrrw-Qvwcuytrm-Vific (WPW) syndrome H/O cardiac radiofrequency ablation documented in this encounter Care Teams Powerhouse Mechanic Apprentice Relationship Specialty Start Date End Date Thor Fajardo MD [address] [place] [address] PCP - General Family Medicine 12/30/20 documented as of this encounter
--- OUTSIDE RECORDS SUMMARY | 2024-05-09 01:56 | XMS_ITS | Encounter Summary ---
Author Organization [facility] Address [address] [place] [address] Care Team Providers Care Farm Boss Name Role Phone Thor Fajardo MD Primary Care Provider [phone] Sebastian Soto MD Unavailable Ena Rose MD Unavailable [phone] Encounter Details Date Type Department Care Team (Late st Contact Info) Description 12/27/2023 [facility]phone [facility] [address] [place] [id number] Ena Rose MD [address] [facility] [address], [place] [address] Social History Tobacco Use Types [...] How often do you attend chur or evangelical services? 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
--- OUTSIDE RECORDS SUMMARY | 2024-05-09 01:56 | XMS_ITS | Encounter Summary ---
Author Organization [facility] Healthcare Address [address] [place] [address] Care Team Providers Care Caustic Mixer Name Role Phone Thor Fajardo MD Primary Care Provider [phone] Sebastian Soto MD Unavailable [phone] Ena Rose MD Unavailable [phone] Tutu Hermosillo MD Unavailable [phone] Reason for Referral * MRI/CAT/PET Scan (Routine) - Closed Specialty Diagnoses / Procedures Referred By Joselin drummond Referred To Contact Radiology Diagnoses BRCA2 gene mutation positive Procedures MRI Breast Bilateral W WO Contrast Mónica Cao NP [address] [facility] [facility] [address] [place] [address] Phone: tel: fax: [facility] [address] [place] [address] Referral ID Status Reason Start Date Expiration Date Visits Re quested Visits Authorized [id number] Closed 01/03/2024 02/01/2025 1 1 Reason for Visit * MRI/CAT/PET Scan (Routine) - Closed Specialty Diagnoses / Procedures Referred By Joselin drummond Referred To Contact Radiology Diagnoses BRCA2 gene mutation positive Procedures MRI Breast Bilateral W WO Contrast Mónica Cao NP [address] [facility] [address] [place] [address] Phone: tel: fax: [facility] [address] [place] [address] Referral ID Status Reason Start Date Expiration Date Visits Re quested Visits Authorized [id number] Closed 01/03/2024 02/01/2025 1 1 Encounter Details Date Type Department Care Team (Latest Contact Info) Description 02/13/2024 9:54 AM CDT - 02/13/2024 11:59 PM CDT Hospital Encounter [facility] Imaging Center at [address] [address] BRCA2 gene mutation positive Discharge [...] How often do you attend chur or jewish services? 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 [employer] software was utilized. BREAST COMPOSITION: The breasts [...] 01/30 documented in this encounter Care Teams Caustic Mixer Relationship Specialty Start Date End Date Thor Fajardo MD [address] [place] [address] PCP - General Family Medicine 12/30/20 Sebastian Soto MD [address] [facility] [address] [place] [address] Consulting Physician Gastroenterology 02/14/22 Ena Rose MD [address] [facility] [address] [place] [address] Consulting Physician Surgical Oncology 08/11/22 Tutu Hermosillo MD [address] [facility] [address] [facility] [address] [place] [address] Consulting Physician Plastic Surgery 12/29/23 documented as of this encounter
--- OUTSIDE RECORDS SUMMARY | 2024-05-09 01:56 | XMS_ITS | Referral Summary ---
Author Organization [facility] [place] [place] [address] Address [address] [place] [address] Care Team Providers Care Telemarketing Supervisor Name Role Phone Thor Fajardo MD Primary Care Provider Sebastian Soto MD Unavailable Ena Rose MD Unavailable Tutu Hermosillo MD Unavailable [phone] Encounters Date Type Department Care Team Description 03/13/2024 Orders Only [facility] [address] [place] [address] [address] [place] [address] Ena Rose MD BRCA2 gene mutation positive (Primary Dx) 03/12/2024 Telephone [facility] [address] [place] [address] [place] [phone] Lelia Mojica, MARIO Test Results; Follow-Up Call 24-48 Hours 03/09/2024 Orders Only [facility] [place], [place] Charity Oneil MD 03/09/2024 2:00 PM MEDICAL RECORDS COORDINATOR - 03/09/2024 11:59 PM MEDICAL RECORDS COORDINATOR Hospital Encounter [facility] [address] [place] [address] [place] [phone] Abnormal MRI, breast Discharge Disposition: Discharge to home or self care 03/09/2024 11:09 AM MEDICAL RECORDS COORDINATOR - 03/09/2024 11:59 PM MEDICAL RECORDS COORDINATOR Hospital Encounter [facility] [address] [place] [phone] Abnormal MRI, breast Discharge Disposition: Discharge to home or self care 03/08/2024 Telephone [facility] [address] [place] [address] [address] [phone] Natalia Rodriguez MA Procedure question/concern 02/22/2024 Orders Only [facility] [address] [place] [address] [place] [phone] Yasmeen Ly RN 02/22/2024 Orders Only [facility] [address] [place] [address] [place] [phone] Ena Rose MD 02/21/2024 2:55 PM CDT - 02/21/2024 11:59 PM CDT Hospital Encounter [facility] [address] [facility] [address] [place] [phone] Abnormal MRI, breast Discharge Disposition: Discharge to home or self care 02/14/2024 Documentation [facility] Cancer Risk Program [address] [place] [address] [place] [address] Adry Bae RN 02/14/2024 Telephone [facility] [address] [place] [address] [place] [phone] Elena Chavez RN 02/13/2024 9:54 AM CDT - 02/13/2024 11:59 PM CDT Hospital Encounter [facility] Imaging Center at [address] [phone] BRCA2 gene mutation positive Discharge Disposition: Discharge [...] BRCA2 gene mutation positive 08/11/2022 Overview (12/29/2023): Synetiq 2022: BRCA2 c.4243G>T p.E1415* pathogenic variant consistent with hereditary breast and ovarian cancer. Please view note from 07/29/2022 for specific cancer screening recommendations. Based on Delmer's family history, expanded genetic testing was offered at the conclusion of their initial visit. The Image Socket Comprehensive panel analyzed 81 genes associated with [...] (02/11/2022): Added automatically from request for surgery [id number] Immunizations Name Administration Dates Next Due Influenza, [...] How often do you attend chur or zoroastrianism services? Never 02/12/2022 Do you belong to any clubs o r organizations such as christian groups, unions, fraternal or athletic groups, or [...] file Legal Sex Female 9:50 PM MEDICAL RECORDS COORDINATOR Gender Identity Not on file Sexual Orientation Not on file Last Filed Vital Signs Vital Sign Reading Time Taken Comments Blood Pressure 100/67 03/09/2024 2:16 PM MEDICAL RECORDS COORDINATOR Pulse 100 03/09/2024 2:16 PM MEDICAL RECORDS COORDINATOR Temperature 36.9 ??C (98.4 ??F) 01/03/2024 9:56 AM CD T Respiratory Rate 16 03/09/2024 2:16 PM MEDICAL RECORDS COORDINATOR Oxygen Saturation 95% 01/11/2023 9:39 AM CDT Inhaled Oxygen Concentration - - Weight 86.2 kg (190 lb) 02/13/2024 9:59 AM CDT Height 170.2 cm (5' 7 ) 02/13/2024 9:59 AM CDT Body Mass Index 29.76 02/13/2024 9:59 AM CDT Plan of Treatment Not on file Medical Devices Implanted Type Area Regional Tanker Truck Driver Device Identifier Shelf Expiration Date Model / Serial / Lot [employer] Advanced Oncotherapy Mri Guided Rigid Deployment Device Cork Marker Breast Trimark Td 13-Mr - [id number] Implanted:Qty: 1 on 03/09/2024 at [facility] Clip [employer] [id number] 08/01/2025 TRIMARK TD 13-MR / / [id number] [employer] Vazquez Flexi-Stent 4fr 9cm Small Pigtail Without Flange Flexible 6545 - [id number] Implanted:Qty: 1 on 02/11/2022 by Sebastian Soto MD at [facility] Stent N/A: Pancreas [employer] 11/29/2026 [id number] / / [id number] [email or web address] Cotton-Mims 10fr 7cm Taper Tip Guidewire Proximal Distal Flap [id number] - [id number] Implanted:Qty: 1 on 02/12/2022 by Sebastian Soto MD at [facility] Stent N/A: Bile Duct [email or web address] 08/03/2024 [id number] / / [id number] Procedures Procedure Name Priority Date/Time Associated Diagnosis Comments MAMM POST CLIP PLACEMENT RIGHT Schedule Routine, Read Routine (OP Routine) 03/09/2024 2:27 PM MEDICAL RECORDS COORDINATOR Abnormal MRI, breast MRI GUIDED BREAST BIOPSY RIGHT Schedule Routine, Read Routine (OP Routine) 03/09/2024 2:01 PM MEDICAL RECORDS COORDINATOR Abnormal MRI, breast SURGICAL PATHOLOGY Routine 03/09/2024 1:37 PM MEDICAL RECORDS COORDINATOR US BREAST RIGHT LIMITED Schedule Routine, Read Routine (OP Routine) 02/21/2024 3:22 PM CDT Abnormal MRI, breast MRI BREAST BILATERAL W WO CONTRAST Routine 02/13/2024 12:01 PM CDT BRCA2 gene mutation positive from Last 3 Months Results * Mammo Post Clip Placement Right (03/09/2024 2:27 PM MEDICAL RECORDS COORDINATOR) Anatomical Region Laterality Modality Breast Right Mammography 03/09/2024 2:47 PM MEDICAL RECORDS COORDINATOR Addenda Addendum by Charity Oneil MD on 03/12/2024 2:32 PM MEDICAL RECORDS COORDINATOR Pathology report for MRI guided biopsy describes [...] patient by the nursing staff of the [facility]. Electronically signed by: Charity Oneil M.D. Impressions 03/09/2024 2:47 PM MEDICAL RECORDS COORDINATOR Successful MRI guided biopsy of a mass in the subareolar right breast. ??Pathology report is pending. ASSESSMENT: Post-procedure mammogram for marker placement. Electronically signed by: Charity Oneil M.D. Narrative 03/09/2024 2:47 PM MEDICAL RECORDS COORDINATOR MRI GUIDED CORE NEEDLE BIOPSY RIGHT BREAST, [...] tolerated the procedure well, and left the [facility] in good condition, without evidence of immediate complication. Ena Rose MD IMG MAMMO PROCEDURES Edite d Result - Final * MRI Guided Breast Biopsy Right (03/09/2024 2:01 PM MEDICAL RECORDS COORDINATOR) Anatomical Region Laterality Modality Breast Right Magnetic Resonan ce 03/09/2024 2:47 PM MEDICAL RECORDS COORDINATOR Addenda Addendum by Charity Oneil MD on 03/12/2024 2:32 PM MEDICAL RECORDS COORDINATOR Pathology report for MRI guided biopsy describes [...] patient by the nursing staff of the [facility]. Electronically signed by: Chariyt Oneil M.D. Impressions 03/09/2024 2:47 PM MEDICAL RECORDS COORDINATOR Successful MRI guided biopsy of a mass in the subareolar right breast. ??Pathology report is pending. ASSESSMENT: Post-procedure mammogram for marker placement. Electronically signed by: Charity Oneil M.D. Narrative 03/09/2024 2:47 PM MEDICAL RECORDS COORDINATOR MRI GUIDED CORE NEEDLE BIOPSY RIGHT BREAST, [...] tolerated the procedure well, and left the [facility] in good condition, without evidence of immediate complication. us Ena Rose MD [facility] [place]ED[place] Edited Result - Final * Surgical pathology (03/09/2024 1:37 PM MEDICAL RECORDS COORDINATOR) Breast biopsy, needle core 03/09/2024 1:37 PM MEDICAL RECORDS COORDINATOR 03/09/2024 3:20 PM MEDICAL RECORDS COORDINATOR Narrative 03/12/2024 11:22 AM MEDICAL RECORDS COORDINATOR [address] ??[address] Tele: ?? Yasmeen Duran MD - Courtesy Booth Cashier Note to Patients: This report may contain [...] PATHOLOGY REPORT Patient Name: ??DELMER CONTRERASMayte Address: ??[address] [place] [address] ??[id number] Gender: ??F : ??1985 (Age: 38) Service: ?? Location: ??, ?? Hospital #: ??[id number] Patient Type: ??[facility] [place] ANCILLARY Accession #: ? [id number] Taken: ? 03/09/2024 Received ? 03/09/2024 Reported: [...] submitted in cassettes labeled A1-A4. ?? [facility] MICROSCOPIC DESCRIPTION: Sections of the right breast [...] features are evident. Clerical Data Follows A; [id number] REPORT IMAGES AND/OR SCANNED DOCUMENTS ONLY VIEWABLE IN PDF FORMAT The immunohistochemical test(s) cited in this report, if any, was developed and its performance characteristics determined by [facility] Pathology Department. ??It has not been cleared or approved by the U.S. Food and Drug Administration. ??The FDA has determined that such clearance or approval is not necessary. ??This test is used for clinical purposes. ??It should not be regarded as investigational or for research. ??[facility] is certified under the Clinical Laboratory [...] part or completely in the following laboratories: [facility], [address] [place] [address] [place] [address], [address] [place] [address]. Charity Oneil MD LAB PATHOLOGY ORDERABLES F [...] and multiplanar reconstructions were performed and reviewed. [employer] software was utilized. BREAST COMPOSITION: The breasts [...] nal Result from Last 3 Months Insurance [facility] CHOICE PLUS [facility] CHOICE PLUS [place] [id number] [facility] CHOICE PLUS Advance Directives For more information, please contact: [phone] * Full Code (Latest Code Status on File) Date Activated Date Inactivated Comments 02/11/2022 3:22 PM 02/14/2022 4:17 PM Care Teams Telemarketing Supervisor Relationship Specialty Start Date End Date Thor Fajardo MD [address] [place] [address] PCP - General Family Medicine 12/30/20 Sebastian Soto MD [address] [facility] [address] [place] [address] Consulting Physician Gastroenterology 02/14/22 Ena Rose MD [address] [facility] [address] [place] [address] Consulting Physician Surgical Oncology 08/11/22 Tutu Hermosillo MD [address] [facility] [address] [place] [address] Consulting Physician Plastic Surgery 12/29/23
--- OUTSIDE RECORDS SUMMARY | 2024-05-09 01:56 | XMS_ITS | Encounter Summary ---
Author Organization [facility] Healthcare Address [address] [place] [address] Care Team Providers Care Food And Nutrition Services Assistant Name Role Phone Thor Fajardo MD Primary Care Provider [phone] Sebastian Soto MD Unavailable [phone] Ena Rsoe MD Unavailable [phone] Tutu Hermosillo MD Unavailable [phone] Reason for Referral * Diagnostic Imaging (Routine) - Pending Review Specialty Diagnoses / Procedures Referred By Contac t Referred To Contact Diagnoses Abnormal MRI, breast Procedures US Breast Right Limited Ena Rose MD [address] [address] Phone: tel: fax: [facility] [address] [place] [address] Referral ID Status Reason Start Date Expiration Date V isits Requested Visits Authorized [id number] Pending Review 02/14/2024 03/15/2025 1 1 Reason for Visit * Diagnostic Imaging (Routine) - Pending Review Specialty Diagnoses / Procedures Referred By Contac t Referred To Contact Diagnoses Abnormal MRI, breast Procedures US Breast Right Limited Ena Rose MD [address] [address] Phone: tel: fax: [facility] [address] [place] [address] Referral ID Status Reason Start Date Expiration Date V isits Requested Visits Authorized [id number] Pending Review 02/14/2024 03/15/2025 1 1 Encounter Details Date Type Department Care Team (Latest Contact Info) Description 02/21/2024 2:55 PM CDT - 02/21/2024 11:59 PM CDT Hospital Encounter [facility] - Imaging [address] [facility] [address] [place] [address] Abnormal MRI, breast Discharge Disposition: [...] often do you attend chur ch or oriental orthodox services? 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 Gender Identity Not on file Sexual Orientation [...] breast documented in this encounter Care Teams Food And Nutrition Services Assistant Relationship Specialty Start Date End Date Thor Fajardo MD [address] [place] [address] PCP - General Family Medicine 12/30/20 Sebastian Soto MD [address] [place] [address] [place] [address] Consulting Physician Gastroenterology 02/14/22 Ena Rose MD [address] [facility] [address] [place] [address] Consulting Physician Surgical Oncology 08/11/22 Tutu Hermosillo MD [address] [facility] [address] [place] [address] Consulting Physician Plastic Surgery 12/29/23 documented as of this encounter
--- OUTSIDE RECORDS SUMMARY | 2024-05-09 01:56 | XMS_ITS | Encounter Summary ---
Author Organization [facility] Healthcare Address [address] [place] [address] Care Team Providers Care Hemodialysis Charge Nurse Name Role Phone Thor Fajardo MD Primary Care Provider [phone] Sebastian Soto MD Unavailable [phone] Ena Rose MD Unavailable [phone] Tutu Hermosillo MD Unavailable [phone] Reason for Referral * MRI/CAT/PET Scan (Routine) - Closed Specialty Diagnoses / Procedures Referred By Contac t Referred To Contact Radiology Diagnoses Abnormal MRI, breast Procedures MRI Guided Breast Biopsy Right Ena Rose MD [address] [address] Phone: tel: fax: [facility] [address] [place] [address] Referral ID Status Reason Start Date Expiration Date Visits Re quested Visits Authorized [id number] Closed 02/22/2024 03/23/2025 1 1 UCT ARCHITECT Reason for Visit * MRI/CAT/PET Scan (Routine) - Closed Specialty Diagnoses / Procedures Referred By Contac t Referred To Contact Radiology Diagnoses Abnormal MRI, breast Procedures MRI Guided Breast Biopsy Right Ena Rose MD [address] [address] Phone: tel: fax: [address] [address] Referral ID Status Reason Start Date Expiration Date Visits Re quested Visits Authorized [id number] Closed 02/22/2024 03/23/2025 1 1 Encounter Details Date Type Department Care Team (Latest Contact Info) Description 03/09/2024 11:09 AM PRODUCT ARCHITECT - 03/09/2024 11:59 PM PRODUCT ARCHITECT Hospital Encounter [facility] [address] [place] [address] Abnormal MRI, breast Discharge Disposition: [...] How often do you attend chur or jainism services? Never 02/12/2022 Do you belong to [...] on file Legal Sex Female 9:50 PM PRODUCT ARCHITECT Gender Identity Not on file Sexual Orientation Not on file documented as of this encounter Last Filed Vital Signs Vital Sign Reading Time Taken Comments Blood Pressure 100/67 03/09/2024 2:16 PM PRODUCT ARCHITECT Pulse 100 03/09/2024 2:16 PM PRODUCT ARCHITECT Temperature - - Respiratory Rate 16 03/09/2024 2:16 PM PRODUCT ARCHITECT Oxygen Saturation - - Inhaled Oxygen Concentration - - Weight - - Height - - Body Mass Index - - documented in this encounter Discharge Instructions * Discharge Instructions* Clarisse Martinez RN - 03/09/2024 11:51 AM PRODUCT ARCHITECT What to expect when at home - [...] business days. You WILL be called by [facility] Nursing staff to review RESULTS and RECOMMENDATION. You will also receive a state law mandated letter indicating your biopsy was completed and results are ready. This letter is generated PRIOR to pathology being completed. Please be aware, results are usually NOT ready when that letter is sent. If you have any questions please call Nurse line at [phone] Tuesday through Tuesday 7:30am-4:00pm. If after 4:00 pm leave a voice message and your call will be returned the next day, if urgent call your provider. The Center is closed for Holiday and Weekends. UCT ARCHITECT documented in this encounter Medications at Time [...] Read Routine (OP Routine) 03/09/2024 2:01 PM PRODUCT ARCHITECT Abnormal MRI, breast documented in this encounter Results * MRI Guided Breast Biopsy Right (03/09/2024 2:01 PM PRODUCT ARCHITECT) Anatomical Region Laterality Modality Breast Right Magnetic Resonan ce 03/09/2024 2:47 PM PRODUCT ARCHITECT Addenda Addendum by Charity Oneil MD on 03/12/2024 2:32 PM PRODUCT ARCHITECT Pathology report for MRI guided biopsy describes [...] patient by the nursing staff of the [facility]. Electronically signed by: Charity Oneil M.D. Impressions 03/09/2024 2:47 PM PRODUCT ARCHITECT Successful MRI guided biopsy of a mass in the subareolar right breast. ??Pathology report is pending. ASSESSMENT: Post-procedure mammogram for marker placement. Electronically signed by: Charity Oneil M.D. Narrative 03/09/2024 2:47 PM PRODUCT ARCHITECT MRI GUIDED CORE NEEDLE BIOPSY RIGHT BREAST, [...] made with a #11 blade. ??A 9-gauge [facility] vacuum-assisted biopsy needle was advanced [...] tolerated the procedure well, and left the [facility] in good condition, without evidence of [...] 1 dose Contrast Given 03/09/2024 2:08 PM PRODUCT ARCHITECT 18 mL lidocaine (XYLOCAINE) 10 mg/mL (1 %) injection As needed, Starting on Tue03/09/24 at 1315, Intra-Op, Indications: Administration of Local AnesthesiaIndications:Admin istration of Local Anesthesia Given 03/09/2024 1:15 PM PRODUCT ARCHITECT 2 mL Right Breast lidocaine-EPINEPHrine (XYLOCAINE with EPI) 1 %-1:100,000 injection As needed, Starting on Tue03/09/24 at 1315, Intra-Op, Indications: Administration of Local AnesthesiaIndications:Admin istration of Local Anesthesia Given 03/09/2024 1:17 PM PRODUCT ARCHITECT 10 mL Right Breast sodium chloride 0.9% flush 50 mL 50 mL, intravenous, Once in imaging, line care, Starting on Tue03/09/24 at 1239, For 1 dose Given 03/09/2024 2:08 PM PRODUCT ARCHITECT 50 mL documented in this encounter Care Teams Hemodialysis Charge Nurse Relationship Specialty Start Date End Date Thor Fajardo MD [address] [place] [address] PCP - General Family Medicine 12/30/20 Sebastian Soto MD [address] [facility] [address] [place] [address] Consulting Physician Gastroenterology 02/14/22 Ena Rose MD [address] [facility] [address] [place] [address] Consulting Physician Surgical Oncology 08/11/22 Tutu Hermosillo MD [address] [facility] [address] [place] [address] Consulting Physician Plastic Surgery 12/29/23 documented as of this encounter
--- OUTSIDE RECORDS SUMMARY | 2024-05-09 01:56 | XMS_ITS | Encounter Summary ---
Author Organization [facility] Healthcare Address [address] [place] [address] Care Team Providers Care Operations Tech Name Role Phone Thor Fajardo MD Primary Care Provider Sebastian Soto MD Unavailable [phone] Ena Rose MD Unavailable [phone] Tutu Hermosillo MD Unavailable [phone] Encounter Details Date Type Department Care Team (Late st Contact Info) Description 02/14/2024 Documentation [facility] Cancer Risk Program [address] [place] [address] Adry Bae RN Social History Tobacco Use [...] often do you attend chur ch or restorationism services? 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 Cortes has been notified of abnormal Breast MRI results, and a second look ultrasound has been recommended. Patient scheduled and advised date and time to arrive to [facility] on 02/21/24 at 3pm for second look targeted ultrasound of the area for further evaluation. LANA Pena, RN Risk Program Nurse [facility] [phone] documented in this encounter Plan of Treatment Not on file documented as of this encounter Visit Diagnoses Not on filedocumented in this encounter Care Teams Operations Tech Relationship Specialty Start Date End Date Thor Fajardo MD [address] [place] [address] PCP - General Family Medicine 12/30/20 Sebastian Soto MD [address] [place] [address] [place] [address] Consulting Physician Gastroenterology 02/14/22 Ena Rose MD [address] [facility] [address] [place] [address] Consulting Physician Surgical Oncology 08/11/22 Tutu Hermosillo MD [address] [facility] [address] [place] [address] Consulting Physician Plastic Surgery 12/29/23 documented as of this encounter
--- OUTSIDE RECORDS SUMMARY | 2024-05-09 01:56 | XMS_ITS | Encounter Summary ---
Author Organization [facility] Healthcare Address [address] [place] [address] Care Team Providers Care Cloud Architect Name Role Phone Thor Fajardo MD Primary Care Provider [phone] Sebastian Soto MD Unavailable [phone] Ena Rose MD Unavailable Tutu Hermosillo MD Unavailable [phone] Reason for Visit * Reason Comments Breast Problem Encounter Details Date Type Department Care Team (Late st Contact Info) Description 01/03/2024 10:00 AM CDT Office Visit [facility] [address] [facility] [address] [place] [id number] Mónica Cao, HERMAN [address] [facility] [address] [place] [address] BRCA2 gene mutation positive (Primary Dx); [...] week 02/12/2022 How often do you attend [facility] or hindu services? 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 [facility] ~ [facility] Medical Group Dr. Dennis Rose MD, FACS [...] BRCA2 gene mutation positive - Primary Overview [facility] [employer] 2022: BRCA2 c.4243G>T p.E1415* pathogenic variant consistent with hereditary breast and ovarian cancer. Please view note from 07/29/2022 for specific cancer screening recommendations. Based on Shayla's family history, expanded genetic testing was offered at the conclusion of their initial visit. The [employer] Comprehensive panel analyzed 81 genes associated with [...] reflux disease) Kidney stones Wears glasses WPW (Keqwg-Wttegrgxt-Kmgig syndrome) Family History Problem Relation Age of [...] in November 2024. 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 [...] breast documented in this encounter Care Teams Cloud Architect Relationship Specialty Start Date End Date Thor Fajardo MD [address] [place] [address] PCP - General Family Medicine 12/30/20 Sebastian Soto MD [facility] [place] [address] Consulting Physician Gastroenterology 02/14/22 Ena Rose MD [address] [place] [address] Consulting Physician Surgical Oncology 08/11/22 Tutu Hermosillo MD [address] DIV SURG PLASTICS, [facility] [address] [place] [address] Consulting Physician Plastic Surgery 12/29/23 documented as of this encounter
--- OUTSIDE RECORDS SUMMARY | 2024-05-09 01:56 | XMS_ITS | Encounter Summary ---
Author Organization [facility] Healthcare Address [address] [place] [address] Care Team Providers Care Scrub Wheel Operator Name Role Phone Thor Fajardo MD Primary Care Provider [phone] Sebastian Soto MD Unavailable Ena Rose MD Unavailable Tutu Hermosillo MD Unavailable [phone] Reason for Visit * Reason Onset Date Comments Procedure question/concern 03/08/2024 Encounter Details Date Type Department Care Team (Late st Contact Info) Description 03/08/2024 Telephone [facility] 30[facility] [address] [place] [phone] Natalia Rodriguez MA Procedure question/concern Social [...] often do you attend chur ch or restoration services? 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 DL STEAMER * Telephone Encounter - Natalia Rodriguez MA - 03/08/2024 8:50 AM CST Pt called stating the Xanax 0.25mg #4 we sent out on 02/22/24 to her pharmacy for her to take priorto her BX tomorrow is not at the pharmacy. I confirmed the pharmacy we have on file and it is correct. I spoke with Hemant at [facility] and he has no record of the RX either. Can we please resend? DL STEAMER documented in this encounter Plan of Treatment Not on file documented as of this encounter Visit Diagnoses Not on filedocumented in this encounter Care Teams Scrub Wheel Operator Relationship Specialty Start Date End Date Thor Fajardo MD [address] [place] [address] PCP - General Family Medicine 12/30/20 Sebastian Soto MD [address] [address] Consulting Physician Gastroenterology 02/14/22 Ena Rose MD [address] [facility] [address] [place] [address] Consulting Physician Surgical Oncology 08/11/22 Tutu Hermosillo MD [address] DIV SURG [facility]LASTICS, [facility] [address] [address] Consulting Physician Plastic Surgery 12/29/23 documented as of this encounter
--- OUTSIDE RECORDS SUMMARY | 2024-05-09 01:56 | XMS_ITS | Encounter Summary ---
Author Organization [facility] Healthcare Address [address] [place] [address] Care Team Providers Care Brine Supervisor Name Role Phone Thor Fajardo MD Primary Care Provider [phone] Sebastian Soto MD Unavailable [phone] Ena Rose MD Unavailable [phone] Tutu Hermosillo MD Unavailable [phone] Reason for Referral * Consultation (Routine) - Pending Review Specialty Diagnoses / Procedures Referred By Joselin drummond Referred To Contact Plastic Surgery Diagnoses BRCA2 gene mutation positive Ena Rose MD [address] [facility] [address] [place] [address] Phone: tel: fax: [facility] (All Locations) Referral ID Status Reason Start Date Expiration Date Visits Requested Visits Authorized [id number] Pending Review Specialty Services Required 04/12/2025 12 12 Question Answer Please select the performing region: [facility] (All Locations) [167] # of visits: 12 Comments New CANCER DIAGNOSIS. Please schedule LILI with first available consult surgeon - Dr. Pereira, Dr. Hermosillo, Dr. Larry, Dr. Guzman. Needs surgery within 8 weeks of diagnosis. Thank you. UCTION INSPECTOR Encounter Details Date Type Department Care Team (Late st Contact Info) Description 03/13/2024 Orders Only [facility] [address] [facility] [address] [place] [address] Ena Rose MD [address] [facility] [address] [place] [address] BRCA2 gene mutation positive (Primary Dx) Social [...] How often do you attend chur or jain services? Never 02/12/2022 Do you belong to any clubs o r organizations such as mu-ism groups, unions, fraternal or athletic groups, or [...] on file Legal Sex Female 9:50 PM PRODUCTION INSPECTOR Gender Identity Not on file Sexual [...] Primary documented in this encounter Care Teams Brine Supervisor Relationship Specialty Start Date End Date Thor Fajardo MD [address] [place] [address] PCP - General Family Medicine 12/30/20 Sebastian Soto MD [address] [place] [address] Consulting Physician Gastroenterology 02/14/22 Ena Rose MD [address] [place] [address] Consulting Physician Surgical Oncology 08/11/22 Tutu Hermosillo MD [address] [facility]LASTICS, [facility] [address] [place] [address] Consulting Physician Plastic Surgery 12/29/23 documented as of this encounter
--- OUTSIDE RECORDS SUMMARY | 2024-05-09 01:56 | XMS_ITS | Encounter Summary ---
Author Organization [facility] Healthcare Address [address] [place] [address] Care Team Providers Care Cyber Forensic Specialist Name Role Phone Thor Fajardo MD Primary Care Provider [phone] Sebastian Soto MD Unavailable Ena Rose MD Unavailable Tutu Hermosillo MD Unavailable [phone] Encounter Details Date Type Department Care Team (Late st Contact Info) Description 02/22/2024 Orders Only [facility] [address] [facility] [address] [place] [phone] Ena Rose MD [address] [facility] [address] [address] Social History Tobacco Use Types [...] week 02/12/2022 How often do you attend [facility] or gnosticist services? Never 02/12/2022 Do you belong to [...] on file Legal Sex Female 9:50 PM NEEDLE GRADER Gender Identity Not on file Sexual Orientation [...] have resent to Dr Rose to sign.-SV/RN LE GRADER documented in this encounter Miscellaneous Notes * Addendum Note - Sekou Dent RN - 02/22/2024 10:32 AM CDTAddended by: SEKOU DENT on: 03/08/2024 10:14 AM Modules accepted: Orders LE GRADER documented in this encounter Plan of Treatment [...] documented as of this encounter Care Teams Cyber Forensic Specialist Relationship Specialty Start Date End Date Thor Fajardo MD [address] [place] [address] PCP - General Family Medicine 12/30/20 Sebastian Soto MD [address] [facility] [address] [place] [address] Consulting Physician Gastroenterology 02/14/22 Ena Rose MD [address] [facility] [address] [place] [address] Consulting Physician Surgical Oncology 08/11/22 Tutu Hermosillo MD [address] [facility] PLASTICS, [facility] [address] [address] Consulting Physician Plastic Surgery 12/29/23 documented as of this encounter
--- OUTSIDE RECORDS SUMMARY | 2024-05-09 01:56 | XMS_ITS | Encounter Summary ---
Author Organization [facility] Address [address] [place] [address] Phone Care Team Providers Care Winder Operator Name Role Phone Thor Fajardo MD Primary Care Provider [phone] Sebastian Soto MD Unavailable [phone] Ena Rose MD Unavailable Tutu Hermosillo MD Unavailable [phone] Encounter Details Date Type Department Care Team (Late st Contact Info) Description 03/09/2024 Orders Only [facility] [place], [place] Charity Oneil MD [address] [place] [address] Social History Tobacco Use Types Packs/Day Years [...] any clubs o r organizations such as catholic groups, unions, fraternal or athletic groups, or [...] on file Legal Sex Female 9:50 PM DRESSER TENDER Gender Identity Not on file Sexual Orientation Not on file documented as of this encounter Miscellaneous Notes * Result Encounter Note - Mónica Cao NP - 03/13/2024 10:36 AM DRESSER TENDER Per nurses in breast center patient is [...] self exams and call with any problems. SER TENDER documented in this encounter Plan of Treatment Not on file documented as of this encounter Procedures Procedure Name Priority Date/Time Associated Diagnosis Comments SURGICAL PATHOLOGY Routine 03/09/2024 1: 37 PM DRESSER TENDER documented in this encounter Results * Surgical pathology (03/09/2024 1:37 PM DRESSER TENDER) Breast biopsy, needle core 03/09/2024 1:37 PM DRESSER TENDER 03/09/2024 3:20 PM DRESSER TENDER Narrative 03/12/2024 11:22 AM DRESSER TENDER [address] ??[address] Tele: ?? Yasmeen Duran MD - Experimental Plastics Fabricator Note to Patients: This report may contain [...] PATHOLOGY REPORT Patient Name: ??DELMER CONTRERASMayte Address: ??[address] [place] [address] ??[id number] Gender: ??F : ??1985 (Age: 38) Service: ?? Location: ??, ?? Hospital #: ??[id number] Patient Type: ??[facility] Accession #: ? [id number] Taken: ? 03/09/2024 Received ? 03/09/2024 Reported: [...] entirely submitted in cassettes labeled A1-A4. ?? [facility] MICROSCOPIC DESCRIPTION: Sections of [...] features are evident. Clerical Data Follows A; [id number] REPORT IMAGES AND/OR SCANNED DOCUMENTS ONLY VIEWABLE IN PDF FORMAT The immunohistochemical test(s) cited in this report, if any, was developed and its performance characteristics determined by [facility]. ??It has not been cleared or approved by the U.S. Food and Drug Administration. ??The FDA has determined that such clearance or approval is not necessary. ??This test is used for clinical purposes. ??It should not be regarded as investigational or for research. ??[facility] is certified under the Clinical [...] part or completely in the following laboratories: [facility], [address] [facility], [place] [address] [facility], [address] [place] [address]. [place] Charity Oneil MD LAB PATHOLOGY ORDERABLES F inal Result documented in this encounter Visit Diagnoses Not on filedocumented in this encounter Care Teams Winder Operator Relationship Specialty Start Date End Date Thor Fajardo MD [address] [place] [address] PCP - General Family Medicine 12/30/20 Sebastian Soto MD [address] [facility] [address] [place] [address] Consulting Physician Gastroenterology 02/14/22 Ena Rose MD [address] [facility] [address] [place] [address] Consulting Physician Surgical Oncology 08/11/22 Tutu Hermosillo MD [address] [facility]LASTICS, [facility] [address] [place] [address] Consulting Physician Plastic Surgery 12/29/23 documented as of this encounter
--- OUTSIDE RECORDS SUMMARY | 2024-05-09 01:56 | XMS_ITS | Encounter Summary ---
Author Organization [facility] Healthcare Address [address] [place] [address] Care Team Providers Care Filler Sifter Helper Name Role Phone Thor Fajardo MD Primary Care Provider [phone] Sebastian Soto MD Unavailable Ena Rose MD Unavailable [phone] Tutu Hermosillo MD Unavailable [phone] Encounter Details Date Type Department Care Team (Late st Contact Info) Description 02/14/2024 Telephone [facility] 3023 [facility] [address] [place] [phone] Elena Chavez, RN Social History Tobacco [...] often do you attend chur ch or sikh services? Never 02/12/2022 Do you belong to [...] on file Legal Sex Female 9:50 PM LUBRICATION SUPERVISOR Gender Identity Not on file Sexual Orientation Not on file documented as of this encounter Miscellaneous Notes * Telephone Encounter - Elena Chavez RN - 02/14/2024 9:15 AM CDT LM for pt wiith results of MRI and need for sono on new finding RT breast SA. She should expect call from [facility] nurse to schedule the sono. * Telephone [...] on filedocumented in this encounter Care Teams Filler Sifter Helper Relationship Specialty Start Date End Date Thor Fajardo MD [address] [place] [address] PCP - General Family Medicine 12/30/20 Sebastian Soto MD [address] [place] [address] Consulting Physician Gastroenterology 02/14/22 Ena Rose MD [address] [place] [address] Consulting Physician Surgical Oncology 08/11/22 Tutu Hermosillo MD [address] [facility] SURG PLASTICS, [facility] [address] [place] [address] Consulting Physician Plastic Surgery 12/29/23 documented as of this encounter
--- OUTSIDE RECORDS SUMMARY | 2024-05-09 01:56 | XMS_ITS | Clinical Summary ---
Author Organization [facility] [address] Address [address] [place] [address] Care Team Providers Care Livestock Feeder Name Role Phone Thor Fajardo MD Primary Care Provider [phone] Sebastian Soto MD Unavailable [phone] Ena Rose MD Unavailable Tutu Hermosillo MD Unavailable [phone] Allergies No known active allergies Medications FeroSuL [...] BRCA2 gene mutation positive 08/11/2022 Overview (12/29/2023): [employer] 2023: BRCA2 c.4243G>T p.E1415* pathogenic variant consistent with hereditary breast and ovarian cancer. Please view note from 07/29/2022 for specific cancer screening recommendations. Based on Delmer's family history, expanded genetic testing was offered at the conclusion of their initial visit. The [employer] Comprehensive panel analyzed 81 genes associated with [...] (02/11/2022): Added automatically from request for surgery [id number] Encounters Date Type Department Care Team Description 03/13/2024 Orders Only [facility] [address] [facility] [address] [place] [address] Ena Rose MD BRCA2 gene mutation positive (Primary Dx) 03/12/2024 Telephone [facility] [address] [facility] [address] [place] [address] Lelia Mojica RN Test Results; Follow-Up Call 24-48 Hours 03/09/2024 2:00 PM BUTTON SEWER - 03/09/2024 11:59 PM BUTTON SEWER Hospital Encounter [facility] [address] [facility] [address] [place] [address] Abnormal MRI, breast Discharge Disposition: Discharge to home or self care 03/09/2024 11:09 AM BUTTON SEWER - 03/09/2024 11:59 PM BUTTON SEWER Hospital Encounter [facility] [address] [place] [address] Abnormal MRI, breast Discharge Disposition: Discharge to home or self care 03/09/2024 Orders Only [facility] [place], [place] Charity Oneil MD 03/08/2024 Telephone [facility] [address] [place] [address] [place] [address] Natalia Rodriguez MA Procedure question/concern 02/22/2024 Orders Only [facility] [address] [place] [address] [place] [address] Yasmeen Ly RN 02/22/2024 Orders Only [facility] [address] [place] [address] [place] [phone] Ena Rose MD 02/21/2024 2:55 PM CDT - 02/21/2024 11:59 PM CDT Hospital Encounter [facility] [address] [place] [address] [address] [place] [address] Abnormal MRI, breast Discharge Disposition: Discharge to home or self care 02/14/2024 Documentation [facility] Cancer Risk Program [address] [place] [address] [address] [place] [address] Adry Bae RN 02/14/2024 Telephone [facility] [address] [place] [address] [address], [place] [address] 872-960 Elena Chavez RN 02/13/2024 9:54 AM CDT - 02/13/2024 11:59 PM CDT Hospital Encounter [facility] at [address] [address] BRCA2 gene mutation positive Discharge Disposition: Discharge [...] Medical History Medical History Date Comments WPW (Rljen-Bqrboefxq-Hcapz syndrome) GERD (gastroesophageal reflux disease) Kidney stones [...] any clubs o r organizations such as mandaeism groups, unions, fraternal or athletic groups, or [...] on file Legal Sex Female 9:50 PM BUTTON SEWER Gender Identity Not on file Sexual Orientation Not on file Obstetrics History Last Filed Vital Signs Vital Sign Reading Time Taken Comments Blood Pressure 100/67 03/09/2024 2:16 PM BUTTON SEWER Pulse 100 03/09/2024 2:16 PM BUTTON SEWER Temperature 36.9 ??C (98.4 ??F) 01/03/2024 9:56 AM CD T Respiratory Rate 16 03/09/2024 2:16 PM BUTTON SEWER Oxygen Saturation 95% 01/11/2023 9:39 AM CDT [...] this topic Medical Devices Implanted Type Area Waistline Joiner Lockstitch Device Identifier Shelf Expiration Date Model / Serial / Lot [employer] Trimark Mri Guided Rigid Deployment Device Cork Marker Breast Trimark Td 13-Mr - [id number] Implanted:Qty: 1 on 03/09/2024 at [facility] Clip [employer] [id number] 08/01/2025 TRIMARK TD 13-MR / / [id number] [employer] Vazquez Flexi-Stent 4fr 9cm Small Pigtail Without Flange Flexible 6545 - [id number] Implanted:Qty: 1 on 02/11/2022 by Sebastian Soto MD at [facility] Stent N/A: Pancreas [employer] 11/29/2026 [id number] / / [id number] [employer] Cotton-Mims 10fr 7cm Taper Tip Guidewire Proximal Distal Flap [id number] - [id number] Implanted:Qty: 1 on 02/12/2022 by Sebastian Soto MD at [facility] Stent N/A: Bile Duct [employer] 08/03/2024 [id number] / / [id number] Procedures Procedure Name Priority Date/Time Associated Diagnosis Comments MAMM POST CLIP PLACEMENT RIGHT Schedule Routine, Read Routine (OP Routine) 03/09/2024 2:27 PM BUTTON SEWER Abnormal MRI, breast MRI GUIDED BREAST BIOPSY RIGHT Schedule Routine, Read Routine (OP Routine) 03/09/2024 2:01 PM BUTTON SEWER Abnormal MRI, breast SURGICAL PATHOLOGY Routine 03/09/2024 1:37 PM BUTTON SEWER US BREAST RIGHT LIMITED Schedule Routine, Read Routine (OP Routine) 02/21/2024 3:22 PM CDT Abnormal MRI, breast MRI BREAST BILATERAL W WO CONTRAST Routine 02/13/2024 12:01 PM CDT BRCA2 gene mutation positive from Last 3 Months Results * Mammo Post Clip Placement Right (03/09/2024 2:27 PM BUTTON SEWER) Anatomical Region Laterality Modality Breast Right Mammography 03/09/2024 2:47 PM BUTTON SEWER Addenda Addendum by Charity Oneil MD on 03/12/2024 2:32 PM BUTTON SEWER Pathology report for MRI guided biopsy describes [...] patient by the nursing staff of the [facility]. Electronically signed by: Charity Oneil M.D. Impressions 03/09/2024 2:47 PM BUTTON SEWER Successful MRI guided biopsy of a mass in the subareolar right breast. ??Pathology report is pending. ASSESSMENT: Post-procedure mammogram for marker placement. Electronically signed by: Charity Oneil M.D. Narrative 03/09/2024 2:47 PM BUTTON SEWER MRI GUIDED CORE NEEDLE BIOPSY RIGHT BREAST, [...] with a #11 blade. ??A 9-gauge [facility] vacuum-assisted biopsy needle was advanced to [...] tolerated the procedure well, and left the [facility] in good condition, without evidence of immediate complication. us Ena Rose MD IMG MAMMO PROCEDURES Edite d Result - Final * MRI Guided Breast Biopsy Right (03/09/2024 2:01 PM BUTTON SEWER) Anatomical Region Laterality Modality Breast Right Magnetic Resonan ce 03/09/2024 2:47 PM BUTTON SEWER Addenda Addendum by Charity Oneil MD on 03/12/2024 2:32 PM BUTTON SEWER Pathology report for MRI guided biopsy describes [...] patient by the nursing staff of the [facility]. Electronically signed by: Charity Oneil M.D. Impressions 03/09/2024 2:47 PM BUTTON SEWER Successful MRI guided biopsy of a mass in the subareolar right breast. ??Pathology report is pending. ASSESSMENT: Post-procedure mammogram for marker placement. Electronically signed by: Charity Oneil M.D. Narrative 03/09/2024 2:47 PM BUTTON SEWER MRI GUIDED CORE NEEDLE BIOPSY RIGHT BREAST, [...] with a #11 blade. ??A 9-gauge [facility] vacuum-assisted biopsy needle was advanced to [...] tolerated the procedure well, and left the [facility] in good condition, without evidence of immediate complication. Ena Rose MD [facility] MRI PROCEDURES Edited Result - Final * Surgical pathology (03/09/2024 1:37 PM BUTTON SEWER) Breast biopsy, needle core 03/09/2024 1:37 PM BUTTON SEWER 03/09/2024 3:20 PM BUTTON SEWER Narrative 03/12/2024 11:22 AM BUTTON SEWER [address] ??[address] Tele: ?? Yasmeen Duran MD - Cryolite Recovery Operator Note to Patients: This report may [...] PATHOLOGY REPORT Patient Name: ??DIANENAVJOTDELMER ArmenMayte Address: ??[address] [place] [address] ??[id number] Gender: ??F : ??1985 (Age: 38) Service: ?? Location: ??, ?? Hospital #: ??[id number] Patient Type: ??[facility] Accession #: ? [id number] Taken: ? 03/09/2024 Received ? 03/09/2024 Reported: [...] entirely submitted in cassettes labeled A1-A4. ?? [facility] MICROSCOPIC DESCRIPTION: Sections of the right breast [...] features are evident. Clerical Data Follows A; [id number] REPORT IMAGES AND/OR SCANNED DOCUMENTS ONLY VIEWABLE IN PDF FORMAT The immunohistochemical test(s) cited in this report, if any, was developed and its performance characteristics determined by [facility] Pathology Department. ??It has not been cleared or approved by the U.S. Food and Drug Administration. ??The FDA has determined that such clearance or approval is not necessary. ??This test is used for clinical purposes. ??It should not be regarded as investigational or for research. ??[facility] is certified under the Clinical [...] part or completely in the following laboratories: [facility], [facility], [place] [address] [facility], [address] [place] [address]. Charity Oneil MD LAB PATHOLOGY ORDERABLES F [...] and multiplanar reconstructions were performed and reviewed. [employer] software was utilized. BREAST COMPOSITION: The breasts [...] from Last [address] [place] [address] [facility] CHOICE [facility] HMO/PPO Address: [address] [place] [address] [place] [facility] CHOICE [facility] HMO/PPO Address: [address] [place] [address] [facility] CHOICE [facility] HMO/PPO Address: [address] [address] [place] [address] Advance Directives For more information, please contact: [phone] * Full Code (Latest Code Status on File) Date Activated Date Inactivated Comments 02/11/2022 3:22 PM 02/14/2022 4:17 PM Care Teams Livestock Feeder Relationship Specialty Start Date End Date Thor Fajardo MD [address] [place] [address] [place] [address] PCP - General Family Medicine 12/30/20 Sebastian Soto MD [address] [place] [address] Consulting Physician Gastroenterology 02/14/22 Ena Rose MD [address] [place], [place] [address] Consulting Physician Surgical Oncology 08/11/22 Tutu Hermosillo MD [address] [facility] [address] [place] [address] Consulting Physician Plastic Surgery 12/29/23
--- OUTSIDE RECORDS SUMMARY | 2024-05-09 01:56 | XMS_ITS | Encounter Summary ---
Author Organization [facility] Healthcare Address [address] [place] [address] Care Team Providers Care Meter Mechanic Name Role Phone Thor Fajardo MD Primary Care Provider [phone] Sebastian Soto MD Unavailable [phone] Ena Rose MD Unavailable [phone] Tutu Hermosillo MD Unavailable [phone] Reason for Referral * MRI/CAT/PET Scan (Routine) - Closed Specialty Diagnoses / Procedures Referred By Joselin drummond Referred To Contact Radiology Diagnoses BRCA2 gene mutation positive Procedures MRI Breast Bilateral W WO Contrast Mónica Cao NP [address] [address] Phone: tel: fax: [place] [address] [place] [address] Referral ID Status Reason Start Date Expiration Date Visits Re quested Visits Authorized [id number] Closed 01/03/2024 02/01/2025 1 1 Encounter Details Date Type Department Care Team (Late st Contact Info) Description 01/03/2024 Orders Only [facility] [address] [facility] [address] [address] Mónica Cao NP [address] [facility] [address] [place] [address] BRCA2 gene mutation positive (Primary Dx) Social [...] How often do you attend chur or advent services? Never 02/12/2022 Do you belong to any clubs o r organizations such as anabaptist groups, unions, fraternal or athletic groups, or [...] on file Legal Sex Female 9:50 PM PLASTIC SURGERY MANAGER Gender Identity Not on file Sexual [...] and multiplanar reconstructions were performed and reviewed. [employer] software was utilized. BREAST COMPOSITION: The breasts [...] internal mammary lymph node. Mónica Bea Kiley WHEEL LOADER OPERATOR IMG MRI PROCEDURES Fi nal Result documented in this encounter Visit Diagnoses Diagnosis BRCA2 gene mutation positive- Primary BRCA2 gene mutation positive documented in this encounter Care Teams Meter Mechanic Relationship Specialty Start Date End Date Thor Fajardo MD [address] [place] [address] PCP - General Family Medicine 12/30/20 Sebastian Soto MD [address] [facility] [address] [place] [address] Consulting Physician Gastroenterology 02/14/22 Ena Rose MD [address] [facility] [address] [place] [address] Consulting Physician Surgical Oncology 08/11/22 Tutu Hermosillo MD [address] [facility] [address] [place] [address] Consulting Physician Plastic Surgery 12/29/23 documented as of this encounter
--- OUTSIDE RECORDS SUMMARY | 2024-05-09 01:56 | XMS_ITS | Encounter Summary ---
Author Organization [facility] Healthcare Address [address] [place] [address] Care Team Providers Care Rag Inspector Name Role Phone Thor Fajardo MD Primary Care Provider [phone] Sebastian Soto MD Unavailable [phone] Ena Rose MD Unavailable Tutu Hermosillo MD Unavailable [phone] Encounter Details Date Type Department Care Team (Late st Contact Info) Description 02/22/2024 Orders Only [facility] [address] [address] Yasmeen Ly, RN Social History [...] often do you attend chur ch or pentecostalism services? Never 02/12/2022 Do you belong to [...] on file Legal Sex Female 9:50 PM ADMIN PROG COORD Gender Identity Not on file Sexual Orientation Not on file documented as of this encounter Plan of Treatment Not on file documented as of this encounter Visit Diagnoses Not on filedocumented in this encounter Care Teams Rag Inspector Relationship Specialty Start Date End Date Thor Fajardo MD [address] [place] [address] PCP - General Family Medicine 12/30/20 Sebastian Soto MD [address] [facility] [address] [place] [address] Consulting Physician Gastroenterology 02/14/22 Ena Rose MD [address] [facility] [address] [place] [address] Consulting Physician Surgical Oncology 08/11/22 Tutu Hermosillo MD [address] [facility], [facility] 3 [facility] [address] [place] [address] Consulting Physician Plastic Surgery 12/29/23 documented as of this encounter
--- OUTSIDE RECORDS SUMMARY | 2024-05-09 01:56 | XMS_ITS | Encounter Summary ---
Author Organization [facility] Healthcare Address [address] [place] [address] Care Team Providers Care Regulatory Submissions Specialist Name Role Phone Thor Fajardo MD Primary Care Provider [phone] Sebastian Soto MD Unavailable [phone] Ena Rose MD Unavailable Tutu Hermosillo MD Unavailable [phone] Reason for Visit * Reason Comments Test Results Follow-Up Call 24-48 Hours Encounter Details Date Type Department Care Team (Late st Contact Info) Description 03/12/2024 Telephone [facility] - [facility] [address] [facility] [address] [place] [address] Lelia Mojica RN Test Results; Follow-Up [...] often do you attend chur ch or temple services? Never 02/12/2022 Do you belong to any clubs o r organizations such as mormon groups, unions, fraternal or athletic groups, or [...] on file Legal Sex Female 9:50 PM COFFEE SAMPLER Gender Identity Not on file Sexual Orientation Not on file documented as of this encounter Miscellaneous Notes * Telephone Encounter - Lelia Mojica RN - 03/12/2024 3:33 PM COFFEE SAMPLER 24 hour follow up completed. Shayla did well over the weekend. No bruising, swelling, or redness noted. No complaints of pain. Reviewed benign breast biopsy results with pt. Return in June 2024 for screening and follow up MRI in a year. Continue monthly self exams and call with any problems. EE SAMPLER documented in this encounter Plan of Treatment Not on file documented as of this encounter Visit Diagnoses Not on filedocumented in this encounter Care Teams Regulatory Submissions Specialist Relationship Specialty Start Date End Date Thor Fajardo MD [address] [place] [address] PCP - General Family Medicine 12/30/20 Sebastian Soto MD [address] [facility] [address] [place] [address] Consulting Physician Gastroenterology 02/14/22 Ena Rose MD [address] [facility] [address] [place] [address] Consulting Physician Surgical Oncology 08/11/22 Tutu Hermosillo MD [address] [facility], [facility] [address] [place] [address] Consulting Physician Plastic Surgery 12/29/23 documented as of this encounter
--- OUTSIDE RECORDS SUMMARY | 2024-05-09 01:56 | XMS_ITS | Encounter Summary ---
Author Organization [facility] Healthcare Address [address] [place] [address] Care Team Providers Care Forge Press Operator Name Role Phone Thor Fajardo MD Primary Care Provider [phone] Sebastian Soto MD Unavailable [phone] Ena Rose MD Unavailable [phone] Tutu Hermosillo MD Unavailable [phone] Reason for Referral * Diagnostic Imaging (Routine) - Closed Specialty Diagnoses / Procedures Referred By Joselin drummond Referred To Contact Diagnoses Abnormal MRI, breast Procedures Mammo Post Clip Placement Right Ena Rose MD [address] [address] Phone: tel: fax: [facility] [address] [place] [address] Referral ID Status Reason Start Date Expiration Date Visits Re quested Visits Authorized [id number] Closed 03/09/2024 04/08/2025 1 1 F SECURITY AND SAFETY OFFICER Reason for Visit * Diagnostic Imaging (Routine) - Closed Specialty Diagnoses / Procedures Referred By Joselin drummond Referred To Contact Diagnoses Abnormal MRI, breast Procedures Mammo Post Clip Placement Right Ena Rose MD [address] [address] Phone: tel: fax: [facility] [address] [place] [address] Referral ID Status Reason Start Date Expiration Date Visits Re quested Visits Authorized [id number] Closed 03/09/2024 04/08/2025 1 1 Encounter Details Date Type Department Care Team (Latest Contact Info) Description 03/09/2024 2:00 PM CHIEF SECURITY AND SAFETY OFFICER - 03/09/2024 11:59 PM CHIEF SECURITY AND SAFETY OFFICER Hospital Encounter [facility] - Imaging [address] [facility] [address] [place] [address] Abnormal MRI, breast Discharge Disposition: [...] often do you attend chur ch or zoroastrianism services? Never 02/12/2022 Do you belong to any clubs o r organizations such as episcopalian groups, unions, fraternal or athletic groups, or [...] file Legal Sex Female 9:50 PM CHIEF SECURITY AND SAFETY OFFICER Gender Identity Not on file Sexual [...] Read Routine (OP Routine) 03/09/2024 2:27 PM CHIEF SECURITY AND SAFETY OFFICER Abnormal MRI, breast documented in this encounter Results * Mammo Post Clip Placement Right (03/09/2024 2:27 PM CHIEF SECURITY AND SAFETY OFFICER) Anatomical Region Laterality Modality Breast Right Mammography 03/09/2024 2:47 PM CHIEF SECURITY AND SAFETY OFFICER Addenda Addendum by Charity Oneil MD on 03/12/2024 2:32 PM CHIEF SECURITY AND SAFETY OFFICER Pathology report for MRI guided biopsy describes [...] patient by the nursing staff of the [facility]. Electronically signed by: Charity Oneil M.D. Impressions 03/09/2024 2:47 PM CHIEF SECURITY AND SAFETY OFFICER Successful MRI guided biopsy of a mass in the subareolar right breast. ??Pathology report is pending. ASSESSMENT: Post-procedure mammogram for marker placement. Electronically signed by: Charity Oneil M.D. Narrative 03/09/2024 2:47 PM CHIEF SECURITY AND SAFETY OFFICER MRI GUIDED CORE NEEDLE BIOPSY RIGHT BREAST, [...] with a #11 blade. ??A 9-gauge [facility] vacuum-assisted biopsy needle was advanced [...] breast documented in this encounter Care Teams Forge Press Operator Relationship Specialty Start Date End Date Thor Fajardo MD [address] [place] [address] PCP - General Family Medicine 12/30/20 Sebastian Soto MD [address] [place] [address] Consulting Physician Gastroenterology 02/14/22 Ena Rose MD [address] [place] [address] Consulting Physician Surgical Oncology 08/11/22 Tutu Hermosillo MD [address] [facility], [facility] [address] [place] [address] Consulting Physician Plastic Surgery 12/29/23 documented as of this encounter
--- OUTSIDE RECORDS SUMMARY | 2024-05-09 01:57 | XMS_ITS | Encounter Summary ---
Author Organization [facility] Address [address] [place] [address] Phone Care Team Providers Care Project Development Leader Name Role Phone Thor Fajardo MD Primary Care Provider [phone] Sebastian Soto MD Unavailable [phone] Ena Rose MD Unavailable [phone] Reason for Visit * Reason Comments Initial Consult * Consultation (Routine) - Closed Specialty Diagnoses / Procedures Referred By Joselin drummond Referred To Contact Plastic Surgery Diagnoses BRCA2 gene mutation positive Ena Rose MD [address] [facility] [address] [place] [address] Phone: tel: fax: [facility] (All Locations) Referral ID Status Reason Start Date Expiration Date V isits Requested Visits Authorized [id number] Closed Specialty Services Required 08/17/2022 09/16/2023 1 1 Encounter Details Date Type Department Care Team (Latest Contact Info) Description 10/11/2022 2:15 PM CDT Office Visit [facility] Surgery [address] [facility] [address] [place] [address] Tutu Hermosillo MD [address] [place] [address] Encounter to discuss breast reconstruction [...] on file Legal Sex Female 9:50 PM CAB SUPERVISOR Gender Identity Not on file Sexual [...] GERD (gastroesophageal reflux disease) Kidney stones WPW (Zrajd-Zjgiskskm-Fwzbl syndrome) Past Surgical History: Procedure Laterality Date [...] placement in the pre-pectoral plane. We discussed tissue-electrocardiograph operator to implant vs direct to implant reconstruction. [...] or place a partially-expanded or deflated tissue electrocardiograph operator. 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 She will follow-up with Dr. Rose and [...] 3 documented in this encounter Care Teams Project Development Leader Relationship Specialty Start Date End Date Thor Fajardo MD [address] [place] [address] PCP - General Family Medicine 12/30/20 Sebastian Soto MD [address] [facility] [address] [place] [address] Consulting Physician Gastroenterology 02/14/22 Ena Rose MD [address] [facility] [address] [place] [address] Consulting Physician Surgical Oncology 08/11/22 documented as of this encounter
--- OUTSIDE RECORDS SUMMARY | 2024-05-09 01:57 | XMS_ITS | Encounter Summary ---
Author Organization [facility] Address [address] [facility] [address] [place] [address] Care Team Providers Care Custodian Athletic Equipment Name Role Phone Thor Fajardo MD Primary Care Provider [phone] Sebastian Soto MD Unavailable [phone] Ena Rose MD Unavailable [phone] Reason for Referral * Diagnostic Imaging (Routine) - Closed Specialty Diagnoses / Procedures Referred By Contac t Referred To Contact Procedures US Guided Breast Biopsy Left Al Swain MD [address] [address] Phone: tel: fax: Referral ID Status Reason Start Date Expiration Date Visits Re quested Visits Authorized [id number] Closed 08/17/2022 09/16/2023 1 1 S EXAMINER * Diagnostic Imaging (Routine) - Closed Specialty Diagnoses / Procedures Referred By Contac t Referred To Contact Procedures Diagnostic Mammogram Bilateral W Anibal Al Swain MD [address] [place] [address] Phone: tel: fax: Referral ID Status Reason Start Date Expiration Date Visits Re quested Visits Authorized [id number] Closed 08/17/2022 09/16/2023 1 1 S EXAMINER * Consultation (Routine) - Closed Specialty Diagnoses / Procedures [facility] Referred To Contact Plastic Surgery Diagnoses BRCA2 gene mutation positive Ena Rose MD [address] [address] Phone: tel: fax: [facility] (All Locations) Referral ID Status Reason Start Date Expiration Date V isits Requested Visits Authorized [id number] Closed Specialty Services Required 08/17/2022 09/16/2023 1 1 Question Answer Please select the performing region: [facility] (All Locations) [167] # of visits: 1 Comments Please schedule with first available consult surgeon - Dr. Pereira, Dr. Hermosillo, Dr. Larry. Thank you. * MRI/CAT/PET Scan (Routine) - Closed Specialty Diagnoses / Procedures [facility] Referred To Contact Radiology Diagnoses BRCA2 gene mutation positive Procedures MRI Breast Bilateral W WO Contrast Ena Rose MD [address] [place] [id number] Phone: tel: fax: [facility] [address] [place] [address] Referral ID Status Reason Start Date Expiration Date Visits Re quested Visits Authorized [id number] Closed 08/17/2022 09/16/2023 1 1 * Diagnostic Imaging (Routine) - Closed Specialty Diagnoses / Procedures Referred By [facility] Referred To Contact Diagnoses BRCA2 gene mutation positive Procedures Diagnostic Mammogram Bilateral W Anibal Ena Rose MD [address] [address] Phone: tel: fax: [facility] [address] [place] [address] Referral ID Status Reason Start Date Expiration Date Visits Re quested Visits Authorized [id number] Closed 08/17/2022 09/16/2023 1 1 Encounter Details Date Type Department Care Team (Late st Contact Info) Description 08/17/2022 Orders Only [facility] [address] [facility] [address] [place] [address] Ena Rose MD [facility] [address] [place] [address] BRCA2 gene mutation positive (Primary Dx) Social [...] How often do you attend chur or mu-ism services? Never 02/12/2022 Do you belong to any clubs o r organizations such as hinduism groups, unions, fraternal or athletic groups, or [...] on file Legal Sex Female 9:50 PM FORMS EXAMINER Gender Identity Not on file Sexual Orientation [...] Mammogram Bilateral W Anibal (06/20/2023 10:27 AM FORMS EXAMINER) Anatomical Region Laterality Modality Breast Bilateral Mammography 06/20/2023 10:3 6 AM FORMS EXAMINER Impressions 06/20/2023 10:36 AM FORMS EXAMINER No mammographic evidence of malignancy. BI-RADS Category 2: Benign Findings Advise continued high-risk screening protocol with breast MRI due in 6 months and bilateral mammogram in 12 months. Findings and recommendations were communicated to the patient. Electronically signed by: Nannette Foreman MD Narrative 06/20/2023 10:36 AM FORMS EXAMINER EXAMINATION/TECHNIQUE: Bilateral Digital diagnostic mammogram including CAD [...] 12:00 at outside facility in June 2022. COMPARISON:[facility] imaging of 06/24/2022 and biopsy imaging of 07/01/2022. TECHNIQUE: Bilateral dynamic breast MRI was performed using a dedicated breast coil. ??Images were obtained prior to and following intravenous administration of 18 mL's of gadoterate meglumine contrast. ??Subtraction images, 3-D and multiplanar reconstructions were performed and reviewed. [employer] software was utilized. BREAST COMPOSITION: Heterogeneously dense [...] or internal mammary adenopathy. Ena Rose MD [facility] MRI PROCEDURES Final R esult * Surgical pathology (07/01/2022) Tissue Al Chapin MD LAB PATHOLOGY ORDERABLES Final Result * US Guided Breast Biopsy Left (07/01/2022) Anatomical Region Laterality Modality Breast Left Mammography Al Chapin MD IM MAMMO PROCEDURES Lou l Result * Diagnostic Mammogram Bilateral W Anibal (06/24/2022) Anatomical Region Laterality Modality Breast Bilateral Mammography Al Chapin MD [facility] [place] MAMMO PROCEDURES Lou l Result documented in this encounter Visit Diagnoses Diagnosis BRCA2 gene mutation positive- Primary BRCA2 gene mutation positive BRCA2 gene mutation positive documented in this encounter Care Teams Custodian Athletic Equipment Relationship Specialty Start Date End Date Thor Fajardo MD [address] [place] [address] PCP - General Family Medicine 12/30/20 Sebastian Soto MD [address] [facility] [address] [place] [address] Consulting Physician Gastroenterology 02/14/22 Ena Rose MD [address] [facility] [address] [place] [address] Consulting Physician Surgical Oncology 08/11/22 documented as of this encounter
--- OUTSIDE RECORDS SUMMARY | 2024-05-09 01:57 | XMS_ITS | Encounter Summary ---
Author Organization [facility] Address [address] [facility] [address] [place] [address] Care Team Providers Care Material Coordinator Name Role Phone Thor Fajardo MD Primary Care Provider [phone] Sebastian Soto MD Unavailable [phone] Ena Rose MD Unavailable [phone] Reason for Visit * Reason Comments Breast Problem Encounter Details Date Type Department Care Team (Late st Contact Info) Description 08/16/2022 2:30 PM CDT Office Visit [facility] [address] [facility] [address] [place] [address] Ena Rose MD [address] [facility] [address] [place] [address] BRCA2 gene mutation positive (Primary [...] week 02/12/2022 How often do you attend [facility] or anabaptist services? Never 02/12/2022 Do you belong to any clubs o r organizations such as synagogue groups, unions, fraternal or athletic groups, or [...] on file Legal Sex Female 9:50 PM NEON SIGN WORKER Gender Identity Not on file Sexual [...] were not included. [facility] ~ [facility] Dr. Dennis Rose MD, FACS Mónica Cao [address], [facility] [address] [place] [address] ? [email or web address] PATIENT NAME: Shayla Curry : 1985 Patient [...] GERD (gastroesophageal reflux disease) Kidney stones WPW (Ttqcf-Uasuhbsmt-Jyaxv syndrome) Past Surgical History: Procedure Laterality Date [...] positive. In regards to breast cancer the well puller has toldher that her risk of getting [...] 08/11/2022 added in this encounter Care Teams Material Coordinator Relationship Specialty Start Date End Date Thor Fajardo MD [address] [place] [address] PCP - General Family Medicine 12/30/20 Sebastian Soto MD [address] [facility] [address] [place] [address] Consulting Physician Gastroenterology 02/14/22 Ena Rose MD [address] [facility] [address] [place] [address] Consulting Physician Surgical Oncology 08/11/22 documented as of this encounter
--- OUTSIDE RECORDS SUMMARY | 2024-05-09 01:57 | XMS_ITS | Encounter Summary ---
Author Organization [facility] Address [address] [place] [address] Care Team Providers Care Microarray Specialist Name Role Phone Thor Fajardo MD Primary Care Provider Sebastian Soto MD Unavailable [phone] Reason for Visit * Diagnostic Imaging (Routine) - Closed Specialty Diagnoses / Procedures Referred By Joselin drummond Referred To Contact Procedures Breast Imaging Procedure Outside Reference Miscellaneous, Not In File Referral ID Status Reason Start Date Expiration Date Visits Re quested Visits Authorized [id number] Closed 08/10/2022 09/09/2023 1 1 Encounter Details Date Type Department Care Team (Latest Contact Info) Description 07/01/2022 - 07/01/2022 11:59 PM PAID SEARCH SPECIALIST Hospital Encounter [facility] - Imaging [phone] Discharge Disposition: Discharge to home or self [...] often do you attend chur ch or scientologist services? Never 02/12/2022 Do you belong to any clubs o r organizations such as jewish groups, unions, fraternal or athletic groups, or [...] on file Legal Sex Female 9:50 PM PAID SEARCH SPECIALIST Gender Identity Not on file Sexual [...] PROCEDURE OUTSIDE REFERENCE Routine 07/01/2022 12:00 AM PAID SEARCH SPECIALIST documented in this encounter Results * Breast Imaging Procedure Outside Reference (07/01/2022 12:00 AM PAID SEARCH SPECIALIST) Narrative RAD_PACS_OUTSIDE_FILM_[facility] - 08/10/2022 9:15 AM CDT This order has been auto-finalized and does not contain a result. us Not In File Miscellaneous IMG MAMMO PROCEDURES F inal Result RAD_PACS_OUTSIDE_FILM_[facility] documented in this encounter Visit Diagnoses Not on filedocumented in this encounter Care Teams Microarray Specialist Relationship Specialty Start Date End Date Thor Fajardo MD [address] [place] [address] PCP - General Family Medicine 12/30/20 Sebastian Soto MD [address] [address] Consulting Physician Gastroenterology 02/14/22 documented as of this encounter
--- OUTSIDE RECORDS SUMMARY | 2024-05-09 01:57 | XMS_ITS | Encounter Summary ---
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 Per Vanessa NICOLE, patient does not require HH services. [facility] consult closed and no services set up at this time. documented in this encounter Plan of Treatment Not on file documented as of this encounter Visit Diagnoses Not on filedocumented in this encounter Care Teams Interactive Art Director Relationship Specialty Start Date End Date Thor Fajardo MD [address] [place] [address] PCP - General Family Medicine 12/30/20 Sebastian Soto MD [address] [facility] [address] [place] [address] Consulting Physician Gastroenterology 02/14/22 documented as of this encounter
--- OUTSIDE RECORDS SUMMARY | 2024-05-09 01:57 | XMS_ITS | Encounter Summary ---
Author Organization [facility] Address [address] [facility] [address] [place] [address] Care Team Providers Care Employee Services Manager Name Role Phone Thor Maria MD Primary Care Provider [phone] Sebastian Soto MD Unavailable [phone] Encounter Details Date Type Department Care Team (Late st Contact Info) Description 08/04/2022 Telephone [facility] [address] [facility] [address] [place] [address] Ena Rose MD [facility] [address] [place] [address] Social History Tobacco Use Types Packs/Day [...] often do you attend chur ch or jehovah's witness services? Never 02/12/2022 Do you belong to [...] on file Legal Sex Female 9:50 PM ERECTING CRANE OPERATOR Gender Identity Not on file Sexual [...] : We will request your imaging from [facility]. Our radiology team will review to [...] HISTORY OF CANCER: If not treated at [facility]: Which Side? When and where did you receive your care? Genetic testing? If yes, send or bring to appointment. Best number to reach you if we have additional questions? [phone] Items pending? N Added to tracking? Y Items scanned?N documented in this encounter Plan of Treatment Not on file documented as of this encounter Visit Diagnoses Not on filedocumented in this encounter Care Teams Employee Services Manager Relationship Specialty Start Date End Date Thor Maria MD [address] [place] [address] PCP - General Family Medicine 12/30/20 Sebastian Soto MD [address] [address] Consulting Physician Gastroenterology 02/14/22 documented as of this encounter
--- OUTSIDE RECORDS SUMMARY | 2024-05-09 01:57 | XMS_ITS | Encounter Summary ---
Author Organization [facility] Healthcare Address [address] [place] [address] Care Team Providers Care Liaison Officer Name Role Phone Thor Fajardo MD Primary Care Provider [phone] Sebastian Soto MD Unavailable [phone] Reason for Visit * Diagnostic Imaging (Routine) - Closed Specialty Diagnoses / Procedures Referred By Joselin drummond Referred To Contact Procedures Breast Imaging Procedure Outside Reference Miscellaneous, Not In File Referral ID Status Reason Start Date Expiration Date Visits Re quested Visits Authorized [id number] Closed 08/10/2022 09/09/2023 1 1 Encounter Details Date Type Department Care Team (Latest Contact Info) Description 07/01/2022 12:05 AM CUTTER ALUMINUM SHEET - 07/01/2022 11:59 PM CUTTER ALUMINUM SHEET Hospital Encounter [facility] - Imaging [phone] Discharge Disposition: Discharge to home or self [...] on file Legal Sex Female 9:50 PM CUTTER ALUMINUM SHEET Gender Identity Not on file Sexual Orientation [...] PROCEDURE OUTSIDE REFERENCE Routine 07/01/2022 12:05 AM CUTTER ALUMINUM SHEET documented in this encounter Results * Breast Imaging Procedure Outside Reference (07/01/2022 12:05 AM CUTTER ALUMINUM SHEET) Narrative RAD_PACS_OUTSIDE_FILM_[facility] - 08/10/2022 9:18 AM CDT This order has been auto-finalized and does not contain a result. us Not In File Miscellaneous IMG MAMMO PROCEDURES F inal Result RAD_PACS_OUTSIDE_FILM_[facility] documented in this encounter Visit Diagnoses Not on filedocumented in this encounter Care Teams Liaison Officer Relationship Specialty Start Date End Date Thor Fajardo MD [address] [place] [address] PCP - General Family Medicine 12/30/20 Sebastian Soto MD [address] [address] Consulting Physician Gastroenterology 02/14/22 documented as of this encounter
--- OUTSIDE RECORDS SUMMARY | 2024-05-09 01:57 | XMS_ITS | Encounter Summary ---
Author Organization [facility] Address [address] [facility] [address] [place] [address] Care Team Providers Care Supercharger Mechanic Name Role Phone Thor Fajardo MD Primary Care Provider [phone] Sebastian Soto MD Unavailable [phone] Ena Rose MD Unavailable [phone] Reason for Visit * Reason Comments Follow-up Encounter Details Date Type Department Care Team (Late st Contact Info) Description 01/11/2023 9:35 AM CDT Office Visit [facility] Cardiology [address] [address] Myron Patton MD [address] [place] [address] Palpitations (Primary Dx); WPW syndrome; Neurocardiogenic [...] week 02/12/2022 How often do you attend [facility] or spiritism services? Never 02/12/2022 Do you belong to any clubs o r organizations such as oriental orthodox groups, unions, fraternal or athletic groups, [...] on file Legal Sex Female 9:50 PM HOTEL SUPPLIES SALESPERSON Gender Identity Not on file Sexual Orientation [...] Curry in [facility] at [facility] at [facility] at [facility]. I have reviewed the pertinent data [...] lightheadedness, dizziness, presyncope or syncope. 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 She is doing well overall from cardiac standpoint Past Medical History Past Medical History: Diagnosis Date Anxiety GERD (gastroesophageal reflux disease) Kidney stones Wears glasses WPW (Iyyew-Jynpzgulb-Zurtw syndrome) Past Surgical History Past Surgical History: [...] disorders documented in this encounter Care Teams Supercharger Mechanic Relationship Specialty Start Date End Date Thor Fajardo MD [address] [place] [address] PCP - General Family Medicine 12/30/20 Sebastian Soto MD [address] [place] [address] Consulting Physician Gastroenterology 02/14/22 Ena Rose MD [address] [place] [address] Consulting Physician Surgical Oncology 08/11/22 documented as of this encounter
--- OUTSIDE RECORDS SUMMARY | 2024-05-09 01:57 | XMS_ITS | Encounter Summary ---
Author Organization [facility] Healthcare Address [address] [place] [address] Care Team Providers Care Manufacturing Applications Engineer Name Role Phone Thor Fajardo MD Primary Care Provider Sebastian Soto MD Unavailable [phone] Ena Rose MD Unavailable [phone] Reason for Referral * MRI/CAT/PET Scan (Routine) - Closed Specialty Diagnoses / Procedures Referred By Joselin drummond Referred To Contact Radiology Diagnoses BRCA2 gene mutation positive Procedures MRI Breast Bilateral W WO Contrast Ena Rose MD [address] [address] Phone: tel: fax: [facility] [address] [place] [address] Referral ID Status Reason Start Date Expiration Date Visits Re quested Visits Authorized [id number] Closed 08/17/2022 09/16/2023 1 1 Reason for Visit * MRI/CAT/PET Scan (Routine) - Closed Specialty Diagnoses / Procedures Referred By Contishaan drummond Referred To Contact Radiology Diagnoses BRCA2 gene mutation positive Procedures MRI Breast Bilateral W WO Contrast Ena Rose MD [address] [address] Phone: tel: fax: [facility] [address] [place] [address] Referral ID Status Reason Start Date Expiration Date Visits Re quested Visits Authorized [id number] Closed 08/17/2022 09/16/2023 1 1 Encounter Details Date Type Department Care Team (Latest Contact Info) Description 12/20/2022 2:37 PM CDT - 12/20/2022 11:59 PM CDT Hospital Encounter [facility] - Imaging [address] [place] [address] BRCA2 gene mutation positive Discharge Disposition: Discharge [...] often do you attend chur ch or anabaptist services? Never 02/12/2022 Do you belong to any clubs o r organizations such as uatsdin groups, unions, fraternal or athletic groups, or [...] on file Legal Sex Female 9:50 PM CIRCULATION TENDER Gender Identity Not on file Sexual [...] 12:00 at outside facility in June 2022. COMPARISON:[facility] imaging of 06/24/2022 and biopsy imaging of 07/01/2022. TECHNIQUE: Bilateral dynamic breast MRI was performed using a dedicated breast coil. ??Images were obtained prior to and following intravenous administration of 18 mL's of gadoterate meglumine contrast. ??Subtraction images, 3-D and multiplanar reconstructions were performed and reviewed. [employer] software was utilized. BREAST COMPOSITION: Heterogeneously dense [...] 12/01 documented in this encounter Care Teams Manufacturing Applications Engineer Relationship Specialty Start Date End Date Thor Fajardo MD [address] [place] [address] PCP - General Family Medicine 12/30/20 Sebastian Soto MD [address] [facility] [address] [place] [address] Consulting Physician Gastroenterology 02/14/22 Ena Rose MD [address] [facility] [address] [place] [address] Consulting Physician Surgical Oncology 08/11/22 documented as of this encounter
--- OUTSIDE RECORDS SUMMARY | 2024-05-09 01:57 | XMS_ITS | Encounter Summary ---
Author Organization [facility] Address [address] [facility] [address] [place] [address] Care Team Providers Care Advertising Sales Consultant Name Role Phone Thor Fajardo MD Primary Care Provider [phone] Sebastian Soto MD Unavailable [phone] Reason for Referral * Cardiology (Routine) - Closed Specialty Diagnoses / Procedures Referred By Joselin drummond Referred To Contact Diagnoses Palpitations Procedures MCT Mobile Cardiac Telemetry Event Monitor Myron Patton MD [address] [address] Phone: tel: fax: [facility] Referral ID Status Reason Start Date Expiration Date Visits Re quested Visits Authorized [id number] Closed 06/08/2022 07/08/2023 1 1 AVER Reason for Visit * Reason Comments New Patient * Consultation (Routine) - Closed Specialty Diagnoses / Procedures Referred By Joselin drummond Referred To Contact Cardiology Diagnoses Vasovagal syncope History of Pnooe-Lvzhgwcgf-Mnaln (WPW) syndrome H/O cardiac radiofrequency ablation Kayden Buck MD [address] [place] [address] [address] Phone: tel: fax: Myron Patton MD [address] [address] Phone: tel: fax: Referral ID Status Reason Start Date Expiration Date V isits Requested Visits Authorized [id number] Closed Specialty Services Required 01/13/2022 02/12/2023 1 1 Encounter Details Date Type Department Care Team (Latest Contact Info) Description 06/08/2022 9:00 AM ENGRAVER Office Visit [facility] Cardiology [address] [place] [address] [place] [address] [place] [id number] Myron Patton MD [address] [place] [address] [place] [address] Palpitations (Primary Dx); Vasovagal syncope; History of Bsuly-Iqndkrpgu-Frgcj (WPW) syndrome; H/O cardiac radiofrequency ablation Social [...] often do you attend chur ch or jewish services? Never 02/12/2022 Do you [...] on file Legal Sex Female 9:50 PM ENGRAVER Gender Identity Not on file Sexual Orientation Not on file documented as of this encounter Last Filed Vital Signs Vital Sign Reading Time Taken Comments Blood Pressure 100/56 06/08/2022 8:57 AM ENGRAVER Pulse 78 06/08/2022 8:57 AM ENGRAVER Temperature - - Respiratory Rate 16 06/08/2022 8:57 AM ENGRAVER Oxygen Saturation 99% 06/08/2022 8:57 AM ENGRAVER Inhaled Oxygen Concentration - - Weight 88 kg (194 lb) 06/08/2022 8:57 AM ENGRAVER Height 170.2 cm (5' 7 ) 06/08/2022 8:57 AM ENGRAVER Body Mass Index 30.38 06/08/2022 8:57 AM ENGRAVER documented in this encounter Progress Notes * Myron Patton MD - 06/08/2022 9:00 AM CST Consult Note - Cardiac Electrophysiology Patient Name: Shayla Curry Date of : 1985 Primary Physician: Thor Fajardo MD Referring Physician: Kayden Buck MD I had the pleasure of seeing Shayla Curry in consultation at [place] [facility] [place] [facility]. I have reviewed the pertinent data [...] She states these are ???nothing like her Dbiac-Mvhzltpvm-Xjfhf?? however she has experienced palpitation episodes a [...] GERD (gastroesophageal reflux disease) Kidney stone WPW (Zpaad-Yberyqhxj-Axpme syndrome) Past Surgical History Past Surgical History: [...] Diagnoses (R00.2) Palpitations (primary encounter diagnosis) Plan: [facility] Mobile Cardiac Telemetry Event Monitor (R55) Vasovagal syncope Plan: Ambulatory referral to Cardiology (Z86.79) History of Rlnmq-Ecxnmoffo-Wepco (WPW) syndrome Plan: Ambulatory referral to Cardiology [...] questions or major inaccuracies, please contact us. AVER documented in this encounter Miscellaneous Notes * Addendum Note - Javi Luis MA - 06/08/2022 9:00 AM CSTAddended by: JAVI LUIS on: 06/08/2022 10:19 AM Modules accepted: Orders AVER documented in this encounter Plan of Treatment Not on file documented as of this encounter Procedures Procedure Name Priority Date/Time Associated Diagnosis Comments ECG 12-LEAD Routine 06/08/2022 Vasovagal syncope History of Ahrtt-Uoznnrcer-Clmzq (WPW) syndrome H/O cardiac radiofrequency ablation Palpitations documented in this encounter Results * MCT Mobile Cardiac Telemetry Event Monitor (06/08/2022 9:25 AM ENGRAVER) Anatomical Region Laterality Modality Other Narrative 07/13/2022 8:59 AM CDT AMBULATORY SENIOR LEAD JAVA DEVELOPER REPORT Patient Name: Shayla Curry Date of [...] was used to complete this document, therefore, tomahawk weapon system operator variances may occur. Myron Patton MD 07/13/22 Procedure Note Myron Patton MD - 07/13/2022 AMBULATORY SENIOR LEAD JAVA DEVELOPER REPORT Patient Name: Shayla Curry Date of [...] software was used to complete this document, therefore,tomahawk weapon system operator variances may occur. Myron Patton MD 07/13/22 us Myron Patton MD CV CARDIAC SERVICES AL OCEDURES Final Result * ECG 12 lead (06/08/2022) us Myron Patton MD ECG ORDERABLES Final Result documented in this encounter Visit Diagnoses Diagnosis Palpitations- Primary Vasovagal syncope Syncope and collapse History of Vmqdx-Ssykhrnxp-Lmtsm (WPW) syndrome H/O cardiac radiofrequency ablation Palpitations [...] 06/08/2022 documented in this encounter Care Teams Advertising Sales Consultant Relationship Specialty Start Date End Date Thor Fajardo MD [address] [place] [address] PCP - General Family Medicine 12/30/20 Sebastian Soto MD [address] [address] Consulting Physician Gastroenterology 02/14/22 documented as of this encounter
--- OUTSIDE RECORDS SUMMARY | 2024-05-09 01:57 | XMS_ITS | Encounter Summary ---
Author Organization [facility] Address [address] [place] [address] Care Team Providers Care Software Configuration Engineer Name Role Phone Thor Fajardo MD Primary Care Provider [phone] Sebastian Soto MD Unavailable [phone] Reason for Visit * Diagnostic Imaging (Routine) - Closed Specialty Diagnoses / Procedures Referred By Joselin drummond Referred To Contact Procedures Breast Imaging Diagnostic Outside Reference Miscellaneous, Not In File Referral ID Status Reason Start Date Expiration Date Visits Re quested Visits Authorized [id number] Closed 08/10/2022 09/09/2023 1 1 Encounter Details Date Type Department Care Team (Latest Contact Info) Description 06/24/2022 12:05 AM INVENTORY PLANNER - 06/24/2022 11:59 PM INVENTORY PLANNER Hospital Encounter [facility] - Imaging [phone] Discharge Disposition: Discharge to home or self [...] often do you attend chur ch or mosque services? Never 02/12/2022 Do you belong to any clubs o r organizations such as anabaptism groups, unions, fraternal or athletic groups, or [...] on file Legal Sex Female 9:50 PM INVENTORY PLANNER Gender Identity Not on file Sexual Orientation [...] DIAGNOSTIC OUTSIDE REFERENCE Routine 06/24/2022 12:05 AM INVENTORY PLANNER documented in this encounter Results * Breast Imaging Diagnostic Outside Reference (06/24/2022 12:05 AM INVENTORY PLANNER) Narrative RAD_PACS_OUTSIDE_FILM_[facility] - 08/10/2022 9:18 AM CDT This order has been auto-finalized and does not contain a result. us Not In File Miscellaneous IMG MAMMO PROCEDURES F inal Result RAD_PACS_OUTSIDE_FILM_[facility] documented in this encounter Visit Diagnoses Not on filedocumented in this encounter Care Teams Software Configuration Engineer Relationship Specialty Start Date End Date Thor Fajardo MD [address] [place] [address] PCP - General Family Medicine 12/30/20 Sebastian Soto MD [address] [address] Consulting Physician Gastroenterology 02/14/22 documented as of this encounter
--- OUTSIDE RECORDS SUMMARY | 2024-05-09 01:57 | XMS_ITS | Encounter Summary ---
Author Organization [facility] Address [address] [place] [address] Care Team Providers Care Central Office Inspector Name Role Phone Thor Fajardo MD Primary Care Provider [phone] Sebastian Soto MD Unavailable [phone] Ena Rose MD Unavailable Tutu Hermosillo MD Unavailable [phone] Reason for Visit * Reason Onset Date [...] (Late st Contact Info) Description 06/20/2023 Documentation [facility] - Imaging [address] [facility] [address] [place] [address] Clarisse Martinez RN Vomiting (Responded [...] How often do you attend chur or catholic services? Never 02/12/2022 Do you belong to any clubs o r organizations such as tenriism groups, unions, fraternal or athletic groups, or [...] on file Legal Sex Female 9:50 PM CREDIT INVESTIGATOR Gender Identity Not on file Sexual Orientation Not on file documented as of this encounter Plan of Treatment Not on file documented as of this encounter Visit Diagnoses Not on filedocumented in this encounter Care Teams Central Office Inspector Relationship Specialty Start Date End Date Thor Fajardo MD [address] [place] [address] PCP - General Family Medicine 12/30/20 Sebastian Soto MD [address] [place] [address] Consulting Physician Gastroenterology 02/14/22 Ena Rose MD [address] [facility] [address] [place] [address] Consulting Physician Surgical Oncology 08/11/22 Tutu Hermosillo MD [address] [facility] [address] [place] [address] Consulting Physician Plastic Surgery 12/29/23 documented as of this encounter
--- OUTSIDE RECORDS SUMMARY | 2024-05-09 01:57 | XMS_ITS | Encounter Summary ---
Author Organization [facility] Healthcare Address [address] [place] [address] Care Team Providers Care Arts And Sciences Dean Name Role Phone Thor Fajardo MD Primary Care Provider [phone] Sebastian Soto MD Unavailable [phone] Reason for Visit * Auth/Cert Specialty Diagnoses / Procedures Referred By Joselin drummond Referred To Contact Diagnoses BILE DUCT LEAK SURGERY FLOOR Procedures n Referral ID Status Reason Start Date Expiration Date Visits Re quested Visits Authorized [id number] 1 1 Encounter Details Date Type Department Care Team (Latest Contact Info) Description 02/11/2022 3:12 PM CDT - 02/14/2022 12:17 PM CDT Hospital Encounter [facility] [address] [place] [id number] Anyi Garcia MD [address] [place], [place] [id number] Bile leak (Primary Dx) Discharge Disposition: Discharge [...] often do you attend chur ch or voodoo services? 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 Gastroesophageal reflux disease. 3. History of Cecd-Fhimervny-Ttrob syndrome status post ablation. HOSPITAL COURSE This [...] in 2 weeks. Job ID/Internal Job ID: [id number] documented in this encounter Medications at Time [...] 1 mg at 02/13/22 0554 influenza quadrivalent [id number] (FLULAVAL,FLUARIX,FLUZONE) 60 mcg (15 mcg x 4)/0.5 [...] diphenhydrAMINE fentaNYL haloperidol HYDROmorphone HYDROmorphone influenza quadrivalent [id number] insulin lispro labetalol LORazepam meperidine naloxone ondansetron [...] nodes: No adenopathy. Peritoneum: There is a cnaus-nm-njhfvsma volume of ascites which is greatest in [...] noted. Electronically signed by: Joe Thornton M.D. [place] ERCP Biliary and Pancreatic Result Date: 02/12/2022 [...] was obtained. Prior to beginning the procedure, [place] Protocol was performed to confirm the patient?s [...] bile duct into the duodenum. A 4 Haitian Kumpe catheter was advanced coaxially over the [...] Soto was successful in placing a 10 Haitian 7 cm plastic biliary stent. Contrast was [...] and documentation: 30 Minutes Anyi Garcia MD [facility] Exchange: This note was transcribed using INRIX Speech Recognition software. As a result, there [...] point. Carlos Plascencia M.D. Instructor Interventional Radiology [phone] * Ada Hilario, HERMAN - 02/13/2022 8:18 AM CDT [...] brought back to the hospital. CT scanshowed owgkj-rq-emjfyizg abdominal fluid, gastritis and duodenitis. HIDA scan [...] S1, S2. ABDOMEN: Soft, bowel sounds positive. CONTINUITY PERSON: Moves all extremities. EXTREMITIES : There is no pedal edema. LABS From today sodium is 138, potassium 4.0, chloride 104, CO2 is 25, BUN is 10, creatinine is 0.6, glucose 120, calcium is 8.8, bilirubin is 1.7, total bili 6.4. CBC: WBC 12, hemoglobin 11.8, rbijxqqaod00.6, platelet count 327. PT 13.3, INR 1.2. [...] tolerate low-fat diet. Job ID/Internal Job ID: [id number] documented in this encounter Procedure Notes * Sebastian Soto MD - 02/12/2022 3:21 PM CDTAssociated Order(s): ERCP ENDOSCOPY LAB Patient Name: Shayla Curry Procedure Date: 02/12/2022 3:21 PM Admit Type: Inpatient Room: [facility] 9 Date of : 1985 Instrument Name: [id number] Gender: Female Note Status: Financial Processing Clerk Override Procedure: ERCP Indications: Further management of [...] one pancreatic stents were visible on the mailroom messenger film. The esophagus was successfully intubated under [...] 02/11/2022 6:04 PM Admit Type: Inpatient Room: [facility] Date of : 1985 Instrument Name: [...] duct and ventral pancreatic duct. Findings: A mailroom messenger film of the abdomen was obtained and [...] h/o GERD, kidney stones, WPW, presented to [facility] on 02/08 with c/o worsening abd pain [...] Radiology Brief Post Procedure Note Attending: Thais Hydroelectric Plant Technician: Grey Sedation/Anesthesia: Anesthesia Pre-Op/Pre-Procedure Diagnosis: bile leak [...] Brooke RN - 02/12/2022 3:52 PM CDT [facility] Home Health consult received. [facility] Home Care agency accepted patient [...] transport arranged?: No (02/12/221127) Health Insurance Coverage: [employer] Prescription Coverage: yes Pharmacy: [id number] - [place], [place] - [address] [place] [address] [place] [address] Primary Care Provider: Thor Fajardo MD Prior to Admission: Primary Caregiver: Self Who does the patient or legal guardian want to receive education instruction and discharge plans for after care assistance?: Name Caregiver Name: Alyssa Cortes Relationship to patient: Caregiver Contact Information: [phone] Support System: Spouse/Significant Other Support system contact info (name, phone, availablity): alyssa Cortes [phone] Home Care Services: No Durable Medical Equipment: [...] a week How often do you attend yazdanism or voodoo services?: Never Do you belong to any clubs or organizations such as yazdanism groups, unions, fraternal or athletic groups, or school groups?: No How often do you attend meetings of the clubs or organizations you belong to?: Never Are you , , , , never , or living with a partner?: (02/12/221427) Food Insecurity: Alcohol Use: PHQ Screening Potential discharge needs include: Home Health: [facility] (02/12/221127) Dialysis: Behavioral Health Services: Behavioral Health Services: No (02/12/221127) Patient expects to be Discharged to: Private residence, (02/12/221127) Additional Information: CM met with pt and and explained CM role. Pt lives with and3 children. Patient is independent. No devices. Pt will need Home Health services for drain care and follow up. Pt is agreeable to [facility]. Referral sent to [facility]. CM will continue to follow for any [...] Collaboration with patient, MD, direct care nurse, Corrections Counselor, and other members of the health care team to assure needed interventions completed. 2. Return patient to optimal level of self-care post discharge. 3. 6Th Grade Teacher will follow for Discharge Planning - interventions as needed 4. Anticipated level of care at discharge 5. Planned Discharge Disposition Vanessa Demarco RN * Plan of Care - Vanessa Demarco RN - 02/12/2022 2:29 PM CDT CM note: Referral sent to [facility] for SN for drain care. Await the acceptance. Dispo: Home with [facility] * Pre-Procedure Note - Carlos [...] been discussed with the patient and/or their labor service representative. All questions answered and they agree [...] Results * eGFR (02/14/2022 3:18 AM CDT) [facility] eGFR 118 mL/min/1. 73 m2 [facility] Comment: Interpretive Data Reference Interval Normal [...] NP LAB BLOOD ORDERABLES Final Re sult [facility] [address] Department [place] [address] * (ABNORMAL) Comprehensive metabolic panel (02/14/2022 3:18 AM CDT) Sodium 141 135 - 145 mmol/L [facility] Potassium, pl 3.4 3.3 - 4.9 mmol/L [facility] Chloride 103 97 - 110 mmol/L [facility] CO2 26 22 - 32 mmol/L [facility] Anion gap 12 2 - 15 mmol/L [facility] BUN 8 8 - 25 mg/dL [facility] Creatinine 0.62 0.60 - 1.10 mg/dL [facility] Glucose 93 70 - 199 mg/dL [facility] Comment: Interpretive Data Fasting glucose >/= [...] 2017. Calcium 7.6(L) 8.5 - 10.3 mg/dL [facility] Bilirubin, total 1.3(H) 0.1 - 1.2 mg/dL [facility] Protein, pl 5.7(L) 6.5 - 8.5 g/dL [facility] Albumin 3.1(L) 3.5 - 5.0 g/dL [facility] Alk phos 152(H) 40 - 130 Units/L [facility] ALT 60(H) 7 - 45 Units/L [facility] AST 29 10 - 45 Units/L [facility] Blood 02/14/2022 3:18 AM CDT 02/14/2022 3:51 AM CDT us Ada Hilario CROP AND SOIL SCIENTIST LAB BLOOD ORDERABLES Final Re sult [facility] [address] Department [place] [address] * IR Cholangiogram Through Existing Catheter (02/12/2022 [...] was obtained. Prior to beginning the procedure, [place] Protocol was performed to confirm the patient?s [...] bile duct into the duodenum. A 4 Haitian Kumpe catheter was advanced coaxially over the [...] Soto was successful in placing a 10 Haitian 7 cm plastic biliary stent. Contrast was [...] was obtained. Prior to beginning the procedure, [place] Protocol was performed to confirm the patient?s [...] bile duct into the duodenum. A 4 Haitian Kumpe catheter was advanced coaxially over the [...] Soto was successful in placing a 10 Haitian 7 cm plastic biliary stent. Contrast was [...] by: Carlos Plascencia M.D. us Phuong [facility] IR PROCEDURES Final Resul t * ERCP (02/12/2022 3:21 PM CDT) Anatomical Region Laterality Modality Other Narrative Procedure Note Sebastian Soto MD - 02/12/2022 3:21 PM CDT ENDOSCOPY LAB Patient Name: Shayla Curry Procedure Date: 02/12/2022 3:21 PM Admit Type: Inpatient Room: [facility] Date of : 1985 Instrument Name: [id number] Gender: Female Note Status: Financial Processing Clerk Override Procedure: ERCP Indications: Further management of [...] one pancreatic stents were visible on the mailroom messenger film. The esophagus was successfully intubated under [...] blood, quantitative (02/12/2022 10:25 AM CDT) Pathologist [facility] hCG, quant <0.2 0.0 - 5.0 IUnits/L [facility] Comment: Interpretive Data Non- Female premenopausal: [...] BLOOD ORDERABLES Edit ed Result - Final [facility] [address] [place] [address] * COVID-19 Coronavirus RNA Nasopharyngeal (02/12/2022 10:21 AM CDT) COVID-19 RNA Negative Negative [facility] Nasopharyngeal 02/12/2022 10 :21 AM CDT 02/12/2022 10:21 AM CDT Narrative [facility] - 02/12/2022 10:53 AM CDT Is the patient experiencing any symptoms consistent with COVID (eg. Fever, cough, shortness of breath)?->No What is the reason for testing?->Asymptomatic screening prior to procedure??or??surgery (Rapid) ??Interpretive data: Synonyms for this test include: PCR and NAAT . ??This test is performed using the [employer] Xpert Xpress plus assay. This is a [...] MICROBIOLOGY - GENERA L ORDERABLES Final Result [facility] [address] Department [place] [address] * CT abdomen pelvis with contrast (02/12/2022 [...] nodes: No adenopathy. Peritoneum: There is a mvwyq-yx-lmmhzzeb volume of ascites which is greatest in [...] nodes: No adenopathy. Peritoneum: There is a qlfkg-zz-cedeqzwn volume of ascites which is greatest in [...] CDT) eGFR 119 mL/min/1. 73 m2 [facility] Comment: Interpretive Data Reference Interval Normal [...] MD LAB BLOOD ORDERABLES F inal Result [facility] [address] Department [place] [address] * (ABNORMAL) Differential, auto (02/12/2022 4:45 AM CDT) Neutrophil abs 10.9(H) 1.7 - 6.5 K/cumm [facility] Imm gran abs 0.1 0.0 - 0.1 K/cumm [facility] Lymphocyte abs 0.6(L) 0.8 - 3.3 K/cumm [facility] Monocyte abs 0.3 0.2 - 0.8 K/cumm [facility] Eosinophil abs 0.0 0.0 - 0.5 K/cumm [facility] Basophil abs 0.0 0.0 - 0.1 K/cumm [facility] Neutrophil pct 91.0 % [facility] Comment: Interpretive Data Percent cell count reference ranges are not reported, since discordance with absolute values may lead to misinterpretation of CBC data. Current Interpretive Data was last revised on 2017. Imm gran pct 0.7 % [facility] Comment: Interpretive Data Percent cell count reference ranges are not reported, since discordance with absolute values may lead to misinterpretation of CBC data. Current Interpretive Data was last revised on 2017. Lymphocyte pct 5.3 % [facility] Comment: Interpretive Data Percent cell count reference ranges are not reported, since discordance with absolute values may lead to misinterpretation of CBC data. Current Interpretive Data was last revised on 2017. Monocyte pct 2.8 % [facility] Comment: Interpretive Data Percent cell count reference ranges are not reported, since discordance with absolute values may lead to misinterpretation of CBC data. Current Interpretive Data was last revised on 2017. Eosinophil pct 0.0 % [facility] Comment: Interpretive Data Percent cell count reference ranges are not reported, since discordance with absolute values may lead to misinterpretation of CBC data. Current Interpretive Data was last revised on 2017. Basophil pct 0.2 % [facility] Comment: Interpretive Data Percent cell count reference ranges are not reported, since discordance with absolute values may lead to misinterpretation of CBC data. Current Interpretive Data was last revised on 2017. Blood 02/12/2022 4:45 AM CDT 02/12/2022 5:38 AM CDT Anyi Garcia MD LAB BLOOD ORDERABLES F inal Result Performing Organization Address [facility]/ZIP Co de Phone Number [facility] [address] [employer] [place] [address] * Protime-INR (02/12/2022 4:45 AM CDT) PT 13.3 9.2 - 13.5 sec [facility] INR 1.2 0.9 - 1.2 [facility] Comment: Interpretive data Oral anticoagulant therapeutic ranges: Venous thromboembolism prophylaxis or treatment: 2.0-3.0 CARDIOLOGY Standard range: 2.0-3.0 High-intensity range: 2.5-3.5 Refer to indication-specific guidelines for appropriate target ranges for prosthetic heart valve replacement. Current interpretive data was last revised on 2019. Blood 02/12/2022 4:45 AM CDT 02/12/2022 5:38 AM CDT Anyi Garcia MD LAB BLOOD ORDERABLES F inal Result Performing Organization Address City/[facility]/ZIP Co de Phone Number [facility] [address] [employer] [place] [address] * (ABNORMAL) CBC with auto differential (02/12/2022 4:45 AM CDT) WBC 12.0(H) 3.8 - 9.9 K/cumm [facility] Hgb 11.8(L) 11.9 - 15.5 g/dL [facility] Hct 35.6 35.6 - 45.5 % [facility] Plt 327 150 - 400 K/cumm [facility] MPV 11.0 9.1 - 12.3 fL [facility] RBC 3.97 3.90 - 5.20 M/cumm [facility] MCV 89.7 81.3 - 96.4 fL [facility] MCH 29.7 27.1 - 33.3 pg [facility] MCHC 33.1 32.3 - 35.7 g/dL [facility] RDW CV 13.0 11.1 - 14.9 % [facility] RDW SD 42.8 35.7 - 48.1 fL [facility] NRBC abs 0.00 0.00 - 0.01 K/cumm [facility] Blood 02/12/2022 4:45 AM CDT 02/12/2022 5:38 AM CDT [facility] Liz Garcia MD LAB BLOOD ORDERABLES F inal Result [facility] [address] Department [place] [address] * (ABNORMAL) Comprehensive metabolic panel (02/12/2022 4:45 AM CDT) Sodium 138 135 - 145 mmol/L [facility] Potassium, pl 4.0 3.3 - 4.9 mmol/L [facility] Chloride 104 97 - 110 mmol/L [facility] CO2 25 22 - 32 mmol/L [facility] Anion gap 9 2 - 15 mmol/L [facility] BUN 10 8 - 25 mg/dL [facility] Creatinine 0.60 0.60 - 1.10 mg/dL [facility] Glucose 120 70 - 199 mg/dL [facility] Comment: Interpretive Data Fasting glucose >/= [...] 2017. Calcium 8.1(L) 8.5 - 10.3 mg/dL [facility] Bilirubin, total 1.7(H) 0.1 - 1.2 mg/dL [facility] Protein, pl 6.4(L) 6.5 - 8.5 g/dL [facility] Albumin 3.5 3.5 - 5.0 g/dL [facility] Alk phos 137(H) 40 - 130 Units/L [facility] ALT 70(H) 7 - 45 Units/L [facility] AST 38 10 - 45 Units/L [facility] Blood 02/12/2022 4:45 AM CDT 02/12/2022 5:38 AM CDT [facility] Liz Garcia MD LAB BLOOD ORDERABLES F inal Result [facility] [address] Department [place] [address] * [place] ERCP Biliary and Pancreatic (02/11/2022 [...] 02/11/2022 6:04 PM Admit Type: Inpatient Room: [facility] Date of : 1985 Instrument Name: [...] duct and ventral pancreatic duct. Findings: A mailroom messenger film of the abdomen was obtained and [...] Infusing) 0504 (Not Given - Provider: Tamia Moerau RN - Reason: IV Infusing)1227 (Not Given [...] 02/11/2022 documented in this encounter Care Teams Arts And Sciences Dean Relationship Specialty Start Date End Date Thor Fajardo MD [address] [place] [address] PCP - General Family Medicine 12/30/20 Sebastian Soto MD [address] [address] Consulting Physician Gastroenterology 02/14/22 documented as of this encounter
--- OUTSIDE RECORDS SUMMARY | 2024-05-09 01:57 | XMS_ITS | Encounter Summary ---
Author Organization [facility] Address [address] [facility] [address] [place] [address] Care Team Providers Care Ice Delivery Driver Name Role Phone Thor Fajardo MD Primary Care Provider [phone] Sebastian Soto MD Unavailable [phone] Encounter Details Date Type Department Care Team (Late st Contact Info) Description 06/09/2022 Telephone [facility] Cardiology [address] [address] Gay Luis MA Social History [...] often do you attend chur ch or yazidi services? Never 02/12/2022 Do you belong to [...] on file Legal Sex Female 9:50 PM DEAN OF MEN Gender Identity Not on file Sexual Orientation [...] to ensure data is being captured appropriately. OF MEN documented in this encounter Plan of Treatment Not on file documented as of this encounter Visit Diagnoses Not on filedocumented in this encounter Care Teams Ice Delivery Driver Relationship Specialty Start Date End Date Thor Fajardo MD [address] [place] [address] PCP - General Family Medicine 12/30/20 Sebastian Soto MD [address] [address] Consulting Physician Gastroenterology 02/14/22 documented as of this encounter
--- OUTSIDE RECORDS SUMMARY | 2024-05-09 01:57 | XMS_ITS | Encounter Summary ---
Author Organization [facility] Address [address] [facility] [address] [place] [address] Care Team Providers Care File Clerk Data Entry Name Role Phone Thor Fajardo MD Primary Care Provider [phone] Sebastian Soto MD Unavailable Ena Rose MD Unavailable Encounter Details Date Type Department Care Team (Late st Contact Info) Description 12/21/2022 Telephone [facility] [address] [facility] [address] [place] [address] Ena Rose MD [address] [facility] [address] [place] [address] Social History Tobacco Use Types [...] How often do you attend chur or pentecostalism services? 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
--- OUTSIDE RECORDS SUMMARY | 2024-05-09 01:57 | XMS_ITS | Encounter Summary ---
Author Organization [facility] Address [address] [facility] [address] [place] [address] Care Team Providers Care Milk Route Deliverer Name Role Phone Thor Fajardo MD Primary Care Provider [phone] Sebastian Soto MD Unavailable Ena Rose MD Unavailable Encounter Details Date Type Department Care Team (Late st Contact Info) Description 08/16/2022 Orders Only [facility] [address] [facility] [address] [place] [address] Ena Rose MD [address] [facility] [address] [place] [address] Social History Tobacco Use Types [...] often do you attend chur ch or advent services? 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 Gender Identity Not on file Sexual Orientation Not on file documented as of this encounter Plan of Treatment Not on file documented as of this encounter Visit Diagnoses Not on filedocumented in this encounter Care Teams Milk Route Deliverer Relationship Specialty Start Date End Date Thor Fajardo MD [address] [place] [address] PCP - General Family Medicine 12/30/20 Sebastian Soto MD [address] [facility] [address] [place] [address] Consulting Physician Gastroenterology 02/14/22 Ena Rose MD [address] [facility] [address] [place] [address] Consulting Physician Surgical Oncology 08/11/22 documented as of this encounter
--- OUTSIDE RECORDS SUMMARY | 2024-05-09 01:57 | XMS_ITS | Encounter Summary ---
Author Organization [facility] Address [address] [facility] [address] [place] [address] Care Team Providers Care Operating Room Surgical Technologist Name Role Phone Thor Fajardo MD Primary Care Provider [phone] Sebastian Soto MD Unavailable [phone] Reason for Visit * Cardiology (Routine) - Closed Specialty Diagnoses / Procedures Referred By Joselin drummond Referred To Contact Diagnoses Palpitations Procedures MCT Mobile Cardiac Telemetry Event Monitor Myron Patton MD [address] [place] [address] Phone: tel: fax: [facility] Referral ID Status Reason Start Date Expiration Date Visits Re quested Visits Authorized [id number] Closed 06/08/2022 07/08/2023 1 1 Encounter Details Date Type Department Care Team (Late st Contact Info) Description 06/08/2022 9:30 AM SILICATOR Ancillary Procedure [facility] Cardiology [address] [place] [phone] Palpitations Social History Tobacco Use Types Packs/Day [...] any clubs o r organizations such as pentecostalism groups, unions, fraternal or athletic groups, or [...] on file Legal Sex Female 9:50 PM SILICATOR Gender Identity Not on file Sexual Orientation Not on file documented as of this encounter Plan of Treatment Not on file documented as of this encounter Procedures Procedure Name Priority Date/Time Associated Diagnosis Comments MCT - MOBILE CARDIAC TELEMETRY EVENT MONITOR Routine 06/08/2022 9:25 AM SILICATOR Palpitations documented in this encounter Results * MCT Mobile Cardiac Telemetry Event Monitor (06/08/2022 9:25 AM SILICATOR) Anatomical Region Laterality Modality Other Narrative 07/13/2022 8:59 AM CDT [facility] ASST REPORT Patient Name: Shayla Curry Date of [...] was used to complete this document, therefore, domestic helper variances may occur. Myron Patton MD 07/13/22 Procedure Note Myron Patton MD - 07/13/2022 AMBULATORY SURGICAL SERVICES ASST REPORT Patient Name: Shayla Curry Date of [...] software was used to complete this document, therefore,domestic helper variances may occur. Myron Patton MD 07/13/22 Myron Patton MD CV CARDIAC SERVICES DE OCEDURES Final Result documented in this encounter Visit Diagnoses Diagnosis Palpitations documented in this encounter Care Teams Operating Room Surgical Technologist Relationship Specialty Start Date End Date Thor Fajardo MD [address] [place] [address] PCP - General Family Medicine 12/30/20 Sebastian Soto MD [address] [address] Consulting Physician Gastroenterology 02/14/22 documented as of this encounter
--- OUTSIDE RECORDS SUMMARY | 2024-05-09 01:57 | XMS_ITS | Encounter Summary ---
Author Organization [facility] Address [address] [place] [address] Care Team Providers Care Machine Presser Name Role Phone Thor Fajardo MD Primary Care Provider [phone] Sebastian Soto MD Unavailable [phone] Reason for Visit * Diagnostic Imaging (Routine) - Closed Specialty Diagnoses / Procedures Referred By Joselin drummond Referred To Contact Procedures Breast Imaging US Outside Reference Miscellaneous, Not In File Referral ID Status Reason Start Date Expiration Date Visits Re quested Visits Authorized [id number] Closed 08/10/2022 09/09/2023 1 1 Encounter Details Date Type Department Care Team (Latest Contact Info) Description 06/24/2022 - 06/24/2022 11:59 PM E COMMERCE MARKETING MANAGER Hospital Encounter [facility] - Imaging [phone] Discharge Disposition: Discharge to home or self [...] often do you attend chur ch or christian services? Never 02/12/2022 Do you belong to [...] on file Legal Sex Female 9:50 PM E COMMERCE MARKETING MANAGER Gender Identity Not on file Sexual [...] US OUTSIDE REFERENCE Routine 06/24/2022 12:00 AM E COMMERCE MARKETING MANAGER documented in this encounter Results * Breast Imaging US Outside Reference (06/24/2022 12:00 AM E COMMERCE MARKETING MANAGER) Narrative RAD_PACS_OUTSIDE_FILM_[facility] - 08/10/2022 9:18 AM CDT This order has been auto-finalized and does not contain a result. us Not In File Miscellaneous IMG MAMMO PROCEDURES F inal Result RAD_PACS_OUTSIDE_FILM_[facility] documented in this encounter Visit Diagnoses Not on filedocumented in this encounter Care Teams Machine Presser Relationship Specialty Start Date End Date Thor Fajardo MD [address] [place] [address] PCP - General Family Medicine 12/30/20 Sebastian Soto MD [address] [address] Consulting Physician Gastroenterology 02/14/22 documented as of this encounter
--- OUTSIDE RECORDS SUMMARY | 2024-05-09 01:57 | XMS_ITS | Encounter Summary ---
Author Organization [facility] Address [address] [facility] [address] [place] [address] Care Team Providers Care Tiltrotor Crew Chief Name Role Phone Thor Fajardo MD Primary Care Provider [phone] Sebastian Soto MD Unavailable [phone] Reason for Visit * Cardiology (Routine) - Closed Specialty Diagnoses / Procedures Referred By Joselin drummond Referred To Contact Diagnoses Vasovagal syncope Procedures Transthoracic Echo (TTE) Complete W Doppler/CF Mynor Haney MD [address] [address] Phone: tel: fax: [facility] Referral ID Status Reason Start Date Expiration Date Visits Re quested Visits Authorized [id number] Closed 01/13/2022 02/12/2023 1 1 Encounter Details Date Type Department Care Team (Latest Contact Info) Description 03/24/2022 8:15 AM STENCILER Ancillary Procedure [facility] Cardiology [address] [facility] [address] [place] [id number] Vasovagal syncope Social History Tobacco Use Types [...] any clubs o r organizations such as judaism groups, unions, fraternal or athletic groups, or [...] on file Legal Sex Female 9:50 PM STENCILER Gender Identity Not on file Sexual Orientation Not on file documented as of this encounter Plan of Treatment Not on file documented as of this encounter Procedures Procedure Name Priority Date/Time Associated Diagnosis Comments TRANSTHORACIC ECHO (TTE) COMPLETE W DOPPLER/CF WO CONTRAST Routine 03/24/2022 8:46 AM STENCILER Vasovagal syncope documented in this encounter Results * TRANSTHORACIC ECHO (TTE) COMPLETE W DOPPLER/CF WO CONTRAST (03/24/2022 8:46 AM STENCILER) Anatomical Region Laterality Modality Ultrasound 03/24/2022 8:06 AM STENCILER Narrative 03/24/2022 2:34 PM STENCILER [facility] Cardiology [address], [place] [address] [address], [place] [address] P:[phone] P:[phone] Echocardiographic Report Patient Name: SHAYLA CAMEJO : 1985 Study Date: 03/24/2022 8:06:26 AM Gender: F Tech: Location: ID Ref.Provider: MYNOR HANEY Height(Cm): 170 BSA: 1.96 [...] Findings: Interpretation Site: Exam was interpreted at [facility]. Left Ventricle: Normal left ventricular wall thickness. [...] function. Electronically Signed By: Mynor Haney MD, [facility] 2022-03-24 14:34:13 STENCILER CC: CC: Procedure Note Mynor Haney MD - 03/24/2022 [facility] Cardiology [address] [facility] [address], [place] [address] [address] [facility] [address], [place] [address] P:[phone] P:[phone] Echocardiographic Report Patient Name: SHAYLA CAMEJOPatient ID: [id number] : [id number] Date: 03/24/2022 8:06:26 AM Gender: FAccession #: [id number] Tech: GMLocation: ID Ref.Provider: MYNOR HANEYHeight(Cm): 170 BSA: 1.96Weight(Kg): 84.37 [...] 16.00 - 28.00 ] cc/m2 MV Decel Iajl603 [ 150 - 200 ] msec ACS MM 1.73 cm PV Peak Vel0.99 [ 0.40 - 0.80 ] m/s TR Peak Vel2.29 [ 0.40 - 0.80 ] m/s TR Peak PG 21mmHg RVSP29.00 mmHg E'0.14 E/E' 5 - Findings: Interpretation Site: Exam was interpreted at [facility]. Left Ventricle: Normal left ventricular wall thickness. [...] function. Electronically Signed By: Mynor Haney MD, [facility] 2022-03-24 14:34:13 STENCILER CC: CC: us Mynor Haney MD CV ECHO PROCEDURES Final Result documented in this encounter Visit Diagnoses Diagnosis Vasovagal syncope Syncope and collapse documented in this encounter Care Teams Tiltrotor Crew Chief Relationship Specialty Start Date End Date Thor Fajardo MD [address] [place] [address] PCP - General Family Medicine 12/30/20 Sebastian Soto MD [address] [address] Consulting Physician Gastroenterology 02/14/22 documented as of this encounter
--- OUTSIDE RECORDS SUMMARY | 2024-05-09 01:57 | XMS_ITS | Encounter Summary ---
Author Organization [facility] Address [address] [place] [address] Care Team Providers Care Steam Flattener Name Role Phone Thor Fajardo MD Primary Care Provider [phone] Sebastian Soto MD Unavailable [phone] Ena Rose MD Unavailable [phone] Reason for Referral * Diagnostic Imaging (Routine) - Closed Specialty Diagnoses / Procedures Referred By Joselin drummond Referred To Contact Diagnoses BRCA2 gene mutation positive Procedures Diagnostic Mammogram Bilateral W Ena Quan MD [address] [address] Phone: tel: fax: [facility] [address] [place] [address] Referral ID Status Reason Start Date Expiration Date Visits Re quested Visits Authorized [id number] Closed 08/17/2022 09/16/2023 1 1 RAGE SPECIALIST Reason for Visit * Diagnostic Imaging (Routine) - Closed Specialty Diagnoses / Procedures Referred By Joselin drummond Referred To Contact Diagnoses BRCA2 gene mutation positive Procedures Diagnostic Mammogram Bilateral W Ena Quan MD [address] [address] Phone: tel: fax: [facility] [address] [facility] [place] [address] Referral ID Status Reason Start Date Expiration Date Visits Re quested Visits Authorized [id number] Closed 08/17/2022 09/16/2023 1 1 Encounter Details Date Type Department Care Team (Latest Contact Info) Description 06/20/2023 9:42 AM BEVERAGE SPECIALIST - 06/20/2023 11:59 PM BEVERAGE SPECIALIST Hospital Encounter [facility] - Imaging [address] [facility] [address] [place] [address] BRCA2 gene mutation positive Discharge [...] often do you attend chur ch or muslim services? Never 02/12/2022 Do you belong to any clubs o r organizations such as religious groups, unions, fraternal or athletic groups, or [...] on file Legal Sex Female 9:50 PM BEVERAGE SPECIALIST Gender Identity Not on file Sexual [...] Mónica Cao NP - 06/20/2023 12:12 PM BEVERAGE SPECIALIST Patient aware of results. Please enter recall for August 2023 - clinical breast exam. BRCA 2 pos RAGE SPECIALIST documented in this encounter Plan of Treatment Not on file documented as of this encounter Procedures Procedure Name Priority Date/Time Associated Diagnosis Comments DIAGNOSTIC MAMMOGRAM BILATERAL W ANIBAL Schedule Routine, Read Routine (OP Routine) 06/20/2023 10:27 AM BEVERAGE SPECIALIST BRCA2 gene mutation positive documented in this encounter Results * Diagnostic Mammogram Bilateral W Anibal (06/20/2023 10:27 AM BEVERAGE SPECIALIST) Anatomical Region Laterality Modality Breast Bilateral Mammography 06/20/2023 10:3 6 AM BEVERAGE SPECIALIST Impressions 06/20/2023 10:36 AM BEVERAGE SPECIALIST No mammographic evidence of malignancy. BI-RADS Category 2: Benign Findings Advise continued high-risk screening protocol with breast MRI due in 6 months and bilateral mammogram in 12 months. Findings and recommendations were communicated to the patient. Electronically signed by: Nannette Foreman MD Narrative 06/20/2023 10:36 AM BEVERAGE SPECIALIST EXAMINATION/TECHNIQUE: Bilateral Digital diagnostic mammogram including CAD [...] positive documented in this encounter Care Teams Steam Flattener Relationship Specialty Start Date End Date Thor Fajardo MD [address] [place] [address] PCP - General Family Medicine 12/30/20 Sebastian Soto MD [address] [facility] [address] [place] [address] Consulting Physician Gastroenterology 02/14/22 Ena Rose MD [address] [facility] [address] [place] [address] Consulting Physician Surgical Oncology 08/11/22 documented as of this encounter
--- OUTSIDE RECORDS SUMMARY | 2024-05-09 01:58 | XMS_ITS | Encounter Summary ---
Author Organization [facility] Care Team Providers Care Naphthalene Still Operator Name Role Phone Unavailable Primary Care Provider Unavailabl e Encounter Details Date Type Department Care Team (Late st Contact Info) Description 10/29/2014 1:29 PM CDT - 10/29/2014 4:00 PM CDT Hospital Encounter [facility] True Kennedy MD [address] [place] [address] Benign neoplasm of skin of other and unspecified parts of face Social History Tobacco Use Types Packs/Day Years Used Date Smoking Tobacco: Never Assessed Comments Unknown Sex and Gender Information Value Date Recorded Sex Assigned at Not on file Legal Sex Female 9:50 PM ADMISSION DISCHARGE RN Gender Identity Not on file Sexual Orientation [...]
--- OUTSIDE RECORDS SUMMARY | 2024-05-09 01:58 | XMS_ITS | Encounter Summary ---
Author Organization [facility] Address [address] [facility] [address] [place] [address] Care Team Providers Care Regional Hr Manager Name Role Phone Thor Fajardo MD Primary Care Provider Encounter Details Date Type Department Care Team (Late st Contact Info) Description 12/30/2020 Orders Only [facility] Cardiology [address] [facility] [address] [place] [address] ProviderBandar MD [address] [place] [address] Social History Tobacco Use Types Packs/Day Years Used Date Smoking Tobacco: Never Assessed Comments Unknown Sex and Gender Information Value Date Recorded Sex Assigned at Not on file Legal Sex Female 9:50 PM BAKER TEST Gender Identity Not on file Sexual Orientation [...] on filedocumented in this encounter Care Teams Regional Hr Manager Relationship Specialty Start Date End Date Thor Fajardo MD [address] [place] [address] [place] [address] PCP - General Family Medicine 12/30/20 documented as of this encounter
--- OUTSIDE RECORDS SUMMARY | 2024-05-09 01:58 | XMS_ITS | Encounter Summary ---
Author Organization [facility] Healthcare Address [address] [place] [address] Care Team Providers Care Chief Wharfinger Name Role Phone Thor Fajardo MD Primary Care Provider [phone] Reason for Visit * Auth/Cert Specialty Diagnoses / Procedures Referred By Contac t Referred To Contact Diagnoses BILE DUCT LEAK SURGERY FLOOR Procedures n Referral ID Status Reason Start Date Expiration Date Visits Re quested Visits Authorized [id number] 1 1 Encounter Details Date Type Department Care Team (Latest Contact Info) Description 02/12/2022 4:00 PM CDT - 02/12/2022 4:45 PM CDT Surgery [facility] [address] [place] [id number] Sebastian Soto MD [address] [facility] [address] [place] [address] ENDO ENDOSCOPIC RETROGRADE CHOLANGIOPANCREATOGRAPHY WITH STENT PLACEMENT Surgery Details Date/Time Status Location OR Service Patient Class Case Class Case Type Trauma Case? 02/12/2022 4:00 PM Posted [facility] ENDOSCOPY GI BEDSIDE Gastroenterology Inpatient Elective Panel [...] any clubs o r organizations such as presybeterian groups, unions, fraternal or athletic groups, or [...] on file Legal Sex Female 9:50 PM UNDERWRITING SALES REPRESENTATIVE Gender Identity Not on file [...] 2. Gastroesophageal reflux disease. 3. History of Hoew-Xlgbhmlcg-Hrbwn syndrome status post ablation. HOSPITAL COURSE This [...] in 2 weeks. Job ID/Internal Job ID: [id number] documented in this encounter Medications at Time [...] 1 mg at 02/13/22 0554 influenza quadrivalent [id number] (FLULAVAL,FLUARIX,FLUZONE) 60 mcg (15 mcg x 4)/0.5 [...] diphenhydrAMINE fentaNYL haloperidol HYDROmorphone HYDROmorphone influenza quadrivalent [id number] insulin lispro labetalol LORazepam meperidine naloxone ondansetron [...] nodes: No adenopathy. Peritoneum: There is a iabqs-da-svpglugc volume of ascites which is greatest in [...] was obtained. Prior to beginning the procedure, [place] Protocol was performed to confirm the patient?s [...] bile duct into the duodenum. A 4 Palestinian Kumpe catheter was advanced coaxially over the [...] Soto was successful in placing a 10 Palestinian 7 cm plastic biliary stent. Contrast was [...] 30 Minutes Anyi Garcia MD [facility] Exchange: This note was transcribed using [employer] Speech Recognition software. As a result, there [...] point. Carlos Plascencia M.D. Instructor Interventional Radiology [phone] * Ada Hilario NP - 02/13/2022 8:18 [...] brought back to the hospital. CT scanshowed oagqs-ed-coclsawn abdominal fluid, gastritis and duodenitis. HIDA scan [...] S1, S2. ABDOMEN: Soft, bowel sounds positive. CARNIVAL WORKER: Moves all extremities. EXTREMITIES : There is no pedal edema. LABS From today sodium is 138, potassium 4.0, chloride 104, CO2 is 25, BUN is 10, creatinine is 0.6, glucose 120, calcium is 8.8, bilirubin is 1.7, total bili 6.4. CBC: WBC 12, hemoglobin 11.8, mzpaukttkm20.6, platelet count 327. PT 13.3, INR 1.2. [...] tolerate low-fat diet. Job ID/Internal Job ID: [id number] documented in this encounter Procedure Notes * Sebastian Soto MD - 02/12/2022 3:21 PM CDTAssociated Order(s): ERCP ENDOSCOPY LAB Patient Name: Shayla Curry Procedure Date: 02/12/2022 3:21 PM Admit Type: Inpatient Room: [facility] Date of : 1985 Instrument Name: [id number] Gender: Female Note Status: Mailing Machine Helper Override Procedure: ERCP Indications: Further management of [...] one pancreatic stents were visible on the seam finisher film. The esophagus was successfully intubated under [...] 02/11/2022 6:04 PM Admit Type: Inpatient Room: [facility] Date of : 1985 Instrument Name: [...] duct and ventral pancreatic duct. Findings: A seam finisher film of the abdomen was obtained and [...] stones, WPW, presented to [facility] on 02[facility]08 with c/o worsening abd pain [...] Radiology Brief Post Procedure Note Attending: Thais Perianesthesia Manager: Grey Sedation/Anesthesia: Anesthesia Pre-Op/Pre-Procedure Diagnosis: bile leak [...] Brooke RN - 02/12/2022 3:52 PM CDT [facility] Home Health consult received. [facility] Home Care agency accepted patient [...] transport arranged?: No (02/12/221127) Health Insurance Coverage: [facility] Prescription Coverage: yes Pharmacy: [id number] - [place], [place] - [address] [facility] [address] Primary Care Provider: Thor Fajardo MD Prior to Admission: Primary Caregiver: Self Who does the patient or legal guardian want to receive education instruction and discharge plans for after care assistance?: Name Caregiver Name: Alyssa Cortes Relationship to patient: Caregiver Contact Information: [phone] Support System: Spouse/Significant Other Support system contact info (name, phone, availablity): alyssa Cortes [phone] Home Care Services: No Durable Medical Equipment: [...] a week How often do you attend presybeterian or restorationism services?: Never Do you belong to any clubs or organizations such as presybeterian groups, unions, fraternal or athletic groups, or school groups?: No How often do you attend meetings of the clubs or organizations you belong to?: Never Are you , , , , never , or living with a partner?: (02/12/221427) Food Insecurity: Alcohol Use: PHQ Screening Potential discharge needs include: Home Health: penitentiary (02/12/221127) Dialysis: Behavioral Health Services: Behavioral Health Services: No (02/12/221127) Patient expects to be Discharged to: Private residence, (02/12/221127) Additional Information: CM met with pt and and explained CM role. Pt lives with and3 children. Patient is independent. No devices. Pt will need Home Health services for drain care and follow up. Pt is agreeable to [facility] Home health. Referral sent to [facility] home health. CM will continue to follow [...] Collaboration with patient, MD, direct care nurse, Distribution Sales Manager, and other members of the health care team to assure needed interventions completed. 2. Return patient to optimal level of self-care post discharge. 3. Pole Truck Driver will follow for Discharge Planning - interventions as needed 4. Anticipated level of care at discharge 5. Planned Discharge Disposition Vanessa Demarco RN * Plan of Care - Vanessa Demarco RN - 02/12/2022 2:29 PM CDT CM note: Referral sent to [facility] Home health for SN for drain care. [...] been discussed with the patient and/or their medical office representative. All questions answered and they agree [...] AM CDT) eGFR 118 mL/min/1. 73 m2 [facility] Comment: Interpretive Data Reference Interval Normal [...] NP LAB BLOOD ORDERABLES Final Re sult [facility] [address] Department [place] [address] * (ABNORMAL) Comprehensive metabolic panel (02/14/2022 3:18 AM CDT) Pathologist [facility] Sodium 141 135 - 145 mmol/L [facility] Potassium, pl 3.4 3.3 - 4.9 mmol/L [facility] Chloride 103 97 - 110 mmol/L [facility] CO2 26 22 - 32 mmol/L [facility] Anion gap 12 2 - 15 mmol/L [facility] BUN 8 8 - 25 mg/dL [facility] Creatinine 0.62 0.60 - 1.10 mg/dL [facility] Glucose 93 70 - 199 mg/dL [facility] Comment: Interpretive Data Fasting glucose [...] 2017. Calcium 7.6(L) 8.5 - 10.3 mg/dL [facility] Bilirubin, total 1.3(H) 0.1 - 1.2 mg/dL [facility] Protein, pl 5.7(L) 6.5 - 8.5 g/dL [facility] Albumin 3.1(L) 3.5 - 5.0 g/dL [facility] Alk phos 152(H) 40 - 130 Units/L [facility] ALT 60(H) 7 - 45 Units/L [facility] AST 29 10 - 45 Units/L [facility] Blood 02/14/2022 3:18 AM CDT 02/14/2022 3:51 AM CDT us Ada Hilario PERINATAL NURSE LAB BLOOD ORDERABLES Final Re sult [facility] [address] Department [place] [address] * IR Cholangiogram Through Existing Catheter [...] was obtained. Prior to beginning the procedure, [place] Protocol was performed to confirm the patient?s [...] bile duct into the duodenum. A 4 Palestinian Kumpe catheter was advanced coaxially over the [...] Soto was successful in placing a 10 Palestinian 7 cm plastic biliary stent. Contrast was [...] was obtained. Prior to beginning the procedure, [place] Protocol was performed to confirm the patient?s [...] bile duct into the duodenum. A 4 Palestinian Kumpe catheter was advanced coaxially over the [...] Soto was successful in placing a 10 Palestinian 7 cm plastic biliary stent. Contrast was [...] signed by: Carlos Plascencia M.D. Phuong [facility] IR PROCEDURES Final Resul t * ERCP (02/12/2022 3:21 PM CDT) Anatomical Region Laterality Modality Other Narrative Procedure Note Sebastian Soto MD - 02/12/2022 3:21 PM CDT ENDOSCOPY LAB Patient Name: Shayla Curry Procedure Date: 02/12/2022 3:21 PM Admit Type: Inpatient Room: [facility] Date of : 1985 Instrument Name: [id number] Gender: Female Note Status: Mailing Machine Helper Override Procedure: ERCP Indications: Further management of [...] one pancreatic stents were visible on the seam finisher film. The esophagus was successfully intubated under [...] quant <0.2 0.0 - 5.0 IUnits/L [facility] Comment: Interpretive Data Non- Female premenopausal: < [...] BLOOD ORDERABLES Edit ed Result - [facility] [address] Department [place] [address] * COVID-19 Coronavirus RNA Nasopharyngeal (02/12/2022 10:21 AM CDT) COVID-19 RNA Negative Negative [facility] Nasopharyngeal 02/12/2022 10 :21 AM CDT 02/12/2022 10:21 AM CDT Narrative [facility] - 02/12/2022 10:53 AM CDT Is the patient experiencing any symptoms consistent with COVID (eg. Fever, cough, shortness of breath)?->No What is the reason for testing?->Asymptomatic screening prior to procedure??or??surgery (Rapid) ??Interpretive data: Synonyms for this test include: PCR and NAAT . ??This test is performed using the Adility Xpert Xpress plus assay. This is a [...] MICROBIOLOGY - GENERA L ORDERABLES Final Result [facility] [address] Department [place] [address] * CT abdomen pelvis with contrast (02/12/2022 [...] nodes: No adenopathy. Peritoneum: There is a gznvs-aq-cygjxahp volume of ascites which is greatest in [...] nodes: No adenopathy. Peritoneum: There is a sxnoq-ro-iwuroazz volume of ascites which is greatest in [...] AM CDT) eGFR 119 mL/min/1. 73 m2 [facility] Comment: Interpretive Data Reference Interval Normal [...] MD LAB BLOOD ORDERABLES F inal Result [facility] [address] Department [place] [address] * (ABNORMAL) Differential, auto (02/12/2022 4:45 AM CDT) Neutrophil abs 10.9(H) 1.7 - 6.5 K/cumm [facility] Imm gran abs 0.1 0.0 - 0.1 K/cumm [facility] Lymphocyte abs 0.6(L) 0.8 - 3.3 K/cumm [facility] Monocyte abs 0.3 0.2 - 0.8 K/cumm [facility] Eosinophil abs 0.0 0.0 - 0.5 K/cumm [facility] Basophil abs 0.0 0.0 - 0.1 K/cumm [facility] Neutrophil pct 91.0 % [facility] Comment: Interpretive Data Percent cell count reference ranges are not reported, since discordance with absolute values may lead to misinterpretation of CBC data. Current Interpretive Data was last revised on 2017. Imm gran pct 0.7 % [facility] Comment: Interpretive Data Percent cell count reference ranges are not reported, since discordance with absolute values may lead to misinterpretation of CBC data. Current Interpretive Data was last revised on 2017. Lymphocyte pct 5.3 % [facility] Comment: Interpretive Data Percent cell count reference ranges are not reported, since discordance with absolute values may lead to misinterpretation of CBC data. Current Interpretive Data was last revised on 2017. Monocyte pct 2.8 % [facility] Comment: Interpretive Data Percent cell count reference ranges are not reported, since discordance with absolute values may lead to misinterpretation of CBC data. Current Interpretive Data was last revised on 2017. Eosinophil pct 0.0 % [facility] Comment: Interpretive Data Percent cell count reference ranges are not reported, since discordance with absolute values may lead to misinterpretation of CBC data. Current Interpretive Data was last revised on 2017. Basophil pct 0.2 % [facility] Comment: Interpretive Data Percent cell count reference ranges are not reported, since discordance with absolute values may lead to misinterpretation of CBC data. Current Interpretive Data was last revised on 2017. Blood 02/12/2022 4:45 AM CDT 02/12/2022 5:38 AM CDT Anyi Garcia MD LAB BLOOD ORDERABLES F inal Result Performing Organization Address [facility] de Phone Number [facility] [address] [place] [address] * Protime-INR (02/12/2022 4:45 AM CDT) PT 13.3 9.2 - 13.5 sec [facility] INR 1.2 0.9 - 1.2 [facility] Comment: Interpretive data Oral anticoagulant [...] ORDERABLES F inal Result Performing Organization Address [facility] Co de Phone Number [facility] [address] Department [place] [address] * (ABNORMAL) CBC with auto differential (02/12/2022 4:45 AM CDT) [facility] WBC 12.0(H) 3.8 - 9.9 K/cumm [facility] Hgb 11.8(L) 11.9 - 15.5 g/dL [facility] Hct 35.6 35.6 - 45.5 % [facility] Plt 327 150 - 400 K/cumm [facility] MPV 11.0 9.1 - 12.3 fL [facility] RBC 3.97 3.90 - 5.20 M/cumm [facility] MCV 89.7 81.3 - 96.4 fL [facility] MCH 29.7 27.1 - 33.3 pg [facility] MCHC 33.1 32.3 - 35.7 g/dL [facility] RDW CV 13.0 11.1 - 14.9 % [facility] RDW SD 42.8 35.7 - 48.1 fL [facility] NRBC abs 0.00 0.00 - 0.01 K/cumm [facility] Blood 02/12/2022 4:45 AM CDT 02/12/2022 5:38 AM CDT [facility] Liz Garcia MD LAB BLOOD ORDERABLES F inal Result [facility] [address] Department of Laboratories [place], [place] [address] * (ABNORMAL) Comprehensive metabolic panel (02/12/2022 4:45 AM CDT) [facility] Sodium 138 135 - 145 mmol/L [facility] Potassium, pl 4.0 3.3 - 4.9 mmol/L [facility] Chloride 104 97 - 110 mmol/L [facility] CO2 25 22 - 32 mmol/L [facility] Anion gap 9 2 - 15 mmol/L [facility] BUN 10 8 - 25 mg/dL [facility] Creatinine 0.60 0.60 - 1.10 mg/dL [facility] Glucose 120 70 - 199 mg/dL [facility] Comment: Interpretive Data Fasting glucose [...] 2017. Calcium 8.1(L) 8.5 - 10.3 mg/dL [facility] Bilirubin, total 1.7(H) 0.1 - 1.2 mg/dL [facility] Protein, pl 6.4(L) 6.5 - 8.5 g/dL [facility] Albumin 3.5 3.5 - 5.0 g/dL [facility] Alk phos 137(H) 40 - 130 Units/L [facility] ALT 70(H) 7 - 45 Units/L [facility] AST 38 10 - 45 Units/L [facility] Blood 02/12/2022 4:45 AM CDT 02/12/2022 5:38 AM CDT Anyi Garcia MD LAB BLOOD ORDERABLES F inal Result [facility] [address] Department [place] [address] * [place] ERCP Biliary and Pancreatic (02/11/2022 [...] 02/11/2022 6:04 PM Admit Type: Inpatient Room: [facility] Date of : 1985 Instrument Name: [...] duct and ventral pancreatic duct. Findings: A seam finisher film of the abdomen was obtained and [...] 02/11/2022 documented in this encounter Care Teams Chief Wharfinger Relationship Specialty Start Date End Date Thor Fajardo MD [address] [place] [address] PCP - General Family Medicine 12/30/20 documented as of this encounter
--- OUTSIDE RECORDS SUMMARY | 2024-05-09 01:58 | XMS_ITS | Encounter Summary ---
Author Organization [facility] Healthcare Address [address] [place] [address] Care Team Providers Care Fund Director Name Role Phone Thor Fajardo MD Primary Care Provider [phone] Reason for Visit * Auth/Cert Specialty Diagnoses / Procedures Referred By Contac t Referred To Contact Diagnoses BILE DUCT LEAK SURGERY FLOOR Procedures n Referral ID Status Reason Start Date Expiration Date Visits Re quested Visits Authorized [id number] 1 1 Encounter Details Date Type Department Care Team (Late st Contact Info) Description 02/12/2022 12:42 PM CDT Anesthesia Event [facility] - Interventional Radiology [address] [place] [address] True Mustafa DO [address] [place] [address] Anesthesia Record Procedure Summary Procedure Name Responsible [...] How often do you attend chur or temple services? 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 Kidney stone ??? WPW (Abpok-Frepiscfn-Ctwva syndrome) Past Surgical History: Procedure Laterality Date [...] mg at 02/12/22 1103 ??? influenza quadrivalent [id number] (FLULAVAL,FLUARIX,FLUZONE) 60 mcg (15 mcg x 4)/0.5 [...] Medication protocol when under care of a BLENDING TANK TENDER Planned anesthesia: General Team communication plan: oral ET tube Induction: Induction: intravenous. Postoperative Plan: Postoperative administration opioids intended. No postoperative mechanical ventilation intended. Patient's planned disposition post procedure is Floor. Informed Consent: Discussed plan with BLENDING TANK TENDER. Anesthesia plan and risks discussed with patient. [...] Procedure Name Priority Date/Time Associated Diagnosis Comments PA AN PROCEDURE PLACEHOLDER Routine 02/12/2022 1:15 PM CDT PA AN ELECTIVE ENDOTRACHEAL AIRWAY Routine 02/12/2022 1:15 PM CDT documented in this encounter Results * PA AN ELECTIVE ENDOTRACHEAL AIRWAY, PA AN PROCEDURE PLACEHOLDER (02/12/2022 1:15 PM CDT) Narrative Elie Diaz CRNA - 02/12/2022 1:15 PM CDT Elie Diaz CRNA ? 02/12/2022 ??1:16 PM Airway Patient location: OR Urgency: elective Indications for airway management: anesthesia Difficult airway: no Staff: Placed by: BLENDING TANK TENDER: Elie Diaz CRNA Emergent airway documentation: Risks [...] mg documented in this encounter Care Teams Fund Director Relationship Specialty Start Date End Date Thor Fajardo MD [address] [place] [address] PCP - General Family Medicine 12/30/20 documented as of this encounter
--- OUTSIDE RECORDS SUMMARY | 2024-05-09 01:58 | XMS_ITS | Encounter Summary ---
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
--- OUTSIDE RECORDS SUMMARY | 2024-05-09 01:58 | XMS_ITS | Encounter Summary ---
Author Organization [facility] Healthcare Address [address] [place] [address] Care Team Providers Care Nut Blanker Operator Name Role Phone Thor Fajardo MD Primary Care Provider [phone] Reason for Visit * Auth/Cert Specialty Diagnoses / Procedures Referred By Contac t Referred To Contact Diagnoses BILE DUCT LEAK SURGERY FLOOR Procedures n Referral ID Status Reason Start Date Expiration Date Visits Re quested Visits Authorized [id number] 1 1 Encounter Details Date Type Department Care Team (Latest Contact Info) Description 02/11/2022 6:00 PM CDT - 02/11/2022 6:45 PM CDT Surgery [facility] [address] [place] [id number] Sebastian Soto MD [address] [facility] [address] [place] [address] ENDO ENDOSCOPIC RETROGRADE CHOLANGIOPANCREATOGRAPHY WITH STENT PLACEMENT Surgery Details Date/Time Status Location OR Service Patient Class Case Class Case Type Trauma Case? 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 Gastroesophageal reflux disease. 3. History of Rafj-Lpuwghugd-Voqqx syndrome status post ablation. HOSPITAL COURSE This [...] in 2 weeks. Job ID/Internal Job ID: [id number] documented in this encounter Medications at Time [...] 1 mg at 02/13/22 0554 influenza quadrivalent [id number] (FLULAVAL,FLUARIX,FLUZONE) 60 mcg (15 mcg x 4)/0.5 [...] diphenhydrAMINE fentaNYL haloperidol HYDROmorphone HYDROmorphone influenza quadrivalent [id number] insulin lispro labetalol LORazepam meperidine naloxone ondansetron [...] nodes: No adenopathy. Peritoneum: There is a auinu-gs-iqremulm volume of ascites which is greatest in [...] was obtained. Prior to beginning the procedure, Cameron Protocol was performed to confirm the patient?s [...] bile duct into the duodenum. A 4 Bahamian Kumpe catheter was advanced coaxially over the [...] Soto was successful in placing a 10 Bahamian 7 cm plastic biliary stent. Contrast was [...] and documentation: 30 Minutes Anyi Garcia MD [facility] Exchange: This note was transcribed using Signal360 (formerly S[employer] Notify) Speech Recognition software. As a result, there [...] point. Carlos Plascencia M.D. Instructor Interventional Radiology [phone] * Ada Hilario NP - 02/13/2022 8:18 [...] brought back to the hospital. CT scanshowed htrff-uw-efuluiog abdominal fluid, gastritis and duodenitis. HIDA scan [...] S1, S2. ABDOMEN: Soft, bowel sounds positive. MANUFACTURING ENGINEER AUTOMOTIVE: Moves all extremities. EXTREMITIES : There is no pedal edema. LABS From today sodium is 138, potassium 4.0, chloride 104, CO2 is 25, BUN is 10, creatinine is 0.6, glucose 120, calcium is 8.8, bilirubin is 1.7, total bili 6.4. CBC: WBC 12, hemoglobin 11.8, vphrkmsyqd09.6, platelet count 327. PT 13.3, INR 1.2. [...] tolerate low-fat diet. Job ID/Internal Job ID: [id number] documented in this encounter Procedure Notes * Sebastian Soto MD - 02/12/2022 3:21 PM CDTAssociated Order(s): ERCP ENDOSCOPY LAB Patient Name: Shayla Curry Procedure Date: 02/12/2022 3:21 PM Admit Type: Inpatient Room: [facility] Date of : 1985 Instrument Name: [id number] Gender: Female Note Status: Commercial Lending Vice President Override Procedure: ERCP Indications: Further management of [...] one pancreatic stents were visible on the signalman film. The esophagus was successfully intubated under [...] 02/11/2022 6:04 PM Admit Type: Inpatient Room: [facility] Date of : 1985 Instrument Name: [id number] [...] duct and ventral pancreatic duct. Findings: A signalman film of the abdomen was obtained and [...] h/o GERD, kidney stones, WPW, presented to [facility] on 02/08 with c/o worsening abd pain [...] Radiology Brief Post Procedure Note Attending: Thais Clinical Data Programmer: Grey Sedation/Anesthesia: Anesthesia Pre-Op/Pre-Procedure Diagnosis: bile leak [...] Brooke RN - 02/12/2022 3:52 PM CDT [facility] Home Health consult received. [facility] Home Care agency accepted patient [...] transport arranged?: No (02/12/221127) Health Insurance Coverage: [employer] Prescription Coverage: yes Pharmacy: [id number] - [place], [place] - [address] [facility] [address] Primary Care Provider: Thor Fajardo MD Prior to Admission: Primary Caregiver: Self Who does the patient or legal guardian want to receive education instruction and discharge plans for after care assistance?: Name Caregiver Name: Alyssa Cortes Relationship to patient: Caregiver Contact Information: [phone] Support System: Spouse/Significant Other Support system contact info (name, phone, availablity): alyssa Cortes [phone] Home Care Services: No Durable Medical Equipment: [...] a week How often do you attend religious or sikh services?: Never Do you belong to any clubs or organizations such as religious groups, unions, fraternal or athletic groups, or school groups?: No How often do you attend meetings of the clubs or organizations you belong to?: Never Are you , , , , never , or living with a partner?: (02/12/221427) Food Insecurity: Alcohol Use: PHQ Screening Potential discharge needs include: Home Health: shelter (02/12/221127) Dialysis: Behavioral Health Services: Behavioral Health Services: No (02/12/221127) Patient expects to be Discharged to: Private residence, (02/12/221127) Additional Information: CM met with pt and and explained CM role. Pt lives with and3 children. Patient is independent. No devices. Pt will need Home Health services for drain care and follow up. Pt is agreeable to [facility] Home health. Referral sent to [facility] home health. CM will continue [...] Collaboration with patient, MD, direct care nurse, Propeller Layout Worker, and other members of the health care team to assure needed interventions completed. 2. Return patient to optimal level of self-care post discharge. 3. Deputy Court Clerk will follow for Discharge Planning - interventions as needed 4. Anticipated level of care at discharge 5. Planned Discharge Disposition Vanessa Demarco RN * Plan of Care - Vanessa Demarco RN - 02/12/2022 2:29 PM CDT CM note: Referral sent to [facility] Home health for SN for [...] been discussed with the patient and/or their home furnishings sales representative. All questions answered and they agree [...] AM CDT) eGFR 118 mL/min/1. 73 m2 [facility] Comment: Interpretive Data Reference Interval Normal ?>/= [...] NP LAB BLOOD ORDERABLES Final Re sult [facility] [address] Department [place] [address] * (ABNORMAL) Comprehensive metabolic panel (02/14/2022 3:18 AM CDT) Pathologist [facility] Sodium 141 135 - 145 mmol/L [facility] Potassium, pl 3.4 3.3 - 4.9 mmol/L [facility] Chloride 103 97 - 110 mmol/L [facility] CO2 26 22 - 32 mmol/L [facility] Anion gap 12 2 - 15 mmol/L [facility] BUN 8 8 - 25 mg/dL [facility] Creatinine 0.62 0.60 - 1.10 mg/dL [facility] Glucose 93 70 - 199 mg/dL [facility] Comment: Interpretive Data Fasting glucose >/= 126 [...] 2017. Calcium 7.6(L) 8.5 - 10.3 mg/dL [facility] Bilirubin, total 1.3(H) 0.1 - 1.2 mg/dL [facility] Protein, pl 5.7(L) 6.5 - 8.5 g/dL [facility] Albumin 3.1(L) 3.5 - 5.0 g/dL [facility] Alk phos 152(H) 40 - 130 Units/L [facility] ALT 60(H) 7 - 45 Units/L [facility] AST 29 10 - 45 Units/L [facility] Blood 02/14/2022 3:18 AM CDT 02/14/2022 3:51 AM CDT us Ada Hilario BATCH PLANT SUPERVISOR LAB BLOOD ORDERABLES Final Re sult [facility] [address] Department [place] [address] * IR Cholangiogram Through Existing Catheter [...] was obtained. Prior to beginning the procedure, Cameron Protocol was performed to confirm the patient?s [...] bile duct into the duodenum. A 4 Bahamian Kumpe catheter was advanced coaxially over the [...] Soto was successful in placing a 10 Bahamian 7 cm plastic biliary stent. Contrast was [...] was obtained. Prior to beginning the procedure, Cameron Protocol was performed to confirm the patient?s [...] bile duct into the duodenum. A 4 Bahamian Kumpe catheter was advanced coaxially over the [...] Soto was successful in placing a 10 Bahamian 7 cm plastic biliary stent. Contrast was [...] signed by: Carlos Plascencia M.D. Phuong [facility] IR PROCEDURES Final Resul t * ERCP (02/12/2022 3:21 PM CDT) Anatomical Region Laterality Modality Other Narrative Procedure Note Sebastian Soto MD - 02/12/2022 3:21 PM CDT ENDOSCOPY LAB Patient Name: Shayla Curry Procedure Date: 02/12/2022 3:21 PM Admit Type: Inpatient Room: [facility] Date of : 1985 Instrument Name: [id number] Gender: Female Note Status: Commercial Lending Vice President Override Procedure: ERCP Indications: Further management of [...] one pancreatic stents were visible on the signalman film. The esophagus was successfully intubated under [...] quant <0.2 0.0 - 5.0 IUnits/L [facility] Comment: Interpretive Data Non- Female premenopausal: [...] BLOOD ORDERABLES Edit ed Result - [facility] [address] Department [place] [address] * COVID-19 Coronavirus RNA Nasopharyngeal (02/12/2022 10:21 AM CDT) COVID-19 RNA Negative Negative [facility] Nasopharyngeal 02/12/2022 10 :21 AM CDT 02/12/2022 10:21 AM CDT Narrative [facility] - 02/12/2022 10:53 AM CDT Is the patient experiencing any symptoms consistent with COVID (eg. Fever, cough, shortness of breath)?->No What is the reason for testing?->Asymptomatic screening prior to procedure??or??surgery (Rapid) ??Interpretive data: Synonyms for this test include: PCR and NAAT . ??This test is performed using the BankFac[employer] Xpert Xpress plus assay. This is a [...] MICROBIOLOGY - GENERA L ORDERABLES Final Result [facility] [address] Department [place] [address] * CT abdomen pelvis with contrast (02/12/2022 [...] nodes: No adenopathy. Peritoneum: There is a akuja-jh-ogpibsor volume of ascites which is greatest in [...] nodes: No adenopathy. Peritoneum: There is a rqrxn-hy-zdfcwhot volume of ascites which is greatest in [...] AM CDT) eGFR 119 mL/min/1. 73 m2 [facility] Comment: Interpretive Data Reference Interval Normal ?>/= [...] MD LAB BLOOD ORDERABLES F inal Result [facility] [address] Department [place] [address] * (ABNORMAL) Differential, auto (02/12/2022 4:45 AM CDT) Neutrophil abs 10.9(H) 1.7 - 6.5 K/cumm [facility] Imm gran abs 0.1 0.0 - 0.1 K/cumm [facility] Lymphocyte abs 0.6(L) 0.8 - 3.3 K/cumm [facility] Monocyte abs 0.3 0.2 - 0.8 K/cumm [facility] Eosinophil abs 0.0 0.0 - 0.5 K/cumm [facility] Basophil abs 0.0 0.0 - 0.1 K/cumm [facility] Neutrophil pct 91.0 % [facility] Comment: Interpretive Data Percent cell count reference ranges are not reported, since discordance with absolute values may lead to misinterpretation of CBC data. Current Interpretive Data was last revised on 2017. Imm gran pct 0.7 % [facility] Comment: Interpretive Data Percent cell count reference ranges are not reported, since discordance with absolute values may lead to misinterpretation of CBC data. Current Interpretive Data was last revised on 2017. Lymphocyte pct 5.3 % [facility] Comment: Interpretive Data Percent cell count reference ranges are not reported, since discordance with absolute values may lead to misinterpretation of CBC data. Current Interpretive Data was last revised on 2017. Monocyte pct 2.8 % [facility] Comment: Interpretive Data Percent cell count reference ranges are not reported, since discordance with absolute values may lead to misinterpretation of CBC data. Current Interpretive Data was last revised on 2017. Eosinophil pct 0.0 % [facility] Comment: Interpretive Data Percent cell count reference ranges are not reported, since discordance with absolute values may lead to misinterpretation of CBC data. Current Interpretive Data was last revised on 2017. Basophil pct 0.2 % [facility] Comment: Interpretive Data Percent cell count reference ranges are not reported, since discordance with absolute values may lead to misinterpretation of CBC data. Current Interpretive Data was last revised on 2017. Blood 02/12/2022 4:45 AM CDT 02/12/2022 5:38 AM CDT Anyi Garcia MD LAB BLOOD ORDERABLES F inal Result Performing Organization Address [facility] de Phone Number [facility] [address] [place] [address] * Protime-INR (02/12/2022 4:45 AM CDT) PT 13.3 9.2 - 13.5 sec [facility] INR 1.2 0.9 - 1.2 [facility] Comment: Interpretive data Oral anticoagulant therapeutic ranges: Venous thromboembolism prophylaxis or treatment: 2.0-3.0 CARDIOLOGY Standard range: 2.0-3.0 High-intensity range: 2.5-3.5 Refer to indication-specific guidelines for appropriate target ranges for prosthetic heart valve replacement. Current interpretive data was last revised on 2019. Blood 02/12/2022 4:45 AM CDT 02/12/2022 5:38 AM CDT Anyi Garcia MD LAB BLOOD ORDERABLES F inal Result Performing Organization Address [facility] Co de Phone Number [facility] [address] [place] [address] * (ABNORMAL) CBC with auto differential (02/12/2022 4:45 AM CDT) [facility] WBC 12.0(H) 3.8 - 9.9 K/cumm [facility] Hgb 11.8(L) 11.9 - 15.5 g/dL [facility] Hct 35.6 35.6 - 45.5 % [facility] Plt 327 150 - 400 K/cumm [facility] MPV 11.0 9.1 - 12.3 fL [facility] RBC 3.97 3.90 - 5.20 M/cumm [facility] MCV 89.7 81.3 - 96.4 fL [facility] MCH 29.7 27.1 - 33.3 pg [facility] MCHC 33.1 32.3 - 35.7 g/dL [facility] RDW CV 13.0 11.1 - 14.9 % [facility] RDW SD 42.8 35.7 - 48.1 fL [facility] NRBC abs 0.00 0.00 - 0.01 K/cumm [facility] Blood 02/12/2022 4:45 AM CDT 02/12/2022 5:38 AM CDT [facility] Liz Garcia MD LAB BLOOD ORDERABLES F inal Result [facility] [address] Department of Laboratories [place], [place] [id number] * (ABNORMAL) Comprehensive metabolic panel (02/12/2022 4:45 AM CDT) [facility] Sodium 138 135 - 145 mmol/L [facility] Potassium, pl 4.0 3.3 - 4.9 mmol/L [facility] Chloride 104 97 - 110 mmol/L [facility] CO2 25 22 - 32 mmol/L [facility] Anion gap 9 2 - 15 mmol/L [facility] BUN 10 8 - 25 mg/dL [facility] Creatinine 0.60 0.60 - 1.10 mg/dL [facility] Glucose 120 70 - 199 mg/dL [facility] Comment: Interpretive Data Fasting glucose >/= 126 [...] 2017. Calcium 8.1(L) 8.5 - 10.3 mg/dL [facility] Bilirubin, total 1.7(H) 0.1 - 1.2 mg/dL [facility] Protein, pl 6.4(L) 6.5 - 8.5 g/dL [facility] Albumin 3.5 3.5 - 5.0 g/dL [facility] Alk phos 137(H) 40 - 130 Units/L [facility] ALT 70(H) 7 - 45 Units/L [facility] AST 38 10 - 45 Units/L [facility] Blood 02/12/2022 4:45 AM CDT 02/12/2022 5:38 AM CDT Anyi Garcia MD LAB BLOOD ORDERABLES F inal Result [facility] [address] Department [place] [address] * FL ERCP Biliary and Pancreatic (02/11/2022 [...] 02/11/2022 6:04 PM Admit Type: Inpatient Room: [facility] Date of : 1985 Instrument Name: [id number] [...] duct and ventral pancreatic duct. Findings: A signalman film of the abdomen was obtained and [...] Reason: IV Infusing)1228 (Not Given - Provider: uSsan Brown RN - Reason: IV Infusing)2138 (Not [...] 02/11/2022 documented in this encounter Care Teams Nut Blanker Operator Relationship Specialty Start Date End Date Thor Fajardo MD [address] [place] [address] PCP - General Family Medicine 12/30/20 documented as of this encounter
--- OUTSIDE RECORDS SUMMARY | 2024-05-09 01:58 | XMS_ITS | Encounter Summary ---
Author Organization [facility] Healthcare Address [address] [place] [address] Care Team Providers Care Salesperson Floor Coverings Name Role Phone Thor Fajardo MD Primary Care Provider [phone] Reason for Visit * Auth/Cert Specialty Diagnoses / Procedures Referred By Contac t Referred To Contact Diagnoses BILE DUCT LEAK SURGERY FLOOR Procedures n Referral ID Status Reason Start Date Expiration Date Visits Re quested Visits Authorized [id number] 1 1 Encounter Details Date Type Department Care Team (Late st Contact Info) Description 02/11/2022 6:22 PM CDT Anesthesia Event [facility] [address] [place] [address] Joe Deutsch MD [address] [facility] [place] [address] Anesthesia Record Procedure Summary Procedure Name Responsible [...] II 2057 An Stop 2101 Release from [facility] Med Name Total lidocaine (cardiac) syringe 2 [...] often do you attend chur ch or taoism services? 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 Kidney stone ??? WPW (Plmia-Cydojjkvz-Hwvpm syndrome) Past Surgical History: Procedure Laterality Date [...] Q4H PRN ??? [MAR Hold] influenza quadrivalent 2625-7522 (FLULAVAL,FLUARIX,FLUZONE) 60 mcg (15 mcg x 4)/0.5 [...] Dental Exam: Otherwise appears intact and caps ([place] #18) Anesthesia Plan ASA 1 My patient is approved for the Anesthesia Controlled Medication protocol when under care of a ORNAMENTAL PAINTER Planned anesthesia: General/TIVA Induction: Induction: intravenous. Postoperative Plan: No plan for postoperative opioid use. No postoperative mechanical ventilation intended. Patient's planned disposition post procedure is Floor. Informed Consent: Discussed plan with ORNAMENTAL PAINTER. Anesthesia plan and risks discussed with patient. [...] Procedure Name Priority Date/Time Associated Diagnosis Comments MN AN PROCEDURE PLACEHOLDER Routine 02/11/2022 7:45 PM CDT MN AN ELECTIVE ENDOTRACHEAL AIRWAY Routine 02/11/2022 7:45 PM CDT documented in this encounter Results * MN AN ELECTIVE ENDOTRACHEAL AIRWAY, MN AN PROCEDURE PLACEHOLDER (02/11/2022 7:45 PM CDT) Narrative Vinayak Winston CRNA - 02/11/2022 7:45 PM CDT Vinayak Winston CRNA ? 02/11/2022 ??7:45 PM Airway Patient location: OR Urgency: elective Indications for airway management: anesthesia Difficult airway: no Staff: Supervising provider: Joe Deutsch MD Placed by: ORNAMENTAL PAINTER: Vinayak Winston CRNA Emergent airway documentation: Risks [...] mg documented in this encounter Care Teams Salesperson Floor Coverings Relationship Specialty Start Date End Date Thor Fajardo MD [address] [place] [address] PCP - General Family Medicine 12/30/20 documented as of this encounter
--- OUTSIDE RECORDS SUMMARY | 2024-05-09 01:58 | XMS_ITS | Encounter Summary ---
Author Organization [facility] Address [address] [facility] [address] [place] [address] Care Team Providers Care Engineer Name Role Phone Thor Fajardo MD Primary Care Provider [phone] Reason for Referral * Consultation (Routine) - Closed Specialty Diagnoses / Procedures Referred By Joselin drummond Referred To Contact Cardiology Diagnoses Vasovagal syncope History of Upwzg-Vrmeyhzth-Mobkg (WPW) syndrome H/O cardiac radiofrequency ablation Kayden Haney MD [address] [address] Phone: tel: fax: Krupa Patton MD [address] [facility] [address] [place] [address] Phone: tel: fax: Referral ID Status Reason Start Date Expiration Date V isits Requested Visits Authorized [id number] Closed Specialty Services Required 01/13/2022 02/12/2023 1 1 Question Answer Please select the performing region: [facility] [[id number]] Please select the performing department: [facility] [[id number]] To provider: KRUPA PATTON [[id number]] # of visits: 1 * Cardiology (Routine) - Closed Specialty Diagnoses / Procedures Referred By Joselin drummond Referred To Contact Diagnoses Vasovagal syncope Procedures Transthoracic Echo (TTE) Complete W Doppler/CF Kayden Haney MD [address] [place] [address] Phone: tel: fax: [facility] Referral ID Status Reason Start Date Expiration Date Visits Re quested Visits Authorized [id number] Closed 01/13/2022 02/12/2023 1 1 Reason for Visit * Reason Comments Syncope 1 year fu Encounter Details Date Type Department Care Team (Latest Contact Info) Description 01/13/2022 1:30 PM CDT Office Visit [facility] Cardiology [address] [place] [address] Kayden Haney MD [address] [place] [address] Vasovagal syncope (Primary Dx); History of Hjqih-Qypuwiqjb-Hgpoe (WPW) syndrome; H/O cardiac radiofrequency ablation; Lipid screening Social History Tobacco Use Types Packs/Day Years Used Date Smoking Tobacco: Former Cigarettes Q uit: 10/08/2019 Smokeless Tobacco: Never Tobacco Cessation:Counseling Given: Not Answered Comments Unknown Sex and Gender Information Value Date Recorded Sex Assigned at Not on file Legal Sex Female 9:50 PM RAIL GANG SUPERVISOR Gender Identity Not on file Sexual [...] Haney MD - 01/13/2022 1:30 PM CDT [facility] CARDIOLOGY 01/13/2022 CHIEF COMPLAINT Chief Complaint Patient presents with Syncope 1 year fu HPI Delmer Camejo is a 36 y.o. female with history of WPW syndrome status post radiofrequency ablation on 01/04/[address] [facility]. 12/31/2020 initial evaluation-patient has been referred for cardiovascular evaluation. Patient has history of WPW syndrome and radiofrequency ablation on 01/04/[address] [facility]. Over the years, she has not had [...] has a past medical history of WPW (Orehc-Octswpdwa-Rlvjp syndrome)., status post radiofrequencyablation she has a [...] Ambulatory referral to Cardiology; Future History of Daaoo-Jlxpnfiga-Pkfba (WPW) syndrome - Ambulatory referral to Cardiology; Future H/O cardiac radiofrequency ablation - Ambulatory referral to Cardiology; Future PLAN/RECOMMENDATIONS 36 y.o. with history of WPW syndrome status post radiofrequency ablation on 01/04/[address] [facility]. - patient has history of recurrent syncope [...] time. Previous EKG is unremarkable with normal AR interval. Continue to monitor for now. Will refer to electrophysiology for any additional recommendations. -heart healthy diet counseling was done. Diet and lifestyle modification for dyslipidemia. -she was advised to stop vaping. -RTC in 12-18 months or sooner if needed. Kayden Haney MD 01/13/22 Voice recognition software was used to complete this document, therefore, pyrometallurgical engineer variances may occur. documented in this encounter Miscellaneous Notes * Addendum Note - Zaina Stewart MA - 01/13/2022 1:30 PM CDTAddended by: ZAINA STEWART on: 01/13/2022 04:04 PM Modules accepted: Orders documented in this encounter Plan of Treatment Scheduled Referrals Name Type Priority Associated Diagnoses Orde r Schedule Ambulatory referral to Cardiology Outpatient Referral Routine Vasovagal syncope History of Cnygl-Zkeuvhzsm-Rilib (WPW) syndrome H/O cardiac radiofrequency ablation Expected: 01/27/2022 (Approximate), Expires: 01/13/2023 documented as of this encounter Procedures Procedure Name Priority Date/Time Associated Diagnosis Comments POCT LIPID PANEL Routine 01/13/2022 4:04 PM CDT Lipid screening documented in this encounter Results * TRANSTHORACIC ECHO (TTE) COMPLETE W DOPPLER/CF WO CONTRAST (03/24/2022 8:46 AM RAIL GANG SUPERVISOR) Anatomical Region Laterality Modality Ultrasound 03/24/2022 8:06 AM RAIL GANG SUPERVISOR Narrative 03/24/2022 2:34 PM RAIL GANG SUPERVISOR [facility] Cardiology [address] [facility] [address] [address] [address] [facility] [address], [place] [address] P:[phone] P:[phone] Echocardiographic Report Patient Name: DELMER CAMEJO : 1985 Study Date: 03/24/2022 8:06:26 AM Gender: F Tech: Location: [place] Ref.Provider: KAYDEN HANEY Height(Cm): 170 BSA: 1.96 [...] Findings: Interpretation Site: Exam was interpreted at [facility]. Left Ventricle: Normal left ventricular wall [...] function. Electronically Signed By: Kayden Haney MD, [facility] 2022-03-24 14:34:13 RAIL GANG SUPERVISOR CC: CC: Procedure Note Kayden Haney MD - 03/24/2022 [facility] Cardiology [address], [place] [address] [address], [place] [address] P:[phone] P:[phone] Echocardiographic Report Patient Name: DELMER CAMEJOPatient ID: [id number] : [id number] Date: 03/24/2022 8:06:26 AM Gender: FAccession #: [id number] Tech: GMLocation: [place] Ref.Provider: KAYDEN HANEYHeight(Cm): 170 BSA: 1.96Weight(Kg): 84.37 [...] 16.00 - 28.00 ] cc/m2 MV Decel Gysl981 [ 150 - 200 ] msec ACS MM 1.73 cm PV Peak Vel0.99 [ 0.40 - 0.80 ] m/s TR Peak Vel2.29 [ 0.40 - 0.80 ] m/s TR Peak PG 21mmHg RVSP29.00 mmHg E'0.14 E/E' 5 - Findings: Interpretation Site: Exam was interpreted at [facility]. Left Ventricle: Normal left ventricular wall [...] function. Electronically Signed By: Kayden Haney MD, [facility] 2022-03-24 14:34:13 RAIL GANG SUPERVISOR CC: CC: Kayden Haney MD CV ECHO [...] syncope- Primary Syncope and collapse History of Deivr-Pzvbydcty-Tkxdq (WPW) syndrome H/O cardiac radiofrequency ablation Lipid screening Screening for lipoid disorders Vasovagal syncope Syncope and collapse documented in this encounter Care Teams Engineer Relationship Specialty Start Date End Date Thor Fajardo MD [address] [place] [address] PCP - General Family Medicine 12/30/20 documented as of this encounter
--- OUTSIDE RECORDS SUMMARY | 2024-05-09 01:58 | XMS_ITS | Encounter Summary ---
Author Organization [facility] Address [address] [facility] [address] [place] [address] Care Team Providers Care Certified Wellness Program Coordinator Name Role Phone Thor Fajardo MD Primary Care Provider [phone] Reason for Visit * Reason Comments New Patient dizziness, syncope Encounter Details Date Type Department Care Team (Latest Contact Info) Description 12/31/2020 1:00 PM CDT Office Visit [facility] Cardiology [address] [facility] [address] [place] [address] Kayden Buck MD [address] [id number] Vasovagal syncope (Primary Dx); History of Mmzlf-Hutwuwtxh-Kxaje (WPW) syndrome; H/O cardiac radiofrequency ablation Social History Tobacco Use Types Packs/Day Years Used Date Smoking Tobacco: Former Cigarettes Q uit: 10/08/2019 Smokeless Tobacco: Never Comments Unknown Sex and Gender Information Value Date Recorded Sex Assigned at Not on file Legal Sex Female 9:50 PM JIGGER OPERATOR Gender Identity Not on file Sexual [...] Buck MD - 12/31/2020 1:00 PM CDT [facility] CARDIOLOGY 12/31/2020 CHIEF COMPLAINT Chief Complaint Patient presents with ??? New Patient dizziness, syncope HPI Shayla Curry is a 35 y.o. female with history of WPW syndrome status post radiofrequency ablation on 01/04/1997 at [facility]. 12/31/2020 initial evaluation-patient has been referred for cardiovascular evaluation. Patient has history of WPW syndrome and radiofrequency ablation on 01/04/1997 at [facility]. Over the years, she has not had [...] has a past medical history of WPW (Cqocf-Dcqnxfyla-Wsaue syndrome)., status post radiofrequencyablation she has a [...] this visit: Vasovagal syncope (Primary) History of Bbttj-Dglsfayhw-Nwazc (WPW) syndrome H/O cardiac radiofrequency ablation PLAN/RECOMMENDATIONS 35 y.o. with history of WPW syndrome status post radiofrequency ablation on 01/04/1997 at [facility]. - patient has history of recurrent syncope [...] arrhythmias. Current EKG is unremarkable with normal OR interval. Will continue to monitor for now. -heart healthy diet counseling was done. -she was advised to stop vaping. -RTC in 10-12 months or sooner if needed. Kayden Buck MD 12/31/20 Voice recognition software was used to complete this document, therefore, camp coordinator variances may occur. documented in this encounter [...] syncope- Primary Syncope and collapse History of Serii-Wgpxdqvit-Usvtb (WPW) syndrome H/O cardiac radiofrequency ablation documented in this encounter Care Teams Certified Wellness Program Coordinator Relationship Specialty Start Date End Date Thor Fajardo MD [address] [place] [address] PCP - General Family Medicine 12/30/20 documented as of this encounter
== END 2024-05-02 07:36 | disposition home or self-care (01) ==
PROVIDERS: Emergency Provider Emergency Medicine; PCP Family Medicine
DX: N13.2 Hydronephrosis with renal and ureteral calculous obstruction (principal); Z87.442 Personal history of urinary calculi; Z87.891 Personal history of nicotine dependence; Z90.49 Acquired absence of other specified parts of digestive tract
CPT/HCPCS: 36415; 74176; 80053; 81003; 81025; 83690; 85025; 96361; 96374; 96375; 96376; 99284; J1171; J1885; J2405; J7030

== ENCOUNTER 2024-06-12 14:27 | Outpatient (CLI) | payer OTHER, SELFPAY ==
--- NOTE | ~2024-06-12 | XR_ITS ---
EXAMINATION: XR abdomen/kub 1V DATE: 06/12/2024 14:40 INDICATION: Left ureteral stone TECHNIQUE: A supine view of the abdomen on 2 radiographs was obtained. COMPARISON: CT dated 05/02/2024 FINDINGS: No evident urolithiasis. There are couple tubal ligation rings projecting over the left and right chelsy es of the pelvis. Cholecystectomy clips in right upper quadrant. Normal bowel gas pattern. Bones are unremarkable. IMPRESSION: 1. No evident urolithiasis. Reviewed, dictated and finalized at location A. AGE WORKER IMPRESSION: 1. No evident urolithiasis.
--- OUTSIDE RECORDS SUMMARY | 2024-06-12 15:14 | XMS_ITS | Referral Summary ---
Author Organization [facility] [address] Address [address] [place] [address] Care Team Providers Care Drill Runner Helper Name Role Phone Thor Fajardo MD Primary Care Provider Sebastian Soto MD Unavailable Ena Rose MD Unavailable [phone] Tutu Hermosillo MD Unavailable [phone] Encounters Date Type Department Care Team Description 03/13/2024 Orders Only [facility] [address] [facility] [address] [address] Ena Rose MD BRCA2 gene mutation positive (Primary Dx) 03/12/2024 Telephone [facility] - Imaging [address] [facility] [place] [address] Lelia Mojica, MARIO Test Results; Follow-Up Call 24-48 Hours from Last 3 Months Allergies No known [...] BRCA2 gene mutation positive 08/11/2022 Overview (12/29/2023): [employer] 2022: BRCA2 c.4243G>T p.E1415* pathogenic variant consistent with hereditary breast and ovarian cancer. Please view note from 07/29/2022 for specific cancer screening recommendations. Based on Shayla's family history, expanded genetic testing was offered at the conclusion of their initial visit. The [employer] Comprehensive panel analyzed 81 genes associated [...] skin exams. Shayla's paternal aunt from melanoma. Bile leak from incision of common bile duct 01/30 Bile leak 02/10/2022 Overview (02/11/2022): Added automatically from request for surgery [id number] Immunizations Name Administration Dates Next Due Influenza, [...] How often do you attend chur or christianity services? Never 02/12/2022 Do you belong to any clubs o r organizations such as taoism groups, unions, fraternal or athletic groups, or [...] on file Legal Sex Female 9:50 PM POLISHING WHEEL SETTER Gender Identity Not on file Sexual Orientation Not on file Last Filed Vital Signs Vital Sign Reading Time Taken Comments Blood Pressure 100/67 03/09/2024 2:16 PM POLISHING WHEEL SETTER Pulse 100 03/09/2024 2:16 PM POLISHING WHEEL SETTER Temperature 36.9 C (98.4 F) 01/03/2024 9:56 AM CDT Respiratory Rate 16 03/09/2024 2:16 PM POLISHING WHEEL SETTER Oxygen Saturation 95% 01/11/2023 9:39 AM CDT Inhaled Oxygen Concentration - - Weight 86.2 kg (190 lb) 02/13/2024 9:59 AM CDT Height 170.2 cm (5' 7 ) 02/13/2024 9:59 AM CDT Body Mass Index 29.76 02/13/2024 9:59 AM CDT Plan of Treatment Not on file Medical Devices Implanted Type Area Body Shop Manager Device Identifier Shelf Expiration Date Model / Serial / Lot Adduplex Mri Guided Rigid Deployment Device Cork Marker Breast Trimark Td 13-Mr - [id number] Implanted:Qty: 1 on 03/09/2024 at [facility] Clip [employer] [id number] 08/01/2025 TRIMARK TD 13-MR / / [id number] [employer] Vazquez Flexi-Stent 4fr 9cm Small Pigtail Without Flange Flexible 6545 - [id number] Implanted:Qty: 1 on 02/11/2022 by Sebastian Soto MD at [facility] Stent N/A: Pancreas [employer] 11/29/2026 [id number] / / [id number] [employer] Cotton-Mims 10fr 7cm Taper Tip Guidewire Proximal Distal Flap [id number] - [id number] Implanted:Qty: 1 on 02/12/2022 by Sebastian Soto MD at [facility] Stent N/A: Bile Duct [employer] 08/03/2024 [id number] / / [id number] Insurance [facility] CHOICE PLUS [facility] HMO/PPO Address: [address] [place], [place] [id number] [place] [facility] CHOICE [facility]US [facility] HMO/PPO Address: [address] [place] [address] [facility] CHOICE PLUS [facility] HMO/PPO Address: [address] [address] [place] [address] Advance Directives For more information, please contact: [phone] * Full Code (Latest Code Status on File) Date Activated Date Inactivated Comments 02/11/2022 3:22 PM 02/14/2022 4:17 PM Care Teams Drill Runner Helper Relationship Specialty Start Date End Date Thor Fajardo MD [address] [place] [address] PCP - General Family Medicine 12/30/20 Sebastian Soto MD [address] [place] [address] Consulting Physician Gastroenterology 02/14/22 Ena Rose MD [address] [facility] [address] [place] [address] Consulting Physician Surgical Oncology 08/11/22 Tutu Hermosillo MD [address] [facility] [place] [address] Consulting Physician Plastic Surgery 12/29/23
--- OUTSIDE RECORDS SUMMARY | 2024-06-12 15:14 | XMS_ITS | Patient Health Record ---
Author Organization [facility] Address [address] [place] [address] Care Team Providers Care Cornice Upholsterer Name Role Phone Scotty GEORGE, Thor Primary Care Provider Unavailab curtis DOMINGUEZ MD, DUC Unavailable Piotr Hughes MD Unavailable Unavailable REASON FOR REFERRAL No Information PROBLEMS Problem Type ICD Code Onset Dates Problem Status W/U Status Risk SNOMED Code Notes Problem Perforation of bile duct (K83.2) Active confirmed Perforation of bile duct (80536109) PLAN OF TREATMENT Pending Test Test Name Order Date Endoscopic Retrograde Cholangiopancreato graphy (ERCP) 02/26/2022 Insurance Providers Payer Name Payer Address Payer Phone Subscriber Number Group Number Insured Name Patient Relationship to Insured Coverage Start Date Coverage End Date [facility] [address] [place], [place] [id number] Shayla Curry Self - patient is the insured
--- OUTSIDE RECORDS SUMMARY | 2024-06-12 15:14 | XMS_ITS | Encounter Summary ---
Author Organization [facility] Address [address] [place] [address] Care Team Providers Care Lawn Care Worker Name Role Phone Thor Fajardo MD Primary Care Provider [phone] Sebastian Soto MD Unavailable Ena Rose MD Unavailable Tutu Hermosillo MD Unavailable [phone] Reason for Visit * Reason Onset Date [...] (Late st Contact Info) Description 06/20/2023 Documentation [facility] [address] [facility] [address] [place] [address] Clarisse Martinez RN Vomiting (Responded [...] How often do you attend chur or yarsani services? Never 02/12/2022 Do you [...] file Legal Sex Female 9:50 PM PRODUCT RESPONSIBILITY LIAISON Gender Identity Not on file Sexual Orientation Not on file documented as of this encounter Plan of Treatment Not on file documented as of this encounter Visit Diagnoses Not on filedocumented in this encounter Care Teams Lawn Care Worker Relationship Specialty Start Date End Date Thor Fajardo MD [address] [place] [address] PCP - General Family Medicine 12/30/20 Sebastian Soto MD [address] [place] [address] Consulting Physician Gastroenterology 02/14/22 Ena Rose MD [address] [facility] [address] [place] [address] Consulting Physician Surgical Oncology 08/11/22 Tutu Hermosillo MD [address] [facility] [place] [address] Consulting Physician Plastic Surgery 12/29/23 documented as of this encounter
--- OUTSIDE RECORDS SUMMARY | 2024-06-12 15:14 | XMS_ITS | Clinical Summary ---
Author Organization [facility] [address] Address [address] [place] [address] Care Team Providers Care Extrusion Die Repairer Name Role Phone Thor Fajardo MD Primary Care Provider [phone] Sebastian Soto MD Unavailable [phone] Ena Rose MD Unavailable [phone] Tutu Hermosillo MD Unavailable [phone] Allergies No known active allergies Medications FeroSuL [...] BRCA2 gene mutation positive 08/11/2022 Overview (12/29/2023): [employer] 2023: BRCA2 c.4243G>T p.E1415* pathogenic variant consistent with hereditary breast and ovarian cancer. Please view note from 07/29/2022 for specific cancer screening recommendations. Based on Shayla's family history, expanded genetic testing was offered at the conclusion of their initial visit. The [employer] Comprehensive panel analyzed 81 genes associated with [...] (02/11/2022): Added automatically from request for surgery [id number] Encounters Date Type Department Care Team Description 03/13/2024 Orders Only [facility] [address] [facility] [address] [place] [address] Ena Rose MD BRCA2 gene mutation positive (Primary Dx) 03/12/2024 Telephone [facility] [address] [facility] [address] [place] [address] Lelia Mojica RN Test Results; Follow-Up Call 24-48 Hours from Last 3 Months Immunizations Name Administration [...] Medical History Medical History Date Comments WPW (Kqfjd-Hwmicqecw-Gsrde syndrome) GERD (gastroesophageal reflux disease) Kidney stones [...] How often do you attend chur or spiritism services? Never 02/12/2022 Do you belong to any clubs o r organizations such as yarsani groups, unions, fraternal or athletic groups, or [...] on file Legal Sex Female 9:50 PM SMALL PIECE CUTTER Gender Identity Not on file Sexual Orientation Not on file Obstetrics History Last Filed Vital Signs Vital Sign Reading Time Taken Comments Blood Pressure 100/67 03/09/2024 2:16 PM SMALL PIECE CUTTER Pulse 100 03/09/2024 2:16 PM SMALL PIECE CUTTER Temperature 36.9 C (98.4 F) 01/03/2024 9:56 AM CDT Respiratory Rate 16 03/09/2024 2:16 PM SMALL PIECE CUTTER Oxygen Saturation 95% 01/11/2023 9:39 AM CDT [...] Regular Well Visit/Exam 18-64 07/18/2003 Covid-19 Vaccine ( season) 2024 07/12/2020, 06/14/2020 Influenza Vaccine (#1) 2024 2, 02/02/2020, 01/20/2019, Additional history exists HPV Vaccines Aged Out No longer eligi ble based on patient's age to complete this topic Pneumococcal vaccine <65 Aged Out No longer eligible based on patient's age to complete this topic Medical Devices Implanted Type Area Insurance Billing Clerk Device Identifier Shelf Expiration Date Model / Serial / Lot [employer] [facility] Trimpopch[employer] Mri Guided Rigid Deployment Device Cork Marker Breast Trimark Td 13-Mr - [id number] Implanted:Qty: 1 on 03/09/2024 at [facility] Clip [employer] [id number] 08/01/2025 TRIMARK TD 13-MR / / [id number] [employer] Vazquez Flexi-Stent 4fr 9cm Small Pigtail Without Flange Flexible 6545 - [id number] Implanted:Qty: 1 on 02/11/2022 by Sebastian Soto MD at [facility] Stent N/A: Pancreas [employer] 11/29/2026 [id number] / / [id number] [employer] Cotton-Mims 10fr 7cm Taper Tip Guidewire Proximal Distal Flap [id number] - [id number] Implanted:Qty: 1 on 02/12/2022 by Sebastian Soto MD at [facility] Stent N/A: Bile Duct [employer] 08/03/2024 [id number] / / [id number] Insurance [facility] CHOICE PLUS [facility] CHO[facility] PLUS [facility] PLUS Advance Directives For more information, please contact: [phone] * Full Code (Latest Code Status on File) Date Activated Date Inactivated Comments 02/11/2022 3:22 PM 02/14/2022 4:17 PM Care Teams Extrusion Die Repairer Relationship Specialty Start Date End Date Thor Fajardo MD [address] [place] [address] PCP - General Family Medicine 12/30/20 Sebastian Soto MD [address] [facility] [address] [place], [place] [address] Consulting Physician Gastroenterology 02/14/22 Ena Rose MD [address] [facility] [address] [place], [place] [address] Consulting Physician Surgical Oncology 08/11/22 Tutu Hermosillo MD [address] [facility] [address] [place] [address] Consulting Physician Plastic Surgery 12/29/23
== END 2024-06-12 14:28 | disposition home or self-care (01) ==
PROVIDERS: PCP Family Medicine; Visit Provider Urology
DX: N20.1 Calculus of ureter (principal)
CPT/HCPCS: 74018

== ENCOUNTER 2024-09-16 15:56 | Emergency (ER) | payer OTHER, SELFPAY ==
--- NOTE | 2024-09-16 15:57 | ED_ITS ---
HPI - URI/Sore Throat General Chief Complaint: Upper Respiratory Infection Stated Complaint: sore throat/left ear pain/hard to breathe Time Seen by Provider: 09/16/24 15:57 Source: patient Mode of arrival: ambulatory Limitations: no limitations History of Present Illness HPI Narrative: Shayla is a 39-year-old female patient presenting to the clinic today with complaints of sore throat, left ear pain, cough, nasal congestion, sinus pressure, and shortness of breath x8 days. She reports symptoms started and she was having green nasal drainage however this has cleared up. Symptoms have improved but seem like they are getting worse again. Has a productive cough with some clear phlegm. States that she has had fever-100° F today. Has taken Tylenol for fever and ear pain. Left ear pain started today and this prompted her to come into the clinic today. Related Data Home Medications Medication Instructions Recorded Confirmed Last Taken Type multivitamin 1 tablet PO DAILY 12/21/21 11/29/22 01/29/22 History cyanocobalamin (vitamin B-12) 1,000 mcg PO DAILY 11/29/22 11/29/22 Unknown History 1,000 mcg tablet ferrous sulfate 325 mg (65 mg 325 mg PO DAILY 11/29/22 11/29/22 Unknown History iron) tablet (FeroSul) Allergies Allergy/AdvReac Type Severity Reaction Status Date / Time No Known Allergies Allergy Verified 09/16/24 15:59 Review of Systems Review of Systems: Pertinent positives per HPI. Patient denies any rash, visual changes, dizziness, chest pain, palpitations, nausea, vomiting, diarrhea, constipation, abdominal pain, or any urinary issues. [facility] Past Medical History Medical History Leukocytosis RUQ pain WPW (Gnktc-Rnnatwjgd-Luvnh syndrome) GERD (gastroesophageal reflux disease) Kidney stones Surgical History Surgical History History of biliary duct stent placement and migratory stent placement in the pancreatic duct 02/12/2022 History of cholecystectomy Laparoscopic cholecystectomy 02/05/2022 History of extraction of renal calculus Extraction of 8 ureteral stones, left stent placement 10/2021 History of removal of ureteral stent 09/2021 History of D&C 2013 History of cardiac radiofrequency ablation 1997 S/P laparoscopic cholecystectomy H/O cardiac radiofrequency ablation History of lithotripsy H/O dilation and curettage Family History Family History Father Diabetes mellitus Malignant neoplasm of prostate Throat cancer Mother Breast cancer Grandparent Bile duct cancer Grandparent Stomach cancer Grandparent Leukemia Grandparent Stomach cancer Social History Social History Years smoked: 6 Smoking status: Former smoker Smoking end date: 05/02/19 Additional smoking assessment comments: Had smoked 1-3 cigarettes per day for 10 years Alcohol intake: former Alcohol use details: One drink rarely- perhaps one every 6 months Substance use: never Substance use type: does not use Other substance usage details: Occasional marijuana use. 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 There is no relevant family history pertinent to the patient complaint. Exam Narrative: General: Well-developed, well nourished, in no apparent distress Head: Normocephalic, atraumatic Eyes: Pupils equally round and reactive to light bilaterally, EOM intact, sclera and conjunctive clear, no discharge, lids normal Ears: TMs intact, mild bulging, and congested, ear canals clear, no drainage, grossly hearing normal. Nose: Nares patent, green nasal discharge, moderate inflammation, maxillary and frontal sinus tenderness. Mouth: Oral pharynx red without lesions or masses, good dentition, MMM. Postnasal drip Neck: Supple, trachea midline, no enlargement of anterior or posterior cervical nodes, no thyroid masses or goiter palpable. Cardio: Regular rate and rhythm, s1 and s2 normal, no murmur appreciated. Resp: Clear to auscultation bilaterally, no rhonchi, rales, wheezing or rubs Course Course Emergency Course: Portions of this record may have been created with voice recognition software. Level of Care: Express Care Visit Vital Signs Vital signs: Vital Signs Temperature 37.1 C 09/16/24 16:11 Pulse Rate 83 09/16/24 16:11 Respiratory Rate 18 09/16/24 16:11 Blood Pressure 117/70 09/16/24 16:11 Pulse Oximetry 98 09/16/24 16:11 Oxygen Delivery Room Air 09/16/24 16:11 Temperature 37.1 C 09/16/24 16:11 Pulse Rate 83 09/16/24 16:11 Respiratory Rate 18 09/16/24 16:11 Blood Pressure 117/70 09/16/24 16:11 Pulse Oximetry 98 09/16/24 16:11 Oxygen Delivery Room Air 09/16/24 16:11 Vital signs reviewed MDM - URI/Sore Throat MDM Narrative Medical decision making narrative: At the time of visit patient is resting comfortably on the exam table. Patient appears to be nontoxic. Plan: I suspect patient has rhinosinusitis. Prescription for Augmentin and prednisone was sent to the pharmacy. Supportive measures were discussed with the patient and they voiced understanding discharge instructions and agrees to treatment plan. Return precautions reviewed Differential Diagnosis Differential diagnosis: Likely upper respiratory infection, otitis media, sinusitis, viral infection, bronchitis, influenza, pharyngitis and other (COVID) Discharge Plan Discharge Clinical Impression: Acute bacterial rhinosinusitis Patient Disposition: Home Condition: Stable Instructions: Antibiotic Form, Rhinosinusitis (ED) Additional Instructions: Take prescription medications only as prescribed-prednisone and Augmentin. Increase fluids and stay well hydrated Tylenol/motrin for pain/fever Flonase and OTC antihistamines as directed Vicks vapor rub to open sinuses Sinus rinses for congestion Cepacol spray, cough drops, throat lozenges, warm tea with honey/lemon, gargle salt water to soothe throat BRAT diet for diarrhea Clear liquids x 24 hours then advance as tolerated for nausea/vomiting Go to the ED if you develop a worsening in your condition- high fever not controlled by Tylenol or Motrin, dehydration, weakness, lethargy, shortness of breath, or chest pain. Follow up with your PCP in 3-5 days if symptoms persist. Patient Language: Slovenian Prescriptions: New amoxicillin-pot clavulanate 875-125 mg tablet 1 tablet PO Q12H 10 Days Qty: 20 0RF prednisone 20 mg tablet 40 mg PO DAILY 5 Days Qty: 10 0RF No Action sulfamethoxazole-trimethoprim 800-160 mg tablet 1 tablet PO Q12H Qty: 14 0RF multivitamin Tablet 1 tablet PO DAILY cyanocobalamin (vitamin B-12) 1,000 mcg Tablet 1,000 mcg PO DAILY ferrous sulfate [FeroSul] 325 mg (65 mg iron) tablet 325 mg PO DAILY hydrocodone-acetaminophen 5-325 mg tablet 1 tablet PO Q4H PRN (Reason: pain) Qty: 20 0RF oxycodone 5 mg tablet 5 mg PO Q4H PRN (Reason: pain) Qty: 14 0RF ibuprofen 800 mg tablet 800 mg PO TID PRN (Reason: pain) 7 Days Qty: 21 0RF tamsulosin [Flomax] 0.4 mg capsule 0.4 mg PO DAILY Qty: 30 0RF ondansetron 4 mg tablet,disintegrating 4 mg PO Q8H PRN (Reason: nausea and vomiting) Qty: 30 0RF oxycodone 5 mg tablet 5 mg PO Q4H PRN (Reason: pain) Qty: 14 0RF pantoprazole 40 mg tablet,delayed release (DR/EC) 40 mg PO QAM Qty: 90 0RF Follow-up/Referrals: Thor Fajardo MD [Primary Care Provider] - Time of Disposition: 16:11 Quality NIHSS Nursing Documentation ED NIHSS nursing documentation: reviewed/agree
--- OUTSIDE RECORDS SUMMARY | 2024-09-16 15:58 | XMS_ITS | Clinical Summary ---
Author Organization [facility] [address] [place] [address] [address] [facility] [address] [place] [address] Care Team Providers Care Ship Ceiler Name Role Phone Thor Fajardo MD Primary Care Provider [phone] Sebastian Soto MD Unavailable [phone] Ena Rose MD Unavailable [phone] Tutu Hermosillo MD Unavailable [phone] Allergies No known active allergies Medications FeroSuL [...] BRCA2 gene mutation positive 08/11/2022 Overview (12/29/2023): [employer] 2022: BRCA2 c.4243G>T p.E1415* pathogenic variant consistent with hereditary breast and ovarian cancer. Please view note from 07/29/2022 for specific cancer screening recommendations. Based on Shayla's family history, expanded genetic testing was offered at the conclusion of their initial visit. The [employer] Comprehensive panel analyzed 81 genes associated with [...] (02/11/2022): Added automatically from request for surgery [id number] Encounters Date Type Department Care Team Description 09/11/2024 [facility] Breast Risk Eligibility [facility] Cancer Risk Program [address] [place] [address] Adry Bae RN 08/08/2024 Orders Only [facility] [address] [place] [address] [address] [place] [address] Mónica Cao NP BRCA2 gene mutation positive (Primary Dx); Family history of breast cancer 08/08/2024 Telephone [facility] [address] [place] [address] [address] [place] [address] Yasmeen Quinn Scheduling Appointments (Return to Risk) from Last 3 Months Immunizations Immunization Administration Dates Next Due Influenza, Quadrivalent, Split, Intramuscular ,01/20/2019 Influenza, Quadrivalent, Spl it, Preservative Free, Intramuscular 02/14/2022,01/11/2017 Surgical History Surgery Date Site/Laterality Comments CARDIAC ELECTROPHYSIOLOGY STUDY AND ABLATION DILATION AND CURETTAGE OF UTERUS WISDOM TOOTH EXTRACTION IR CHOLANGIOGRAM THROUGH EXISTING CATHETER 02/12/2022 N/A BREAST BIOPSY 07/01/2022 Left BREAST BIOPSY 03/09/2024 Right Medical History Medical History Date Comments WPW (Ohtxs-Qwwsdxpxj-Eaqkk syndrome) GERD (gastroesophageal reflux disease) Kidney stones [...] often do you attend chur ch or baptism services? Never 02/12/2022 Do you [...] on file Legal Sex Female 9:50 PM FRYLINE ATTENDANT Gender Identity Not on file Sexual Orientation Not on file Obstetrics History Last Filed Vital Signs Vital Sign Reading Time Taken Comments Blood Pressure 100/67 03/09/2024 2:16 PM FRYLINE ATTENDANT Pulse 100 03/09/2024 2:16 PM FRYLINE ATTENDANT Temperature 36.9 C (98.4 F) 01/03/2024 9:56 AM CDT Respiratory Rate 16 03/09/2024 2:16 PM FRYLINE ATTENDANT Oxygen Saturation 95% 01/11/2023 9:39 AM CDT [...] Covid-19 Vaccine ( season) 2024 07/12/2020, 06/14/2020 Breast Cancer Screening-Mammogram 06/20/2024 06/20/2023, 06/24/2022 Influenza Vaccine (Season Ended) 2024 02/14/2022, 02/02/2020, 01/20/2019, Additional history exists HPV Vaccines Aged Out No longer eligi ble based on patient's age to complete this topic Pneumococcal vaccine <65 Aged Out No longer eligible based on patient's age to complete this topic Medical Devices Implanted Type Area Ultra Sound Technician Device Identifier Shelf Expiration Date Model / Serial / Lot StartupDigest Partnership StatSheet Mri Guided Rigid Deployment Device Cork Marker Breast Trimark Td 13-Mr - [id number] Implanted:Qty: 1 on 03/09/2024 at [facility] Clip [employer] Partnership [id number] 08/01/2025 TRIMARK TD 13-MR / / [id number] [employer] Vazquez Flexi-Stent 4fr 9cm Small Pigtail Without Flange Flexible 6545 - [id number] Implanted:Qty: 1 on 02/11/2022 by Sebastian Soto MD at [facility] Stent N/A: Pancreas [employer] 11/29/2026 [id number] / / [id number] [employer] Cotton-Mims 10fr 7cm Taper Tip Guidewire Proximal Distal Flap [id number] - [id number] Implanted:Qty: 1 on 02/12/2022 by Sebastian Soto MD at [facility] Stent N/A: Bile Duct [employer] 08/03/2024 [id number] / / [id number] Procedures Procedure Name Priority Date/Time Associated Diagnosis Comments DIAGNOSTIC MAMMOGRAM BILATERAL W ANIBAL Schedule Routine, Read Routine (OP Routine) 06/20/2023 10:27 AM FRYLINE ATTENDANT BRCA2 gene mutation positive from Last 3 Months or Most Recently Relevant to Health Maintenance Results * Diagnostic Mammogram Bilateral W Anibal (06/20/2023 10:27 AM FRYLINE ATTENDANT) Anatomical Region Laterality Modality Breast Bilateral Mammography 06/20/2023 10:3 6 AM FRYLINE ATTENDANT Impressions 06/20/2023 10:36 AM FRYLINE ATTENDANT No mammographic evidence of malignancy. BI-RADS Category 2: Benign Findings Advise continued high-risk screening protocol with breast MRI due in 6 months and bilateral mammogram in 12 months. Findings and recommendations were communicated to the patient. Electronically signed by: Nannette Foreman MD Narrative 06/20/2023 10:36 AM FRYLINE ATTENDANT EXAMINATION/TECHNIQUE: Bilateral Digital diagnostic mammogram including CAD [...] Rose MD IMG MAMMO PROCEDURES Final Result from Last 3 Months or Most Recently Relevant to Health Maintenance Insurance [facility] CHOICE PLUS [facility] CHOICE PLUS [place] [id number] [facility] CHOICE PLUS [place] [id number] Advance Directives For more information, please contact: [phone] * Full Code (Latest Code Status on File) Date Activated Date Inactivated Comments 02/11/2022 3:22 PM 02/14/2022 4:17 PM Care Teams Ship Ceiler Relationship Specialty Start Date End Date Thor Fajardo MD [address] [place] [address] [place] PCP - General Family Medicine 12/30/20 Sebastian Soto MD [address] [facility] [address] [place] [address] Consulting Physician Gastroenterology 02/14/22 Ena Rose MD [address] [facility] [address] [place] [address] Consulting Physician Surgical Oncology 08/11/22 Tutu Hermosillo MD [address] [facility] [address] [place] [address] Consulting Physician Plastic Surgery 12/29/23
--- OUTSIDE RECORDS SUMMARY | 2024-09-16 15:58 | XMS_ITS | Encounter Summary ---
Author Organization [facility] Healthcare Address [address] [place] [address] Care Team Providers Care Dewaterer Operator Name Role Phone Thor Fajardo MD Primary Care Provider [phone] Sebastian Soto MD Unavailable [phone] Ena Rose MD Unavailable [phone] Tutu Hermosillo MD Unavailable [phone] Reason for Visit * Reason Onset Date [...] (Late st Contact Info) Description 06/20/2023 Documentation [facility] - Imaging [address] [facility] [address] [place] [address] Clarisse Martinez RN Vomiting (Responded [...] any clubs o r organizations such as roman catholic groups, unions, fraternal or athletic groups, [...] on file Legal Sex Female 9:50 PM STRUCTURER Gender Identity Not on file Sexual Orientation Not on file documented as of this encounter Plan of Treatment Not on file documented as of this encounter Visit Diagnoses Not on filedocumented in this encounter Care Teams Dewaterer Operator Relationship Specialty Start Date End Date Thor Fajardo MD [address] [place] [address] PCP - General Family Medicine 12/30/20 Sebastian Soto MD [address] [facility] [address] [place] [address] Consulting Physician Gastroenterology 02/14/22 Ena Rose MD [address] [facility] [address] [place] [address] Consulting Physician Surgical Oncology 08/11/22 Tutu Hermosillo MD [address] [facility] [address] [facility] [address] [place] [address] Consulting Physician Plastic Surgery 12/29/23 documented as of this encounter
--- OUTSIDE RECORDS SUMMARY | 2024-09-16 15:58 | XMS_ITS | Referral Summary ---
Author Organization [facility] [address] [place] [address] Care Team Providers Care Brick Maker Name Role Phone Thor Fajardo MD Primary Care Provider [phone] Sebastian Soto MD Unavailable Ena Rose MD Unavailable [phone] Tutu Hermosillo MD Unavailable [phone] Encounters Date Type Department Care Team Description 09/11/2024 [facility] Breast Risk Eligibility [facility] Cancer Risk Program [address] [place] [address] [place] [address] Adry Bae RN 08/08/2024 Orders Only [facility] [address] [place] [address] [place] [address] Mónica Cao NP BRCA2 gene mutation positive (Primary Dx); Family history of breast cancer 08/08/2024 Telephone [facility] [address] [place] [address] [place] [address] Yasmeen Quinn Scheduling Appointments (Return to Risk) from Last 3 Months Allergies No known [...] BRCA2 gene mutation positive 08/11/2022 Overview (12/29/2023): [employer] 2022: BRCA2 c.4243G>T p.E1415* pathogenic variant consistent with hereditary breast and ovarian cancer. Please view note from 07/29/2022 for specific cancer screening recommendations. Based on Shayla's family history, expanded genetic testing was offered at the conclusion of their initial visit. The [employer] Comprehensive panel analyzed 81 genes associated with [...] (02/11/2022): Added automatically from request for surgery [id number] Immunizations Immunization Administration Dates Next Due Influenza, [...] on file Legal Sex Female 9:50 PM MOLDING LINE ASSISTANT Gender Identity Not on file Sexual Orientation Not on file Last Filed Vital Signs Vital Sign Reading Time Taken Comments Blood Pressure 100/67 03/09/2024 2:16 PM MOLDING LINE ASSISTANT Pulse 100 03/09/2024 2:16 PM MOLDING LINE ASSISTANT Temperature 36.9 C (98.4 F) 01/03/2024 9:56 AM CDT Respiratory Rate 16 03/09/2024 2:16 PM MOLDING LINE ASSISTANT Oxygen Saturation 95% 01/11/2023 9:39 AM CDT Inhaled Oxygen Concentration - - Weight 86.2 kg (190 lb) 02/13/2024 9:59 AM CDT Height 170.2 cm (5' 7 ) 02/13/2024 9:59 AM CDT Body Mass Index 29.76 02/13/2024 9:59 AM CDT Plan of Treatment Not on file Medical Devices Implanted Type Area Bindery Machine Feeder Offbearer Device Identifier Shelf Expiration Date Model / Serial / Lot [employer] Entreprise Partnership WorkerBee Virtual Assistants Mri Guided Rigid Deployment Device Cork Marker Breast Trimark Td 13-Mr - [id number] Implanted:Qty: 1 on 03/09/2024 at [facility] Clip [employer] [id number] 08/01/2025 TRIMARK TD 13-MR / / [id number] [employer] Vazquez Flexi-Stent 4fr 9cm Small Pigtail Without Flange Flexible 6545 - [id number] Implanted:Qty: 1 on 02/11/2022 by Sebastian Soto MD at [facility] Stent N/A: Pancreas [employer] 11/29/2026 [id number] / / [id number] [employer] Cotton-Mims 10fr 7cm Taper Tip Guidewire Proximal Distal Flap [id number] - [id number] Implanted:Qty: 1 on 02/12/2022 by Sebastian Soto MD at [facility] Stent N/A: Bile Duct [employer] 08/03/2024 [id number] / / [id number] Procedures Procedure Name Priority Date/Time Associated Diagnosis Comments DIAGNOSTIC MAMMOGRAM BILATERAL W ANIBAL Schedule Routine, Read Routine (OP Routine) 06/20/2023 10:27 AM MOLDING LINE ASSISTANT BRCA2 gene mutation positive from Last 3 Months or Most Recently Relevant to Health Maintenance Results * Diagnostic Mammogram Bilateral W Anibal (06/20/2023 10:27 AM MOLDING LINE ASSISTANT) Anatomical Region Laterality Modality Breast Bilateral Mammography 06/20/2023 10:3 6 AM MOLDING LINE ASSISTANT Impressions 06/20/2023 10:36 AM MOLDING LINE ASSISTANT No mammographic evidence of malignancy. BI-RADS Category 2: Benign Findings Advise continued high-risk screening protocol with breast MRI due in 6 months and bilateral mammogram in 12 months. Findings and recommendations were communicated to the patient. Electronically signed by: Nannette Foreman MD Narrative 06/20/2023 10:36 AM MOLDING LINE ASSISTANT EXAMINATION/TECHNIQUE: Bilateral Digital diagnostic mammogram including CAD [...] Most Recently Relevant to Health [place] [id number] [facility] CHOICE PLUS [facility] HMO/PPO Address: [address] [address] [place] [address] [facility] CHOICE PLUS [facility] HMO/PPO Address: [address] [address] [place] [address] [facility] CHOICE PLUS [facility] HMO/PPO Address: [address] [address] [place] [address] Advance Directives For more information, please contact: [phone] * Full Code (Latest Code Status on File) Date Activated Date Inactivated Comments 02/11/2022 3:22 PM 02/14/2022 4:17 PM Care Teams Brick Maker Relationship Specialty Start Date End Date Thor Fajardo MD [address] [place] [address] PCP - General Family Medicine 12/30/20 Sebastian Soto MD [address] [place] [address] Consulting Physician Gastroenterology 02/14/22 Ena Rose MD [address] [facility] [address] [place] [address] Consulting Physician Surgical Oncology 08/11/22 Tutu Hermosillo MD [address] [facility] [address] [place] [address] Consulting Physician Plastic Surgery 12/29/23
--- OUTSIDE RECORDS SUMMARY | 2024-09-16 15:59 | XMS_ITS | Patient Health Record ---
Author Organization [facility] Address [address] [place] [address] Care Team Providers Care Stave Cutter Name Role Phone Scotty GEORGE, Thor Primary Care Provider Unavailab curtis DOMINGUEZ MD, DUC Unavailable Piotr Hughes MD Unavailable Unavailable REASON FOR REFERRAL No Information PROBLEMS Problem Type ICD Code Onset Dates Problem Status W/U Status Risk SNOMED Code Notes Problem Perforation of bile duct (K83.2) Active confirmed Perforation of bile duct (34282883) PLAN OF TREATMENT Pending Test Test Name Order Date Endoscopic Retrograde Cholangiopancreato graphy (ERCP) 02/26/2022 Insurance Providers Payer Name Payer Address Payer Phone Subscriber Number Group Number Insured Name Patient Relationship to Insured Coverage Start Date Coverage End Date [facility] [address] [place], [place] [id number] Shayla Curry Self - patient is the insured
[2024-09-16 16:11] VITALS: BP 117/70; PULSE 83; RESP 18; TEMP 37.1; O2SAT 98
== END 2024-09-16 16:12 | disposition home or self-care (01) ==
PROVIDERS: Emergency Provider Nurse Practitioner Family; PCP Family Medicine
DX: J01.90 Acute sinusitis, unspecified (principal); Z87.891 Personal history of nicotine dependence; I45.6 Pre-excitation syndrome; K21.9 Gastro-esophageal reflux disease without esophagitis
CPT/HCPCS: 99213; G0463

== ENCOUNTER 2024-09-17 18:21 | Emergency (ER) | payer OTHER, SELFPAY ==
--- OUTSIDE RECORDS SUMMARY | 2024-09-17 18:24 | XMS_ITS | Clinical Summary ---
Author Organization [facility] [place] [address] [place] [address] 162 [address] [facility] [address] [place] [address] Care Team Providers Care Sociology Faculty Member Name Role Phone Thor Fajardo MD Primary Care Provider [phone] Sebastian Soto MD Unavailable [phone] Ena Rose MD Unavailable [phone] Tutu Hermosillo MD Unavailable [phone] Allergies No known active allergies Medications FeroSuL [...] BRCA2 gene mutation positive 08/11/2022 Overview (12/29/2023): [facility] 2022: BRCA2 c.4243G>T p.E1415* pathogenic variant consistent with hereditary breast and ovarian cancer. Please view note from 07/29/2022 for specific cancer screening recommendations. Based on Shayla's family history, expanded genetic testing was offered at the conclusion of their initial visit. The [facility] Comprehensive panel analyzed 81 genes associated with [...] (02/11/2022): Added automatically from request for surgery [id number] Encounters Date Type Department Care Team Description 09/11/2024 [facility] Breast Risk Eligibility [facility] Cancer Risk Program [address] [place] [address] Adry Bae RN 08/08/2024 Orders Only [facility] [address] [place] [address] [address] [place] [address] Mónica Cao NP BRCA2 gene mutation positive (Primary Dx); Family history of breast cancer 08/08/2024 [facility] [address] [place] [address] [address] [place] [address] Yasmeen Quinn Scheduling Appointments (Return [...] Medical History Medical History Date Comments WPW (Dsuzu-Fluiqrejg-Ahxae syndrome) GERD (gastroesophageal reflux disease) Kidney stones [...] on file Legal Sex Female 9:50 PM PROPOSAL REVIEW ANALYST Gender Identity Not on file Sexual Orientation Not on file Obstetrics History Last Filed Vital Signs Vital Sign Reading Time Taken Comments Blood Pressure 100/67 03/09/2024 2:16 PM PROPOSAL REVIEW ANALYST Pulse 100 03/09/2024 2:16 PM PROPOSAL REVIEW ANALYST Temperature 36.9 C (98.4 F) 01/03/2024 9:56 AM CDT Respiratory Rate 16 03/09/2024 2:16 PM PROPOSAL REVIEW ANALYST Oxygen Saturation 95% 01/11/2023 9:39 AM CDT [...] this topic Medical Devices Implanted Type Area Homicide Squad Commanding Officer Device Identifier Shelf Expiration Date Model / Serial / Lot [employer] Partnership Diabetica Mri Guided Rigid Deployment Device Cork Marker Breast Trimark Td 13-Mr - [id number] Implanted:Qty: 1 on 03/09/2024 at [employer]ip [employer] [id number] 08/01/2025 TRIMARK TD 13-MR / / [id number] [employer] Vazquez Flexi-Stent 4fr 9cm Small Pigtail Without Flange Flexible 6545 - [id number] Implanted:Qty: 1 on 02/11/2022 by Sebastian Soto MD at Stent N/A: Pancreas [employer] 11/29/2026 [id number] / / [id number] [employer] Cotton-Mims 10fr 7cm Taper Tip Guidewire Proximal Distal Flap [id number] - [id number] Implanted:Qty: 1 on 02/12/2022 by Sebastian Soto MD at Stent N/A: Bile Duct [employer] 08/03/2024 [id number] / / [id number] Procedures Procedure Name Priority Date/Time Associated Diagnosis Comments DIAGNOSTIC MAMMOGRAM BILATERAL W ANIBAL Schedule Routine, Read Routine (OP Routine) 06/20/2023 10:27 AM PROPOSAL REVIEW ANALYST BRCA2 gene mutation positive from Last 3 Months or Most Recently Relevant to Health Maintenance Results * Diagnostic Mammogram Bilateral W Anibal (06/20/2023 10:27 AM PROPOSAL REVIEW ANALYST) Anatomical Region Laterality Modality Breast Bilateral Mammography 06/20/2023 10:3 6 AM PROPOSAL REVIEW ANALYST Impressions 06/20/2023 10:36 AM PROPOSAL REVIEW ANALYST No mammographic evidence of malignancy. BI-RADS Category 2: Benign Findings Advise continued high-risk screening protocol with breast MRI due in 6 months and bilateral mammogram in 12 months. Findings and recommendations were communicated to the patient. Electronically signed by: Nannette Foreman MD Narrative 06/20/2023 10:36 AM PROPOSAL REVIEW ANALYST EXAMINATION/TECHNIQUE: Bilateral Digital diagnostic mammogram including CAD [...] Most Recently Relevant to Health Maintenance Insurance [facility] PLUS [facility] PLUS [place] [id number] [facility] PLUS [place] [id number] Advance Directives For more information, please contact: [phone] * Full Code (Latest Code Status on File) Date Activated Date Inactivated Comments 02/11/2022 3:22 PM 02/14/2022 4:17 PM Care Teams Sociology Faculty Member Relationship Specialty Start Date End Date Thor Fajardo MD [address] [place] [address] SHITAL MAYBERRY MD PCP - General Family Medicine 12/30/20 Sebastian Soto MD [address] [facility] [address] [place] [address] Consulting Physician Gastroenterology 02/14/22 Ena Rose MD [address] [facility] [address] [place] [address] Consulting Physician Surgical Oncology 08/11/22 Tutu Hermosillo MD [address] [facility] [address] [place] [address] Consulting Physician Plastic Surgery 12/29/23
--- OUTSIDE RECORDS SUMMARY | 2024-09-17 18:24 | XMS_ITS | Patient Health Record ---
Author Organization [facility] Address [address] [facility] [address] [place] [address] Care Team Providers Care Mix Technician Name Role Phone Scotty GEORGE, Thor Primary Care Provider Unavailab curtis DOMINGUEZ MD, DUC Unavailable Piotr Hughes MD Unavailable Unavailable REASON FOR REFERRAL No Information PROBLEMS Problem Type ICD Code Onset Dates Problem Status W/U Status Risk SNOMED Code Notes Problem Perforation of bile duct (K83.2) Active confirmed Perforation of bile duct (10259361) PLAN OF TREATMENT Pending Test Test Name Order Date Endoscopic Retrograde Cholangiopancreato graphy (ERCP) 02/26/2022 Insurance Providers Payer Name Payer Address Payer Phone Subscriber Number Group Number Insured Name Patient Relationship to Insured Coverage Start Date Coverage End Date [facility] [address] [place], [place] [id number] Shayla Curry Self - patient is the insured
--- OUTSIDE RECORDS SUMMARY | 2024-09-17 18:24 | XMS_ITS | Referral Summary ---
Author Organization [facility] [address] [place] [address] Care Team Providers Care Computer Application Developer Name Role Phone Thor Fajardo MD Primary Care Provider [phone] Sebastian Soto MD Unavailable [phone] Ena Rose MD Unavailable Tutu Hermosillo MD Unavailable [phone] Encounters Date Type Department Care Team Description 09/11/2024 [facility] Breast Risk Eligibility [facility] Cancer Risk Program [address] [place] [address] [place] [address] Adry Bae RN 08/08/2024 Orders Only [facility] [address] [place] [address] [place] [address] Mónica Cao NP BRCA2 gene mutation positive (Primary Dx); Family history of breast cancer 08/08/2024 [facility] [address] [place] [address] [place] [address] Yasmeen Quinn Scheduling Appointments (Return to [...] BRCA2 gene mutation positive 08/11/2022 Overview (12/29/2023): [facility] 2022: BRCA2 c.4243G>T p.E1415* pathogenic variant consistent with hereditary breast and ovarian cancer. Please view note from 07/29/2022 for specific cancer screening recommendations. Based on Shayla's family history, expanded genetic testing was offered at the conclusion of their initial visit. The [employer] Comprehensive panel analyzed 81 genes associated with [...] (02/11/2022): Added automatically from request for surgery [id number] Immunizations Immunization Administration Dates Next Due Influenza, [...] often do you attend chur ch or holiness services? Never 02/12/2022 Do you [...] on file Legal Sex Female 9:50 PM BEHAVIORAL HEALTH PROFESSIONAL Gender Identity Not on file Sexual Orientation Not on file Last Filed Vital Signs Vital Sign Reading Time Taken Comments Blood Pressure 100/67 03/09/2024 2:16 PM BEHAVIORAL HEALTH PROFESSIONAL Pulse 100 03/09/2024 2:16 PM BEHAVIORAL HEALTH PROFESSIONAL Temperature 36.9 C (98.4 F) 01/03/2024 9:56 AM CDT Respiratory Rate 16 03/09/2024 2:16 PM BEHAVIORAL HEALTH PROFESSIONAL Oxygen Saturation 95% 01/11/2023 9:39 AM CDT Inhaled Oxygen Concentration - - Weight 86.2 kg (190 lb) 02/13/2024 9:59 AM CDT Height 170.2 cm (5' 7 ) 02/13/2024 9:59 AM CDT Body Mass Index 29.76 02/13/2024 9:59 AM CDT Plan of Treatment Not on file Medical Devices Implanted Type Area Senior Label Specialist Device Identifier Shelf Expiration Date Model / Serial / Lot [employer] Partnership Futurlink Mri Guided Rigid Deployment Device Cork Marker Breast Trimark Td 13-Mr - [id number] Implanted:Qty: 1 on 03/09/2024 at [facility] Clip [employer] [id number] 08/01/2025 TRIMARK TD 13-MR / / [id number] [employer] Vazquez Flexi-Stent 4fr 9cm Small Pigtail Without Flange Flexible 6545 - [id number] Implanted:Qty: 1 on 02/11/2022 by Sebastian Soto MD at [facility] Stent N/A: Pancreas [employer] 11/29/2026 [id number] / / [id number] [employer] Cotton-Mims 10fr 7cm Taper Tip Guidewire Proximal Distal Flap [id number] - [id number] Implanted:Qty: 1 on 02/12/2022 by Sebastian Soto MD at [facility] Stent N/A: Bile Duct [employer] 08/03/2024 [id number] / / [id number] Procedures Procedure Name Priority Date/Time Associated Diagnosis Comments DIAGNOSTIC MAMMOGRAM BILATERAL W ANIBAL Schedule Routine, Read Routine (OP Routine) 06/20/2023 10:27 AM BEHAVIORAL HEALTH PROFESSIONAL BRCA2 gene mutation positive from Last 3 Months or Most Recently Relevant to Health Maintenance Results * Diagnostic Mammogram Bilateral W Anibal (06/20/2023 10:27 AM BEHAVIORAL HEALTH PROFESSIONAL) Anatomical Region Laterality Modality Breast Bilateral Mammography 06/20/2023 10:3 6 AM BEHAVIORAL HEALTH PROFESSIONAL Impressions 06/20/2023 10:36 AM BEHAVIORAL HEALTH PROFESSIONAL No mammographic evidence of malignancy. BI-RADS Category 2: Benign Findings Advise continued high-risk screening protocol with breast MRI due in 6 months and bilateral mammogram in 12 months. Findings and recommendations were communicated to the patient. Electronically signed by: Nannette Foreman MD Narrative 06/20/2023 10:36 AM BEHAVIORAL HEALTH PROFESSIONAL EXAMINATION/TECHNIQUE: Bilateral Digital diagnostic mammogram including CAD [...] Relevant to [place] [address] [facility] PL[facility] Advance Directives For more information, please contact: [phone] * Full Code (Latest Code Status on File) Date Activated Date Inactivated Comments 02/11/2022 3:22 PM 02/14/2022 4:17 PM Care Teams Computer Application Developer Relationship Specialty Start Date End Date Thor Fajardo MD [address] [place] [address] PCP - General Family Medicine 12/30/20 Sebastian Soto MD [address] [place] [address] Consulting Physician Gastroenterology 02/14/22 Ena Rose MD [address] [facility] [address] [place] [address] Consulting Physician Surgical Oncology 08/11/22 Tutu Hermosillo MD [address] [facility] [address] [place] [address] Consulting Physician Plastic Surgery 12/29/23
--- OUTSIDE RECORDS SUMMARY | 2024-09-17 18:24 | XMS_ITS | Encounter Summary ---
Author Organization [facility] Healthcare Address [address] [place] [address] Care Team Providers Care Wind Energy Project Manager Name Role Phone Thor Fajardo MD Primary Care Provider [phone] Sebastian Soto MD Unavailable [phone] Ena Rose MD Unavailable [phone] Tutu Hermosillo MD Unavailable [phone] Reason for Visit * Reason Onset Date [...] (Late st Contact Info) Description 06/20/2023 Documentation [facility] [address] [facility] [address] [place] [address] Clarisse Martinez RN Vomiting (Responded [...] any clubs o r organizations such as rastafari groups, unions, fraternal or athletic groups, or [...] on file Legal Sex Female 9:50 PM INFRASTRUCTURE DIRECTOR Gender Identity Not on file Sexual Orientation Not on file documented as of this encounter Plan of Treatment Not on file documented as of this encounter Visit Diagnoses Not on filedocumented in this encounter Care Teams Wind Energy Project Manager Relationship Specialty Start Date End Date Thor Fajardo MD [address] [place] [address] PCP - General Family Medicine 12/30/20 Sebastian Soto MD [address] [facility] [address] [place] [address] Consulting Physician Gastroenterology 02/14/22 Ena Rose MD [address] [facility] [address] [place] [address] Consulting Physician Surgical Oncology 08/11/22 Tutu Hermosillo MD [address] [facility] [address] [facility] [address] [place] [address] Consulting Physician Plastic Surgery 12/29/23 documented as of this encounter
[2024-09-17 18:49] VITALS: BP 136/69; PULSE 85; RESP 18; TEMP 36.4; O2SAT 100
[2024-09-17 19:16] VITALS: BP 126/61; PULSE 79; RESP 16; O2SAT 96
[2024-09-17] MEDS: ONDANSETRON INJ 4 MG/2 ML VIAL IV PUSH (19:34)
--- NOTE | 2024-09-17 19:41 | ED_ITS ---
HPI - Nausea/Vomiting/Diarrhea General Chief complaint: Nausea/Vomiting/Diarrhea Stated complaint: Vomiting x 16hr-body aches Time Seen by Provider: 09/17/24 19:20 History of Present Illness HPI Narrative: The patient states around midnight last night she started throwing and has not been able to stop throwing up nothing she eats or drinks stays down. No abdominal pain. Related Data Home Medications Medication Instructions Recorded Confirmed Last Taken Type multivitamin 1 tablet PO DAILY 12/21/21 11/29/22 01/29/22 History cyanocobalamin (vitamin B-12) 1,000 mcg PO DAILY 11/29/22 11/29/22 Unknown History 1,000 mcg tablet ferrous sulfate 325 mg (65 mg 325 mg PO DAILY 11/29/22 11/29/22 Unknown History iron) tablet (FeroSul) Allergies Allergy/AdvReac Type Severity Reaction Status Date / Time No Known Allergies Allergy Verified 09/17/24 18:23 Review of Systems 2 Review of Systems: All systems reviewed & are unremarkable except as noted in HPI and below PMFSH Past Medical History Medical History Leukocytosis RUQ pain WPW (Bckow-Iugsfipjm-Hepkq syndrome) GERD (gastroesophageal reflux disease) Kidney stones Surgical History Surgical History History of biliary duct stent placement and migratory stent placement in the pancreatic duct 02/12/2022 History of cholecystectomy Laparoscopic cholecystectomy 02/05/2022 History of extraction of renal calculus Extraction of 8 ureteral stones, left stent placement 10/2021 History of removal of ureteral stent 09/2021 History of D&C 2012 History of cardiac radiofrequency ablation 1997 S/P laparoscopic cholecystectomy H/O cardiac radiofrequency ablation History of lithotripsy H/O dilation and curettage Family History Family History Father Diabetes mellitus Malignant neoplasm of prostate Throat cancer Mother Breast cancer Grandparent Bile duct cancer Grandparent Stomach cancer Grandparent Leukemia Grandparent Stomach cancer Social History Social History Years smoked: 6 Smoking status: Former smoker Smoking end date: 05/02/19 Additional smoking assessment comments: Had smoked 1-3 cigarettes per day for 10 years Alcohol intake: former Alcohol use details: One drink rarely- perhaps one every 6 months Substance use: never Substance use type: does not use Other substance usage details: Occasional marijuana use. 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 EYES: EOMI, conjunctiva normal ENT: Hearing grossly intact LUNGS: Nonlabored breathing. HEART: [Regular rate and rhythm] ABD: [Soft], [nontender to palpation] EXT: Normal range of motion SKIN: [No rashes or lesions.] NEURO: [Alert and oriented x 3. No gross focal sensory or strength deficits.] PSYCH: Normal affect Course Vital Signs Vital signs: Vital Signs Temperature 97.5 F L 09/17/24 18:49 Pulse Rate 85 09/17/24 18:49 Respiratory Rate 18 09/17/24 18:49 Blood Pressure 136/69 09/17/24 18:49 Pulse Oximetry 100 09/17/24 18:49 Temperature 97.5 F L 09/17/24 18:49 Pulse Rate 81 09/17/24 22:26 Respiratory Rate 16 09/17/24 22:26 Blood Pressure 122/62 09/17/24 22:26 Pulse Oximetry 98 09/17/24 22:26 MDM - Nausea/Vomiting/Diarrhea MDM Narrative Medical decision making narrative: Patient presenting with nausea vomiting that started was 16 hours ago, cannot keep anything down, though she has no abdominal pain. Has history of bile leak but it at that time she would had severe pain so I have low concern for that now. Labs obtained are within acceptable limits, she is given the prescribed nausea med but was still nauseous afterwards, I did therefore give a 2nd round with Reglan and Benadryl and on re-evaluation she feels much better, had also gotten 1 L fluids, return precautions provided and prescriptions for nausea medicine given, stable for discharge and patient agreeable to this. She was able to tolerate p.o. afterwards. On repeat evaluation no new pain or tenderness. No further emesis Lab Data 09/17/24 19:33 09/17/24 19:33 Labs: Lab Results 09/17/24 Range/Units 19:33 WBC 9.9 (4.5-10.0) K/mm3 RBC 4.71 (4.2-5.4) M/mm3 Hgb 14.2 (12.0-15.0) g/dL Hct 42.3 (37.0-47.0) % MCV 89.8 (80-100) fl MCH 30.1 (26-34) pg MCHC 33.6 (32-36) g/dl RDW 12.0 (11.5-14.5) % Plt Count 277 (150-375) k/mm3 MPV 11.1 H (7.4-10.4) fl Immature Gran % (Auto) 0.3 (0-0.5) % Neut % (Auto) 83.5 H (45.5-73.1) % Lymph % (Auto) 10.0 L (18.3-44.2) % Frio % (Auto) 6.0 (2.6-8.5) % Eos % (Auto) 0.1 (0-4.4) % Baso % (Auto) 0.1 L (0.2-1.2) % Lymph # (Auto) 0.99 (0.9-3.2) K/mm3 Frio # (Auto) 0.6 (0.1-0.6) K/mm3 Eos # (Auto) 0.0 (0-0.3) K/mm3 Baso # (Auto) 0.0 (0.0-0.1) K/mm3 Abs Immat Gran (auto) 0.03 (0.00-0.031) K/mm3 Absolute Neuts (auto) 8.2 H (1.3-6.7) K/mm3 Absolute Nucleated RBC 0.000 (0.0-0.012) K/mm3 Nucleated RBC % 0.0 (0.0-0.2) % Sodium 139 (137-145) mmol/L Potassium 3.9 (3.4-5.0) mmol/L Chloride 105 (98-107) mmol/L Carbon Dioxide 26 (22-30) mmol/L Anion Gap 8 (4-12) mmol/L BUN 16 (7-17) mg/dL Creatinine 0.72 (0.7-1.0) mg/dL Estim Creat Clear Calc Not Reportable Estimated GFR > 60 (59 - ) Glucose 107 (65-110) mg/dL Calcium 8.5 (8.4-10.2) mg/dL Total Bilirubin 0.8 (0.2-1.3) mg/dL AST 27 (14-36) U/L ALT 25 (6-35) U/L Alkaline Phosphatase 72 (38-126) U/L Total Protein 7.0 (6.3-8.2) g/dL Albumin 4.4 (3.5-5.1) g/dL Lipase 31 (23-300) U/L Discharge Plan Discharge Clinical Impression: Nausea and vomiting Patient Disposition: Home Condition: Stable Instructions: Acute Nausea and Vomiting (ED) Additional Instructions: Please follow up with your doctor; you can always return for any further issues. Patient Language: [place] Prescriptions: New famotidine 20 mg tablet 20 mg PO DAILY Qty: 30 0RF alum-mag hydroxide-simeth [Maalox Advanced] 200-200-20 mg/5 mL suspension 10 ml PO QID PRN (Reason: dyspepsia) Qty: 200 0RF Rx Instructions: administer between meals and at bedtime ondansetron 4 mg tablet,disintegrating 4 mg PO Q8H PRN (Reason: nausea and vomiting) Qty: 10 0RF No Action amoxicillin-pot clavulanate 875-125 mg tablet 1 tablet PO Q12H 10 Days Qty: 20 0RF prednisone 20 mg tablet 40 mg PO DAILY 5 Days Qty: 10 0RF sulfamethoxazole-trimethoprim 800-160 mg tablet 1 tablet PO Q12H Qty: 14 0RF multivitamin Tablet 1 tablet PO DAILY cyanocobalamin (vitamin B-12) 1,000 mcg Tablet 1,000 mcg PO DAILY ferrous sulfate [FeroSul] 325 mg (65 mg iron) tablet 325 mg PO DAILY hydrocodone-acetaminophen 5-325 mg tablet 1 tablet PO Q4H PRN (Reason: pain) Qty: 20 0RF oxycodone 5 mg tablet 5 mg PO Q4H PRN (Reason: pain) Qty: 14 0RF ibuprofen 800 mg tablet 800 mg PO TID PRN (Reason: pain) 7 Days Qty: 21 0RF tamsulosin [Flomax] 0.4 mg capsule 0.4 mg PO DAILY Qty: 30 0RF ondansetron 4 mg tablet,disintegrating 4 mg PO Q8H PRN (Reason: nausea and vomiting) Qty: 30 0RF oxycodone 5 mg tablet 5 mg PO Q4H PRN (Reason: pain) Qty: 14 0RF pantoprazole 40 mg tablet,delayed release (DR/EC) 40 mg PO QAM Qty: 90 0RF Follow-up/Referrals: Thor Fajardo MD [Primary Care Provider] - 2 Days
[2024-09-17 19:42] LABS: Basophils Percent Auto 0.1 % (0.2-1.2); Eosinophils Percent Auto 0.1 % (0-4.4); Hematocrit 42.3 % (37.0-47.0); Hemoglobin 14.2 g/dL (12.0-15.0); Immature Granulocyte Absolute 0.03 K/mm3 (0.00-0.031); Immature Granulocyte Percent A 0.3 % (0-0.5); Lymphocytes Absolute Auto 0.99 K/mm3 (0.9-3.2); Mean Corpuscular HGB Conc 33.6 g/dl (32-36); Mean Corpuscular Hemoglobin 30.1 pg (26-34); Mean Corpuscular Volume 89.8 fl (80-100); Mean Platelet Volume 11.1 fl (7.4-10.4); Monocytes Absolute Auto 0.6 K/mm3 (0.1-0.6); Neutrophils Absolute Auto 8.2 K/mm3 (1.3-6.7); Neutrophils Percent Auto 83.5 % (45.5-73.1); Platelet Count Result 277 k/mm3 (150-375); Red Blood Count 4.71 M/mm3 (4.2-5.4); White Blood Count 9.9 K/mm3 (4.5-10.0)
[2024-09-17 19:46] VITALS: BP 116/70; PULSE 78; RESP 15; O2SAT 96
[2024-09-17] MEDS: LACTATED RINGERS 1,000 ML 999 ML IV CONT (19:52)
[2024-09-17 19:54] LABS: Alanine Aminotransferase 25 U/L (6-35); Albumin Level 4.4 g/dL (3.5-5.1); Alkaline Phosphatase 72 U/L (38-126); Anion Gap 8 mmol/L (4-12); Aspartate Amino Transferase 27 U/L (14-36); Bilirubin,Total 0.8 mg/dL (0.2-1.3); Blood Urea Nitrogen 16 mg/dL (7-17); Calcium 8.5 mg/dL (8.4-10.2); Carbon Dioxide 26 mmol/L (22-30); Chloride 105 mmol/L (98-107); Estimated Glomerular Filt Rate > 60; Glucose 107 mg/dL (65-110); Lipase 31 U/L (23-300); Potassium 3.9 mmol/L (3.4-5.0); Sodium 139 mmol/L (137-145)
--- OUTSIDE RECORDS SUMMARY | 2024-09-17 20:33 | XMS_ITS | Referral Summary ---
Author Organization [facility] [address] Address [address] [place] [address] Care Team Providers Care Vp Strategic Planning Name Role Phone Thor Fajardo MD Primary Care Provider [phone] Sebastian Soto MD Unavailable [phone] Ena Rose MD Unavailable Tutu Hermosillo MD Unavailable [phone] Encounters Date Type Department Care Team Description 09/11/2024 [facility] Breast Risk Eligibility [facility] Cancer Risk Program [address] [place] [address] [place] [address] Adry Bae RN 08/08/2024 Orders Only [facility] [address] [place] [address] [place] [address] Mónica Cao NP BRCA2 gene mutation positive (Primary Dx); Family history of breast cancer 08/08/2024 Telephone [facility] [address] [place] [address] [place] [address] Yasmeen Quinn Scheduling Appointments (Return to [...] BRCA2 gene mutation positive 08/11/2022 Overview (12/29/2023): [employer] 2022: BRCA2 c.4243G>T p.E1415* pathogenic variant consistent with hereditary breast and ovarian cancer. Please view note from 07/29/2022 for specific cancer screening recommendations. Based on Shayla's family history, expanded genetic testing was offered at the conclusion of their initial visit. The [employer] Comprehensive panel analyzed 81 genes associated with [...] (02/11/2022): Added automatically from request for surgery [id number] Immunizations Immunization Administration Dates Next Due Influenza, [...] often do you attend chur ch or jainism services? Never 02/12/2022 Do you [...] on file Legal Sex Female 9:50 PM BUSINESS TRANSFORMATION MANAGER Gender Identity Not on file Sexual Orientation Not on file Last Filed Vital Signs Vital Sign Reading Time Taken Comments Blood Pressure 100/67 03/09/2024 2:16 PM BUSINESS TRANSFORMATION MANAGER Pulse 100 03/09/2024 2:16 PM BUSINESS TRANSFORMATION MANAGER Temperature 36.9 C (98.4 F) 01/03/2024 9:56 AM CDT Respiratory Rate 16 03/09/2024 2:16 PM BUSINESS TRANSFORMATION MANAGER Oxygen Saturation 95% 01/11/2023 9:39 AM CDT Inhaled Oxygen Concentration - - Weight 86.2 kg (190 lb) 02/13/2024 9:59 AM CDT Height 170.2 cm (5' 7 ) 02/13/2024 9:59 AM CDT Body Mass Index 29.76 02/13/2024 9:59 AM CDT Plan of Treatment Not on file Medical Devices Implanted Type Area Repertoire Manager Device Identifier Shelf Expiration Date Model / Serial / Lot Potential Partnership [employer] Mri Guided Rigid Deployment Device Cork Marker Breast Trimark Td 13-Mr - [id number] Implanted:Qty: 1 on 03/09/2024 at [facility] Clip [employer] Limited Partnership [id number] 08/01/2025 TRIMARK TD 13-MR / / [id number] Retention [employer] Vazquez Flexi-Stent 4fr 9cm Small Pigtail Without Flange Flexible 6545 - [id number] Implanted:Qty: 1 on 02/11/2022 by Sebastian Soto MD at [facility] Stent N/A: Pancreas [employer] 11/29/2026 [id number] / / [id number] [employer] Inc Cotton-Mims 10fr 7cm Taper Tip Guidewire Proximal Distal Flap [id number] - [id number] Implanted:Qty: 1 on 02/12/2022 by Sebastian Soto MD at [facility] Stent N/A: Bile Duct [employer] 08/03/2024 [id number] / / [id number] Procedures Procedure Name Priority Date/Time Associated Diagnosis Comments DIAGNOSTIC MAMMOGRAM BILATERAL W ANIBAL Schedule Routine, Read Routine (OP Routine) 06/20/2023 10:27 AM BUSINESS TRANSFORMATION MANAGER BRCA2 gene mutation positive from Last 3 Months or Most Recently Relevant to Health Maintenance Results * Diagnostic Mammogram Bilateral W Anibal (06/20/2023 10:27 AM BUSINESS TRANSFORMATION MANAGER) Anatomical Region Laterality Modality Breast Bilateral Mammography 06/20/2023 10:3 6 AM BUSINESS TRANSFORMATION MANAGER Impressions 06/20/2023 10:36 AM BUSINESS TRANSFORMATION MANAGER No mammographic evidence of malignancy. BI-RADS Category 2: Benign Findings Advise continued high-risk screening protocol with breast MRI due in 6 months and bilateral mammogram in 12 months. Findings and recommendations were communicated to the patient. Electronically signed by: Nannette Foreman MD Narrative 06/20/2023 10:36 AM BUSINESS TRANSFORMATION MANAGER EXAMINATION/TECHNIQUE: Bilateral Digital diagnostic mammogram including CAD [...] Relevant to Health [place] [address] [facility] CHOICE PLUS [facility] CHOICE PLUS [facility] CHOICE PLUS Advance Directives For more information, please contact: [phone] * Full Code (Latest Code Status on File) Date Activated Date Inactivated Comments 02/11/2022 3:22 PM 02/14/2022 4:17 PM Care Teams Vp Strategic Planning Relationship Specialty Start Date End Date Thor Fajardo MD [address] [place] [address] PCP - General Family Medicine 12/30/20 Sebastian Soto MD [address] [place] [address] Consulting Physician Gastroenterology 02/14/22 Ena Rose MD [address] [facility] [address] [place] [address] Consulting Physician Surgical Oncology 08/11/22 Tutu Hermosillo MD [address] [facility] [address] [place] [address] Consulting Physician Plastic Surgery 12/29/23
--- OUTSIDE RECORDS SUMMARY | 2024-09-17 20:33 | XMS_ITS | Clinical Summary ---
Author Organization [facility] [address] [place] [address] [address] [facility] [address] [place] [address] Care Team Providers Care Rn Surgical Name Role Phone Thor Fajardo MD Primary Care Provider [phone] Sebastian Soto MD Unavailable [phone] Ena Rose MD Unavailable [phone] Tutu Hermosillo MD Unavailable [phone] Allergies No known active allergies Medications FeroSuL [...] BRCA2 gene mutation positive 08/11/2022 Overview (12/29/2023): [employer] 2022: BRCA2 c.4243G>T p.E1415* pathogenic variant consistent with hereditary breast and ovarian cancer. Please view note from 07/29/2022 for specific cancer screening recommendations. Based on Shayla's family history, expanded genetic testing was offered at the conclusion of their initial visit. The [employer] Comprehensive panel analyzed 81 genes associated with [...] (02/11/2022): Added automatically from request for surgery [id number] Encounters Date Type Department Care Team Description 09/11/2024 [facility] Breast Risk Eligibility [facility] Cancer Risk Program [address] [place] [address] Adry Bae RN 08/08/2024 Orders Only [facility] [address] [place] [address] [address] [place] [address] Mónica Cao NP BRCA2 gene mutation positive (Primary Dx); Family history of breast cancer 08/08/2024 Telephone [facility] [address] [place] [address] [address] [place] [address] Yasmeen Quinn Scheduling Appointments (Return [...] Medical History Medical History Date Comments WPW (Upzfd-Gmtdeoeub-Wtfwa syndrome) GERD (gastroesophageal reflux disease) Kidney stones [...] any clubs o r organizations such as advent groups, unions, fraternal or athletic groups, or [...] on file Legal Sex Female 9:50 PM LOW HEEL BUILDER Gender Identity Not on file Sexual Orientation Not on file Obstetrics History Last Filed Vital Signs Vital Sign Reading Time Taken Comments Blood Pressure 100/67 03/09/2024 2:16 PM LOW HEEL BUILDER Pulse 100 03/09/2024 2:16 PM LOW HEEL BUILDER Temperature 36.9 C (98.4 F) 01/03/2024 9:56 AM CDT Respiratory Rate 16 03/09/2024 2:16 PM LOW HEEL BUILDER Oxygen Saturation 95% 01/11/2023 9:39 AM CDT [...] this topic Medical Devices Implanted Type Area Assistant Chief Nursing Officer Device Identifier Shelf Expiration Date Model / Serial / Lot [employer] Partnership [employer] Mri Guided Rigid Deployment Device Cork Marker Breast Trimark Td 13-Mr - [id number] Implanted:Qty: 1 on 03/09/2024 at [facility] [employer] Partnership [id number] 08/01/2025 TRIMARK TD 13-MR / / [id number] [employer] Inc Vazquez Flexi-Stent 4fr 9cm Small Pigtail Without Flange Flexible 6545 - [id number] Implanted:Qty: 1 on 02/11/2022 by Sebastian Soto MD at [facility] Stent N/A: Pancreas [employer] Inc 11/29/2026 [id number] / / [id number] [employer] Inc Cotton-Mims 10fr 7cm Taper Tip Guidewire Proximal Distal Flap [id number] - [id number] Implanted:Qty: 1 on 02/12/2022 by Sebastian Soto MD at [facility] Stent N/A: Bile Duct [employer] Inc 08/03/2024 [id number] / / [id number] Procedures Procedure Name Priority Date/Time Associated Diagnosis Comments DIAGNOSTIC MAMMOGRAM BILATERAL W ANIBAL Schedule Routine, Read Routine (OP Routine) 06/20/2023 10:27 AM LOW HEEL BUILDER BRCA2 gene mutation positive from Last 3 Months or Most Recently Relevant to Health Maintenance Results * Diagnostic Mammogram Bilateral W Anibal (06/20/2023 10:27 AM LOW HEEL BUILDER) Anatomical Region Laterality Modality Breast Bilateral Mammography 06/20/2023 10:3 6 AM LOW HEEL BUILDER Impressions 06/20/2023 10:36 AM LOW HEEL BUILDER No mammographic evidence of malignancy. BI-RADS Category 2: Benign Findings Advise continued high-risk screening protocol with breast MRI due in 6 months and bilateral mammogram in 12 months. Findings and recommendations were communicated to the patient. Electronically signed by: Nannette Foreman MD Narrative 06/20/2023 10:36 AM LOW HEEL BUILDER EXAMINATION/TECHNIQUE: Bilateral Digital diagnostic mammogram including CAD [...] Most Recently Relevant to Health Maintenance Insurance [facility] CHOICE PLUS [facility] CHOICE PLUS [place] [id number] [facility] CHOICE PLUS [place] [id number] Advance Directives For more information, please contact: [phone] * Full Code (Latest Code Status on File) Date Activated Date Inactivated Comments 02/11/2022 3:22 PM 02/14/2022 4:17 PM Care Teams Rn Surgical Relationship Specialty Start Date End Date Thor Fajardo MD [address] [place] [address] [facility] PCP - General Family Medicine 12/30/20 Sebastian Soto MD [address] [facility] [address] [place] [address] Consulting Physician Gastroenterology 02/14/22 Ena Rose MD [address] [facility] [address] [place] [address] Consulting Physician Surgical Oncology 08/11/22 Tutu Hermosillo MD [address] [facility] [address] [place] [address] Consulting Physician Plastic Surgery 12/29/23
--- OUTSIDE RECORDS SUMMARY | 2024-09-17 20:33 | XMS_ITS | Encounter Summary ---
Author Organization [facility] Address [address] [place] [address] Care Team Providers Care Regulator Assembler Name Role Phone Thor Fajardo MD Primary Care Provider [phone] Sebastian Soto MD Unavailable [phone] Ena Rose MD Unavailable [phone] Tutu Hermosillo MD Unavailable [phone] Reason for Visit * Reason Onset Date [...] (Late st Contact Info) Description 06/20/2023 Documentation [facility] [address] [facility] [address] [place] [address] Clarisse Martinez RN Vomiting (Responded [...] often do you attend chur ch or rastafarian services? Never 02/12/2022 Do you [...] on file Legal Sex Female 9:50 PM MOCK UP MAKER Gender Identity Not on file Sexual Orientation Not on file documented as of this encounter Plan of Treatment Not on file documented as of this encounter Visit Diagnoses Not on filedocumented in this encounter Care Teams Regulator Assembler Relationship Specialty Start Date End Date Thor Fajardo MD [address] [place] [address] PCP - General Family Medicine 12/30/20 Sebastian Soto MD [address] [facility] [address] [place] [address] Consulting Physician Gastroenterology 02/14/22 Ena Rose MD [address] [facility] [address] [place] [address] Consulting Physician Surgical Oncology 08/11/22 Tutu Hermosillo MD [address] [facility] [address] [facility] [address] [place] [address] Consulting Physician Plastic Surgery 12/29/23 documented as of this encounter
[2024-09-17] MEDS: diphenhydrAMINE HCl INJ 50 MG/ML VIAL 25 MG IV PUSH (20:57)
[2024-09-17] MEDS: METOCLOPRAMIDE HCL INJ 10 MG/2 ML VIAL IV PUSH (20:57)
[2024-09-17 22:26] VITALS: BP 122/62; PULSE 81; RESP 16; O2SAT 98
== END 2024-09-17 22:28 | disposition home or self-care (01) ==
PROVIDERS: Emergency Provider Emergency Medicine; PCP Family Medicine
DX: R11.2 Nausea with vomiting, unspecified (principal); I45.6 Pre-excitation syndrome; K21.9 Gastro-esophageal reflux disease without esophagitis; Z87.442 Personal history of urinary calculi; Z87.891 Personal history of nicotine dependence; Z90.49 Acquired absence of other specified parts of digestive tract
CPT/HCPCS: 36415; 80053; 83690; 85025; 96361; 96374; 96375; 99284; J1200; J2405; J2765; J7120

== ENCOUNTER 2024-12-16 18:21 | Emergency (ER) | payer OTHER, SELFPAY ==
--- NOTE | 2024-12-16 18:23 | ED_ITS ---
HPI - Wound/Laceration General Chief Complaint: Wound/Laceration Stated Complaint: wound laceration Time Seen by Provider: 12/16/24 18:23 patient presents to the Express [facility] brought by spouse with complaints cutting her right middle finger on a mandolin slicer. Patient noted this was right near the fingernail and was unsure if she needed to do anything with this. Patient reports this is very tender. She no longer bleeding after applied pressure. Denies numbness or tingling in hands or fingers. unsure of last tetanus vaccination. Related Data Home Medications ?Medication ?Instructions ?Recorded ?Confirmed ?Last Taken ?Type cyanocobalamin (vitamin B-12) 1,000 mcg PO DAILY 11/29/22 11/29/22 Unknown History 1,000 mcg tablet ferrous sulfate 325 mg (65 mg 325 mg PO DAILY 11/29/22 11/29/22 Unknown History iron) tablet (FeroSul) Allergies Allergy/AdvReac Type Severity Reaction Status Date / Time No Known Allergies Allergy Verified 12/16/24 18:31 Review of Systems Constitutional: Constitutional: Reports as per HPI, Denies chills, Denies fatigue, Denies fever(s) and Denies weakness Eyes: Eyes: Reports no additional eye complaints ENT: Reports system reviewed and no additional complaints, except as documented Cardiovascular: Cardiovascular: Reports no additional cardiovascular complaints Respiratory: Respiratory: Reports no additional respiratory complaints Gastrointestinal: Gastrointestinal: Reports no additional gastrointestinal complaints Genitourinary: Genitourinary: Reports no additional female genitourinary complaints Musculoskeletal: Musculoskeletal: Reports as per HPI, Denies arthralgias, Denies joint swelling and Denies muscle cramps Integumentary/Breasts: Skin/Breast: Reports as per HPI, Denies pruritus, Denies erythema and Denies rash Comments: Laceration right middle finger Neurologic: Reports as per HPI, Denies numbness and Denies weakness Psychiatric: Psychiatric: Reports no additional psychiatric complaints Endocrine: Endocrine: Reports no additional endocrine complaints Hematologic/Lymphatic: Hematologic/Lymphatic: Reports no additional hematologic/lymphatic complaints Allergic/Immunologic: Allergic/Immunologic: Reports no additional allergic/immunologic complaints PMF Past Medical History Medical History Leukocytosis RUQ pain WPW (Attzs-Kmcjoabox-Dfhto syndrome) GERD (gastroesophageal reflux disease) Kidney stones Surgical History Surgical History History of biliary duct stent placement and migratory stent placement in the pancreatic duct 02/12/2022 History of cholecystectomy Laparoscopic cholecystectomy 02/05/2022 History of extraction of renal calculus Extraction of 8 ureteral stones, left stent placement 10/2021 History of removal of ureteral stent 09/2021 History of D&C 2012 History of cardiac radiofrequency ablation 1997 S/P laparoscopic cholecystectomy H/O cardiac radiofrequency ablation History of lithotripsy H/O dilation and curettage Family History Family History Father Diabetes mellitus Malignant neoplasm of prostate Throat cancer Mother Breast cancer Grandparent Bile duct cancer Grandparent Stomach cancer Grandparent Leukemia Grandparent Stomach cancer Social History Social History Years smoked: 6 Smoking status: Former smoker Smoking end date: 05/02/19 Additional smoking assessment comments: Had smoked 1-3 cigarettes per day for 10 years Alcohol intake: former Alcohol use details: One drink rarely- perhaps one every 6 months Substance use: never Substance use type: does not use Other substance usage details: Occasional marijuana use. 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 Gender identity (if verbalized by the patient): Female Sexual Orientation (if Verbalized by the Patient): Straight or Heterosexual Spiritual care concerns: No Exam Const: General: healthy appearing and no acute distress Nutritional Appearance: well nourished Orientation/consciousness: patient oriented x3 Limitations: no limitations Resp: Effort & Inspection: normal respiratory effort Cardio: Rate: regular rate Neuro: General: patient oriented x3 and moves all extremities Speech: normal speech Gait exam (Neuro): Normal gait present Extrem: Right upper extremity: Extremity exam: right hand abnormal to inspection, normal capillary refill, neuromotor exam normal, neurosensory exam normal, tendon exam normal, tenderness of the 3rd digit ( distal and over laceration), normal ROM of fingers, no swelling and laceration ( distal right 3rd digit); ROM of fingers normal, no unusual warmth, no ecchymosis, no crepitus, no foreign bodies and no puncture wound Psych: Mental Status: mental status grossly normal Affect: normal affect Attitude: cooperative Course Course Level of Care: Express Care Visit Vital Signs Vital signs: Vital Signs Temperature 97.9 F 12/16/24 18:31 Pulse Rate 69 12/16/24 18:31 Respiratory Rate 18 12/16/24 18:31 Blood Pressure 110/65 12/16/24 18:31 Pulse Oximetry 100 12/16/24 18:31 Oxygen Delivery Room Air 12/16/24 18:31 Temperature 97.9 F 12/16/24 18:31 Pulse Rate 69 12/16/24 18:31 Respiratory Rate 18 12/16/24 18:31 Blood Pressure 110/65 12/16/24 18:31 Pulse Oximetry 100 12/16/24 18:31 Oxygen Delivery Room Air 12/16/24 18:31 Procedures Laceration Laceration 1: Date: 12/16/24 Time: 19:02 Site: upper extremity Side (If applicable): right Size (cm): 1.5 Description: clean Depth: simple, single layer Local Anesthetic: none Pre-repair: wound explored ====== Skin Level ====== Skin layer closed with: dermabond ====== Subcutaneous Layer ====== ====== Muscle Layer ====== ====== Tendon Layer ====== MDM - Wound/Laceration MDM Narrative Medical decision making narrative: spoke with patient about closure options given that the area is no longer bleeding and this is a minimal laceration will use glue to achieve closure. Discharge instructions reviewed with patient, as well as provided in writing per nursing staff. The instructions also include specific and strict return/GO TO THE ER as well as f/u information. All questions have been answered, and the patient deny any further questions with discharge and discharge plan. Differential Diagnosis Differential diagnosis: Likely laceration, abscess, abrasion and avulsion of skin Medical Records Attestation: I reviewed the patient's medical records. Discharge Plan Discharge Clinical Impression: Laceration of middle finger of right hand without complication Patient Disposition: Home Condition: Stable Instructions: Antibiotic Form Additional Instructions: we have used Dermabond/ derma flex wound glue to closure or laceration. Do not get this wet for 24 hours then may shower and wash hands as normal. Do not do dishes or soak this finger in water until wound glue falls off. This will follow up on its own within 5-10 days when area has healed. Do not pick at the area. Do not apply any ointments, powder, lotions, or medications over the wound glue. May cover if desired But not necessary. Watch for signs and symptoms of infection including increased pain to the area, redness around the laceration, colored drainage, or swelling. Patient Language: Mongolian Prescriptions: No Action cyanocobalamin (vitamin B-12) 1,000 mcg Tablet 1,000 mcg PO DAILY ferrous sulfate [FeroSul] 325 mg (65 mg iron) tablet 325 mg PO DAILY pantoprazole 40 mg tablet,delayed release (DR/EC) 40 mg PO QAM Qty: 90 0RF Follow-up/Referrals: Thor Fajardo MD [Primary Care Provider] - Time of Disposition: 19:01
--- OUTSIDE RECORDS SUMMARY | 2024-12-16 18:23 | XMS_ITS | Patient Health Record ---
Author Organization [facility] Address [address] [place] [address] Care Team Providers Care Art Manager Name Role Phone Scotty GEORGE, Thor Primary Care Provider Unavailab curtis DOMINGUEZ MD, DUC Unavailable Piotr Hughes MD Unavailable Unavailable Reason For Referral No Information Problems Problem Type SNOMED Code ICD Code Onset Dates Problem Status W/U Status Risk Notes Problem Perforation of bile duct (78145574) Perforation of bile duct (K83.2) Active confirmed Plan Of Treatment Pending Test Test Name Order Date Endoscopic Retrograde Cholangiopancreato graphy (ERCP) 02/26/2022 Insurance Providers Payer Name Payer Address Payer Phone Subscriber Number Group Number Insured Name Patient Relationship to Insured Coverage Start Date Coverage End Date [facility] [address] [place], [place] [id number] Shayla Curry Self - patient is the insured
--- OUTSIDE RECORDS SUMMARY | 2024-12-16 18:23 | XMS_ITS | Clinical Summary ---
Author Organization [facility] [address] Address [address] [place] [address] Care Team Providers Care Financial Quantitative Analyst Name Role Phone Thor Fajardo MD Primary Care Provider [phone] Sebastian Soto MD Unavailable [phone] Ena Rose MD Unavailable Tutu Hermosillo MD Unavailable [phone] Allergies No known active allergies Medications FeroSuL [...] BRCA2 gene mutation positive 08/11/2022 Overview (12/29/2023): Concuity 2023: BRCA2 c.4243G>T p.E1415* pathogenic variant consistent with hereditary breast and ovarian cancer. Please view note from 07/29/2022 for specific cancer screening recommendations. Based on Shayla's family history, expanded genetic testing was offered at the conclusion of their initial visit. The [facility] Comprehensive panel analyzed 81 genes associated with [...] (02/11/2022): Added automatically from request for surgery [id number] Immunizations Immunization Administration Dates Next Due Influenza, Quadrivalent, Split, Intramuscular ,01/20/2019 Influenza, Quadrivalent, Spl it, Preservative Free, Intramuscular 02/14/2022,01/11/2017 Surgical History Surgery Date Site/Laterality Comments CARDIAC ELECTROPHYSIOLOGY STUDY AND ABLATION DILATION AND CURETTAGE OF UTERUS WISDOM TOOTH EXTRACTION IR CHOLANGIOGRAM THROUGH EXISTING CATHETER 02/12/2022 N/A BREAST BIOPSY 07/01/2022 Left BREAST BIOPSY 03/09/2024 Right Medical History Medical History Date Comments WPW (Ejuae-Wdgrscjhr-Pemxc syndrome) GERD (gastroesophageal reflux disease) Kidney stones [...] Cessation:Counseling Given: Not Answered Social Connection and Isolation Panel Answer Date Recorded In a typical week, [...] file Legal Sex Female 9:50 PM PROPERTY TECHNICIAN Gender Identity Not on file Sexual Orientation Not on file Obstetrics History Last Filed Vital Signs Vital Sign Reading Time Taken Comments Blood Pressure 100/67 03/09/2024 2:16 PM PROPERTY TECHNICIAN Pulse 100 03/09/2024 2:16 PM PROPERTY TECHNICIAN Temperature 36.9 C (98.4 F) 01/03/2024 9:56 AM CDT Respiratory Rate 16 03/09/2024 2:16 PM PROPERTY TECHNICIAN Oxygen Saturation 95% 01/11/2023 9:39 AM CDT Inhaled Oxygen Concentration - - Weight 86.2 kg (190 lb) 02/13/2024 9:59 AM CDT Height 170.2 cm (5' 7) 02/13/2024 9:59 AM CDT Body Mass Index 29.76 02/13/2024 9:59 AM CDT Plan of Treatment Health Maintenance Due Date Last Done Comments Cervical Cancer Screening 1985 Depression Screening 1985 Hepatitis C Screening 1985 DTaP/Tdap/Td Vaccine (1 - Tdap) 1996 Varicella Vaccines (1 of 2 - 13+ 2-dose series) 1998 Hepatitis B Screening 07/18/2003 Regular Well Visit/Exam 18-64 07/18/2003 HPV Vaccines (1 - 3-dose SCDM series) 2012 Covid-19 Vaccine (3 - season) 2024 07/12/2020, 06/14/2020 Breast Cancer Screening-Mammogram 06/20/2024 06/20/2023, 06/24/2022 Influenza Vaccine (#1) 2024 2, 02/02/2020, 01/20/2019, Additional history exists Pneumococcal vaccine <65 Aged Out No longer eligible based on patient's age to complete this topic Medical Devices Implanted Type Area Cloth Examiner Machine Device Identifier Shelf Expiration Date Model / Serial / Lot [employer] [facility] Trimark Mri Guided Rigid Deployment Device Cork Marker Breast Trimark Td 13-Mr - [id number] Implanted:Qty: 1 on 03/09/2024 at [facility] Clip Restore [employer] [id number] 08/01/2025 TRIMARK TD 13-MR / / [id number] [employer] Vazquez Flexi-Stent 4fr 9cm Small Pigtail Without Flange Flexible 6545 - [id number] Implanted:Qty: 1 on 02/11/2022 by Sebastian Soto MD at [facility] Stent N/A: Pancreas [employer] 11/29/2026 [id number] / / [id number] [employer] Cotton-Mims 10fr 7cm Taper Tip Guidewire Proximal Distal Flap [id number] - [id number] Implanted:Qty: 1 on 02/12/2022 by Sebastian Soto MD at [facility] Stent N/A: Bile Duct [employer] 08/03/2024 [id number] / / [id number] Procedures Procedure Name Priority Date/Time Associated Diagnosis Comments DIAGNOSTIC MAMMOGRAM BILATERAL W ANIBAL Schedule Routine, Read Routine (OP Routine) 06/20/2023 10:27 AM PROPERTY TECHNICIAN BRCA2 gene mutation positive from Last 3 Months or Most Recently Relevant to Health Maintenance Results * Diagnostic Mammogram Bilateral W Anibal (06/20/2023 10:27 AM PROPERTY TECHNICIAN) Anatomical Region Laterality Modality Breast Bilateral Mammography 06/20/2023 10:3 6 AM PROPERTY TECHNICIAN Impressions 06/20/2023 10:36 AM PROPERTY TECHNICIAN No mammographic evidence of malignancy. BI-RADS Category 2: Benign Findings Advise continued high-risk screening protocol with breast MRI due in 6 months and bilateral mammogram in 12 months. Findings and recommendations were communicated to the patient. Electronically signed by: MD Parisa Malagon 06/20/2023 10:36 AM PROPERTY TECHNICIAN EXAMINATION/TECHNIQUE: Bilateral Digital diagnostic mammogram including [...] left upper central breast middle 3rd. Ena Roes MD IMG MAMMO PROCEDURES Final Result from Last 3 Months or Most Recently Relevant to Health Maintenance Insurance [facility]PP[facility] Address: [place] [address] [facility] Address: [address] [address] [place] [address] [facility]PP[facility] Address: [address] [place] [address] Advance Directives For more information, please contact: [phone] * Full Code (Latest Code Status on File) Date Activated Date Inactivated Comments 02/11/2022 3:22 PM 02/14/2022 4:17 PM Care Teams Financial Quantitative Analyst Relationship Specialty Start Date End Date Thor Fajardo MD [address] [place] [id number] PCP - General Family Medicine 12/30/20 Sebastian Soto MD [address] [place] [address] Consulting Physician Gastroenterology 02/14/22 Ena Rose MD [address] [place] [address] Consulting Physician Surgical Oncology 08/11/22 Tutu Hermosillo MD [address] [facility] [address] [place] [address] Consulting Physician Plastic Surgery 12/29/23
--- OUTSIDE RECORDS SUMMARY | 2024-12-16 18:23 | XMS_ITS | Encounter Summary ---
Author Organization [facility] Address [address] [place] [address] Care Team Providers Care Youth Services Librarian Name Role Phone Thor Fajardo MD Primary Care Provider [phone] Sebastian Soto MD Unavailable Ena Rose MD Unavailable Tutu Hermosillo MD Unavailable [phone] Reason for Visit * Reason Onset Date [...] Info) Description 06/20/2023 Documentation [facility] [address] [place] [address] Clarisse Martinez RN Vomiting (Responded [...] 10/08/2019 Smokeless Tobacco: Never Social Connection and Isolation Panel Answer Date Recorded In a typical week, how many times do you talk on the phone with family, friends, or neighbors? More than three times a week 02/12/2022 How often do you get togethe r with friends or relatives? Twice a week 02/12/2022 How often do you attend chur or pentecostal services? 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 Gender Identity Not on file Sexual Orientation Not on file documented as of this encounter Plan of Treatment Not on file documented as of this encounter Visit Diagnoses Not on filedocumented in this encounter Care Teams Youth Services Librarian Relationship Specialty Start Date End Date Thor Fajardo MD [address] [place] [address] PCP - General Family Medicine 12/30/20 Sebastian Soto MD [address] [facility] [address] [place] [address] Consulting Physician Gastroenterology 02/14/22 Ena Rose MD [address] [facility] [address] [place] [address] Consulting Physician Surgical Oncology 08/11/22 Tutu Hermosillo MD [address] [facility] [address] [place], [place] [id number] Consulting Physician Plastic Surgery 12/29/23 documented as of this encounter
--- OUTSIDE RECORDS SUMMARY | 2024-12-16 18:23 | XMS_ITS | Clinical Summary ---
Author Organization [facility] Address [address] [place] [address] Phone Care Team Providers Care Bee Tender Name Role Phone Unavailable Primary Care Provider Unavailabl e Social History Tobacco Use Types Packs/Day Years Used Date Smoking Tobacco: Never Assessed Comments Unknown Sex and Gender Information Value Date Recorded Sex Assigned at Not on file Legal Sex Female 10:12 AM MST Gender Identity Not on file Sexual Orientation Not on file Plan of Treatment Upcoming Encounters Date Type Department Care Team (Late st Contact Info) Description 12/19/2024 11:20 AM CDT Office Visit [facility] [address] [place] [address] Simona Hdez PA [address] [place] [address] Health Maintenance Due Date Last Done Comments Pneumococcal PPSV23 Highest Risk Adult (1 of 3 - PCV13) 2004 Influenza Vaccine (#1) 2024 02/14/2022, 2016
[2024-12-16 18:31] VITALS: BP 110/65; PULSE 69; RESP 18; TEMP 36.6; O2SAT 100
[2024-12-16] MEDS: TETANUS,DIPHTHERIA,AC PERTUSSIS ADULT (0.5 ML) BOOSTRIX IM (18:52)
== END 2024-12-16 19:03 | disposition home or self-care (01) ==
PROVIDERS: Emergency Provider Nurse Practitioner Family; PCP Family Medicine
DX: S61.212A Laceration without foreign body of right middle finger without damage to nail, initial encounter (principal); W27.4XXA Contact with kitchen utensil, initial encounter; Z23 Encounter for immunization; Z87.891 Personal history of nicotine dependence; I45.6 Pre-excitation syndrome; K21.9 Gastro-esophageal reflux disease without esophagitis
CPT/HCPCS: 12001; 90471; 90715; 99212; G0463